=== PATIENT | female | born 1965 | race Caucasian/White ===

== ENCOUNTER → 2018-01-14 | Outpatient (CLI) | payer BC ==
--- NOTE | 2018-01-14 15:26 | P.HPBAR ---
Bariatric H&P - History & Physicial H&P Date: 01/14/18 History & Physicial: Visit/CC: Patient initial contact: Initial weight: Initial weight in pounds: Height: Initial BMI: Last weight: Current weight: Current weight in pounds: Current BMI: [place] body weight (based on NIH guidelines): Excess body weight loss: The patient is a 52 year-old F who presents for Bariatric Assessment. HPI: She has severe reflux and is looking into the gastric bypass. Her BMI is over 50. Highest weight 330 pounds. She has completed her colonoscopy. She reports no gallbladder. She has lost moderate weight with dieting. She had polyps of her colon. No family history of diabetes. Mother and sister with obesity as well. She has not an EGD. She has lower back pain and she passes kidney stones and drinks lemonade as a result. No stomach or esophageal cancer. Breast cancer is in her family. She had a mammogram. She has sleep apnea. She is pre-diabetic. PLAN: 1. [facility] [place]. 2. Plan for surgery in May 2018. Past Medical History Past Medical History: No Reported History History of Any Multi-Drug Resistant Organisms: MRSA Year Discovered:: eight years ago MDRO Source:: work place equipment Past Surgical History: Adenoidectomy, Cholecystectomy, Hernia Repair, Hysterectomy, Orthopedic Surgery, Tonsillectomy Additional Past Surgical History / Comment(s): bilateral meniscus repairs umbilical hernia repair Past Anesthesia/Blood Transfusion Reactions: No Reported Reaction Past Psychological History: Depression Smoking Status: Former smoker Past Alcohol Use History: None Reported Additional Past Alcohol Use History / Comment(s): quit smoking 8 years ago Past Drug Use History: None Reported Bariatric Checklist Checklist: Plan: Checklist: EGD: 1. Hiatal hernia: 2. H. Pylori: HgbA1c: Vitamin D: Smoking: Former smoker Primary care physician referral: Psychiatry clearance: Cardiology clearance: Sleep study: Diet journal: VTE risk score: VTE risk level: Rehab needs at discharge:
[2018-01-14 15:28] VITALS: BP 114/81; PULSE 88; RESP 20; TEMP 97.9; BMI 50.9
[2018-01-14 16:54] LABS: HCT 41.8 % (34.0-46.0); HGB 13.5 gm/dL (11.4-16.0); MCH 29.1 pg (25.0-35.0); MCHC 32.3 g/dL (31.0-37.0); MCV 90.3 fL (80.0-100.0); Mean Platelet Volume 7.5; Platelet Count 288 k/uL (150-450); RBC 4.63 m/uL (3.80-5.40); RDW 13.9 % (11.5-15.5); WBC 9.7 k/uL (3.8-10.6)
[2018-01-14 17:09] LABS: ALT 66 U/L (9-52); AST 59 U/L (14-36); Albumin 4.3 g/dL (3.5-5.0); Alkaline Phosphatase 132 U/L (38-126); Anion Gap 11 mmol/L; Blood Urea Nitrogen 17 mg/dL (7-17); Calcium 10.2 mg/dL (8.4-10.2); Carbon Dioxide 25 mmol/L (22-30); Chloride 106 mmol/L (98-107); Cholesterol 188 mg/dL (<200); Glucose 100 mg/dL (74-99); HDL Cholesterol 43 mg/dL (40-60); LDL Cholesterol,Calculated 112 mg/dL (0-99); Potassium 4.5 mmol/L (3.5-5.1); Sodium 142 mmol/L (137-145); Total Bilirubin 0.5 mg/dL (0.2-1.3); Total Protein 7.5 g/dL (6.3-8.2); Triglycerides 163 mg/dL (<150)
[2018-01-15 00:47] LABS: Iron Saturation 14.08 (12.00-45.00)
[2018-01-15 00:54] LABS: Vitamin D 25 Hydroxy 37.5 ng/mL (30.0-100.0)
[2018-01-15 00:58] LABS: Folate, Serum 12.3 ng/mL
[2018-01-15 04:00] LABS: Hemoglobin A1C 6.5 % (4.0-6.0)
== END | disposition home or self-care (01) ==
LOC: BARWHC3 14:43
PROVIDERS: ATTEND Surgery Plastic and Reconstructive Surgery
DX: E66.01 Morbid (severe) obesity due to excess calories (principal); E88.81 Metabolic syndrome and other insulin resistance; E44.0 Moderate protein-calorie malnutrition; E55.9 Vitamin D deficiency, unspecified; I11.9 Hypertensive heart disease without heart failure; K21.9 Gastro-esophageal reflux disease without esophagitis; G47.30 Sleep apnea, unspecified; Z68.43 Body mass index [BMI] 50.0-59.9, adult; Z87.891 Personal history of nicotine dependence; Z90.89 Acquired absence of other organs; Z90.49 Acquired absence of other specified parts of digestive tract; Z90.710 Acquired absence of both cervix and uterus; Z98.890 Other specified postprocedural states
CPT/HCPCS: 36415; 80053; 80061; 82306; 82607; 82728; 82746; 83036; 83540; 83550; 84425; 84443; 85027; 93005; 99201

== ENCOUNTER → 2018-03-10 | Day surgery (SDC) | payer BC ==
[2018-03-05 15:05] VITALS: BMI 52.4
--- NOTE | 2018-03-09 22:45 | P.GSHP ---
History of Present Illness H&P Date: 03/10/18 CHIEF COMPLAINT: GERD HISTORY OF PRESENT ILLNESS: The patient is a 53-year-old female who presents reports gastroesophageal reflux disease. Upper endoscopy was offered for further evaluation and management. PAST MEDICAL HISTORY: Please see list. PAST SURGICAL HISTORY: Please see list. MEDICATIONS: Please see list. ALLERGIES: Please see list. SOCIAL HISTORY: No illicit drug use FAMILY HISTORY: No reports of Crohn disease or ulcerative colitis. REVIEW OF ORGAN SYSTEMS: CONSTITUTIONAL: No reports of fevers or chills. GI: Denies any blood in stools or constipation. PHYSICAL EXAM: VITAL SIGNS: Stable GENERAL: Well-developed and pleasant in no acute distress. HEENT: No scleral icterus. Extraocular movements grossly intact. Moist buccal mucosa. NECK: Supple without lymphadenopathy. CHEST: Unlabored respirations. Equal bilateral excursions. CARDIOVASCULAR: Regular rate and rhythm. Distal 2+ pulses. ABDOMEN: Soft, nondistended. MUSCULOSKELETAL: No clubbing, cyanosis, or edema. ASSESSMENT: 1. Gastroesophageal reflux disease PLAN: 1. Recommend proceeding with an upper endoscopy Past Medical History Past Medical History: GERD/Reflux, Sleep Apnea/CPAP/BIPAP Additional Past Medical History / Comment(s): CHRONIC SINUSITIS, STATES CURRENT RUPTURED RT EAR DRUM, HX KIDNEY STONES, COLON POLYPS, History of Any Multi-Drug Resistant Organisms: MRSA Date of last positivie culture/infection: 2009 MDRO Source:: RIGHT LEG Past Surgical History: Adenoidectomy, Cholecystectomy, Hernia Repair, Hysterectomy, Orthopedic Surgery, Tonsillectomy Additional Past Surgical History / Comment(s): bilateral meniscus repairs, umbilical hernia repair, LEFT EAR SX Past Anesthesia/Blood Transfusion Reactions: Postoperative Nausea & Vomiting ( PONV) Smoking Status: Former smoker - Past Family History Mother Family Medical History: No Reported History Medications and Allergies Home Medications Medication Instructions Recorded Confirmed Type Cholecalciferol [Vitamin D3] 1,000 unit PO DAILY 10/26/17 03/05/18 History Multivitamins, Thera [Multivitamin 1 tab PO DAILY 10/26/17 03/05/18 History (formulary)] Soy Isofla/Blk Cohosh/Mag Bark 155 mg PO DAILY 10/26/17 03/05/18 History [Estroven 155 mg Capsule] Albuterol Sulfate [Proair Hfa] 1 puff INHALATION DIRECTED 01/15/18 03/05/18 History Ibuprofen [Motrin Ib] 200 mg PO Q6H PRN 03/05/18 03/05/18 History Allergies Allergy/AdvReac Type Severity Reaction Status Date / Time cephalexin [From Keflex] Allergy Swelling Verified 03/05/18 14:58 morphine Allergy Dyspnea Verified 03/05/18 14:58
[~2018-03-10] MED LIST: LACTATED RINGERS 1,000 ML IV SCH; LIDOCAINE 1% INJ 10MG/ML (20 ML MDV) ONE; PROPOFOL 10 MG/ML 20 ML VIAL IV ONE
[2018-03-10 08:24] VITALS: RESP 16; TEMP 98.1
--- NOTE | 2018-03-10 09:12 | P.PCN ---
Date of Procedure: 03/10/18 Description of Procedure: PREOPERATIVE DIAGNOSIS: Gastroesophageal reflux disease. Morbid obesity. POSTOPERATIVE DIAGNOSIS: Morbid obesity. Gastritis. Gastroesophageal reflux disease. OPERATION: Esophagogastroduodenoscopy with biopsies along antrum. SURGEON: Oksana Matamoros MD ANESTHESIA: MAC. INDICATIONS: The patient is a 53-year-old female who presents with a history of reflux disease. Benefits and risks of the procedure were described. Informed consent was obtained. DESCRIPTION: The patient was brought into the endoscopy suite and laid in the left lateral decubitus position. An Olympus gastroscope was passed along the posterior oropharynx down to the distal esophagus where the squamocolumnar junction was encountered at 40 cm from the incisors. The stomach was entered and no bile reflux was found. Additional findings are listed below. Biopsies with cold forceps were obtained of the antrum. The first through third portion of the duodenum was examined and unremarkable. Retroflexion of the scope confirmed Hill grade 2 lower esophageal valve. The squamocolumnar junction demonstrated LA grade B erosive esophagitis. The stomach was desufflated. The patient tolerated the procedure well. FINDINGS: Squamocolumnar junction 40 cm from the incisors. Diaphragmatic hiatus at 40 cm. Hill grade 2 lower esophageal valve. LA grade B erosive esophagitis. No active duodenitis. Chronic gastritis without bleed RECOMMENDATIONS: Upper endoscopy as needed. Plan - Discharge Summary New Discharge Prescriptions: No Action Cholecalciferol [Vitamin D3] 1,000 unit PO DAILY Multivitamins, Thera [Multivitamin (formulary)] 1 tab PO DAILY Soy Isofla/Blk Cohosh/Mag Bark [Estroven 155 mg Capsule] 155 mg PO DAILY Albuterol Sulfate [Proair Hfa] 1 puff INHALATION DIRECTED Ibuprofen [Motrin Ib] 200 mg PO Q6H PRN PRN Reason: Pain Discharge Medication List Cholecalciferol [Vitamin D3] 1,000 unit PO DAILY 10/26/17 [History] Multivitamins, Thera [Multivitamin (formulary)] 1 tab PO DAILY 10/26/17 [History ] Soy Isofla/Blk Cohosh/Mag Bark [Estroven 155 mg Capsule] 155 mg PO DAILY [History] Albuterol Sulfate [Proair Hfa] 1 puff INHALATION DIRECTED 01/15/18 [History] Ibuprofen [Motrin Ib] 200 mg PO Q6H PRN 03/05/18 [History]
[2018-03-10 09:35] VITALS: BP 114/65; PULSE 88
== END | disposition home or self-care (01) ==
LOC: ORWHC2ENDO 08:07
PROVIDERS: ATTEND Surgery Plastic and Reconstructive Surgery
DX: K29.50 Unspecified chronic gastritis without bleeding (principal); K21.0 Gastro-esophageal reflux disease with esophagitis; K22.10 Ulcer of esophagus without bleeding; E66.01 Morbid (severe) obesity due to excess calories; Z68.43 Body mass index [BMI] 50.0-59.9, adult; G47.33 Obstructive sleep apnea (adult) (pediatric); J45.909 Unspecified asthma, uncomplicated; J32.9 Chronic sinusitis, unspecified; Z99.89 Dependence on other enabling machines and devices; Z79.899 Other long term (current) drug therapy; Z88.1 Allergy status to other antibiotic agents; Z88.5 Allergy status to narcotic agent; Z90.49 Acquired absence of other specified parts of digestive tract; Z90.710 Acquired absence of both cervix and uterus; Z87.442 Personal history of urinary calculi; Z86.14 Personal history of Methicillin resistant Staphylococcus aureus infection; Z87.891 Personal history of nicotine dependence
CPT/HCPCS: 88305; 43239; J2001; J2704

== ENCOUNTER → 2018-05-24 | Outpatient (CLI) | payer BC ==
[2018-05-24 14:09] VITALS: BMI 53.4
== END | disposition home or self-care (01) ==
LOC: BARWHC3 08:24
PROVIDERS: ATTEND Surgery Plastic and Reconstructive Surgery
DX: E66.01 Morbid (severe) obesity due to excess calories (principal); Z68.43 Body mass index [BMI] 50.0-59.9, adult
CPT/HCPCS: 97804

== ENCOUNTER → 2018-10-13 | Outpatient (CLI) | payer BC ==
[2018-10-13 16:29] VITALS: BP 147/87; PULSE 78; TEMP 97.8; BMI 54.6
--- NOTE | 2018-10-13 17:32 | P.PN ---
Subjective Progress Note Date: 10/13/18 DATE OF SERVICE: 10/13/2018 CHIEF COMPLAINT: Morbid obesity HISTORY OF PRESENT ILLNESS: Neto Hickman is a 53-year-old female who comes in long-standing morbid obesity. She has severe gastroesophageal reflux and is looking into the gastric bypass. She has completed medical supervised weight loss, psychological assessment including medical risk assessment. She comes in with kidney stones. Her BMI is over 55. She has history of kidney stones. Her liver enzymes is high. She is doing overall well. At height of 5 feet 5 inches, her ideal body weight is 149 pounds. She comes in 328 pounds from 305 pounds, 9 months ago. Her body mass index is 50.9 up to 54.7. She has gained 22 pounds. She is 179 pounds overweight. PAST MEDICAL HISTORY: 1. Morbid obesity due to excess calories 2. Body mass index of 55.0 initial 3. Osteoarthritis of the knees. 4. Osteoarthritis of the hips. 5. Osteoarthritis of the lower back. 6. Obstructive sleep apnea. 8. Gastroesophageal reflux disease. 9. Depressive disorder 10. MRSA infection 11. History of colon polyps. 12. History of kidney stone PAST SURGICAL HISTORY: 1. Cholecystectomy 2. Adenoidectomy 3. Hysterectomy 4. Tonsillectomy 5. Umbilical hernia repair 6. Bilateral meniscus repair HOME MEDICATIONS: 1. Pro-air 2. Multivitamin 3. Ibuprofen 4. Vitamin D ALLERGIES: 1. Cephalexin 2. Morphine SOCIAL HISTORY: Past tobacco use. FAMILY HISTORY: No family history of ulcerative colitis disease or Crohn's disease. Family history of morbid obesity. No lupus in the family. No reports of stomach or esophageal cancer. Family history of diabetes type 2. REVIEW OF ORGAN SYSTEMS: CONSTITUTIONAL: At height of 5 feet 5 inches, her ideal body weight is 149 pounds. Highest weight 330 pounds. Previous BMI 55.0. HEENT: Denies any active troubles with vision or hearing. No troubles with swallowing. ENDOCRINE: No diabetes. No hypothyroidism. CARDIOVASCULAR: No reports of palpitations or heart attacks or chest pain. RESPIRATORY: Has daytime somnolence. Has asthma. GI: Denies any bright red blood per rectum. MUSCULOSKELETAL: Has lower back pain and joint pain. Has osteoarthritis of the knees. : Has kidney stones. NEURO: No headaches. No seizure disorders. PSYCH: No depression or suicidal ideation. RHEUMATOLOGIC: No lupus. No rheumatoid arthritis. HEMATOLOGIC: Denies any abnormal bleeding or bruising. No personal history of DVTs. SKIN: No rash. No skin cancer. Previous history of MRSA infection PHYSICAL EXAM: VITAL SIGNS: Height 5 foot 5 inches, weight 328 pounds. BMI 54.7 Vital Signs Temp 97.8 F 10/13/18 16:07 Pulse 78 10/13/18 16:07 Resp BP 147/87 10/13/18 16:07 Pulse Ox GENERAL: Well-developed in no acute distress. HEENT: No scleral icterus. Extraocular movements grossly intact. Hears conversational speech. No nasal drainage. NECK: Supple without lymphadenopathy. CHEST: Nonlabored respirations with equal bilateral excursions. CARDIOVASCULAR: Regular rate and regular rhythm. Distal 2+ pulses. ABDOMEN: Obese, soft, nondistended. MUSCULOSKELETAL: No clubbing, cyanosis or edema. Gross strength 5/5 distal lower extremities. NEURO: No focal or lateralizing signs. Cranial nerves 2 through 12 grossly within normal limits. PSYCH: Appropriate affect. Alert and oriented to person, place and time. SKIN: Good skin turgor. Well perfused. STUDIES: EGD FINDINGS: Squamocolumnar junction 40 cm from the incisors. Diaphragmatic hiatus at 40 cm. Hill grade 2 lower esophageal valve. LA grade B erosive esophagitis. No active duodenitis. Chronic gastritis without bleed Final Pathologic Diagnosis GASTRIC ANTRUM, BIOPSY: Chronic gastritis with focal minimal active gastritis. Reactive mucosal changes including foveolar hyperplasia. Helicobacter organisms are not identified on routine H+E stained sections. ASSESSMENT: 1. Morbid obesity due to excess calories 2. Body mass index of 54.7 3. Osteoarthritis of the knees. 4. Osteoarthritis of the hips. 5. Osteoarthritis of the lower back. 6. Obstructive sleep apnea. 7. Hypertensive heart disease. 8. Gastroesophageal reflux disease. 9. Diabetes type 2, [id number] 10. Seizure disorder 11. Depressive disorder 12. Asthma 13. Bipolar disorder 14. Vitamin D deficiency 15. Iron deficiency anemia 16. Hypertriglyceridemia 17. Hypercholesterolemia PLAN: 1. Bariatric options between a sleeve, band and a Neris-en-Y gastric bypass were reviewed in detail. The patient elected for a gastric bypass. Robotic assisted approach described. 2. The [place] [facility] Data was also reviewed with benefits and risks as described. 3. An 8 page second-generation bariatric consent form was reviewed in detail including potential of bleeding, infection, leaks, adequate weight loss, nutritional deficiencies which the patient demonstrated understanding of the risks. 4. A 2 week high-protein low caloric 800 kcal diet described to address hepatomegaly. 5. Preoperative labs including complete metabolic panel and CBC with type and screen recommended. 6. DVT prophylaxis per [place] [facility]. 7. Antibiotic prophylaxis. 8. Inpatient hospitalization anticipated for more than 2 nights. 9. All questions and concerns were addressed with the patient. Objective - Vital Signs Vital signs: Vital Signs Temp 97.8 F 10/13/18 16:07 Pulse 78 10/13/18 16:07 Resp BP 147/87 10/13/18 16:07 Pulse Ox Intake & Output 10/12/18 10/13/18 10/13/18 18:59 06:59 18:59 Weight 149.05 kg
== END | disposition home or self-care (01) ==
LOC: BARWHC3 14:13
PROVIDERS: ATTEND Surgery Plastic and Reconstructive Surgery
DX: E66.01 Morbid (severe) obesity due to excess calories (principal); M16.0 Bilateral primary osteoarthritis of hip; M17.0 Bilateral primary osteoarthritis of knee; M47.816 Spondylosis without myelopathy or radiculopathy, lumbar region; G47.33 Obstructive sleep apnea (adult) (pediatric); I11.9 Hypertensive heart disease without heart failure; K21.9 Gastro-esophageal reflux disease without esophagitis; E11.9 Type 2 diabetes mellitus without complications; G40.909 Epilepsy, unspecified, not intractable, without status epilepticus; J45.909 Unspecified asthma, uncomplicated; F31.9 Bipolar disorder, unspecified; E55.9 Vitamin D deficiency, unspecified; D50.9 Iron deficiency anemia, unspecified; E78.1 Pure hyperglyceridemia; E78.00 Pure hypercholesterolemia, unspecified; Z68.43 Body mass index [BMI] 50.0-59.9, adult; Z87.891 Personal history of nicotine dependence; Z88.1 Allergy status to other antibiotic agents; Z88.5 Allergy status to narcotic agent
CPT/HCPCS: 99211

== ENCOUNTER → 2018-12-11 | Outpatient (CLI) | payer BC ==
[2018-12-11 09:20] LABS: HCT 39.9 % (34.0-46.0); HGB 12.6 gm/dL (11.4-16.0); MCH 28.7 pg (25.0-35.0); MCHC 31.5 g/dL (31.0-37.0); MCV 91.1 fL (80.0-100.0); Platelet Count 253 k/uL (150-450); RBC 4.37 m/uL (3.80-5.40); RDW 14.4 % (11.5-15.5); WBC 7.5 k/uL (3.8-10.6)
[2018-12-11 09:28] LABS: Partial Thromboplastin Time 25.5 sec (22.0-30.0); Prothrombin Time 10.8 sec (9.0-12.0)
[2018-12-11 16:08] LABS: Parathyroid Hormone Intact 37.2 pg/mL (14.0-72.0)
[2018-12-11 17:16] LABS: Iron Saturation 24.72 (12.00-45.00)
[2018-12-11 17:17] LABS: African American GFR (CKD) 116.3 (60.0-200.0); Albumin/Globulin Ratio 1.6 (1.60-3.17); Anion Gap 7.1 mmol/L (4.00-12.00); BUN/Creat Ratio 18.57 Ratio (12.00-20.00); Calcium 9.5 mg/dL (8.7-10.3); Carbon Dioxide 26.9 mmol/L (21.6-31.8); Globulin 2.5 g/dL (1.6-3.3); LDL Cholesterol,Calculated 95.8 mg/dL (0.0-131.0); Magnesium 1.5 mg/dL (1.5-2.4); Phosphorus 3.4 mg/dL (2.4-5.1); Potassium 4.1 mmol/L (3.5-5.5); Total Bilirubin 0.7 mg/dL (0.3-1.2); Total Protein 6.5 g/dL (6.2-8.2); VLDL Calculation 27.2 mg/dL (5.00-40.00)
[2018-12-11 20:37] LABS: Hemoglobin A1C 11.1 % (4.0-6.0)
[2018-12-13 13:59] LABS: Zinc, Serum 69 ug/dL (60-130)
[2018-12-14 09:42] LABS: Vit B1(Thiamine) 55 ug/L (38-122)
[2018-12-14 10:49] LABS: Vitamin A 30 ug/dL (38-106)
== END | disposition home or self-care (01) ==
LOC: LABWHC1 08:47
PROVIDERS: ATTEND Surgery Plastic and Reconstructive Surgery
DX: E21.1 Secondary hyperparathyroidism, not elsewhere classified (principal); E89.1 Postprocedural hypoinsulinemia; D50.9 Iron deficiency anemia, unspecified; K90.9 Intestinal malabsorption, unspecified; E44.0 Moderate protein-calorie malnutrition; E55.9 Vitamin D deficiency, unspecified; K74.1 Hepatic sclerosis; N19 Unspecified kidney failure; K50.90 Crohn's disease, unspecified, without complications; E66.01 Morbid (severe) obesity due to excess calories
CPT/HCPCS: 36415; 80053; 80061; 82306; 82525; 82607; 82728; 82746; 83036; 83540; 83550; 83735; 83970; 84100; 84134; 84255; 84425; 84443; 84590; 84630; 85027; 85610; 85730

== ENCOUNTER → 2018-12-15 | Outpatient (CLI) | payer BC ==
[2018-12-15 16:44] VITALS: BP 123/70; PULSE 91; TEMP 98.3; BMI 52.0
--- NOTE | 2018-12-15 16:58 | P.PN ---
Subjective Progress Note Date: 12/15/18 DATE OF SERVICE: 12/15/2018 CHIEF COMPLAINT: Morbid obesity HISTORY OF PRESENT ILLNESS: Neto Hickman is a 53-year-old female who comes in long-standing morbid obesity. She is looking into the gastric bypass. She comes in with Hgb A1 c of 11.1 up from 6.8. She reports feeling sick for 1 month and not taking her diabetic medications. She had moderate weight gain over 6 months ago and now has started re-dieting. At height of 5 feet 5 inches, her ideal body weight is 149 pounds. She comes in 312 pounds from 328 pounds, 2 months ago. Her body mass index is down from 54.7 to 52.1. She has lost 16 pounds. She is 163 pounds overweight. PHYSICAL EXAM: VITAL SIGNS: Height 5 foot 5 inches, weight 312 pounds. BMI 52.1 Vital Signs Temp 98.3 F 12/15/18 16:35 Pulse 91 12/15/18 16:35 Resp BP 123/70 12/15/18 16:35 Pulse Ox GENERAL: Well-developed in no acute distress. HEENT: No scleral icterus. Extraocular movements grossly intact. Hears conversational speech. No nasal drainage. NECK: Supple without lymphadenopathy. CHEST: Nonlabored respirations with equal bilateral excursions. CARDIOVASCULAR: Regular rate and regular rhythm. Distal 2+ pulses. ABDOMEN: Obese, soft, nondistended. MUSCULOSKELETAL: No clubbing, cyanosis or edema. Gross strength 5/5 distal lower extremities. NEURO: No focal or lateralizing signs. Cranial nerves 2 through 12 grossly within normal limits. PSYCH: Appropriate affect. Alert and oriented to person, place and time. SKIN: Good skin turgor. Well perfused. ASSESSMENT: 1. Morbid obesity due to excess calories 2. Body mass index of 55.0 down to 52.1 3. Osteoarthritis of the knees. 4. Osteoarthritis of the hips. 5. Osteoarthritis of the lower back. 6. Obstructive sleep apnea. 7. Hypertensive heart disease. 8. Gastroesophageal reflux disease. 9. Diabetes type 2, [id number], uncontrolled 10. Seizure disorder 11. Depressive disorder 12. Asthma 13. Bipolar disorder 14. Vitamin D deficiency 15. Iron deficiency anemia 16. Hypertriglyceridemia 17. Hypercholesterolemia PLAN: 1. Recommend referral to low pressure firer for uncontrolled diabetes type 2 and poor glycemic control. 2. Will need additional anti-diabetic medications. 3. Repeat hemoglobin A1c in 2 to 3 months prior to surgical intervention. Objective - Vital Signs Vital signs: Vital Signs Temp 98.3 F 12/15/18 16:35 Pulse 91 12/15/18 16:35 Resp BP 123/70 12/15/18 16:35 Pulse Ox Intake & Output 12/14/18 12/15/18 12/15/18 18:59 06:59 18:59 Weight 141.974 kg
== END | disposition home or self-care (01) ==
LOC: BARWHC3 16:24
PROVIDERS: ATTEND Surgery Plastic and Reconstructive Surgery
DX: E66.01 Morbid (severe) obesity due to excess calories (principal); M17.0 Bilateral primary osteoarthritis of knee; M16.0 Bilateral primary osteoarthritis of hip; G47.33 Obstructive sleep apnea (adult) (pediatric); I11.9 Hypertensive heart disease without heart failure; K21.9 Gastro-esophageal reflux disease without esophagitis; E11.9 Type 2 diabetes mellitus without complications; E78.1 Pure hyperglyceridemia; E55.9 Vitamin D deficiency, unspecified; E78.00 Pure hypercholesterolemia, unspecified; D50.9 Iron deficiency anemia, unspecified; G40.909 Epilepsy, unspecified, not intractable, without status epilepticus; J45.909 Unspecified asthma, uncomplicated; M47.816 Spondylosis without myelopathy or radiculopathy, lumbar region; F32.9 Major depressive disorder, single episode, unspecified; Z68.43 Body mass index [BMI] 50.0-59.9, adult
CPT/HCPCS: 99211

== ENCOUNTER → 2019-02-23 | Outpatient (CLI) | payer BC ==
[2019-02-23 16:34] VITALS: BP 144/90; PULSE 78; RESP 16; TEMP 97.6; BMI 49.9
--- NOTE | 2019-02-23 16:41 | P.PN ---
Subjective Progress Note Date: 02/23/19 DATE OF SERVICE: 02/23/2019 CHIEF COMPLAINT: Morbid obesity HISTORY OF PRESENT ILLNESS: Neto Hickman is a 54-year-old female who comes in long-standing morbid obesity. She is looking into the gastric bypass. Her weight is now improved. She has lost 30 pounds. Her blood sugars are 90 to 125 in the morning. Hgb A1C is under 8.0 from 11.1%. No reports of abdominal pain. At height of 5 feet 5 inches, her ideal body weight is 149 pounds. She comes in 299 pounds from 312 pounds, 2 months ago. Her body mass index is down from 54.7 to 49.9 She has lost 13 pounds in 2 months. She is 150 pounds overweight. PAST MEDICAL HISTORY: 1. Morbid obesity due to excess calories 2. Body mass index of 55.0 initial 3. Osteoarthritis of the knees. 4. Osteoarthritis of the hips. 5. Osteoarthritis of the lower back. 6. Obstructive sleep apnea. 8. Gastroesophageal reflux disease. 9. Depressive disorder 10. MRSA infection 11. History of colon polyps. 12. History of kidney stone PAST SURGICAL HISTORY: 1. Cholecystectomy 2. Adenoidectomy 3. Hysterectomy 4. Tonsillectomy 5. Umbilical hernia repair 6. Bilateral meniscus repair HOME MEDICATIONS: Home Medications Medication Instructions Recorded Confirmed Albuterol Sulfate [Proair Hfa] 1 puff INHALATION Q6H PRN 01/15/18 02/24/19 Butalbital/Aspirin/Caffeine 1 tab PO Q4H PRN 10/13/18 02/24/19 [Yzumdc-Ozucidb-Sbjflasb 50-325-40 mg] Furosemide [Lasix] 20 mg PO DAILY PRN 10/13/18 02/24/19 Sertraline [Zoloft] 50 mg PO HS 10/13/18 02/24/19 Pioglitazone [Actos] 15 mg PO DAILY 02/01/19 02/24/19 metFORMIN HCL [Glucophage] 1,000 mg PO BID 02/01/19 02/24/19 ALLERGIES: Allergies Allergy/AdvReac Type Severity Reaction Status Date / Time cephalexin [From Keflex] Allergy Swelling Verified 02/23/19 10:49 morphine Allergy Dyspnea Verified 02/23/19 10:49 SOCIAL HISTORY: Past tobacco use. FAMILY HISTORY: No family history of ulcerative colitis disease or Crohn's disease. Family history of morbid obesity. No lupus in the family. No reports of stomach or esophageal cancer. Family history of diabetes type 2. REVIEW OF ORGAN SYSTEMS: CONSTITUTIONAL: At height of 5 feet 5 inches, her ideal body weight is 149 pounds. Highest weight 330 pounds. Previous BMI 55.0. HEENT: Denies any active troubles with vision or hearing. No troubles with swallowing. ENDOCRINE: No diabetes. No hypothyroidism. CARDIOVASCULAR: No reports of palpitations or heart attacks or chest pain. RESPIRATORY: Has daytime somnolence. Has asthma. GI: Denies any bright red blood per rectum. MUSCULOSKELETAL: Has lower back pain and joint pain. Has osteoarthritis of the knees. : Has kidney stones. NEURO: No headaches. No seizure disorders. PSYCH: No depression or suicidal ideation. RHEUMATOLOGIC: No lupus. No rheumatoid arthritis. HEMATOLOGIC: Denies any abnormal bleeding or bruising. No personal history of DVTs. SKIN: No rash. No skin cancer. Previous history of MRSA infection PHYSICAL EXAM: VITAL SIGNS: Height 5 foot 5 inches, weight 299 pounds. BMI 49.9 Vital Signs Temp 97.6 F 02/23/19 16:13 Pulse 78 02/23/19 16:13 Resp 16 02/23/19 16:13 BP 144/90 02/23/19 16:13 Pulse Ox GENERAL: Well-developed in no acute distress. HEENT: No scleral icterus. Extraocular movements grossly intact. Hears conversational speech. No nasal drainage. NECK: Supple without lymphadenopathy. CHEST: Nonlabored respirations with equal bilateral excursions. CARDIOVASCULAR: Regular rate and regular rhythm. Distal 2+ pulses. ABDOMEN: Obese, soft, nondistended. MUSCULOSKELETAL: No clubbing, cyanosis or edema. NEURO: No focal or lateralizing signs. Cranial nerves 2 through 12 grossly within normal limits. PSYCH: Appropriate affect. Alert and oriented to person, place and time. SKIN: Good skin turgor. Well perfused. ASSESSMENT: 1. Morbid obesity due to excess calories 2. Body mass index of 55.0 down to 49.9 3. Osteoarthritis of the knees. 4. Osteoarthritis of the hips. 5. Osteoarthritis of the lower back. 6. Obstructive sleep apnea. 7. Hypertensive heart disease. 8. Gastroesophageal reflux disease. 9. Diabetes type 2, sbf-jasdjoy-acjdqnzia, uncontrolled 10. Seizure disorder 11. Depressive disorder 12. Asthma 13. Bipolar disorder 14. Vitamin D deficiency 15. Iron deficiency anemia 16. Hypertriglyceridemia 17. Hypercholesterolemia PLAN: 1. Bariatric options between a sleeve, band and a Neris-en-Y gastric bypass were reviewed in detail. The patient elected for a gastric bypass. Robotic assisted approach described. 2. The [place] [facility] Data was also reviewed with benefits and risks as described. 3. An 8 page second-generation bariatric consent form was reviewed in detail including potential of bleeding, infection, leaks, adequate weight loss, nutritional deficiencies which the patient demonstrated understanding of the risks. 4. A 2 week high-protein low caloric 800 kcal diet described to address hepatomegaly. 5. Preoperative labs including complete metabolic panel and CBC with type and screen recommended. 6. DVT prophylaxis per [place] [facility]. 7. Antibiotic prophylaxis. 8. Inpatient hospitalization anticipated for more than 2 nights. 9. All questions and concerns were addressed with the patient. 10. She is extremely high risk for history of hyperglycemia. Objective - Vital Signs Vital signs: Vital Signs Temp 97.6 F 02/23/19 16:13 Pulse 78 02/23/19 16:13 Resp 16 02/23/19 16:13 BP 144/90 02/23/19 16:13 Pulse Ox Intake & Output 02/22/19 02/23/19 02/23/19 18:59 06:59 18:59 Weight 136.078 kg
== END | disposition home or self-care (01) ==
LOC: BARWHC3 15:30
PROVIDERS: ATTEND Surgery Plastic and Reconstructive Surgery
DX: E66.01 Morbid (severe) obesity due to excess calories (principal); M17.0 Bilateral primary osteoarthritis of knee; M16.0 Bilateral primary osteoarthritis of hip; G47.33 Obstructive sleep apnea (adult) (pediatric); I11.9 Hypertensive heart disease without heart failure; K21.9 Gastro-esophageal reflux disease without esophagitis; E11.9 Type 2 diabetes mellitus without complications; G40.909 Epilepsy, unspecified, not intractable, without status epilepticus; F32.9 Major depressive disorder, single episode, unspecified; J45.909 Unspecified asthma, uncomplicated; E55.9 Vitamin D deficiency, unspecified; D50.9 Iron deficiency anemia, unspecified; E78.1 Pure hyperglyceridemia; E78.00 Pure hypercholesterolemia, unspecified; Z68.42 Body mass index [BMI] 45.0-49.9, adult; Z87.891 Personal history of nicotine dependence; Z88.5 Allergy status to narcotic agent; Z88.1 Allergy status to other antibiotic agents; Z79.899 Other long term (current) drug therapy; Z79.84 Long term (current) use of oral hypoglycemic drugs; Z79.82 Long term (current) use of aspirin
CPT/HCPCS: 99211

== ENCOUNTER → 2019-02-23 | Outpatient (CLI) | payer BC ==
[2019-02-23 17:39] LABS: Basophils # (A) 0.2 k/uL (0-0.2); Basophils % (A) 2 %; Eosinophils # (A) 0.3 k/uL (0-0.7); Eosinophils % (A) 3 %; HCT 41.4 % (34.0-46.0); HGB 13.6 gm/dL (11.4-16.0); Lymphocytes # (A) 3.6 k/uL (1.0-4.8); Lymphocytes % (A) 35 %; MCH 29.9 pg (25.0-35.0); MCV 90.9 fL (80.0-100.0); Mean Platelet Volume 7.2; Monocytes # (A) 0.4 k/uL (0-1.0); Monocytes % (A) 4 %; Neutrophils # (A) 5.6 k/uL (1.3-7.7); Neutrophils % (A) 55 %; Platelet Count 316 k/uL (150-450); RBC 4.55 m/uL (3.80-5.40); RDW 15.3 % (11.5-15.5); WBC 10.2 k/uL (3.8-10.6)
[2019-02-23 17:51] LABS: Albumin 4.5 g/dL (3.5-5.0); Calcium 10.5 mg/dL (8.4-10.2); Potassium 4.2 mmol/L (3.5-5.1); Total Bilirubin 0.8 mg/dL (0.2-1.3); Total Protein 8.2 g/dL (6.3-8.2)
== END | disposition home or self-care (01) ==
LOC: LABPAT 16:49
PROVIDERS: ATTEND Surgery Plastic and Reconstructive Surgery
DX: Z01.812 Encounter for preprocedural laboratory examination (principal)
CPT/HCPCS: 36415; 80053; 85025; 93005

== ENCOUNTER 2019-03-17 10:28 | Inpatient (IN) | payer BC ==
--- NOTE | 2019-03-17 09:11 | P.GSHP ---
History of Present Illness H&P Date: 03/17/19 DATE OF SERVICE: 03/17/2019 CHIEF COMPLAINT: Morbid obesity HISTORY OF PRESENT ILLNESS: Neto Hickman is a 54-year-old female who comes in long-standing morbid obesity. She is looking into the gastric bypass. Her weight is now improved. She has lost 30 pounds. Her blood sugars are 90 to 125 in the morning. Hgb A1C is under 8.0 from 11.1%. No reports of abdominal pain. At height of 5 feet 5 inches, her ideal body weight is 149 pounds. She comes in 299 pounds from 312 pounds, 2 months ago. Her body mass index is down from 54.7 to 49.9 She has lost 13 pounds in 2 months. She is 150 pounds overweight. PAST MEDICAL HISTORY: 1. Morbid obesity due to excess calories 2. Body mass index of 55.0 initial 3. Osteoarthritis of the knees. 4. Osteoarthritis of the hips. 5. Osteoarthritis of the lower back. 6. Obstructive sleep apnea. 8. Gastroesophageal reflux disease. 9. Depressive disorder 10. MRSA infection 11. History of colon polyps. 12. History of kidney stone PAST SURGICAL HISTORY: 1. Cholecystectomy 2. Adenoidectomy 3. Hysterectomy 4. Tonsillectomy 5. Umbilical hernia repair 6. Bilateral meniscus repair HOME MEDICATIONS: Home Medications Medication Instructions Recorded Confirmed Albuterol Sulfate [Proair Hfa] 1 puff INHALATION Q6H PRN 01/15/18 02/24/19 Butalbital/Aspirin/Caffeine 1 tab PO Q4H PRN 10/13/18 02/24/19 [Twpbac-Jhfwkao-Epyonjnu 50-325-40 mg] Furosemide [Lasix] 20 mg PO DAILY PRN 10/13/18 02/24/19 Sertraline [Zoloft] 50 mg PO HS 10/13/18 02/24/19 Pioglitazone [Actos] 15 mg PO DAILY 02/01/19 02/24/19 metFORMIN HCL [Glucophage] 1,000 mg PO BID 02/01/19 02/24/19 ALLERGIES: Allergies Allergy/AdvReac Type Severity Reaction Status Date / Time cephalexin [From Keflex] Allergy Swelling Verified 02/23/19 10:49 morphine Allergy Dyspnea Verified 02/23/19 10:49 SOCIAL HISTORY: Past tobacco use. FAMILY HISTORY: No family history of ulcerative colitis disease or Crohn's disease. Family history of morbid obesity. No lupus in the family. No reports of stomach or esophageal cancer. Family history of diabetes type 2. REVIEW OF ORGAN SYSTEMS: CONSTITUTIONAL: At height of 5 feet 5 inches, her ideal body weight is 149 pounds. Highest weight 330 pounds. Previous BMI 55.0. HEENT: Denies any active troubles with vision or hearing. No troubles with swallowing. ENDOCRINE: No diabetes. No hypothyroidism. CARDIOVASCULAR: No reports of palpitations or heart attacks or chest pain. RESPIRATORY: Has daytime somnolence. Has asthma. GI: Denies any bright red blood per rectum. MUSCULOSKELETAL: Has lower back pain and joint pain. Has osteoarthritis of the knees. : Has kidney stones. NEURO: No headaches. No seizure disorders. PSYCH: No depression or suicidal ideation. RHEUMATOLOGIC: No lupus. No rheumatoid arthritis. HEMATOLOGIC: Denies any abnormal bleeding or bruising. No personal history of DVTs. SKIN: No rash. No skin cancer. Previous history of MRSA infection PHYSICAL EXAM: VITAL SIGNS: Height 5 foot 5 inches, weight 299 pounds. BMI 49.9 GENERAL: Well-developed in no acute distress. HEENT: No scleral icterus. Extraocular movements grossly intact. Hears conversational speech. No nasal drainage. NECK: Supple without lymphadenopathy. CHEST: Nonlabored respirations with equal bilateral excursions. CARDIOVASCULAR: Regular rate and regular rhythm. Distal 2+ pulses. ABDOMEN: Obese, soft, nondistended. MUSCULOSKELETAL: No clubbing, cyanosis or edema. NEURO: No focal or lateralizing signs. Cranial nerves 2 through 12 grossly within normal limits. PSYCH: Appropriate affect. Alert and oriented to person, place and time. SKIN: Good skin turgor. Well perfused. ASSESSMENT: 1. Morbid obesity due to excess calories 2. Body mass index of 55.0 down to 49.9 3. Osteoarthritis of the knees. 4. Osteoarthritis of the hips. 5. Osteoarthritis of the lower back. 6. Obstructive sleep apnea. 7. Hypertensive heart disease. 8. Gastroesophageal reflux disease. 9. Diabetes type 2, rqa-wqjsfav-ksvccgyhz, uncontrolled 10. Seizure disorder 11. Depressive disorder 12. Asthma 13. Bipolar disorder 14. Vitamin D deficiency 15. Iron deficiency anemia 16. Hypertriglyceridemia 17. Hypercholesterolemia PLAN: 1. Bariatric options between a sleeve, band and a Neris-en-Y gastric bypass were reviewed in detail. The patient elected for a gastric bypass. Robotic assisted approach described. 2. The [place] [facility] Data was also reviewed with benefits and risks as described. 3. An 8 page second-generation bariatric consent form was reviewed in detail including potential of bleeding, infection, leaks, adequate weight loss, nutritional deficiencies which the patient demonstrated understanding of the risks. 4. A 2 week high-protein low caloric 800 kcal diet described to address hepatomegaly. 5. Preoperative labs including complete metabolic panel and CBC with type and screen recommended. 6. DVT prophylaxis per [place] [facility]. 7. Antibiotic prophylaxis. 8. Inpatient hospitalization anticipated for more than 2 nights. 9. All questions and concerns were addressed with the patient. 10. She is extremely high risk for history of hyperglycemia. Past Medical History Past Medical History: Diabetes Mellitus, GERD/Reflux, Sleep Apnea/CPAP/BIPAP Additional Past Medical History / Comment(s): CHRONIC SINUSITIS, STATES CURRENT RUPTURED RT EAR DRUM, HX KIDNEY STONES, COLON POLYPS, kidney stones, History of Any Multi-Drug Resistant Organisms: MRSA Date of last positivie culture/infection: 2009 MDRO Source:: RIGHT LEG Past Surgical History: Adenoidectomy, Cholecystectomy, Hernia Repair, Hysterectomy, Orthopedic Surgery, Tonsillectomy Additional Past Surgical History / Comment(s): bilateral meniscus repairs, umbilical hernia repair, LEFT EAR SX Past Anesthesia/Blood Transfusion Reactions: Postoperative Nausea & Vomiting (PONV) Smoking Status: Former smoker - Past Family History Mother Family Medical History: No Reported History Medications and Allergies Home Medications Medication Instructions Recorded Confirmed Type Albuterol Sulfate [Proair Hfa] 1 puff INHALATION Q6H PRN 01/15/18 03/10/19 History Butalbital/Aspirin/Caffeine 1 tab PO Q4H PRN 10/13/18 03/10/19 History [Rmcolz-Bsrrhqv-Lwqxjbgo 50-325-40 mg] Furosemide [Lasix] 20 mg PO DAILY PRN 10/13/18 03/10/19 History Sertraline [Zoloft] 50 mg PO HS 10/13/18 03/10/19 History Pioglitazone [Actos] 15 mg PO DAILY 02/01/19 03/10/19 History metFORMIN HCL [Glucophage] 1,000 mg PO BID 02/01/19 03/10/19 History Allergies Allergy/AdvReac Type Severity Reaction Status Date / Time cephalexin [From Keflex] Allergy Swelling Verified 03/10/19 12:54 morphine Allergy Dyspnea Verified 03/10/19 12:54
[~2019-03-17 10:28] MED LIST changes: +ACETAMINOPHEN IV (For NPO) 1,000 MG in EMPTY BAG 1 BAG IVPB ONE; +CHLORHEXIDINE GLUCONATE 15 ML CUP MUCOUS MEM ONE; +DEXAMETHASONE SOD PHOSPHATE 10 MG/ML 1 ML VIAL IV ONE; +ENOXAPARIN 40 MG/0.4 ML SYRINGE SQ STA; +HYDROmorphone 0.5 MG/0.5 ML SYRINGE IVP PRN; -LACTATED RINGERS 1,000 ML IV SCH; -LIDOCAINE 1% INJ 10MG/ML (20 ML MDV) ONE; +ONDANSETRON 4 MG/2 ML VIAL IVP ONE; +PANTOPRAZOLE 40 MG/10 ML VIAL IV STA; -PROPOFOL 10 MG/ML 20 ML VIAL IV ONE
[2019-03-17] MEDS: LACTATED RINGERS 1,000 ML IV SCH ×2 (11:18→21:45)
[2019-03-17] MEDS ORDERED: LIDOCAINE 1% 20 ML VIAL (10MG/ML) FOR IV START INTRADERMA ONE (11:18)
[2019-03-17 11:43] LABS: Glucose,Whole Blood 97 mg/dL (75-99)
[2019-03-17] MEDS ORDERED: ROCURONIUM BROMIDE 10 MG/ML 10 ML VIAL IV ONE (14:04)
[2019-03-17] MEDS ORDERED: PROPOFOL 10 MG/ML 20 ML VIAL IV ONE (14:04)
[2019-03-17] MEDS ORDERED: NEOSTIGMINE 1 MG/ML 10 ML VIAL ONE (14:04)
[2019-03-17] MEDS ORDERED: HYDROmorphone (PF) 1 MG/ML ONE (14:04)
[2019-03-17] MEDS ORDERED: SUCCINYLCHOLINE CHLORIDE 100 MG/5 ML SYR IV ONE (14:04)
[2019-03-17] MEDS ORDERED: fentaNYL (PF) 50 MCG/ML 2 ML AMP ONE (14:04)
[2019-03-17] MEDS ORDERED: GLYCOPYRROLATE 0.2 MG/ML 2 ML VIAL ONE (14:04)
[2019-03-17] MEDS ORDERED: MIDAZOLAM 2 MG/2 ML VIAL ONE (14:04)
[2019-03-17] MEDS ORDERED: ONDANSETRON 4 MG/2 ML VIAL ONE (14:04)
[2019-03-17] MEDS ORDERED: LIDOCAINE 1% INJ 10MG/ML (20 ML MDV) ONE (14:04)
[2019-03-17] MEDS: CLINDAMYCIN 900 MG in DEXTROSE 5% IN WATER 50 ML IVPB ONE ×4 (14:21→14:35)
[2019-03-17] MEDS: GENTAMICIN 450 MG in SODIUM CHLORIDE 0.9% 100 ML IVPB ONE ×3 (14:27→14:47)
[2019-03-17] MEDS ORDERED: LIDOCAINE 1%-EPI 1:100,000 20 ML VIAL SQ ONE (14:36)
[2019-03-17] MEDS ORDERED: LACTATED RINGERS 1,000 ML IV ONE ×2 (15:00→17:35)
[2019-03-17] MEDS ORDERED: FLUTICASONE 50MCG/SPRAY NASAL 16GM INTRANASAL PRN (17:56)
[2019-03-17] MEDS ORDERED: NALOXONE 0.4 MG/ML 1 ML VIAL IV PRN ×2 (17:56→18:02)
[2019-03-17] MEDS ORDERED: HYOSCYAMINE ORAL DROPS 1.875 MG/15 ML BOTTLE PO PRN (17:56)
[2019-03-17] MEDS ORDERED: diphenhydrAMINE 50 MG/ML 1 ML VIAL IVP PRN (17:56)
[2019-03-17] MEDS ORDERED: TAMSULOSIN 0.4 MG CAP.ER.24H PO PRN (17:56)
--- NOTE | 2019-03-17 17:56 | P.OP ---
Date of Procedure: 03/17/19 Description of Procedure: SURGEON: JESSICA BROWN MD PREOPERATIVE DIAGNOSES: 1. Morbid obesity due to excess calories 2. Body mass index of 55.0 down to 51.0 3. Osteoarthritis of the knees. 4. Osteoarthritis of the hips. 5. Osteoarthritis of the lower back. 6. Obstructive sleep apnea. 7. Hypertensive heart disease. 8. Gastroesophageal reflux disease. 9. Diabetes type 2, goh-oteclpl-hcfrxahbv, uncontrolled 10. Seizure disorder 11. Depressive disorder 12. Asthma 13. Bipolar disorder 14. Vitamin D deficiency 15. Iron deficiency anemia 16. Hypertriglyceridemia 17. Hypercholesterolemia POSTOPERATIVE DIAGNOSES: 1. Morbid obesity due to excess calories 2. Body mass index of 55.0 down to 49.9 3. Osteoarthritis of the knees. 4. Osteoarthritis of the hips. 5. Osteoarthritis of the lower back. 6. Obstructive sleep apnea. 7. Hypertensive heart disease. 8. Gastroesophageal reflux disease. 9. Diabetes type 2, xwq-ehuqtkq-nafwzuzdh, uncontrolled 10. Seizure disorder 11. Depressive disorder 12. Asthma 13. Bipolar disorder 14. Vitamin D deficiency 15. Iron deficiency anemia 16. Hypertriglyceridemia 17. Hypercholesterolemia 18. Liver cirrhosis due to fatty liver disease and hepatomegaly OPERATION: 1. Robotic assisted da Amos Xi laparoscopic transgastric Madelaine-en-Y gastric bypass, 100 cm antecolic antegastric Madelaine limb, with 25 mm Ethicon ILS 2. Intraoperative esophagogastrojejunoscopy. ANESTHESIA: GETA and local ESTIMATED BLOOD LOSS: 50 mL Pathology: NONE COMPLICATIONS: NONE. INDICATIONS: Neto Hickman is a 54-year-old female who comes in long-standing morbid obesity. She is looking into the gastric bypass. She comes with uncontrolled diabetes, At height of 5 feet 5 inches, her ideal body weight is 149 pounds. She comes in 306 pounds from 299 pounds, 1 month ago. She has gained 7 pounds in 1 month. Her body mass index is down from 54.7 to 51.0. She is 157 pounds overweight. A second-generation bariatric consent form was described in detail including the possibility of protein malnutrition, leaks, gastrojejunal stricture, venous thrombosis, need for further surgery for which he demonstrated understanding. Benefits and risks of the procedure were described at length. Informed consent was obtained. DESCRIPTION: The patient was brought into the operating room theater. She was placed supine. She had received Lovenox subcutaneously for DVT prophylaxis. Additionally she had Peridex oral solution as an oral decontaminant. After general induction, the abdomen was prepped and draped in standard sterile fashion. Ioban draping was placed along the abdomen. A robotic da Amos Xi system was prepped and primed. The xiphoid to umbilicus was 20 cm. Incisions were proposed at 15 cm from the xiphoid. Proposed port sites were marked with indelible marker along the anterior axillary line bilaterally, mid clavicular line bilaterally with each port marked 10 cm from each other. The robotic stapler port was marked for the right midclavicular line including along the left midclavicular line. A 5 mm 0 degrees laparoscopic trocar entry was performed along the left upper quadrant. The abdomen was insufflated to 15 mmHg pressure, which was tolerated well. Diagnostic laparoscopy demonstrated no injury to bowel, viscera, or mesentery. The liver edge was round with moderate hepatomegaly, fatty liver disease consistent with early macronodular cirrhosis. An 8 mm camera port was placed left lateral to the umbilicus at the epigastrium, 15 cm distal to the xiphoid. Next, 12-mm robot stapler port was placed along the right mid abdomen. An 12 mm port was exchanged along the left upper quadrant. An 8 mm port was placed on the left lateral abdominal wall under direct visualization Please note that the ports were placed 18 to 20 cm away from the target anatomy of the stomach. Care was taken to check that each robotic arm was safely away from collision with the bed or the patient. At the epigastrium, a medium sized Gisel liver retractor was placed under direct visualization with the Iron Search Manager placed under the right shoulder of the patient. Additionally, 25 mm Ethicon ILS anvil was entered into the left upper quadrant incision after placing a green extension tip with uncut 3-0 silk at the Green tip and secured outside the skin using hemostat. The patient was repositioned in reverse Trendelenburg position at 20-degrees after lowering the bed. A 30 camera was used for the entire case. The robot was docked over the patient. Using grasper for arm 3, a grasper for arm 1, including vessel sealer for arm 4, the robotic system was docked and primed as described. Instruments were interchanged by the kindergarten assistant including endoscissors, the needle transit driver, and stapler. An intraoperative upper endoscopy was performed for surveillance of the stomach. The stomach was suctioned of bile over 100 mL. The scope was left in place in the upper portion of the stomach. I had sat at the console. Attention was brought to creation of the gastric pouch using transgastric approach. At the distal stomach a transverse 3-cm incision was made for entry of the 25 mm anvil and its green attachment piece. The anvil was navigated at the gastric cardia between the second and third veins. The Green extended tip was brought out through the anterior surface of the stomach after using Bovie cautery. The anvil tip was brought out through the stomach and secured by its suture. Next, the gastric pouch was fashioned after dissection was made along the retrogastric space to allow first firing of the robotic staple. Green loads of 60 mm staplers were used to divide the stomach to create the gastric pouch towards the angle of His. Green, blue and white 60 mm delgado were used to fashion the stomach. Next, the greater omentum and transverse colon was elevated to identify the ligament of Treitz. The ligament of Treitz was identified and measured 60 cm antegrade and marked using 3-0 Silk. The jejunum was divided at the 60 cm point using 60-mm blue loads above the suture measurement. The biliopancreatic limb was held in place. The Madelaine limb was measured 100 cm in an antegrade fashion to avoid tension along the proposed gastrojejunal anastomosis. At 100 cm along the anti-mesenteric border of the Madelaine limb, a jejunojejunostomy was proposed whereby enterotomies were created along the biliopancreatic limb including the Madelaine limb using a Bovie cautery. A stay suture of 3-0 Slik was placed to align and create the anastomosis. The enterotomies along the anti-mesenteric borders were created followed by unidirectional fire from the patient's right side using 60 mm blue load Smart technology robotic stapler. The jejunojejunostomy was found to be hemostatic. The enterotomy was closed after horizontal mattress stitch of 3-0 silk used to elevate the enterotomy followed by closure with the robotic stapler blue load. The jejunal limb was temporarily tacked along the left upper quadrant. Attention was now brought to the creation of the gastrojejunostomy. The green extension anvil tip was discontinued. No torsion was found upon the Madelaine limb. No tension was identified as the limb was brought along the upper abdomen. The blind jejunal limb was previously opened using hook cautery. The 25-mm ILS stapler was brought through the left anterior lateral port site from the left side. The ILS stapler was brought through the open jejunal limb and its needle was deployed at the antimesenteric border where the anvil were mated for approximately 1 minute upon firing. The stapler was removed after irrigating the shaft of the instrument with warm normal saline. Donuts were found to be intact and on both sides. The da Amos Xi robot arms were then re-docked. I sat at the console. The open jejunal limb defect was closed using 45 mm blue loads after releasing any tension from the blind jejunal limb. Care was taken to avoid any long blind limb to avoid candycane syndrome. Reinforcement sutures were placed along the gastrojejunal anastomosis and placed along the 9:00 and 3 o'clock position using 3-0 Polysorb. The Steward and jejunojejunostomy mesenteric defects were obliterated by the intra-abdominal fat. I then went to the head of the bed to perform the esophagogastrojejunoscopy and a leak test. An Olympus gastroscope was passed along the posterior oropharynx which was unremarkable for any injury to the vocal cords. The scope was passed down to the proximal portion of the pouch, whereby no active bleeding was encountered. Excellent visualization of the gastrojejunostomy anastomosis, including the Madelaine limb was encountered with endoscopic image obtained. The anastomosis was found to be patent. The gastrointestinal tract was desufflated. No evidence of intraoperative leak was encountered as the gastric pouch and anastomosis were submerged under normal saline solution. The robot was then undocked. I then went back to the bedside of the patient, whereby with coordinated effort of the kindergarten assistant, irrigation was aspirated from the upper abdominal cavity. Tisseel was placed circumferentially over the anastomosis of the gastrojejunostomy. The fascial defect of the EEA stapler was closed using Jair Ashton and 0 Vicryl. All instruments and pneumoperitoneum were evacuated from the abdominal cavity. The port correlating with the EEA stapler device was cleansed with normal saline solution and hydrogen peroxide. The rest of incisions were reapproximated using 4-0 Monocryl in an interrupted subcuticular fashion. Local anesthetic was infiltrated along the skin for postop analgesia. Liquid glue was applied to the skin. OptiFoam dressing was placed along the ILS stapler site. At the end of the procedure, needle, sponge and instrument count had been verified correct by the surgical garment assembly supervisor. He had tolerated the procedure well and was extubated and taken to the postanesthesia unit in stable condition. Intraoperative findings were described to the patient's family who were very pleased with the level of care. Total console time 128 minutes Operative Findings: 1. Biliopancreatic limb 60 cm 2. Bypass performed using 100 cm madelaine limb secondary to avoid increased tension at 150 cm. 3. Ortiz defect and jejunojejunostomy defect obliterated by moderate intra- abdominal fat. 4. Leak test negative with gastrojejunal anastomosis patent and hemostatic. 5. Multiple green staple loads used to fashion the gastric pouch 6. Reinforcement sutures were placed along the gastrojejunal anastomosis 7. Large fatty liver disease with early macronodular cirrhosis
[2019-03-17] MEDS ORDERED: ACETAMINOPHEN IV (For NPO) 1,000 MG in EMPTY BAG 1 BAG IVPB SCH (18:00)
[2019-03-17 18:35] VITALS: RESP 16
[2019-03-17] MEDS: ALBUTEROL NEBULIZED 2.5 MG/3 ML INHALATION SCH (18:41)
[2019-03-17 19:15] LABS: Glucose,Whole Blood 230 mg/dL (75-99)
[2019-03-17] MEDS ORDERED: INSULIN ASPART (NovoLOG) 100 UNIT/ML VIAL SQ ONE (19:16)
[2019-03-17] MEDS: INSULIN ASPART (NovoLOG) 100 UNIT/ML VIAL SQ SCH ×2 (19:19→23:45)
[2019-03-17] MEDS: ONDANSETRON 4 MG/2 ML VIAL IVP SCH ×2 (19:33→23:15)
[2019-03-17] MEDS: METOCLOPRAMIDE 5 MG/ML 2 ML VIAL IVP SCH ×2 (19:43→23:14)
[2019-03-17] MEDS: fentaNYL PCA 500 MCG/50 ML BAG IV PRN (20:12)
[2019-03-17] MEDS: SIMETHICONE 40 MG/0.6 ML DROPS 2,000 MG/30 ML BOTTLE PO SCH ×2 (20:45→23:15)
[2019-03-17] MEDS: ACETAMINOPHEN IV (For NPO) 1,000 MG in EMPTY BAG 1 BAG IVPB SCH (20:47)
[2019-03-17] MEDS: 0.9% NACL WITH KCL 20 MEQ/L 1,000 ML IV SCH (23:15)
[2019-03-17 23:40] LABS: Glucose,Whole Blood 150 mg/dL (75-99)
[2019-03-18] MEDS: 0.9% NACL WITH KCL 20 MEQ/L 1,000 ML IV SCH ×2 (01:52→05:40)
[2019-03-18] MEDS: ACETAMINOPHEN IV (For NPO) 1,000 MG in EMPTY BAG 1 BAG IVPB SCH ×3 (03:18→14:17)
[2019-03-18] MEDS: ONDANSETRON 4 MG/2 ML VIAL IVP SCH ×2 (05:40→12:14)
[2019-03-18] MEDS: SIMETHICONE 40 MG/0.6 ML DROPS 2,000 MG/30 ML BOTTLE PO SCH ×2 (05:40→12:13)
[2019-03-18] MEDS: METOCLOPRAMIDE 5 MG/ML 2 ML VIAL IVP SCH ×2 (05:40→12:15)
[2019-03-18] MEDS: INSULIN ASPART (NovoLOG) 100 UNIT/ML VIAL SQ SCH ×2 (05:50→14:11)
[2019-03-18 05:52] LABS: Glucose,Whole Blood 96 mg/dL (75-99)
[2019-03-18 07:54] VITALS: BP 129/78; TEMP 98.5
[2019-03-18] MEDS ORDERED: 0.9% NACL WITH KCL 20 MEQ/L 1,000 ML IV SCH (08:00)
[2019-03-18 08:21] LABS: Basophils # (A) 0.1 k/uL (0-0.2); Basophils % (A) 1 %; Eosinophils % (A) 0 %; HCT 41.7 % (34.0-46.0); HGB 13.5 gm/dL (11.4-16.0); Lymphocytes % (A) 15 %; MCH 30.7 pg (25.0-35.0); MCHC 32.4 g/dL (31.0-37.0); MCV 94.8 fL (80.0-100.0); Mean Platelet Volume 6.3; Monocytes # (A) 0.5 k/uL (0-1.0); Monocytes % (A) 4 %; Neutrophils # (A) 10.1 k/uL (1.3-7.7); Neutrophils % (A) 79 %; Platelet Count 295 k/uL (150-450); RDW 13.7 % (11.5-15.5); WBC 12.8 k/uL (3.8-10.6)
[2019-03-18] MEDS: ALBUTEROL NEBULIZED 2.5 MG/3 ML INHALATION SCH ×2 (08:22→11:47)
[2019-03-18 08:26] LABS: Calcium 9.7 mg/dL (8.4-10.2); Magnesium 1.6 mg/dL (1.6-2.3); Phosphorus 3.1 mg/dL (2.5-4.5); Potassium 4.3 mmol/L (3.5-5.1)
[2019-03-18] MEDS: fentaNYL PCA 500 MCG/50 ML BAG IV PRN (08:36)
[2019-03-18] MEDS ORDERED: ENOXAPARIN 40 MG/0.4 ML SYRINGE SQ SCH (09:00)
[2019-03-18] MEDS ORDERED: LEVOFLOXACIN 500MG-D5W PMX 500 MG in DEXTROSE/WATER 1 100ML.BAG IVPB SCH (09:00)
[2019-03-18] MEDS ORDERED: PANTOPRAZOLE 40 MG/10 ML VIAL IV SCH (09:00)
[2019-03-18] MEDS: MAGNESIUM SULFATE-D5W PMX 1 GM in DEXTROSE/WATER 1 100ML.BAG IVPB SCH ×3 (10:48→14:19)
[2019-03-18 11:18] VITALS: BMI 51.0
[2019-03-18] MEDS ORDERED: HYDROcodone/APAP 15 ML SOLUTION PO PRN (11:35)
[2019-03-18 11:58] VITALS: PULSE 83
[2019-03-18 12:34] LABS: Glucose,Whole Blood 131 mg/dL (75-99)
--- NOTE | 2019-03-18 13:41 | P.DS ---
<Alexandra Wright - Last Filed: 03/18/19 13:35> Providers Expected date of discharge: 03/18/19 - Discharge Diagnosis(es) (1) Morbid obesity Current Visit: Yes Status: Acute Hospital Course: 54-year-old female who underwent robotic-assisted laparoscopic Neris-en-Y gastric bypass with Dr. Matamoros on 03/17/2019. Patient is doing well postoperatively without any immediate complications. She is tolerating clear liquid diet. Denies nausea or vomiting. Mcnulty catheter was discontinued and patient has been voiding without difficulty. She has been up ambulating in the hallway. Vital signs have been stable. She is stable for discharge home today. Please see EMR for further hospital course details. Discharge diagnosis 1. Morbid obesity due to excess calories 2. Body mass index of 55.0 down to 49.9 3. Osteoarthritis of the knees. 4. Osteoarthritis of the hips. 5. Osteoarthritis of the lower back. 6. Obstructive sleep apnea. 7. Hypertensive heart disease. 8. Gastroesophageal reflux disease. 9. Diabetes type 2, hvx-geekdft-wcwdzrjno, uncontrolled 10. Seizure disorder 11. Depressive disorder 12. Asthma 13. Bipolar disorder 14. Vitamin D deficiency 15. Iron deficiency anemia 16. Hypertriglyceridemia 17. Hypercholesterolemia 18. Liver cirrhosis due to fatty liver disease and hepatomegaly Nurse practitioner note has been reviewed by physician. Signing provider agrees with the documented findings, assessment, and plan of care. Plan - Discharge Summary Discharge Rx Participant: Yes New Discharge Prescriptions: New Bisacodyl [Dulcolax] 5 mg PO DAILY PRN #10 tablet. PRN Reason: Constipation metFORMIN HCL [Glucophage] 500 mg PO DAILY #30 tab Simethicone 40 mg/0.6 ml Drops [Mylicon Drops] 40 mg PO PCHS PRN #30 ml PRN Reason: gas Ondansetron Odt [Zofran Odt] 4 mg PO Q8HR PRN #9 tab PRN Reason: Nausea Omeprazole 40 mg PO DAILY #30 cap Acetaminophen Oral Susp [Tylenol Oral Susp] 650 mg PO Q4H PRN #200 ml PRN Reason: Pain HYDROcodone/APAP [[place] Elixir 7.5-325Mg/15Ml] 15 ml PO Q6HR PRN 3 Days #180 ml PRN Reason: Pain Continue Albuterol Sulfate [Proair Hfa] 1 puff INHALATION Q6H PRN PRN Reason: Dyspnea Sertraline [Zoloft] 50 mg PO HS Furosemide [Lasix] 20 mg PO DAILY PRN PRN Reason: Edema Fluticasone Nasal [place] [Flonase Nasal [place]] 1 spray INTRANASAL DAILY PRN PRN Reason: Allergy Symptoms Tamsulosin HCl [Flomax] 0.4 mg PO DAILY PRN PRN Reason: See Comments Discontinued Butalbital/Aspirin/Caffeine [Vxyqar-Mdxskdq-Yvkogonb 50-325-40 mg] 1 tab PO Q4H PRN PRN Reason: Migraine Headache metFORMIN HCL [Glucophage] 1,000 mg PO BID Pioglitazone [Actos] 15 mg PO DAILY Discharge Medication List Albuterol Sulfate [Proair Hfa] 1 puff INHALATION Q6H PRN 01/15/18 [History] Furosemide [Lasix] 20 mg PO DAILY PRN 10/13/18 [History] Sertraline [Zoloft] 50 mg PO HS 10/13/18 [History] Fluticasone Nasal [place] [Flonase Nasal [place]] 1 spray INTRANASAL DAILY PRN 03/17/19 [History] Tamsulosin HCl [Flomax] 0.4 mg PO DAILY PRN 03/17/19 [History] Acetaminophen Oral Susp [Tylenol Oral Susp] 650 mg PO Q4H PRN #200 ml 03/18/19 [Rx] Bisacodyl [Dulcolax] 5 mg PO DAILY PRN #10 tablet. 03/18/19 [Rx] HYDROcodone/APAP [[place] Elixir 7.5-325Mg/15Ml] 15 ml PO Q6HR PRN 3 Days #180 ml 03/18/19 [Rx] Omeprazole 40 mg PO DAILY #30 cap 03/18/19 [Rx] Ondansetron Odt [Zofran Odt] 4 mg PO Q8HR PRN #9 tab 03/18/19 [Rx] Simethicone 40 mg/0.6 ml Drops [Mylicon Drops] 40 mg PO PCHS PRN #30 ml 03/18/19 [Rx] metFORMIN HCL [Glucophage] 500 mg PO DAILY #30 tab 03/18/19 [Rx] [facility]Ref[facility] [facility] [place] [place]/21/19 10:00 am Patient Instructions/Handouts: Neris-en-Y Gastric Bypass (DC) Activity/Diet/Wound Care/Special Instructions: Follow-up at the bariatric center. Check blood sugars at least twice daily. Hold diabetic medications of blood sugar is less than 150. Dressings to be discontinued by surgeon in the office. NO lifting over 4 pounds in 4 weeks, April 14. October shower. No bathtub soaks. Drink 64 oz of fluid daily. Notify bariatric center for temp over 101.0, increased pain, drainage from incisions. No straws or carbonated beverages. Liquid diet only. Sugar content should be less than 6 g to avoid dumping syndrome. Take MOM for constipation. CRUSH, OPEN, OR CUT TABLETS LARGER THAN A SIZE OF A TIC TAC Discharge Disposition: HOME SELF-CARE <Oksana Matamoros - Last Filed: 03/18/19 16:04> Providers Date of admission: 03/17/19 10:28 Attending physician: Oksana Matamoros Primary care physician: Davon Christensen
--- NOTE | 2019-03-19 13:03 | P.PN ---
Progress Note - Text Progress Note Date: 03/19/19 Patient called at home. She reports doing well at home. Pain is controlled and improved. She is ambulating. Her BSG are pending. All questions reviewed.
== END 2019-03-18 16:32 | disposition home or self-care (01) | DRG 621 ==
LOC: 2ORMAIN 10:28 → 4SSUR 17:42
PROVIDERS: ADMIT Surgery Plastic and Reconstructive Surgery; ATTEND Surgery Plastic and Reconstructive Surgery
PROC: 0DJ08ZZ Inspection of Upper Intestinal Tract, Via Natural or Artificial Opening Endoscopic (ICD-10-PCS; principal; 2019-03-17 12:15)
PROC: 0D164ZA Bypass Stomach to Jejunum, Percutaneous Endoscopic Approach (ICD-10-PCS; principal; 2019-03-17 12:15)
PROC: 8E0W4CZ Robotic Assisted Procedure of Trunk Region, Percutaneous Endoscopic Approach (ICD-10-PCS; principal; 2019-03-17 12:15)
DX: E66.01 Morbid (severe) obesity due to excess calories (principal); D50.9 Iron deficiency anemia, unspecified; E55.9 Vitamin D deficiency, unspecified; E78.00 Pure hypercholesterolemia, unspecified; E78.1 Pure hyperglyceridemia; F31.9 Bipolar disorder, unspecified; G40.909 Epilepsy, unspecified, not intractable, without status epilepticus; G47.33 Obstructive sleep apnea (adult) (pediatric); H54.7 Unspecified visual loss; I11.9 Hypertensive heart disease without heart failure; J32.9 Chronic sinusitis, unspecified; J45.909 Unspecified asthma, uncomplicated; K21.9 Gastro-esophageal reflux disease without esophagitis; K74.69 Other cirrhosis of liver; K76.0 Fatty (change of) liver, not elsewhere classified; M16.0 Bilateral primary osteoarthritis of hip; M17.0 Bilateral primary osteoarthritis of knee; M47.9 Spondylosis, unspecified; E11.65 Type 2 diabetes mellitus with hyperglycemia; Z68.43 Body mass index [BMI] 50.0-59.9, adult; Z79.84 Long term (current) use of oral hypoglycemic drugs; Z83.3 Family history of diabetes mellitus; Z86.14 Personal history of Methicillin resistant Staphylococcus aureus infection; Z86.010 Personal history of colon polyps; Z87.442 Personal history of urinary calculi; Z87.891 Personal history of nicotine dependence; Z90.710 Acquired absence of both cervix and uterus
CPT/HCPCS: 80051; 82310; 82565; 83036; 83735; 84100; 84520; 85025; 94640

== ENCOUNTER → 2019-03-21 | Outpatient (CLI) | payer BC ==
--- NOTE | 2019-03-21 10:18 | P.PN ---
Subjective Progress Note Date: 03/21/19 DATE OF SERVICE: 03/21/2019 CHIEF COMPLAINT: Morbid obesity HISTORY OF PRESENT ILLNESS: Neto Hickman is a 54-year-old female who is status post gastric bypass, 03/17/19. She is POD 4. Blood sugars have improved to 94- 133 without oral diabetic medications. She is ambulating. She does report pain associated with movement. She is tolerating abdominal binder. She reports having normal bowel movements and passing flatus. She has been off her Zoloft. At height of 5 feet 5 inches, her ideal body weight is 149 pounds. She comes in 297 pounds from 299 pounds, 1 month ago. Her body mass index is down from 54.7 to 49.6. She has 2 pounds in 1 month. Lifetime weight loss of 33 pounds. Percent excess weight loss of 18%. She is 148 pounds overweight. PHYSICAL EXAM: VITAL SIGNS: Height 5 foot 5 inches, weight 297 pounds. BMI 49.6 Vital Signs Temp 98.1 F 03/21/19 10:38 Pulse 82 03/21/19 10:38 Resp BP 130/84 03/21/19 10:38 Pulse Ox GENERAL: Well-developed in no acute distress. HEENT: No scleral icterus. Extraocular movements grossly intact. Hears conv ersational speech. No nasal drainage. NECK: Supple without lymphadenopathy. CHEST: Nonlabored respirations with equal bilateral excursions. CARDIOVASCULAR: Regular rate. Distal 2+ pulses. ABDOMEN: Incision clean dry and intact. No infection. MUSCULOSKELETAL: No clubbing, cyanosis. Gross strength 5/5 distal lower extremities. NEURO: No focal or lateralizing signs. Cranial nerves 2 through 12 grossly within normal limits. PSYCH: Appropriate affect. Alert and oriented to person, place and time. SKIN: Good skin turgor. Well perfused. ASSESSMENT: 1. Morbid obesity due to excess calories 2. Body mass index of 55.0 down to 49.6 3. Osteoarthritis of the knees. 4. Osteoarthritis of the hips. 5. Osteoarthritis of the lower back. 6. Obstructive sleep apnea. 7. Hypertensive heart disease. 8. Gastroesophageal reflux disease. 9. Diabetes type 2, mij-buxbxbh-sxsumyvow, uncontrolled 10. Seizure disorder 11. Depressive disorder 12. Asthma 13. Bipolar disorder 14. Vitamin D deficiency 15. Iron deficiency anemia 16. Hypertriglyceridemia 17. Hypercholesterolemia PLAN: 1. May start Zoloft. 2. Follow-up at the bariatric center in the next 3-5 days to coincide with start of her protein shakes. 3. May wear abdominal binder for comfort. 4. Additional prescription for [place] written with narcotic prescription form obtained.
[2019-03-21 10:42] VITALS: BP 130/84; PULSE 82; TEMP 98.1; BMI 49.6
== END | disposition home or self-care (01) ==
LOC: BARWHC3 09:47
PROVIDERS: ATTEND Surgery Plastic and Reconstructive Surgery
DX: Z48.815 Encounter for surgical aftercare following surgery on the digestive system (principal); E66.01 Morbid (severe) obesity due to excess calories; M17.0 Bilateral primary osteoarthritis of knee; M16.0 Bilateral primary osteoarthritis of hip; M19.90 Unspecified osteoarthritis, unspecified site; G47.33 Obstructive sleep apnea (adult) (pediatric); I11.9 Hypertensive heart disease without heart failure; K21.9 Gastro-esophageal reflux disease without esophagitis; E11.9 Type 2 diabetes mellitus without complications; G40.909 Epilepsy, unspecified, not intractable, without status epilepticus; J45.909 Unspecified asthma, uncomplicated; F31.9 Bipolar disorder, unspecified; E55.9 Vitamin D deficiency, unspecified; D50.9 Iron deficiency anemia, unspecified; E78.1 Pure hyperglyceridemia; E78.00 Pure hypercholesterolemia, unspecified; Z68.42 Body mass index [BMI] 45.0-49.9, adult; Z98.84 Bariatric surgery status
CPT/HCPCS: 99211

== ENCOUNTER → 2019-03-23 | Outpatient (CLI) | payer BC ==
--- NOTE | 2019-03-23 14:33 | P.PN ---
Subjective Progress Note Date: 03/23/19 She reports tenderness after poping a stitch at the left upper quadrant. Her bowel movements has improved. She reports difficulty sitting up. BSG are 133 the highest. She popped a stitch at the left upper abdomen with increase swelling from yesterday. May need CT for hernia and pain. She has started protein shakes and start unjury.
[2019-03-23 14:46] VITALS: BP 131/73; PULSE 75; TEMP 98; BMI 48.4
== END | disposition home or self-care (01) ==
LOC: BARWHC3 13:41
PROVIDERS: ATTEND Surgery Plastic and Reconstructive Surgery
DX: R10.812 Left upper quadrant abdominal tenderness (principal); E66.01 Morbid (severe) obesity due to excess calories; R19.02 Left upper quadrant abdominal swelling, mass and lump; Z68.42 Body mass index [BMI] 45.0-49.9, adult
CPT/HCPCS: 97803; 99211

== ENCOUNTER → 2019-03-28 | Outpatient (CLI) | payer BC ==
[2019-03-28 09:57] VITALS: BP 122/78; PULSE 74; RESP 16; TEMP 98.2; BMI 47.5
== END | disposition home or self-care (01) ==
LOC: BARWHC3 09:38
PROVIDERS: ATTEND Surgery Plastic and Reconstructive Surgery
DX: Z48.815 Encounter for surgical aftercare following surgery on the digestive system (principal); E66.01 Morbid (severe) obesity due to excess calories; Z98.84 Bariatric surgery status
CPT/HCPCS: 99211

== ENCOUNTER → 2019-04-06 | Outpatient (CLI) | payer BC ==
[2019-04-06 13:10] VITALS: BP 117/68; PULSE 68; RESP 16; TEMP 97.8; BMI 46.0
--- NOTE | 2019-04-06 13:35 | P.PN ---
Subjective Progress Note Date: 04/06/19 DATE OF SERVICE: 04/06/2019 CHIEF COMPLAINT: Morbid obesity HISTORY OF PRESENT ILLNESS: Neto Hickman is a 54-year-old female who is status post gastric bypass, 03/17/19. She is 3 weeks out. She comes in with almost 30 pound weight loss. She has constipation. No reports of abdominal pain. At height of 5 feet 5 inches, her ideal body weight is 149 pounds. Highest 330 pounds, BMI 55.0. She comes in 276 pounds from 290 pounds, 2 weeks ago. She has lost 14 pounds in 2 weeks. Her body mass index is down from 55.0 to 46.1. Lifetime weight loss of 54 pounds. Percent excess weight loss of 30%. She is 127 pounds overweight. PHYSICAL EXAM: VITAL SIGNS: Height 5 foot 5 inches, weight 276 pounds. BMI 46.1 Vital Signs Temp 97.8 F 04/06/19 13:08 Pulse 68 04/06/19 13:08 Resp 16 04/06/19 13:08 BP 117/68 04/06/19 13:08 Pulse Ox GENERAL: Well-developed in no acute distress. HEENT: No scleral icterus. Extraocular movements grossly intact. Hears conversational speech. No nasal drainage. NECK: Supple without lymphadenopathy. CHEST: Nonlabored respirations with equal bilateral excursions. CARDIOVASCULAR: Regular rate. Distal 2+ pulses. ABDOMEN: Incision granulated. No infection. No hernia. Right upper quadrant stitch removed. MUSCULOSKELETAL: No clubbing, cyanosis. Gross strength 5/5 distal lower extremities. NEURO: No focal or lateralizing signs. Cranial nerves 2 through 12 grossly within normal limits. PSYCH: Appropriate affect. Alert and oriented to person, place and time. SKIN: Good skin turgor. Well perfused. ASSESSMENT: 1. Morbid obesity due to excess calories 2. Body mass index of 55.0 down to 46.1 3. Osteoarthritis of the knees. 4. Osteoarthritis of the hips. 5. Osteoarthritis of the lower back. 6. Obstructive sleep apnea. 7. Hypertensive heart disease. 8. Gastroesophageal reflux disease. 9. Diabetes type 2, [id number]-qjvjaxcmh, uncontrolled 10. Seizure disorder 11. Depressive disorder 12. Asthma 13. Bipolar disorder 14. Vitamin D deficiency 15. Iron deficiency anemia 16. Hypertriglyceridemia 17. Hypercholesterolemia 18. Status post gastric bypass PLAN: 1. For constipation, recommend milk of magnesia. 2. At 1 month out, she will need labs. 3. May start multivitamins. 4. Follow up in Jun 2019, 3 months post op. Objective - Vital Signs Vital signs: Vital Signs Temp 97.8 F 04/06/19 13:08 Pulse 68 04/06/19 13:08 Resp 16 04/06/19 13:08 BP 117/68 04/06/19 13:08 Pulse Ox Intake & Output 04/05/19 04/06/19 04/06/19 18:59 06:59 18:59 Weight 125.645 kg - Labs CBC & Chem 7: 04/06/19 14:04 04/06/19 14:04
[2019-04-06 14:31] LABS: HCT 41.6 % (34.0-46.0); MCH 30.8 pg (25.0-35.0); MCHC 33.7 g/dL (31.0-37.0); MCV 91.6 fL (80.0-100.0); Mean Platelet Volume 7.4; Platelet Count 288 k/uL (150-450); RBC 4.54 m/uL (3.80-5.40); RDW 13.9 % (11.5-15.5)
[2019-04-06 14:43] LABS: Partial Thromboplastin Time 26.1 sec (22.0-30.0); Prothrombin Time 11.1 sec (9.0-12.0)
[2019-04-06 20:34] LABS: Hemoglobin A1C 5.7 % (4.0-6.0)
[2019-04-06 21:15] LABS: % Iron Saturation 16.38 (12.00-45.00); African American GFR (CKD) 115.5 (60.0-200.0); Albumin 4.6 g/dL (3.80-4.90); Albumin/Globulin Ratio 1.77 (1.60-3.17); Anion Gap 12.5 mmol/L (4.00-12.00); BUN/Creat Ratio 21.43 Ratio (12.00-20.00); Calcium 10.5 mg/dL (8.7-10.3); Carbon Dioxide 25.5 mmol/L (21.6-31.8); Chol/HDL Ratio 4.05; Globulin 2.6 g/dL (1.6-3.3); LDL Cholesterol,Calculated 91.6 mg/dL (0.0-131.0); Magnesium 1.7 mg/dL (1.5-2.4); Non-African American GFR(CKD) 99.6 (60.0-200.0); Phosphorus 3.8 mg/dL (2.4-5.1); Potassium 4.1 mmol/L (3.5-5.5); Total Bilirubin 0.8 mg/dL (0.3-1.2); Total Protein 7.2 g/dL (6.2-8.2); VLDL Calculation 24.4 mg/dL (5.00-40.00)
[2019-04-06 21:25] LABS: Ferritin 124.3 ng/mL (10.0-291.0)
[2019-04-06 21:40] LABS: Folate, Serum 12.5 ng/mL
[2019-04-07 12:03] LABS: Zinc, Serum 77 ug/dL (60-130)
[2019-04-09 12:38] LABS: Vit B1(Thiamine) 48 ug/L (38-122)
[2019-04-09 19:07] LABS: Selenium 100 mcg/L (63-160)
[2019-04-11 07:19] LABS: Vitamin A 34 ug/dL (38-106)
== END | disposition home or self-care (01) ==
LOC: BARWHC3 12:47
PROVIDERS: ATTEND Surgery Plastic and Reconstructive Surgery
DX: Z48.815 Encounter for surgical aftercare following surgery on the digestive system (principal); E66.01 Morbid (severe) obesity due to excess calories; M17.0 Bilateral primary osteoarthritis of knee; M16.0 Bilateral primary osteoarthritis of hip; G47.33 Obstructive sleep apnea (adult) (pediatric); I11.9 Hypertensive heart disease without heart failure; K21.9 Gastro-esophageal reflux disease without esophagitis; E11.9 Type 2 diabetes mellitus without complications; G40.909 Epilepsy, unspecified, not intractable, without status epilepticus; J45.909 Unspecified asthma, uncomplicated; F31.9 Bipolar disorder, unspecified; E55.9 Vitamin D deficiency, unspecified; D50.9 Iron deficiency anemia, unspecified; E78.00 Pure hypercholesterolemia, unspecified; Z98.84 Bariatric surgery status; Z68.42 Body mass index [BMI] 45.0-49.9, adult; E21.1 Secondary hyperparathyroidism, not elsewhere classified; K90.9 Intestinal malabsorption, unspecified; K76.9 Liver disease, unspecified; N19 Unspecified kidney failure; K50.90 Crohn's disease, unspecified, without complications
CPT/HCPCS: 36415; 80053; 80061; 82306; 82525; 82607; 82728; 82746; 83036; 83540; 83550; 83735; 83970; 84100; 84134; 84255; 84425; 84443; 84590; 84630; 85027; 85610; 85730; 97803; 99211

== ENCOUNTER → 2019-07-13 | Outpatient (CLI) | payer BC ==
[2019-07-13 14:05] VITALS: BP 125/72; PULSE 68; TEMP 97.7; BMI 42.9
--- NOTE | 2019-07-13 14:10 | P.PN ---
Subjective Progress Note Date: 07/13/19 DATE OF SERVICE: 07/13/2019 CHIEF COMPLAINT: Status post gastric bypass HISTORY OF PRESENT ILLNESS: Neto Hickman is a 54-year-old female who is status post gastric bypass, 03/17/19. She is 4 months out. She reports improvement of her blood sugar glucose. No denies any abdominal pain. She reports occasional constipation. No reports of dysphagia. She reports overeating. She has lost 40 pounds in 3 months. She has no pain along her old incisions. She was off all blood sugar mediations but her franchise specialist wants to put her back on them. Her blood sugar glucose is 150 and under. At height of 5 feet 5 inches, her ideal body weight is 149 pounds. Highest 330 pounds, BMI 55.0. She comes in 257 pounds from 276 pounds, 3 months ago. She has lost 19 pounds in 3 months out. Her body mass index is down from 55.0 to 42.9. Lifetime weight loss of 73 pounds. Lifetime percent excess weight loss of 40%. She is 108 pounds overweight. PHYSICAL EXAM: VITAL SIGNS: Height 5 foot 5 inches, weight 257 pounds. BMI 42.9 Vital Signs Temp 97.7 F 07/13/19 13:59 Pulse 68 07/13/19 13:59 Resp BP 125/72 07/13/19 13:59 Pulse Ox GENERAL: Well-developed in no acute distress. HEENT: No scleral icterus. Extraocular movements grossly intact. Hears conversational speech. No nasal drainage. NECK: Supple without lymphadenopathy. CHEST: Nonlabored respirations with equal bilateral excursions. CARDIOVASCULAR: Regular rate. Distal 2+ pulses. ABDOMEN: Soft, nontender, no hernia. MUSCULOSKELETAL: No clubbing, cyanosis. NEURO: No focal or lateralizing signs. Cranial nerves 2 through 12 grossly within normal limits. PSYCH: Appropriate affect. Alert and oriented to person, place and time. SKIN: Good skin turgor. Well perfused. ASSESSMENT: 1. Morbid obesity due to excess calories 2. Body mass index of 55.0 down to 42.9 3. Osteoarthritis of the knees. 4. Osteoarthritis of the hips. 5. Osteoarthritis of the lower back. 6. Obstructive sleep apnea. 7. Hypertensive heart disease. 8. Gastroesophageal reflux disease. 9. Diabetes type 2, [id number]-[id number], uncontrolled 10. Seizure disorder 11. Depressive disorder 12. Asthma 13. Bipolar disorder 14. Vitamin D deficiency 15. Iron deficiency anemia 16. Hypertriglyceridemia 17. Hypercholesterolemia 18. Status post gastric bypass PLAN: 1. Medication reconciliation reviewed including for Omeprazole to be discontinued next month. 2. She completed HgbA1c with current bariatric labs are pending.
== END | disposition home or self-care (01) ==
LOC: BARWHC3 13:10
PROVIDERS: ATTEND Surgery Plastic and Reconstructive Surgery
DX: E66.01 Morbid (severe) obesity due to excess calories (principal); Z68.41 Body mass index [BMI] 40.0-44.9, adult; M16.0 Bilateral primary osteoarthritis of hip; M17.0 Bilateral primary osteoarthritis of knee; M47.816 Spondylosis without myelopathy or radiculopathy, lumbar region; I11.9 Hypertensive heart disease without heart failure; K21.9 Gastro-esophageal reflux disease without esophagitis; E11.9 Type 2 diabetes mellitus without complications; G40.909 Epilepsy, unspecified, not intractable, without status epilepticus; F32.9 Major depressive disorder, single episode, unspecified; G47.33 Obstructive sleep apnea (adult) (pediatric); J45.909 Unspecified asthma, uncomplicated; E55.9 Vitamin D deficiency, unspecified; D50.9 Iron deficiency anemia, unspecified; E78.1 Pure hyperglyceridemia; E78.00 Pure hypercholesterolemia, unspecified; Z98.84 Bariatric surgery status
CPT/HCPCS: 97803; 99211

== ENCOUNTER → 2019-07-16 | Outpatient (CLI) | payer BC ==
[2019-07-16 11:02] LABS: HCT 40.8 % (34.0-46.0); HGB 12.7 gm/dL (11.4-16.0); MCH 28.6 pg (25.0-35.0); MCHC 31.1 g/dL (31.0-37.0); MCV 91.8 fL (80.0-100.0); Mean Platelet Volume 8.2; Platelet Count 213 k/uL (150-450); RBC 4.45 m/uL (3.80-5.40); RDW 14.2 % (11.5-15.5)
[2019-07-16 11:15] LABS: Prothrombin Time 10.3 sec (9.0-12.0)
[2019-07-16 18:50] LABS: % Iron Saturation 20.23 (12.00-45.00); African American GFR (CKD) 85.2 (60.0-200.0); Albumin 4.2 g/dL (3.80-4.90); Anion Gap 7.4 mmol/L (4.00-12.00); BUN/Creat Ratio 22.22 Ratio (12.00-20.00); Calcium 9.6 mg/dL (8.7-10.3); Carbon Dioxide 27.6 mmol/L (21.6-31.8); Chol/HDL Ratio 3.58; Globulin 2.1 g/dL (1.6-3.3); LDL Cholesterol,Calculated 87.4 mg/dL (0.0-131.0); Magnesium 1.7 mg/dL (1.5-2.4); Non-African American GFR(CKD) 73.5 (60.0-200.0); Phosphorus 3.4 mg/dL (2.4-5.1); Total Bilirubin 0.5 mg/dL (0.3-1.2); Total Protein 6.3 g/dL (6.2-8.2); VLDL Calculation 28.6 mg/dL (5.00-40.00)
[2019-07-16 19:01] LABS: Ferritin 73.3 ng/mL (10.0-291.0)
[2019-07-18 12:57] LABS: Zinc, Serum 64 ug/dL (60-130)
[2019-07-19 06:55] LABS: Vitamin A 35 ug/dL (38-106)
== END | disposition home or self-care (01) ==
LOC: LABWHC1 10:01
PROVIDERS: ATTEND Surgery Plastic and Reconstructive Surgery
DX: E21.1 Secondary hyperparathyroidism, not elsewhere classified (principal); D50.9 Iron deficiency anemia, unspecified; K90.9 Intestinal malabsorption, unspecified; E44.0 Moderate protein-calorie malnutrition; K74.1 Hepatic sclerosis; N19 Unspecified kidney failure; K50.90 Crohn's disease, unspecified, without complications; E66.01 Morbid (severe) obesity due to excess calories; E55.9 Vitamin D deficiency, unspecified; Z51.81 Encounter for therapeutic drug level monitoring
CPT/HCPCS: 36415; 80053; 80061; 82306; 82525; 82607; 82728; 82746; 83540; 83550; 83735; 83970; 84100; 84134; 84255; 84425; 84443; 84590; 84630; 85027; 85610; 85730

== ENCOUNTER → 2019-10-19 | Outpatient (CLI) | payer BC ==
[2019-10-19 12:59] VITALS: BP 111/65; PULSE 83; RESP 16; TEMP 98.7
--- NOTE | 2019-10-19 13:40 | P.PN ---
Subjective Progress Note Date: 10/19/19 DATE OF SERVICE: 10/19/2019 CHIEF COMPLAINT: Status post gastric bypass HISTORY OF PRESENT ILLNESS: Neto Hickman is a 54-year-old female who is status post gastric bypass, 03/17/19. She is 7 months out. She is still taking omeprazole. She has not tried coming of her prescription. She has bilateral upp er abdominal pain at the sub-sternum now resolved. She reports her abdomen was sore for up to 1 week and went away. Her gallbladder is gone. She denies indigestion with foods. She burps a lot now. She reports hair loss. Her protein intake is 68 to 85 grams daily. She is taking gummy vitamins. She reports irritation with her pannus. She reports severe lower back pain with her pannus. At height of 5 feet 5 inches, her ideal body weight is 149 pounds. Highest 330 pounds, BMI 55.0. She comes in 242 pounds from 257 pounds, 3 months ago. She has lost 15 pounds in 3 months. Her body mass index is down from 55.0 to 40.5. Lifetime weight loss of 87 pounds. Lifetime percent excess weight loss of 48 %. She is 94 pounds overweight. PHYSICAL EXAM: VITAL SIGNS: Height 5 foot 5 inches, weight 242 pounds. BMI 40.5 Vital Signs Temp 98.7 F 10/19/19 12:54 Pulse 83 10/19/19 12:54 Resp 16 10/19/19 12:54 BP 111/65 10/19/19 12:54 Pulse Ox Intake & Output 10/19/19 10/19/19 10/20/19 06:59 18:59 06:59 Weight 110.314 kg GENERAL: Well-developed in no acute distress. HEENT: No scleral icterus. Extraocular movements grossly intact. Hears conversational speech. No nasal drainage. NECK: Supple without lymphadenopathy. CHEST: Nonlabored respirations with equal bilateral excursions. CARDIOVASCULAR: Regular rate. Distal 2+ pulses. ABDOMEN: Soft, nontender, no hernia. MUSCULOSKELETAL: No clubbing, cyanosis. NEURO: No focal or lateralizing signs. Cranial nerves 2 through 12 grossly within normal limits. PSYCH: Appropriate affect. Alert and oriented to person, place and time. SKIN: Good skin turgor. Well perfused. ASSESSMENT: 1. Morbid obesity due to excess calories 2. Body mass index of 55.0 down to 40.5 3. Osteoarthritis of the knees. 4. Osteoarthritis of the hips. 5. Osteoarthritis of the lower back. 6. Obstructive sleep apnea. 7. Hypertensive heart disease. 8. Gastroesophageal reflux disease. 9. Diabetes type 2, [id number]-wnwoiketa, uncontrolled, improved 10. Seizure disorder 11. Depressive disorder 12. Asthma 13. Bipolar disorder 14. Vitamin D deficiency 15. Iron deficiency anemia 16. Hypertriglyceridemia 17. Hypercholesterolemia 18. Status post gastric bypass 19. Panniculitis PLAN: 1. Nystatin powder prescribed for panniculitis. 2. Bariatric labs were ordered. 3. Recommend change MVI to Alive ultrapotency 4. We went over food logs using tools such as [employer] [place] [employer]. Objective - Vital Signs Vital signs: Vital Signs Temp 98.7 F 10/19/19 12:54 Pulse 83 10/19/19 12:54 Resp 16 10/19/19 12:54 BP 111/65 10/19/19 12:54 Pulse Ox Intake & Output 10/18/19 10/19/19 10/19/19 18:59 06:59 18:59 Weight 110.314 kg
[2019-10-19 13:42] VITALS: BMI 40.4
== END | disposition home or self-care (01) ==
LOC: BARWHC3 12:30
PROVIDERS: ATTEND Surgery Plastic and Reconstructive Surgery
DX: E66.01 Morbid (severe) obesity due to excess calories (principal); Z68.41 Body mass index [BMI] 40.0-44.9, adult; M16.10 Unilateral primary osteoarthritis, unspecified hip; M47.816 Spondylosis without myelopathy or radiculopathy, lumbar region; G47.33 Obstructive sleep apnea (adult) (pediatric); I11.9 Hypertensive heart disease without heart failure; K21.9 Gastro-esophageal reflux disease without esophagitis; G40.909 Epilepsy, unspecified, not intractable, without status epilepticus; F32.9 Major depressive disorder, single episode, unspecified; J45.909 Unspecified asthma, uncomplicated; E55.9 Vitamin D deficiency, unspecified; D50.9 Iron deficiency anemia, unspecified; E78.1 Pure hyperglyceridemia; E78.00 Pure hypercholesterolemia, unspecified; M79.3 Panniculitis, unspecified; Z98.84 Bariatric surgery status
CPT/HCPCS: 97803; 99211

== ENCOUNTER → 2019-10-20 | Outpatient (CLI) | payer BC ==
[2019-10-20 08:48] LABS: HCT 44.1 % (34.0-46.0); HGB 13.4 gm/dL (11.4-16.0); MCH 28.3 pg (25.0-35.0); MCHC 30.5 g/dL (31.0-37.0); MCV 92.8 fL (80.0-100.0); Mean Platelet Volume 7.8; Platelet Count 216 k/uL (150-450); RBC 4.76 m/uL (3.80-5.40); RDW 13.7 % (11.5-15.5); WBC 7.3 k/uL (3.8-10.6)
[2019-10-20 08:55] LABS: Partial Thromboplastin Time 24.3 sec (22.0-30.0); Prothrombin Time 10.3 sec (9.0-12.0)
[2019-10-20 15:24] LABS: % Iron Saturation 20.4 (12.00-45.00); African American GFR (CKD) 98.2 (60.0-200.0); Albumin 4.3 g/dL (3.80-4.90); Albumin/Globulin Ratio 1.79 (1.60-3.17); Anion Gap 9.8 mmol/L (4.00-12.00); Carbon Dioxide 28.2 mmol/L (21.6-31.8); Chol/HDL Ratio 3.52; Globulin 2.4 g/dL (1.6-3.3); LDL Cholesterol,Calculated 107.2 mg/dL (0.0-131.0); Magnesium 1.8 mg/dL (1.5-2.4); Non-African American GFR(CKD) 84.8 (60.0-200.0); Phosphorus 3.7 mg/dL (2.4-5.1); Potassium 4.2 mmol/L (3.5-5.5); Total Bilirubin 0.5 mg/dL (0.3-1.2); Total Protein 6.7 g/dL (6.2-8.2); VLDL Calculation 28.8 mg/dL (5.00-40.00)
[2019-10-20 15:35] LABS: Ferritin 66.4 ng/mL (10.0-291.0)
[2019-10-20 15:39] LABS: Folate, Serum 20.4 ng/mL
[2019-10-20 16:19] LABS: Hemoglobin A1C 5.4 % (4.0-6.0)
[2019-10-21 12:19] LABS: Zinc, Serum 67 ug/dL (60-130)
[2019-10-21 15:02] LABS: Vitamin A 42 ug/dL (38-106)
== END | disposition home or self-care (01) ==
LOC: LABWHC1 08:04
PROVIDERS: ATTEND Surgery Plastic and Reconstructive Surgery
DX: E89.1 Postprocedural hypoinsulinemia (principal); K90.89 Other intestinal malabsorption; K90.9 Intestinal malabsorption, unspecified; E55.9 Vitamin D deficiency, unspecified; K74.1 Hepatic sclerosis; N19 Unspecified kidney failure; K50.90 Crohn's disease, unspecified, without complications; E21.1 Secondary hyperparathyroidism, not elsewhere classified; D50.9 Iron deficiency anemia, unspecified
CPT/HCPCS: 36415; 80053; 80061; 82306; 82525; 82607; 82728; 82746; 83036; 83540; 83550; 83735; 83970; 84100; 84134; 84255; 84425; 84443; 84590; 84630; 85027; 85610; 85730

== ENCOUNTER → 2020-01-25 | Outpatient (CLI) | payer BC ==
[2020-01-25 13:50] VITALS: BMI 39.4
--- NOTE | 2020-01-25 13:55 | P.PN ---
Subjective Progress Note Date: 01/25/20 Occasional left upper quadrant along the pain improved after being on a soft liquid diet. She denies any abdominal pain at this time. She has been more accountable on her eating habits. She continues with weight loss. She reports recent loss of her mother during the code with endemic. Total weight gain over 90+t plus pounds. She is 10 months out. Anniversary for March 2020. Recommend bariatric labs. Additionally, patient reports panniculitis and only the breast. Continue nystatin powder. Bariatric labs from previous visit also reviewed generally good, prealbumin was down. Objective - Vital Signs Vital signs: Intake & Output 01/24/20 01/25/20 01/25/20 18:59 06:59 18:59 Weight 107.501 kg
[2020-01-25 14:25] VITALS: BP 117/68; PULSE 69; TEMP 98
== END | disposition home or self-care (01) ==
LOC: BARWHC3 12:43
PROVIDERS: ATTEND Surgery Plastic and Reconstructive Surgery
DX: E66.01 Morbid (severe) obesity due to excess calories (principal); M79.3 Panniculitis, unspecified; Z68.39 Body mass index [BMI] 39.0-39.9, adult; Z79.899 Other long term (current) drug therapy
CPT/HCPCS: 97803; 99211

== ENCOUNTER → 2020-01-25 | Outpatient (CLI) | payer BC ==
[2020-01-25 15:27] LABS: HCT 42.2 % (34.0-46.0); HGB 13.3 gm/dL (11.4-16.0); MCH 28.6 pg (25.0-35.0); MCHC 31.5 g/dL (31.0-37.0); Mean Platelet Volume 7.6; Platelet Count 257 k/uL (150-450); RBC 4.64 m/uL (3.80-5.40); RDW 13.9 % (11.5-15.5); WBC 10.1 k/uL (3.8-10.6)
[2020-01-26 00:30] LABS: Hemoglobin A1C 5.6 % (4.0-6.0)
[2020-01-26 02:26] LABS: % Iron Saturation 16.33 (12.00-45.00); African American GFR (CKD) 98.2 (60.0-200.0); Albumin 4.5 g/dL (3.80-4.90); Albumin/Globulin Ratio 1.73 (1.60-3.17); Anion Gap 13.6 mmol/L (4.00-12.00); Calcium 10.2 mg/dL (8.7-10.3); Carbon Dioxide 22.4 mmol/L (21.6-31.8); Chol/HDL Ratio 3.46; Globulin 2.6 g/dL (1.6-3.3); LDL Cholesterol,Calculated 117.4 mg/dL (0.0-131.0); Magnesium 1.7 mg/dL (1.5-2.4); Non-African American GFR(CKD) 84.8 (60.0-200.0); Phosphorus 3.7 mg/dL (2.4-5.1); Potassium 3.9 mmol/L (3.5-5.5); Total Bilirubin 0.5 mg/dL (0.3-1.2); Total Protein 7.1 g/dL (6.2-8.2); VLDL Calculation 27.6 mg/dL (5.00-40.00)
[2020-01-26 02:33] LABS: Ferritin 81.2 ng/mL (10.0-291.0)
[2020-01-26 02:36] LABS: INR 1.02 (0.90-1.11); Partial Thromboplastin Time 28.9 sec (24.7-29.9); Prothrombin Time 10.9 sec (9.9-11.9)
[2020-01-26 02:55] LABS: Folate, Serum 19.1 ng/mL
[2020-01-26 14:20] LABS: Zinc, Serum 67 ug/dL (60-130)
[2020-01-27 06:20] LABS: Vit B1(Thiamine) 82 ug/L (38-122)
[2020-01-27 06:28] LABS: Vitamin A 41 ug/dL (38-106)
== END | disposition home or self-care (01) ==
LOC: LABWHC1 14:03
PROVIDERS: ATTEND Surgery Plastic and Reconstructive Surgery
DX: E21.1 Secondary hyperparathyroidism, not elsewhere classified (principal); D50.9 Iron deficiency anemia, unspecified; K90.9 Intestinal malabsorption, unspecified; E55.9 Vitamin D deficiency, unspecified; K74.1 Hepatic sclerosis; N19 Unspecified kidney failure; K50.90 Crohn's disease, unspecified, without complications; E89.1 Postprocedural hypoinsulinemia; E66.01 Morbid (severe) obesity due to excess calories
CPT/HCPCS: 36415; 80053; 80061; 82306; 82525; 82607; 82728; 82746; 83036; 83540; 83550; 83735; 83970; 84100; 84134; 84255; 84425; 84443; 84590; 84630; 85027; 85610; 85730

== ENCOUNTER → 2020-04-04 | Outpatient (CLI) | payer BC ==
[2020-04-04 11:34] VITALS: BP 125/84; PULSE 76; TEMP 98.3; BMI 41.3
--- NOTE | 2020-04-04 12:27 | P.PN ---
Subjective Progress Note Date: 04/04/20 DATE OF SERVICE: 04/04/2020 CHIEF COMPLAINT: Status post gastric bypass HISTORY OF PRESENT ILLNESS: Neto Hickman is a 55-year-old female who is status post gastric bypass, 03/17/19. She is 1 year out. She denies gastroesophageal reflux disease. She has gained 11 pounds in 2 months. She reports initial back pain that is now improved. She was on steroids for sciatica. She is eating moderate carbohydrates including pasta, bread, rice, and potatoes. She presents today with increase weight gain and morbid obesity. At height of 5 feet 5 inches, her ideal body weight is 149 pounds. Highest 330 pounds, BMI 55.0. She comes in 248 pounds from 237 pounds, 2 months ago. She has gained 11 pounds in 2 months. Her body mass index is down from 55.0 to 41.3. Lifetime weight loss of 82 pounds. Lifetime percent excess weight loss of 46 %. She is 99 pounds overweight. PHYSICAL EXAM: VITAL SIGNS: Height 5 foot 5 inches, weight 248 pounds. BMI 41.3 Vital Signs Temp 98.3 F 04/04/20 11:30 Pulse 76 04/04/20 11:30 Resp BP 125/84 04/04/20 11:30 Pulse Ox GENERAL: Well-developed in no acute distress. HEENT: No scleral icterus. Extraocular movements grossly intact. Hears conversational speech. No nasal drainage. NECK: Supple without lymphadenopathy. CHEST: Nonlabored respirations with equal bilateral excursions. CARDIOVASCULAR: Regular rate. Distal 2+ pulses. ABDOMEN: Soft, nontender, no hernia. MUSCULOSKELETAL: No clubbing, cyanosis. NEURO: No focal or lateralizing signs. Cranial nerves 2 through 12 grossly within normal limits. PSYCH: Appropriate affect. Alert and oriented to person, place and time. SKIN: Good skin turgor. Well perfused. LABS: Reviewed. Cholesterol is elevated. Vitamins are within normal limits. ASSESSMENT: 1. Morbid obesity due to excess calories 2. Body mass index of 55.0 down to 41.3 3. Osteoarthritis of the knees. 4. Osteoarthritis of the hips. 5. Osteoarthritis of the lower back. 6. Obstructive sleep apnea. 7. Hypertensive heart disease. 8. Gastroesophageal reflux disease. 9. Diabetes type 2, [id number]-[id number], uncontrolled, improved 10. Seizure disorder 11. Depressive disorder 12. Asthma 13. Bipolar disorder 14. Vitamin D deficiency 15. Iron deficiency anemia 16. Hypertriglyceridemia 17. Hypercholesterolemia 18. Status post gastric bypass 19. Panniculitis PLAN: 1. Recommend adjust deit from pasta, bread, rice, potatoes. 2. Recommend protein intake daily over 75 grams daily. 3. Recommend body building and cardiovascular exercise Objective - Vital Signs Vital signs: Vital Signs Temp 98.3 F 04/04/20 11:30 Pulse 76 04/04/20 11:30 Resp BP 125/84 04/04/20 11:30 Pulse Ox Intake & Output 04/03/20 04/04/20 04/04/20 18:59 06:59 18:59 Weight 112.536 kg - Labs CBC & Chem 7: 04/04/20 13:05 04/04/20 13:05
[2020-04-04 14:48] LABS: HCT 44.1 % (34.0-46.0); HGB 13.6 gm/dL (11.4-16.0); MCH 28.5 pg (25.0-35.0); MCHC 30.8 g/dL (31.0-37.0); MCV 92.3 fL (80.0-100.0); Mean Platelet Volume 7.2; Platelet Count 297 k/uL (150-450); RBC 4.77 m/uL (3.80-5.40); RDW 13.5 % (11.5-15.5); WBC 8.1 k/uL (3.8-10.6)
[2020-04-04 20:15] LABS: % Iron Saturation 18.08 (12.00-45.00); African American GFR (CKD) 97.6 (60.0-200.0); Albumin 4.6 g/dL (3.80-4.90); Albumin/Globulin Ratio 1.92 (1.60-3.17); Anion Gap 8.9 mmol/L (4.00-12.00); BUN/Creat Ratio 26.25 Ratio (12.00-20.00); Calcium 10.1 mg/dL (8.7-10.3); Carbon Dioxide 28.1 mmol/L (21.6-31.8); Chol/HDL Ratio 3.72; Globulin 2.4 g/dL (1.6-3.3); LDL Cholesterol,Calculated 126.8 mg/dL (0.0-131.0); Magnesium 1.8 mg/dL (1.5-2.4); Non-African American GFR(CKD) 84.2 (60.0-200.0); Phosphorus 4.1 mg/dL (2.4-5.1); Potassium 4.7 mmol/L (3.5-5.5); Total Bilirubin 0.5 mg/dL (0.3-1.2); VLDL Calculation 31.2 mg/dL (5.00-40.00)
[2020-04-04 20:24] LABS: Ferritin 76.6 ng/mL (10.0-291.0)
[2020-04-04 20:35] LABS: Folate, Serum 17.5 ng/mL
[2020-04-04 21:06] LABS: Hemoglobin A1C 5.6 % (4.0-6.0)
[2020-04-05 01:48] LABS: INR 0.97 (0.90-1.11); Partial Thromboplastin Time 28.2 sec (24.7-29.9); Prothrombin Time 10.4 sec (9.9-11.9)
[2020-04-05 11:30] LABS: Zinc, Serum 70 ug/dL (60-130)
[2020-04-06 07:27] LABS: Vit B1(Thiamine) 75 ug/L (38-122)
[2020-04-06 07:34] LABS: Vitamin A 51 ug/dL (38-106)
[2020-04-11 19:17] LABS: Selenium 130 mcg/L (63-160)
== END | disposition home or self-care (01) ==
LOC: BARWHC3 11:02
PROVIDERS: ATTEND Surgery Plastic and Reconstructive Surgery
DX: Z48.815 Encounter for surgical aftercare following surgery on the digestive system (principal); E66.01 Morbid (severe) obesity due to excess calories; M17.0 Bilateral primary osteoarthritis of knee; M16.0 Bilateral primary osteoarthritis of hip; G47.33 Obstructive sleep apnea (adult) (pediatric); I11.9 Hypertensive heart disease without heart failure; K21.9 Gastro-esophageal reflux disease without esophagitis; E11.9 Type 2 diabetes mellitus without complications; G40.909 Epilepsy, unspecified, not intractable, without status epilepticus; J45.909 Unspecified asthma, uncomplicated; F31.9 Bipolar disorder, unspecified; E55.9 Vitamin D deficiency, unspecified; E78.1 Pure hyperglyceridemia; E78.00 Pure hypercholesterolemia, unspecified; M79.3 Panniculitis, unspecified; E89.1 Postprocedural hypoinsulinemia; D50.8 Other iron deficiency anemias; K90.89 Other intestinal malabsorption; K74.1 Hepatic sclerosis; N19 Unspecified kidney failure; K50.90 Crohn's disease, unspecified, without complications; Z68.41 Body mass index [BMI] 40.0-44.9, adult; Z98.84 Bariatric surgery status
CPT/HCPCS: 36415; 80053; 80061; 82306; 82525; 82607; 82728; 82746; 83036; 83540; 83550; 83735; 83970; 84100; 84134; 84255; 84425; 84443; 84590; 84630; 85027; 85610; 85730; 97803; 99211

== ENCOUNTER → 2020-06-27 | Outpatient (CLI) | payer BC ==
[2020-06-27 14:51] VITALS: BP 101/74; PULSE 86; RESP 18; TEMP 98.3; BMI 41.2
--- NOTE | 2020-06-27 15:05 | P.PN ---
Subjective Progress Note Date: 06/27/20 DATE OF SERVICE: 06/27/2020 CHIEF COMPLAINT: Status post gastric bypass HISTORY OF PRESENT ILLNESS: Neto Hickman is a 55-year-old female who is status post gastric bypass, 03/17/19. She is over 1 year out. Her highest weight was 350 pounds. She reports 100 pounds weight loss. She is on new medication for hormones. She only complains of pain with baclofen. At height of 5 feet 5 inches, her ideal body weight is 149 pounds. Highest 350 pounds, BMI 58.4. She comes in 247 pounds from 248 pounds, 3 months ago. Her weight was unchanged. Her body mass index is down from 58.4 to 41.3. Lifetime weight loss of 103 pounds. Lifetime percent excess weight loss is 51 %. She is 98 pounds overweight. PHYSICAL EXAM: VITAL SIGNS: Height 5 foot 5 inches, weight 247 pounds. BMI 41.3 Vital Signs Temp 98.3 F 06/27/20 14:47 Pulse 86 06/27/20 14:47 Resp 18 06/27/20 14:47 BP 101/74 06/27/20 14:47 Pulse Ox GENERAL: Well-developed in no acute distress. HEENT: No scleral icterus. Extraocular movements grossly intact. Hears conversational speech. No nasal drainage. NECK: Supple without lymphadenopathy. CHEST: Nonlabored respirations with equal bilateral excursions. CARDIOVASCULAR: Regular rate. Distal 2+ pulses. ABDOMEN: Soft, nontender, no hernia. MUSCULOSKELETAL: No clubbing, cyanosis. NEURO: No focal or lateralizing signs. Cranial nerves 2 through 12 grossly within normal limits. PSYCH: Appropriate affect. Alert and oriented to person, place and time. SKIN: Good skin turgor. Well perfused. LABS: Reviewed. Hgb 13.6. Cholesterol elevated. Vitamins are within normal limits. ASSESSMENT: 1. Morbid obesity due to excess calories 2. Body mass index of 58.4 down to 41.3 3. Osteoarthritis of the knees. 4. Osteoarthritis of the hips. 5. Osteoarthritis of the lower back. 6. Obstructive sleep apnea. 7. Hypertensive heart disease. 8. Gastroesophageal reflux disease. 9. Diabetes type 2, rjo-nqczpbs-sagwmvosz, uncontrolled, improved 10. Seizure disorder 11. Depressive disorder 12. Asthma 13. Bipolar disorder 14. Vitamin D deficiency 15. Iron deficiency anemia 16. Hypertriglyceridemia 17. Hypercholesterolemia 18. Status post gastric bypass 19. Panniculitis PLAN: 1. Recommend food diary journal. 2. Recommend follow up as needed. Objective - Vital Signs Vital signs: Vital Signs Temp 98.3 F 06/27/20 14:47 Pulse 86 06/27/20 14:47 Resp 18 06/27/20 14:47 BP 101/74 06/27/20 14:47 Pulse Ox Intake & Output 06/26/20 06/27/20 06/27/20 18:59 06:59 18:59 Weight 112.491 kg
== END | disposition home or self-care (01) ==
LOC: BARWHC3 13:38
PROVIDERS: ATTEND Surgery Plastic and Reconstructive Surgery
DX: E66.01 Morbid (severe) obesity due to excess calories (principal); M17.0 Bilateral primary osteoarthritis of knee; M16.0 Bilateral primary osteoarthritis of hip; M47.9 Spondylosis, unspecified; G47.33 Obstructive sleep apnea (adult) (pediatric); I11.9 Hypertensive heart disease without heart failure; K21.9 Gastro-esophageal reflux disease without esophagitis; E11.9 Type 2 diabetes mellitus without complications; G40.909 Epilepsy, unspecified, not intractable, without status epilepticus; J45.909 Unspecified asthma, uncomplicated; F31.9 Bipolar disorder, unspecified; E55.9 Vitamin D deficiency, unspecified; D50.9 Iron deficiency anemia, unspecified; E78.1 Pure hyperglyceridemia; E78.00 Pure hypercholesterolemia, unspecified; M79.3 Panniculitis, unspecified; Z98.84 Bariatric surgery status; Z68.43 Body mass index [BMI] 50.0-59.9, adult
CPT/HCPCS: 99211

== ENCOUNTER → 2020-09-26 | Outpatient (CLI) | payer BC ==
--- NOTE | 2020-09-26 15:29 | P.PN ---
Subjective Progress Note Date: 09/26/20 She is stress eating. She has 4 pound weight gain. She had dysphagia and cough. No chest pain. Last labs from March 2020. 2-week. No abdominal pain. She has MOM last night and had belly pain. She has kidney stones and passing multiple. Recommend in 2 weeks. DATE OF SERVICE: 09/26/2020 CHIEF COMPLAINT: Status post gastric bypass HISTORY OF PRESENT ILLNESS: Neto Hickman is a 55-year-old female who is status post gastric bypass, 03/17/19. She is over 2 years out. She is stress eating. She has 4 pound weight gain. She had dysphagia and cough. She denies chest pain. Her last labs were from March 2020. She denies abdominal pain prior to recent. She had milk of magnesia last night and had generalized abdominal pain. She now has kidney stones and is passing multiple stones. Recommend in 2 weeks. At height of 5 feet 5 inches, her ideal body weight is 149 pounds. Highest 350 pounds, BMI 58.4. She comes in 251 pounds from 247 pounds, 3 months ago. She has gained 4 pounds in 3 months. Her body mass index is down from 58.4 to 41.9. Lifetime weight loss of 99 pounds. Lifetime percent excess weight loss is 49 %. She is 102 pounds overweight. PHYSICAL EXAM: VITAL SIGNS: Height 5 foot 5 inches, weight 247 pounds. BMI 41.3 Vital Signs Temp 98 F 09/26/20 14:33 Pulse 83 09/26/20 14:33 Resp BP 110/73 09/26/20 14:33 Pulse Ox GENERAL: Well-developed in no acute distress. HEENT: No scleral icterus. Extraocular movements grossly intact. Hears conve rsational speech. No nasal drainage. NECK: Supple without lymphadenopathy. CHEST: Nonlabored respirations with equal bilateral excursions. CARDIOVASCULAR: Regular rate. Distal 2+ pulses. ABDOMEN: Soft, nontender, no hernia. MUSCULOSKELETAL: No clubbing, cyanosis. NEURO: No focal or lateralizing signs. Cranial nerves 2 through 12 grossly within normal limits. PSYCH: Appropriate affect. Alert and oriented to person, place and time. SKIN: Good skin turgor. Well perfused. ASSESSMENT: 1. Morbid obesity due to excess calories 2. Body mass index of 58.4 down to 41.9 3. Osteoarthritis of the knees. 4. Osteoarthritis of the hips. 5. Osteoarthritis of the lower back. 6. Obstructive sleep apnea. 7. Hypertensive heart disease. 8. Gastroesophageal reflux disease. 9. Diabetes type 2, miz-ytjxaxf-jvqrooxhr, uncontrolled, improved 10. Seizure disorder 11. Depressive disorder 12. Asthma 13. Bipolar disorder 14. Vitamin D deficiency 15. Iron deficiency anemia 16. Hypertriglyceridemia 17. Hypercholesterolemia 18. Status post gastric bypass 19. Panniculitis PLAN: 1. Recommend 2 week high protein, low card biet. 2. Follow up in 2 weeks. Objective - Vital Signs Vital signs: Vital Signs Temp 98 F 09/26/20 14:33 Pulse 83 09/26/20 14:33 Resp BP 110/73 09/26/20 14:33 Pulse Ox Intake & Output 09/25/20 09/26/20 09/26/20 18:59 06:59 18:59 Weight 114.305 kg
== END ==
CPT/HCPCS: 99211

== ENCOUNTER → 2020-09-27 | Outpatient (CLI) | payer BC ==
[2020-09-27 13:16] LABS: Prothrombin Time 10.3 sec (9.0-12.0)
[2020-09-27 19:14] LABS: HCT 38.5 % (37.2-46.3); HGB 11.7 g/dL (12.0-15.0); MCH 28.3 pg (27.0-32.0); MCHC 30.4 g/dL (32.0-37.0); MCV 93.2 fL (80.0-97.0); Mean Platelet Volume 10.2 fL (9.5-12.2); Platelet Count 296 X 10*3/uL (140-440); RBC 4.13 X 10*6/uL (4.10-5.20); RDW 13.9 % (11.5-14.5); WBC 7.51 X 10*3/uL (4.50-10.00)
[2020-09-28 03:28] LABS: % Iron Saturation 13.82 (12.00-45.00); African American GFR (CKD) 84.6 (60.0-200.0); Albumin 4.5 g/dL (3.80-4.90); Albumin/Globulin Ratio 1.88 (1.60-3.17); Anion Gap 7.1 mmol/L (4.00-12.00); BUN/Creat Ratio 17.78 Ratio (12.00-20.00); Calcium 10.2 mg/dL (8.7-10.3); Carbon Dioxide 31.9 mmol/L (21.6-31.8); Chol/HDL Ratio 4.02; Globulin 2.4 g/dL (1.6-3.3); Magnesium 1.8 mg/dL (1.5-2.4); Phosphorus 3.8 mg/dL (2.4-5.1); Potassium 4.3 mmol/L (3.5-5.5); Total Bilirubin 0.3 mg/dL (0.3-1.2); Total Protein 6.9 g/dL (6.2-8.2)
[2020-09-28 03:36] LABS: Ferritin 93.9 ng/mL (10.0-291.0)
[2020-09-28 13:35] LABS: Zinc, Serum 71 ug/dL (60-130)
[2020-09-30 17:28] LABS: Selenium 129 mcg/L (63-160)
[2020-10-01 08:18] LABS: Vitamin A 42 ug/dL (38-106)
[2020-10-01 10:31] LABS: Vit B1(Thiamine) 65 ug/L (38-122)
== END | disposition home or self-care (01) ==
LOC: LABWHC1 09:37
PROVIDERS: ATTEND Surgery Plastic and Reconstructive Surgery
DX: E66.01 Morbid (severe) obesity due to excess calories (principal); E89.1 Postprocedural hypoinsulinemia; D50.8 Other iron deficiency anemias; K90.89 Other intestinal malabsorption; E44.0 Moderate protein-calorie malnutrition; E55.9 Vitamin D deficiency, unspecified; K74.1 Hepatic sclerosis; N19 Unspecified kidney failure; K50.90 Crohn's disease, unspecified, without complications
CPT/HCPCS: 36415; 80053; 80061; 82306; 82525; 82607; 82728; 82746; 83036; 83540; 83550; 83735; 83970; 84100; 84134; 84255; 84425; 84443; 84590; 84630; 85027; 85610; 85730

== ENCOUNTER → 2020-10-30 | Outpatient (CLI) | payer BC | END | disposition home or self-care (01) | LOC: LABWHC1 14:09 | PROVIDERS: ATTEND Surgery Plastic and Reconstructive Surgery | DX: E03.9 Hypothyroidism, unspecified (principal) | CPT/HCPCS: 36415; 84443 ==

== ENCOUNTER → 2020-10-31 | Outpatient (CLI) | payer BC ==
[2020-10-31 16:13] VITALS: BP 115/77; PULSE 56; RESP 18; TEMP 98; BMI 42.0
--- NOTE | 2020-10-31 16:43 | P.PN ---
Subjective Progress Note Date: 10/31/20 DATE OF SERVICE: 10/31/2020 CHIEF COMPLAINT: Status post gastric bypass HISTORY OF PRESENT ILLNESS: Neto Hickman is a 55-year-old female who is status post gastric bypass, 03/17/19. She is over 2 years out. She comes in with problems with apron of her abdomen with panniculitis. She has tried local re medies without much improvement. She reports troubles with grooming and lower back pain. She also reports troubles with weight loss. At height of 5 feet 5 inches, her ideal body weight is 149 pounds. Highest 350 pounds, BMI 58.4. She comes in 252 pounds from 251 pounds, 1 month ago. She has maintained her weight. Her body mass index is down from 58.4 to 41.9. Lifetime weight loss of 98 pounds. Lifetime percent excess weight loss is 49 %. She is 103 pounds overweight. PHYSICAL EXAM: VITAL SIGNS: Height 5 foot 5 inches, weight 252 pounds. BMI 42.0 Vital Signs Temp 98.0 F 10/31/20 16:08 Pulse 56 L 10/31/20 16:08 Resp 18 10/31/20 16:08 BP 115/77 10/31/20 16:08 Pulse Ox GENERAL: Well-developed in no acute distress. HEENT: No scleral icterus. Extraocular movements grossly intact. Hears conversational speech. No nasal drainage. NECK: Supple without lymphadenopathy. CHEST: Nonlabored respirations with equal bilateral excursions. CARDIOVASCULAR: Regular rate. Distal 2+ pulses. ABDOMEN: Soft, nontender, no hernia. MUSCULOSKELETAL: No clubbing, cyanosis. NEURO: No focal or lateralizing signs. Cranial nerves 2 through 12 grossly within normal limits. PSYCH: Appropriate affect. Alert and oriented to person, place and time. SKIN: Good skin turgor. Well perfused. LABS: Reviewed. Hgb low 11.7, Iron is low, Pre-albumin is low, TSH 1.5 now 1.4 ASSESSMENT: 1. Morbid obesity due to excess calories 2. Body mass index of 58.4 down to 42.0 3. Osteoarthritis of the knees. 4. Osteoarthritis of the hips. 5. Osteoarthritis of the lower back. 6. Obstructive sleep apnea. 7. Hypertensive heart disease. 8. Gastroesophageal reflux disease. 9. Diabetes type 2, qvv-dlvofsm-bzmqmqnzu, uncontrolled, improved 10. Seizure disorder 11. Depressive disorder 12. Asthma 13. Bipolar disorder 14. Vitamin D deficiency 15. Iron deficiency anemia 16. Hypertriglyceridemia 17. Hypercholesterolemia 18. Status post gastric bypass 19. Panniculitis PLAN: 1. Recommend increase synthyroid from 25 mcg to 50 mcg and repeat 1 month. 2. She has panniculitis. Prescription for nystatin powder. 3. Referral to cream separator operator for panniculitis described. Objective - Vital Signs Vital signs: Vital Signs Temp 98.0 F 10/31/20 16:08 Pulse 56 L 10/31/20 16:08 Resp 18 10/31/20 16:08 BP 115/77 10/31/20 16:08 Pulse Ox Intake & Output 10/30/20 10/31/20 10/31/20 18:59 06:59 18:59 Weight 114.487 kg
== END | disposition home or self-care (01) ==
LOC: BARWHC3 15:46
PROVIDERS: ATTEND Surgery Plastic and Reconstructive Surgery
DX: E66.01 Morbid (severe) obesity due to excess calories (principal); M79.3 Panniculitis, unspecified; M16.0 Bilateral primary osteoarthritis of hip; M17.0 Bilateral primary osteoarthritis of knee; G47.33 Obstructive sleep apnea (adult) (pediatric); I11.9 Hypertensive heart disease without heart failure; K21.9 Gastro-esophageal reflux disease without esophagitis; E11.9 Type 2 diabetes mellitus without complications; G40.909 Epilepsy, unspecified, not intractable, without status epilepticus; J45.909 Unspecified asthma, uncomplicated; F31.9 Bipolar disorder, unspecified; E55.9 Vitamin D deficiency, unspecified; D50.9 Iron deficiency anemia, unspecified; E78.1 Pure hyperglyceridemia; E78.00 Pure hypercholesterolemia, unspecified; Z98.84 Bariatric surgery status; Z68.41 Body mass index [BMI] 40.0-44.9, adult
CPT/HCPCS: 99211

== ENCOUNTER → 2020-11-30 | Outpatient (CLI) | payer BC | END | disposition home or self-care (01) | LOC: LABWHC1 06:57 | PROVIDERS: ATTEND Surgery Plastic and Reconstructive Surgery | DX: E03.9 Hypothyroidism, unspecified (principal) | CPT/HCPCS: 36415; 84443 ==

== ENCOUNTER → 2021-02-27 | Outpatient (CLI) | payer BC | END | disposition home or self-care (01) | LOC: LABWHC1 11:25 | PROVIDERS: ATTEND Surgery Plastic and Reconstructive Surgery | DX: E66.01 Morbid (severe) obesity due to excess calories (principal); E44.0 Moderate protein-calorie malnutrition | CPT/HCPCS: 36415; 84443 ==

== ENCOUNTER → 2021-03-14 | Outpatient (CLI) | payer BC | END | disposition home or self-care (01) | LOC: LABPAT 09:34 | PROVIDERS: ATTEND Orthopaedic Surgery | DX: Z01.812 Encounter for preprocedural laboratory examination (principal); M17.11 Unilateral primary osteoarthritis, right knee | CPT/HCPCS: 87070 ==

== ENCOUNTER 2021-04-09 08:26 | Day surgery (SDC) | payer BC ==
[2021-04-05 14:18] VITALS: BMI 41.3
--- NOTE | 2021-04-08 11:12 | HP ---
HISTORY AND PHYSICAL CHIEF COMPLAINT: Right knee pain. HISTORY OF PRESENT ILLNESS: The patient is a 56-year-old female who presents with progressive right knee pain for the past several years, worsening recently. She notes medial pain along with swelling and giving way. It is worse with prolonged weightbearing activities. She notes her knee feels unstable. She has tried previous injections along with medications, without much relief. She has also been on a weight loss program and has lost a significant amount of weight recently. PAST MEDICAL HISTORY: Significant for kun-oidejfd-zincgeobx diabetes, hypothyroidism. PAST SURGICAL HISTORY: Significant for bariatric surgery along with right knee arthroscopy, tonsillectomy, cholecystectomy and hernia repair. CURRENT MEDICATIONS: Metformin, ibuprofen, Tylenol. ALLERGIES: She has allergies to MORPHINE. FAMILY HISTORY: Significant for cancer. SOCIAL HISTORY: Negative for current tobacco or alcohol use. REVIEW OF SYSTEMS: Sixteen-point review of systems is otherwise reviewed and noncontributory. PHYSICAL EXAMINATION: On examination, the patient is approximately 5 feet 6 inches, 254 pounds of endomorphic habitus. HEENT exam is nonfocal. Neck is supple. She has painless passive motion of the right hip. Straight-leg raise is negative. Active motion of right knee: Minus 12 to 85 degrees of flexion. She is tender about the medial and lateral joint lines. She has a mild effusion. Collaterals are stable, Ruchi is negative. Jonel's is equivocal. She has genu valgum alignment. Her distal neurovascular exam appears intact in the right lower extremity. X-rays of the right knee obtained in the office show severe tricompartmental osteoarthrosis with [id number] changes and subchondral sclerosis. The lateral compartment appears to be more involved than the medial compartment. IMPRESSION: Right knee severe tricompartmental osteoarthrosis. RECOMMENDATIONS: I talked to the patient at length regarding her condition and treatment options. At this point she has significant pain and limitations secondary to her right knee osteoarthrosis despite previous extensive conservative measures. After a thorough discussion, she opted to proceed with surgery. We will plan to proceed with right total knee arthroplasty. We will institute DVT prophylaxis postoperatively. MMODL / IJN: [id number] /
[~2021-04-09 08:26] MED LIST changes: -ACETAMINOPHEN IV (For NPO) 1,000 MG in EMPTY BAG 1 BAG IVPB ONE; +ACETAMINOPHEN TAB 500 MG TAB PO PRN; -CHLORHEXIDINE GLUCONATE 15 ML CUP MUCOUS MEM ONE; +CLINDAMYCIN 900 MG in DEXTROSE 5% IN WATER 50 ML IVPB PRN; -DEXAMETHASONE SOD PHOSPHATE 10 MG/ML 1 ML VIAL IV ONE; +DEXAMETHASONE SOD PHOSPHATE 4 MG/ML 1 ML VIAL IV ONE; -ENOXAPARIN 40 MG/0.4 ML SYRINGE SQ STA; +MELOXICAM 7.5 MG TAB PO PRN; -PANTOPRAZOLE 40 MG/10 ML VIAL IV STA; +TRANEXAMIC ACID 1,000 MG in SODIUM CHLORIDE 0.9% 100 ML IVPB PRN
[2021-04-09] MEDS: LACTATED RINGERS 1,000 ML IV SCH ×2 (09:14→16:22)
[2021-04-09] MEDS ORDERED: fentaNYL (PF) 50 MCG/ML 2 ML AMP IVP ONE (09:50)
[2021-04-09] MEDS ORDERED: MIDAZOLAM 2 MG/2 ML VIAL IVP ONE (09:50)
[2021-04-09] MEDS ORDERED: ROPIVACAINE 5 MG/ML 30 ML VIAL ONE (10:08)
[2021-04-09] MEDS ORDERED: TRANEXAMIC ACID 1,000 MG/10 ML VIAL ONE (10:08)
[2021-04-09] MEDS ORDERED: PROPOFOL 10 MG/ML 20 ML VIAL IV ONE (10:08)
[2021-04-09] MEDS ORDERED: SODIUM CHLORIDE 0.9% 100 ML BAG ONE (10:08)
[2021-04-09] MEDS ORDERED: ePHEDrine 50 MG/ML 1 ML AMP ONE (10:08)
[2021-04-09] MEDS ORDERED: MIDAZOLAM 2 MG/2 ML VIAL ONE (10:08)
[2021-04-09] MEDS ORDERED: DEXAMETHASONE SOD PHOSPHATE 4 MG/ML 1 ML VIAL ONE (10:08)
[2021-04-09] MEDS ORDERED: CLINDAMYCIN 600 MG in SODIUM CHLORIDE 0.9% 1,000 ML IRRIGATION ONE (10:43)
[2021-04-09] MEDS ORDERED: HYDROcodone/APAP 5-325MG 1 EACH TAB PO PRN (11:48)
[2021-04-09] MEDS ORDERED: HYDROmorphone 0.5 MG/0.5 ML SYRINGE IVP PRN (11:48)
[2021-04-09] MEDS ORDERED: NALOXONE 0.4 MG/ML 1 ML VIAL IV PRN (11:48)
[2021-04-09] MEDS ORDERED: LACTATED RINGERS 1,000 ML IV ONE (11:58)
[2021-04-09] MEDS ORDERED: ROPIVACAINE 0.2%-NS ON-Q PUMP 1,090 MG, EMPTY PAIN BALL 1 EACH MISCELLANE PRN (12:08)
--- NOTE | 2021-04-09 12:13 | P.OP ---
Date of Procedure: 04/09/21 Preoperative Diagnosis: Right knee severe tricompartmental osteoarthrosis Postoperative Diagnosis: Same Procedure(s) Performed: Right total knee arthroplastycementedposterior stabilized Implants: Depuy Attune size 6 narrow cemented femoral component, size 5 cemented tibial component, 50 mm tibial stem augment, 9 mm articular surface, 35 mm cemented patellar component. This is a posterior stabilized implant. Anesthesia: regional, spinal Surgeon: Alexy Christensen Head Loader #1: Jesse Brasher Estimated Blood Loss (ml): 50 Pathology: other (Bone fragments) Condition: stable Disposition: PACU Indications for Procedure: The patient's a 56-year-old female who presents with progressive right knee pain secondary to osteoarthrosis despite previous extensive conservative measures. A discussion of the risks and benefits of operative intervention versus continued conservative measures was made with the patient. She opted to proceed with surgery. Operative risks to include infection, neurovascular injury, development of blood clots, fracture, possible component loosening/failure and need for subsequent procedures was discussed. Informed consent was obtained. Operative Findings: As below Description of Procedure: The patient was brought to the operating room, and after induction of spinal anesthesia the right lower extremity was prepped and draped in a normal fashion. The tourniquet was inflated to 270 mm marker. A longitudinal incision extending 3 finger breaths above the superior pole of patella extending to the medial aspect the tibial tubercle was then made. The skin and subcutaneous tissues were divided sharply. Electrocautery was used for hemostasis. A medial parapatellar arthrotomy was performed. The medial soft tissues to include the superficial and deep portions of the medial collateral ligament were elevated subperiosteally. The patella was everted. A portion of the retropatellar fat pad was excised sharply. The anterior cruciate ligament was sacrificed. Blunt retractors were placed. A starting hole was made in the distal femur 1 cm anterior to the posterior cruciate ligament origin. An intramedullary femoral guide was then inserted planning on 5 valgus distal cut with 9 mm distal resection. The cutting block was pinned in place. The distal cut was then made. The posterior referencing sizing guide was utilized. I felt size 6 narrow was most appropriate. 3 of external rotation was built into the system and verified off the trans-epicondylar axis and the posterior condyles. The cutting block was pinned in place. The anterior, posterior, and chamfer cuts then made. Bone fragments were removed. The intercondylar guide was placed and the notch cut was made with a sagittal saw. The bone block was removed in one fragment. The trial component was then placed. There is good anterior to posterior and medial to lateral fit. The distal peg holes were drilled. The trial component was removed. Attention was then paid towards preparing the proximal femur. An extra medullary guide was utilized in line with the tibial shaft and second metatarsal distally. I planned on 6 mm resection from the medial compartment. The cutting block was pinned in place. The proximal tibial cut was then made. The bone was removed in one fragment. The remnants of the medial and lateral menisci were excised at the capsular junction with electrocautery. The tibia sized most appropriately at size 5. The trial femoral and tibial components were placed along with a 10 mm articular surface. I was able to obtain full flexion and extension with internal and external rotation. After several flexion and extension cycles, the tibial rotation was marked with electrocautery line with the medial one third of the tibial tubercle. Attention was then paid towards preparing the patella. A patella reamer was utilized taking stem to 14 mm of bone stock. A good flush cut was made. The patella sized most appropriately 35 mm. The peg holes were drilled. The trial components placed. I had good patellofemoral tracking with no hands technique. The trial components were then removed. The tibia was prepared in the appropriate rotation with appropriate drill and keel punch planning on a 50 mm tibial stem and augment. The posterior osteophytes were removed with a curved osteotome. The flexion and extension gaps were checked and felt to be symmetric at 10 mm. A trial components were then removed. The bony surfaces were prepared with pulsatile lavage and dried. The tibial component was then cemented place was fully seated. Excess cement was removed. The femoral component cemented place and was fully seated. Excess cement was removed. The trial 10 mm articular surface was placed and the knee was put in full extension. The patella component was cemented place. After the cement had sufficiently hardened, the knee was again taken through a range of motion. Again I was able to obtain full flexion and extension with varus and valgus stress. The trial 10 mm articular surface was removed and the final one inserted. This was fully seated. Care was taken to avoid any soft tissue interposition. Pulsatile lavage was again utilized. The medial parapatellar arthrotomy was closed with #2 Ethibond suture. The tourniquet was deflated with approximately 60 minutes total tourniquet time. Final hemostasis was obtained with the cautery. There was minimal bleeding therefore a deep drain was not placed. The subcutaneous tissues were reapproximated with interrupted 2-0 Vicryl sutures. The skin was reapproximated with 3-0 subcuticular strata fix suture. Skin tape and adhesive was applied. A sterile dressing was applied. The patient was awoken from sedation and transferred to recovery room in good condition. Blood loss was estimated at 50 mL. No complications were incurred. Sponge and needle counts were correct at the end of the case. Jesse TOMPKINS assisted during the major components of this case to include exposure, bone resection, implantation, and closure.
[2021-04-09 12:42] LABS: Glucose,Whole Blood 90 mg/dL (75-99)
--- NOTE | 2021-04-09 12:55 | XR ---
EXAMINATION TYPE: XR knee limited RT DATE OF EXAM: 04/09/2021 COMPARISON: None HISTORY: Postop knee replacement TECHNIQUE: 2 view right FINDINGS: Tibiofemoral components place. No acute fracture or dislocation is evident. Postsurgical so ft tissue changes are within the knee. IMPRESSION: 1. No acute fractures post knee replacement
--- NOTE | 2021-04-09 14:00 | P.ANPRN ---
Procedure Note - Anesthesia - Nerve Block Performed Right Adductor Canal Infusion Time Out Performed: Yes (09:45) Date of Procedure: 04/09/21 Procedure Start Time: 09:52 Procedure Stop Time: 10:59 Location of Patient: PreOp Indication: Acute Post-Operative Pain, Requested by Surgeon Specifically requested for management of pain by DrAmy: Alexy Christensen Sedation Type: Sedate with meaningful contact maintained Preparation: Sterile Prep Position: Supine Catheter: Indwelling Needle Types: Pajunk Needle Gauge: 18 Ultrasound used to visualize needle placement: Yes Ultrasound used to observe medication spread: Yes Injectate: 0.5% Ropivacaine (see comment for volume) (20cc 0.25%) Blood Aspirated: No Pain Paresthesia on Injection Noted: No Resistance on Injection: Normal Image Stored and Saved: Yes Events: Uneventful and Well Tolerated Right iPack Single Time Out Performed: Yes (:45) Date of Procedure: 04/09/21 Procedure Start Time: 10:00 Procedure Stop Time: 10:03 Location of Patient: PreOp Indication: Acute Post-Operative Pain, Dx/Pain Location (Right knee), Requested by Surgeon Specifically requested for management of pain by DrAmy: Alexy Christensen Sedation Type: Sedate with meaningful contact maintained Preparation: Sterile Prep Position: Supine Needle Types: Facet Needle Gauge: 21 Ultrasound used to visualize needle placement: Yes Ultrasound used to observe medication spread: Yes Injectate: 0.5% Ropivacaine (see comment for volume) (20cc 0.25%) Blood Aspirated: No Pain Paresthesia on Injection Noted: No Resistance on Injection: Normal Image Stored and Saved: Yes Events: Uneventful and Well Tolerated
--- NOTE | 2021-04-09 15:32 | P.CONS ---
History of Present Illness - Reason for Consult Consult date: 04/09/21 Medical management Requesting physician: Alexy Christensen - Chief Complaint Right knee pain - History of Present Illness This is a very pleasant 56-year-old patient who follows with Dr. Davon Christensen. Chronic stable medical conditions include osteoarthritis, hypothyroid, kidney stones currently symptomatic, chronic sinusitis, restless leg syndrome. Patient underwent gastric bypass surgery and lost 100 pounds. As a result she did not have anymore obstructive sleep apnea, GERD, diabetes. Patient today has undergone right total knee arthroplasty. Pain is controlled. No nausea vomiting. Denies any cardiac history. Sitting at the edge of the bed. at the bedside. Review of systems: GEN.: Tired EYES: None HEENT: None NECK: None RESPIRATORY: None CARDIOVASCULAR: None GASTROINTESTINAL: None GENITOURINARY: None MUSCULOSKELETAL: Joint pains LYMPHATICS: None HEMATOLOGICAL: None PSYCHIATRY: None NEUROLOGICAL: None Past medical history to include: Osteoarthritis, hypothyroid, chronic sinusitis, kidney stones a symptomatic, restless leg syndrome. Patient had bariatric surgery and since then has no more diabetes, GERD, obstructive sleep apnea. Social history: Does not drink alcohol. . Smoked a pack and a half about 30 years stopped about 11 years ago. Family history: Reviewed, noncontributory to presentation Physical examination: VITAL SIGNS: 97.6, 68, 18, 120/76, 97% room air GENERAL: BMI 42.0, sitting is edge bed, awake, comfortable. EYES: Pupils equal. Conjunctiva normal. HEENT: External appearance of nose and ears normal, oral cavity grossly normal. NECK: JVD not raised; masses not palpable. HEART: First and second heart sounds are normal; no edema. LUNGS: Respiratory rate normal; clear to auscultation. ABDOMEN: Soft, nontender, liver spleen not palpable, no masses palpable MUSCULAR skeletal: Dressing over the right knee. Evidence of OA.. PSYCH: Alert and oriented x3; mood and affect normal. NEUROLOGICAL: Cranial nerves grossly intact; no facial asymmetry, power and sensation grossly intact. LYMPHATICS: No lymph nodes palpable in the axilla and neck Investigations: Blood glucose 90. Coronavirus [PCR]: Not detected Assessment and plan: -Right total knee arthroplasty Received IV clindamycin for infection prophylaxis. 1 dose of dexamethasone. On Lovenox 30 mg subcu every 12 for DVT prophylaxis. Pain medications in place. -Hypothyroid Continue with Synthroid 100 g daily -Primary osteoarthritis multiple joints bilaterally Use pain medications as needed -Chronic sinusitis Follow clinically -Nephrolithiasis, currently asymptomatic -Restless leg syndrome Uses baclofen 10 mg 3 times a day -Morbid obesity BMI 42 Weight loss measures Home medications to be resumed. Lovenox for DVT prophylaxis. Pain control in place. Care was discussed with the patient. Questions answered. Thank you Dr. Christensen Past Medical History Past Medical History: Diabetes Mellitus, GERD/Reflux, Osteoarthritis (OA), Sleep Apnea/CPAP/BIPAP, Thyroid Disorder Additional Past Medical History / Comment(s): HX GASTRIC BYPASS-SLEEPAPNEA, GERD & DIABETES RESOLVED WITH WT LOSS., CHRONIC SINUSITIS, HX RUPTURED RT EAR DRUM, KIDNEY STONES, COLON POLYPS., RLS, IRON INFUSIONS. History of Any Multi-Drug Resistant Organisms: MRSA Year Discovered:: 2009 MDRO Source:: RIGHT LEG Past Surgical History: Adenoidectomy, Bariatric Surgery, Cholecystectomy, Heart Catheterization, Hernia Repair, Hysterectomy, Orthopedic Surgery, Tonsillectomy Additional Past Surgical History / Comment(s): bilateral meniscus repairs, umbilical hernia repair, LEFT EAR SX. gastric bypass 03-17-19, heart cath ([facility]) Past Anesthesia/Blood Transfusion Reactions: No Reported Reaction Past Psychological History: Panic Disorder Smoking Status: Former smoker Past Alcohol Use History: None Reported Additional Past Alcohol Use History / Comment(s): QUIT SMOKING 2009, STARTED SMOKING AGE 15, SMOKED UP TO 1 1/2 PPD Past Drug Use History: None Reported - Past Family History Mother Family Medical History: No Reported History Medications and Allergies Home Medications Medication Instructions Recorded Confirmed Type Calcium Citrate/Vitamin D3 1 tab PO DAILY 10/19/19 04/09/21 History [Calcium Cit 315-Vit D3 6.25 Mcg (250 Iu)] Vitamin A Acetate [Vitamin A] 10,000 unit PO DAILY 10/19/19 04/09/21 History Baclofen 10 mg PO TID 04/04/20 04/09/21 History Levothyroxine Sodium [Synthroid] 100 mcg PO DAILY #30 tab 01/23/21 04/09/21 Rx Ascorbic Acid [Vitamin C] 500 mg PO DAILY 04/05/21 04/09/21 History Biotin (Unknown Dose) 1 tab PO DAILY 04/05/21 04/09/21 History Multivit with Calcium,Iron,Min 1 each PO DAILY 04/05/21 04/09/21 History [Women's Multivitamin] Nystatin 100,000 Unit/gm Powd 1 applic TOPICAL DIRECTED PRN 04/05/21 04/09/21 History [Mycostatin Powder] Sertraline [Zoloft] 100 mg PO HS 04/05/21 04/09/21 History Allergies Allergy/AdvReac Type Severity Reaction Status Date / Time cephalexin [From Keflex] Allergy Swelling Verified 04/09/21 08:50 morphine Allergy Dyspnea Verified 04/09/21 08:50 Physical Exam Vitals: Vital Signs Temp Pulse Pulse Pulse Resp BP Pulse Ox 04/09/21 14:08 77 16 117/63 97 04/09/21 14:00 97.6 F 68 18 120/76 97 04/09/21 13:48 72 16 114/63 92 L 04/09/21 13:33 69 16 114/63 92 L 04/09/21 13:15 70 16 118/62 92 L 04/09/21 13:03 69 16 122/65 93 L 04/09/21 12:46 63 16 125/70 99 04/09/21 12:30 63 16 124/70 100 04/09/21 12:15 58 L 16 121/63 100 04/09/21 12:09 96.8 F L 73 16 122/68 97 04/09/21 10:05 78 16 113/64 99 04/09/21 08:59 96.8 F L 72 16 136/72 99 Intake and Output 04/09/21 04/09/21 04/09/21 06:59 14:59 22:59 Intake Total 1157 Output Total 75 Balance 1082 Intake: IV 1157 Output: Estimated Blood Loss 75 Other: Weight 118 kg
[2021-04-09] MEDS ORDERED: CLINDAMYCIN 600 MG in DEXTROSE 5% IN WATER 50 ML IVPB ONE ×2 (16:00)
[2021-04-09] MEDS: BACLOFEN 10 MG TAB PO SCH ×2 (16:19→19:23)
[2021-04-09] MEDS: HYDROcodone/APAP 7.5-325MG 1 EACH TAB PO PRN (19:23)
[2021-04-09 20:27] VITALS: RESP 17
[2021-04-09] MEDS ORDERED: SENNOSIDES-DOCUSATE SODIUM 1 EACH TAB PO SCH (21:00)
[2021-04-09] MEDS ORDERED: SERTRALINE 100 MG TAB PO SCH (21:00)
[2021-04-10] MEDS: HYDROcodone/APAP 7.5-325MG 1 EACH TAB PO PRN ×3 (02:30→12:10)
[2021-04-10] MEDS: LACTATED RINGERS 1,000 ML IV SCH (02:31)
[2021-04-10] MEDS ORDERED: ENOXAPARIN 30 MG/0.3 ML SYRINGE SQ SCH (06:00)
[2021-04-10] MEDS ORDERED: LEVOTHYROXINE 100 MCG TAB PO SCH (06:30)
[2021-04-10 07:07] LABS: Glucose,Whole Blood 107 mg/dL (75-99)
[2021-04-10 07:47] VITALS: BP 117/72; PULSE 67; TEMP 97.9
[2021-04-10] MEDS: BACLOFEN 10 MG TAB PO SCH (08:05)
[2021-04-10] MEDS ORDERED: VITAMIN A 10,000 UNIT (3000 MCG) CAPSULE PO SCH (09:00)
[2021-04-10] MEDS ORDERED: MULTIVITAMINS, THERA 1 EACH TAB PO SCH (09:00)
[2021-04-10] MEDS ORDERED: ASCORBIC ACID 500 MG TAB PO SCH (09:00)
[2021-04-10] MEDS ORDERED: CALCIUM CARB-VIT D 500 MG-5 MCG TAB PO SCH (09:00)
[2021-04-10 09:39] LABS: Basophils # (A) 0.04 X 10*3/uL (0.00-0.10); Basophils % (A) 0.3 %; Eosinophils # (A) 0.01 X 10*3/uL (0.04-0.35); Eosinophils % (A) 0.1 %; HCT 35.4 % (37.2-46.3); HGB 11.2 g/dL (12.0-15.0); Lymphocytes # (A) 1.68 X 10*3/uL (0.90-5.00); Lymphocytes % (A) 12.3 %; MCH 30.4 pg (27.0-32.0); MCHC 31.6 g/dL (32.0-37.0); MCV 96.2 fL (80.0-97.0); Mean Platelet Volume 10.5 fL (9.5-12.2); Monocytes # (A) 1.08 X 10*3/uL (0.20-1.00); Monocytes % (A) 7.9 %; Neutrophils # (A) 10.81 X 10*3/uL (1.80-7.70); Platelet Count 243 X 10*3/uL (140-440); RBC 3.68 X 10*6/uL (4.10-5.20); RDW 13.3 % (11.5-14.5); WBC 13.68 X 10*3/uL (4.50-10.00)
--- NOTE | 2021-04-10 10:29 | P.PN ---
Progress Note - Text Progress Note Date: 04/10/21 patient was seen and evaluated at bedside. Patient is lying down comfortably in bed. Status post postoperative day 1 for right total knee arthroplasty patient had adductor canal catheter for postop pain control. Patient rated his pain at rest 1-2 out of 10 in severity. Patient describes pain is aching, throbbing type on the sides of her knee and back of the knee. She started walking with support. Her pain is 5 out of 10 in severity with activity. With the help of o ral pain medications her pain levels are tolerable. Patient denied any weakness/ numbness in her lower extremities. patient denied any fever, pain over the catheter site. Physical exam: Patient vital signs stable Patient is alert awake oriented 3 responding to all questions appropriately Examination of the catheter site showed dressing intact, no leaking fluid around the catheter, no redness, no tenderness over. The catheter insertion area. plan: status post postoperative day 1 for right total knee arthroplasty with adductor canal catheter for pain control. Patient was discussed to continue the medication at the rate of 8 mL per hour until the pump is completely empty and instructed the patient how to discontinue the catheter.
--- NOTE | 2021-04-10 10:47 | P.DS ---
Providers Date of admission: 04/09/2021 Expected date of discharge: 04/10/21 Attending physician: Alexy Christensen Consults: 04/09/21 12:11 Consult Physician Routine Consulting Provider: Neto Jerome Consult Reason/Comments: Medical Management s/p left total knee arthroplasty Do you want consulting provider notified?: Yes Primary care physician: Davon Christensen Hospital Course: Date of admission: 04/09/2021 Date of discharge: 04/10/2021 Admission diagnosis: Right knee osteoarthritis Discharge diagnosis: Same Attending physician: Dr. Christensen Surgical procedures: Right total knee arthroplasty Brief history: Patient is a 56-year-old female with a history of progressive primary right knee osteoarthritis. At this point patient has failed conservative treatment measures and has opted to proceed with a elective right total knee arthroplasty. Hospital course: Details of patient's surgery can be found in operative report. Patient tolerated the procedure well and was subsequently transported to orthopedic floor. Patient's orthopeidc and medical care was provided daily. Patient had daily laboratory tests performed for evaluation of overall blood counts. Patient had daily physical therapy to include strengthening range of motion as well as education with walker ambulation. Patient was treated with Lovenox for their postoperative DVT prophylaxis during their inpatient stay. Patient was noted to have a relatively uneventful postoperative course. Patient reported satisfactory pain control with oral pain medications by postoperative day 1. Patient showed satisfactory progress with physical therapy. Patient moved steadily through the program and had no difficulty meeting the goals by postoperative day 1. Given patient's otherwise satisfactory course and having met physical therapy goals, plan is to discharge patient home on postoperative day 1. Discharge condition/disposition: Patient will be discharged home in stable condition. Discharge medications: Instructions are given on resumption of patient's normal daily medications per primary care recommendation, in addition patient will be prescribed [place] 7.5 mg/325m,g; Eliquis 2.5 m BID x 2 weeks; colace 100 mg. Discharge instructions: 1. Wound care and infection precautions, keep incision dry and covered while showering, no lotions, creams, moisturizers. No soaking, tubs, pools, hottubs. Do not scrub over the incision. 2. Weight-bear [as tolerated] with walker / cane until follow-up. 3. Ice and elevate when necessary. Do not exceed 20 minutes per hour with ice pack. 4. Utilize compression sleeve until seen at first follow up appointment. 5. Visiting nursing care. 6. Home physical therapy including home CPM. 7. Pain meds and anticoagulants per prescription. 8. Pain medication has potential to cause constipation. Increase oral fluid and fiber intake. Contact primary care provider if you have not had a bowel movement within 48 hours after discharge 9. No anti-inflammatory medication until discussed at first post operative visit, this including Motrin, Aleve, Mobic, Diclofenac. 10. Follow up in office at 2 weeks postop with Frank Miller PA-C / Jesse Brasher PA-C 11. Follow up with your primary care doctor 7-10 days after discharge. 12. Contact [facility] with any questions, . Keep mesh tape on until follow-up appointment in office in 2 weeks. While showering, cover mesh tape with Saran wrap Assessment: Right knee osteoarthritis Procedures: Right total knee arthroplasty Patient Condition at Discharge: Good Plan - Discharge Summary Discharge Rx Participant: Yes New Discharge Prescriptions: New Docusate [Colace] 100 mg PO DAILY #30 capsule HYDROcodone/APAP 7.5-325MG [[place] 7.5] 1 each PO Q6HR PRN #36 tab PRN Reason: Pain Apixaban [Eliquis] 2.5 mg PO BID #60 tab No Action Vitamin A Acetate [Vitamin A] 10,000 unit PO DAILY Calcium Citrate/Vitamin D3 [Calcium Cit 315-Vit D3 6.25 Mcg (250 Iu)] 1 tab PO DAILY Baclofen 10 mg PO TID Levothyroxine Sodium [Synthroid] 100 mcg PO DAILY #30 tab Sertraline [Zoloft] 100 mg PO HS Biotin (Unknown Dose) 1 tab PO DAILY Nystatin 100,000 Unit/gm Powd [Mycostatin Powder] 1 applic TOPICAL DIRECTED PRN PRN Reason: rash folds of skin Multivit with Calcium,Iron,Min [Women's Multivitamin] 1 each PO DAILY Ascorbic Acid [Vitamin C] 500 mg PO DAILY Discharge Medication List Calcium Citrate/Vitamin D3 [Calcium Cit 315-Vit D3 6.25 Mcg (250 Iu)] 1 tab PO DAILY 10/19/19 [History] Vitamin A Acetate [Vitamin A] 10,000 unit PO DAILY 10/19/19 [History] Baclofen 10 mg PO TID 10/28/20 [History] Levothyroxine Sodium [Synthroid] 100 mcg PO DAILY #30 tab 01/23/21 [Rx] Ascorbic Acid [Vitamin C] 500 mg PO DAILY 04/05/21 [History] Biotin (Unknown Dose) 1 tab PO DAILY 04/05/21 [History] Multivit with Calcium,Iron,Min [Women's Multivitamin] 1 each PO DAILY 04/05/21 [History] Nystatin 100,000 Unit/gm Powd [Mycostatin Powder] 1 applic TOPICAL DIRECTED PRN 04/05/21 [History] Sertraline [Zoloft] 100 mg PO HS 04/05/21 [History] Apixaban [Eliquis] 2.5 mg PO BID #60 tab 04/10/21 [Rx] Docusate [Colace] 100 mg PO DAILY #30 capsule 04/10/21 [Rx] HYDROcodone/APAP 7.5-325MG [[place] 7.5] 1 each PO Q6HR PRN #36 tab 04/10/21 [Rx] Follow up Appointment(s)/Referral(s): Jesse Brasher PAC [PHYSICIAN SALVAGE WORKER] - 04/25/21 2:30 pm Davon Christensen MD [Primary Care Provider] - 1 Week [facility], [NON-STAFF] - As Needed Patient Instructions/Handouts: Knee Replacement (GEN) Activity/Diet/Wound Care/Special Instructions: Discharge instructions: 1. Wound care and infection precautions, keep incision dry and covered while showering, no lotions, creams, moisturizers. No soaking, tubs, pools, hottubs. Do not scrub over the incision. 2. Weight-bear [as tolerated] with walker / cane until follow-up. 3. Ice and elevate when necessary. Do not exceed 20 minutes per hour with ice pack. 4. Utilize compression sleeve until seen at first follow up appointment. 5. Visiting nursing care. 6. Home physical therapy including home CPM. 7. Pain meds and anticoagulants per prescription. 8. Pain medication has potential to cause constipation. Increase oral fluid and fiber intake. Contact primary care provider if you have not had a bowel movement within 48 hours after discharge 9. No anti-inflammatory medication until discussed at first post operative visit, this including Motrin, Aleve, Mobic, Diclofenac. 10. Follow up in office at 2 weeks postop with Frank Miller PA-C / Jesse Brasher PA-C 11. Follow up with your primary care doctor 7-10 days after discharge. 12. Contact [facility] with any questions, . Keep mesh tape on until follow-up appointment in office in 2 weeks. While showering, cover mesh tape with Saran wrap Discharge Disposition: HOME WITH HOME HEALTH SERVICES
--- NOTE | 2021-04-10 10:47 | P.PN ---
Subjective Progress Note Date: 04/10/21 Principal diagnosis: Right knee osteoarthritis Patient was seen at bedside this morning sitting up in bed. Patient states she is doing well this morning. She states she does have some pain just above the knee at the front of the leg. She says physical therapy went well this morning as she says she went in the ott and walked up-and-down a couple steps. Patient says she has had a bowel movement since surgery yesterday. Patient says she has used incentive spirometer this morning in bed. Patient says she does have a walker at home to use. Patient denies chest pain, fever, shortness of breath, nausea, vomiting, change in vision, loss of bowel/bladder control. Objective - Vital Signs Vital signs: Vital Signs Temp 97.9 F 04/10/21 07:46 Pulse 67 04/10/21 07:46 Resp 17 04/10/21 07:46 BP 117/72 04/10/21 07:46 Pulse Ox 97 04/10/21 07:46 Intake & Output 04/09/21 04/10/21 04/10/21 18:59 06:59 18:59 Intake Total 1157 Output Total 75 Balance 1082 Weight 118 kg Intake: IV 1157 Output: Estimated Blood Loss 75 Other: # Voids 3 3 - Exam Right knee: Incision is clean, dry, and intact. The mesh tape is in good condition. There is minimal soft tissue swelling and ecchymosis surrounding the medial and lateral aspects of the incision. Calf is soft, no tenderness with palpation. Plantar flexion, dorsiflexion, EHL, FHL are intact. Sensory exam to light touch throughout the extremity is intact, dorsal pedis pulses 2+. - Labs CBC & Chem 7: 04/10/21 06:28 Labs: Abnormal Lab Results - Last 24 Hours (Table) 04/10/21 04/10/21 Range/Units 06:28 07:04 WBC 13.68 H (4.50-10.00) X 10*3/uL RBC 3.68 L (4.10-5.20) X 10*6/uL Hgb 11.2 L (12.0-15.0) g/dL Hct 35.4 L (37.2-46.3) % MCHC 31.6 L (32.0-37.0) g/dL Immature Gran # 0.06 H (0.00-0.04) X 10*3/uL Neutrophils # 10.81 H (1.80-7.70) X 10*3/uL Monocytes # 1.08 H (0.20-1.00) X 10*3/uL Eosinophils # 0.01 L (0.04-0.35) X 10*3/uL POC Glucose (mg/dL) 107 H (75-99) mg/dL Assessment and Plan Assessment: Postoperative day #1 status post right total knee arthroplasty Plan: 1. Right knee osteoarthritis - right total knee arthroplasty performed yesterday, 04/09/2021. Patient stable at bedside this morning. Plan discharge home today with health services. 2. Appreciate medical management 3. Pain management - going home with [place] 7.5 mg/325 mg 4. DVT prophylaxis - Lovenox in hospital. Going home with Eilquis 2.5 mg twice a day 2 weeks 5. GI prophylaxis - going home with Colace 100 mg 6. PT/OT - weightbearing as tolerated with walker for assistance 7. Encourage incentive spirometer use 8. Discharge planning - plan discharge home today with services Time with Patient: Less than 30
[2021-04-10 11:33] LABS: Glucose,Whole Blood 82 mg/dL (75-99)
--- NOTE | 2021-04-10 21:16 | P.PN ---
Progress Note - Text Progress Note Date: 04/10/21 - Chief Complaint Right knee pain This is a very pleasant 56-year-old patient who follows with Dr. Davon Christensen. Chronic stable medical conditions include osteoarthritis, hypothyroid, kidney stones currently symptomatic, chronic sinusitis, restless leg syndrome. Patient underwent gastric bypass surgery and lost 100 pounds. As a result she did not have anymore obstructive sleep apnea, GERD, diabetes. Patient today has undergone right total knee arthroplasty. Pain is controlled. No nausea vomiting. Denies any cardiac history. Sitting at the edge of the bed. at the bedside. April 10: Doing well. Ambulated. Oral intake fair. Pain control. No nausea vomiting. No chest pain. Review of systems: Was done for constitutional, cardiovascular, GI, pulmonary. relevant finding as above Current medications reviewed Past medical history to include: Osteoarthritis, hypothyroid, chronic sinusitis, kidney stones a symptomatic, restless leg syndrome. Patient had bariatric surgery and since then has no more diabetes, GERD, obstructive sleep apnea. Social history: Does not drink alcohol. . Smoked a pack and a half about 30 years stopped about 11 years ago. Family history: Reviewed, noncontributory to presentation Physical examination: VITAL SIGNS: 97.9, 67, 17, 117/72, 97% room air GENERAL: sitting at the edge of the bed, awake, comfortable. EYES: Pupils equal. Conjunctiva normal. NECK: JVD not raised; masses not palpable. HEART: First and second heart sounds are normal; no edema. LUNGS: Respiratory rate normal; clear to auscultation. ABDOMEN: Soft, nontender, liver spleen not palpable, no masses palpable MUSCULAR skeletal: Dressing over the right knee. Evidence of OA.. PSYCH: Alert and oriented x3; mood and affect normal. Investigations: April 10: WBC 13.6 hemoglobin 11.2 platelets 243 Blood glucose 90. Coronavirus [PCR]: Not detected Assessment and plan: -Right total knee arthroplasty Received IV clindamycin for infection prophylaxis. 1 dose of dexamethasone. On Lovenox 30 mg subcu every 12 for DVT prophylaxis. Pain medications in place. -Hypothyroid Continue with Synthroid 100 g daily -Primary osteoarthritis multiple joints bilaterally Use pain medications as needed -Chronic sinusitis Follow clinically -Nephrolithiasis, currently asymptomatic -Restless leg syndrome Uses baclofen 10 mg 3 times a day -Morbid obesity BMI 42 Weight loss measures -Leukocytosis, reactive from surgery/steroids No clinical evidence of infection -Mild acute postprocedure blood loss anemia, as expected from surgery Add ferrous sulfate Continue home medications. Add ferrous sulfate. Follow-up with PCP. Care was discussed with the patient. Thank you Dr. Christensen
== END 2021-04-10 12:16 | disposition home health service (06) ==
LOC: OR 08:26 → 4SSUR 12:07 → OR 04-10 12:16
PROVIDERS: ATTEND Orthopaedic Surgery
DX: M17.11 Unilateral primary osteoarthritis, right knee (principal); M25.761 Osteophyte, right knee; D50.0 Iron deficiency anemia secondary to blood loss (chronic); D72.829 Elevated white blood cell count, unspecified; E11.9 Type 2 diabetes mellitus without complications; G47.33 Obstructive sleep apnea (adult) (pediatric); K21.9 Gastro-esophageal reflux disease without esophagitis; E03.9 Hypothyroidism, unspecified; Z98.84 Bariatric surgery status; F41.0 Panic disorder [episodic paroxysmal anxiety]; Z98.890 Other specified postprocedural states; Z20.822 Contact with and (suspected) exposure to COVID-19; Z90.49 Acquired absence of other specified parts of digestive tract; Z80.9 Family history of malignant neoplasm, unspecified; N20.0 Calculus of kidney; J32.9 Chronic sinusitis, unspecified; G25.81 Restless legs syndrome; Z87.891 Personal history of nicotine dependence; E66.01 Morbid (severe) obesity due to excess calories; Z68.41 Body mass index [BMI] 40.0-44.9, adult; Z86.010 Personal history of colon polyps; Z86.14 Personal history of Methicillin resistant Staphylococcus aureus infection; Z90.710 Acquired absence of both cervix and uterus; Z97.2 Presence of dental prosthetic device (complete) (partial); Z79.84 Long term (current) use of oral hypoglycemic drugs; Z79.1 Long term (current) use of non-steroidal anti-inflammatories (NSAID); Z79.899 Other long term (current) drug therapy; Z88.5 Allergy status to narcotic agent; Z88.1 Allergy status to other antibiotic agents
CPT/HCPCS: 27447; 97161; 64999; 64448; 76942; 85025; 88300; 87635; 73560; C1713 ×2; C1776; J2250; J1100; J2405; J3010; J1650; J2795 ×2; J2704; J1170

== ENCOUNTER → 2021-12-20 | Outpatient (CLI) | payer BC ==
[2021-12-20 07:46] LABS: African American GFR (CKD) >90 (>60 ml/min/1.73 sqM); Blood Urea Nitrogen 20 mg/dL (7-17); Non-African American GFR(CKD) >90 (>60 ml/min/1.73 sqM)
--- NOTE | 2021-12-20 09:07 | CT ---
EXAMINATION TYPE: CT abdomen pelvis w con CT DLP: 1708.1 mGycm, Automated exposure control for dose reduction was used. DATE OF EXAM: 12/20/2021 8:57 AM COMPARISON: None CLINICAL INDICATION:Female, 56 years old with history of K57.92 , concern for Diverticulitis, RLQ and LUQ belly pain. TECHNIQUE: Standard CT of the abdomen and pelvis following the administration of 70 cc of Isovue 30 0 IV contrast material and oral contrast. Coronal and sagittal reformats were performed. FINDINGS: LOWER CHEST: Unremarkable ABDOMEN LIVER: Unremarkable GALLBLADDER AND BILE DUCTS: The gallbladder is surgically absent. PANCREAS: Unremarkable. SPLEEN: Small splenule is present. ADRENAL GLANDS: Unremarkable. KIDNEYS AND URETERS: There is a right nonobstructing calculus measuring 8 mm. No evidence of hydronep hrosis. No left renal calculi. PELVIS BLADDER: Unremarkable REPRODUCTIVE: The uterus is surgically absent. ABDOMEN & PELVIS STOMACH AND BOWEL: Post surgical changes to the stomach. Few scattered clonic diverticula are present throughout the colon. Appendix is normal. No abnormal bowel wall thickening No evidence of bowel obs truction. There is a duodenal diverticulum involving the second portion of the duodenum. Prominent me senteric lymph node measuring up to 15 mm best appreciated on series 7 image 39 and series 3 image 40 . PERITONEUM: No evidence of pneumoperitoneum or free fluid. VASCULATURE: Mild atherosclerotic calcifications are present throughout the abdominal aorta and its b ranches. No evidence of aortic aneurysm. MUSCULOSKELETAL: No acute osseous abnormalities. Moderate disc degeneration changes are present throu ghout the thoracolumbar spine. There is facet joint arthropathy with at least moderate neural foramin al stenosis at L5-S1. Multilevel disc osteophyte complexes with at least mild to moderate stenosis mo st pronounced at L2-L3 and L3-L4. LYMPH NODES: No gross evidence for lymphadenopathy. SOFT TISSUE/ABDOMINAL WALL: Unremarkable IMPRESSION: 1. No evidence for acute abdominal process. 2. Nonspecific single enlarged lymph node within the mid abdomen measuring up to 15 mm in short axis. 3. Colonic diverticulosis. 4. Nonobstructing right renal calculus. 5. Mild cardiomegaly. 6. Post surgical changes to the stomach. 7. Multilevel disc degeneration changes with at least moderate spinal canal stenosis at L2-L3 and L3- L4 with moderate neural foraminal stenosis at L5-S1.
== END | disposition home or self-care (01) ==
LOC: RADCTMAIN 06:55
PROVIDERS: ATTEND Surgery Plastic and Reconstructive Surgery
DX: K57.92 Diverticulitis of intestine, part unspecified, without perforation or abscess without bleeding (principal)
CPT/HCPCS: 82565; 84520; 74177; 36415; Q9967 ×2

== ENCOUNTER 2022-03-11 18:50 | Inpatient (IN) | payer BC ==
[2022-03-11] MEDS ORDERED: ONDANSETRON 4 MG/2 ML VIAL IVP STA (19:17)
[2022-03-11] MEDS ORDERED: SODIUM CHLORIDE 0.9% 1,000 ML IV STA ×2 (19:17)
[2022-03-11] MEDS ORDERED: ACETAMINOPHEN TAB 500 MG TAB PO STA (19:18)
--- NOTE | 2022-03-11 19:50 | ED ---
Female Urogenital HPI - General Chief complaint: Urogenital Stated complaint: kidney stone Time Seen by Provider: 03/11/22 19:07 Source: patient, EMS Mode of arrival: EMS Limitations: no limitations - History of Present Illness Initial comments: This 57-year-old female presents with a complaint of some right flank pain. This came on 2 days ago. Was associated with some nausea at times. She has a long history of kidney stones since she was 28 years old. He states that she took some Bond which helped somewhat. The pain resolved yesterday but recurred again today. It is described as a sharp type of pain in her right flank and right lower quadrant. She denies any fevers at home. There is no chest pain or shortness of breath. She was seen at [facility] and diagnosed with a 5 mm proximal right ureteral stone with hydronephrosis as well as urinary tract infection. Patient requested be transferred to our facility for further treatment. They do not have urology at their facility. No other complaints or modifying factors. - Related Data Home Medications Medication Instructions Recorded Confirmed Calcium Citrate/Vitamin D3 1 tab PO DAILY 10/19/19 01/08/22 [Calcium Cit 315-Vit D3 6.25 Mcg (250 Iu)] Vitamin A Acetate [Vitamin A] 3,000 unit PO DAILY 10/19/19 01/08/22 Baclofen 20 mg PO DAILY PRN 04/04/20 01/08/22 Ascorbic Acid [Vitamin C] 500 mg PO DAILY 04/05/21 01/08/22 Biotin (Unknown Dose) 1 tab PO DAILY 04/05/21 01/08/22 Multivit with Calcium,Iron,Min 1 each PO DAILY 04/05/21 01/08/22 [Women's Multivitamin] Nystatin 100,000 Unit/gm Powd 1 applic TOPICAL DIRECTED PRN 04/05/21 01/08/22 [Mycostatin Powder] Benzonatate [Tessalon Perles] 100 mg PO TID PRN 10/23/21 01/08/22 Clobetasol Propionate [Temovate 1 applic TOPICAL DAILY 10/23/21 01/08/22 0.05% Cream] FLUoxetine HCL [PROzac] 20 mg PO DAILY 10/23/21 01/08/22 Ibuprofen 800 mg PO Q8H PRN 10/23/21 01/08/22 Inulin/Chromium Picolinate [Fiber 1 tab PO DAILY 10/23/21 01/08/22 Gummies Chew] Magnesium 250 mg PO DAILY 10/23/21 01/08/22 Mometasone Furoate [Mometasone 1 applic TOPICAL DAILY 10/23/21 01/08/22 Furoate 0.1%] Naproxen Sodium [Aleve] 220 mg PO Q12HR 10/23/21 01/08/22 Tamsulosin HCl [Flomax] 0.4 mg PO DAILY 01/08/22 01/08/22 Previous Rx's Medication Instructions Recorded Levothyroxine Sodium 150 mcg PO DAILY #30 tablet 12/11/21 Allergies Allergy/AdvReac Type Severity Reaction Status Date / Time cephalexin [From Keflex] Allergy Swelling Verified 04/09/21 08:50 morphine Allergy Dyspnea Verified 04/09/21 08:50 Review of Systems ROS Statement: Those systems with pertinent positive or pertinent negative responses have been documented in the HPI. ROS Other: All systems not noted in ROS Statement are negative. Past Medical History Past Medical History: Diabetes Mellitus, GERD/Reflux, Osteoarthritis (OA), Sleep Apnea/CPAP/BIPAP, Thyroid Disorder Additional Past Medical History / Comment(s): HX GASTRIC BYPASS-SLEEPAPNEA, GERD & DIABETES RESOLVED WITH WT LOSS., CHRONIC SINUSITIS, HX RUPTURED RT EAR DRUM, KIDNEY STONES, COLON POLYPS., RLS, IRON INFUSIONS. History of Any Multi-Drug Resistant Organisms: MRSA Date of last positivie culture/infection: 2009 MDRO Source:: RIGHT LEG Past Surgical History: Adenoidectomy, Bariatric Surgery, Cholecystectomy, Heart Catheterization, Hernia Repair, Hysterectomy, Joint Replacement, Orthopedic Surgery, Tonsillectomy Additional Past Surgical History / Comment(s): bilateral meniscus repairs, umbilical hernia repair, LEFT EAR SX. gastric bypass 03-17-19, heart cath ([facility]). right knee replacement 2020 Past Anesthesia/Blood Transfusion Reactions: No Reported Reaction Past Psychological History: Panic Disorder Smoking Status: Former smoker Past Alcohol Use History: None Reported Past Drug Use History: None Reported - Past Family History Mother Family Medical History: No Reported History General Exam - General Exam Comments Initial Comments: GENERAL: The patient is well nourished and well hydrated. VITAL SIGNS: Heart rate, blood pressure, respiratory rate reviewed as recorded in nurse's notes. EYES: Pupils are round and reactive. Extraocular movements are intact. No conjunctival / lid redness or swelling. ENT: No external evidence of injury, swelling, or ecchymosis. Airway is patent. Throat is clear. NECK: Nontender. No swelling or evidence of injury. No subcutaneous emphysema. Trachea is midline. No thyroid mass. HEART: Regular rate and rhythm. Good peripheral pulses. LUNGS/CHEST: Breath sounds clear and equal bilaterally. No rales, rhonchi, or wheezes. No ecchymosis, subcutaneous emphysema, or tenderness. ABDOMEN: Abdomen soft with mild tenderness to the right flank and right lower abdomen. No palpable masses or organomegaly. No peritoneal signs. No abdominal wall swelling or ecchymosis. EXTREMITIES: No extremity tenderness. Normal muscle tone and function. No thoracolumbar tenderness. NEUROLOGIC: Sensation is grossly intact. Cranial nerve exam reveals face is symmetrical, tongue is midline, speech is clear. SKIN: No abrasions or ecchymosis is noted. No induration or masses noted. PSYCHIATRIC: Alert and oriented. Appropriate behavior and judgment. Limitations: no limitations Course Vital Signs 03/11/22 18:51 Temperature 101.5 F H Pulse Rate 108 H Respiratory 18 Rate Blood Pressure 126/65 O2 Sat by Pulse 96 Oximetry Medical Decision Making - Medical Decision Making The patient was seen and examined. All records are reviewed from [facility]. This does show that she has a 5 mm proximal right ureteral stone with hydronephrosis. It also shows evidence of urinary tract infection. She received 2 g of Rocephin at the sending facility. Additional fluids are given here as her heart rate is slightly elevated at 108. The patient also received Zofran as she is having some nausea. Tylenol is given for a fever of 101.5. It is felt as though she likely does have an infected kidney stone. She will require admission for further treatment. Case is discussed with Dr. Jerome and he is agreeable with admission. Case also was discussed with Dr. Romo and he is agreeable with consultation and would like patient to be nothing by mouth after midnight. Rocephin will be continued. Disposition Clinical Impression: Ureteral stone with hydronephrosis, Urinary tract infection, Fever, Nausea & vomiting, Sepsis Disposition: ADMITTED IP TO THIS HOSP Condition: Fair Is patient prescribed a controlled substance at d/c from ED?: No Referrals: Davon Christensen MD [Primary Care Provider] - 1-2 days Time of Disposition: 19:56 Decision Date: 03/11/22 Decision Time: 19:57
[2022-03-11] MEDS ORDERED: ONDANSETRON 4 MG/2 ML VIAL IVP PRN (19:59)
[2022-03-11] MEDS ORDERED: NALOXONE 0.4 MG/ML 1 ML VIAL IV PRN (19:59)
[2022-03-11] MEDS ORDERED: IBUPROFEN 400 MG TAB PO PRN (19:59)
[2022-03-11] MEDS ORDERED: fentaNYL (PF) 50 MCG/ML 2 ML AMP IVP PRN (19:59)
[2022-03-11] MEDS ORDERED: BACLOFEN 10 MG TAB PO PRN (20:05)
[2022-03-11] MEDS: SERTRALINE 100 MG TAB PO SCH (23:39)
[2022-03-12] MEDS: HYDROcodone/APAP 5-325MG 1 EACH TAB PO PRN ×2 (00:12→20:53)
[2022-03-12] MEDS: SODIUM CHLORIDE 0.9% 1,000 ML IV SCH ×3 (00:24→15:12)
[2022-03-12] MEDS: LEVOTHYROXINE 75 MCG TAB PO SCH (05:59)
[2022-03-12] MEDS: ACETAMINOPHEN TAB 325 MG TAB PO PRN (07:48)
[2022-03-12] MEDS: ENOXAPARIN 40 MG/0.4 ML SYRINGE SQ SCH ×2 (08:03→12:20)
[2022-03-12] MEDS ORDERED: VITAMIN A 2400 MCG PO SCH (09:00)
[2022-03-12] MEDS ORDERED: NON FORMULARY DRUG (Biotin [Biotin] 5 MG Capsule) PO SCH (09:00)
[2022-03-12] MEDS ORDERED: LACTATED RINGERS 1,000 ML IV ONE (09:01)
[2022-03-12 09:09] LABS: Basophils # (A) 0.05 X 10*3/uL (0.00-0.10); Basophils % (A) 0.5 %; Eosinophils # (A) 0.08 X 10*3/uL (0.04-0.35); Eosinophils % (A) 0.7 %; HCT 35.4 % (37.2-46.3); Immature Grans, Automated 0.3 %; Lymphocytes # (A) 1.99 X 10*3/uL (0.90-5.00); Lymphocytes % (A) 18.5 %; MCH 28.9 pg (27.0-32.0); MCHC 31.1 g/dL (32.0-37.0); MCV 92.9 fL (80.0-97.0); Mean Platelet Volume 10.5 fL (9.5-12.2); Monocytes % (A) 10.2 %; NRBC Per 100 WBC 0 /100 WBCS (0.0-0.0); Neutrophils % (A) 69.8 %; Platelet Count 204 X 10*3/uL (140-440); RBC 3.81 X 10*6/uL (4.10-5.20); RDW 13.8 % (11.5-14.5); WBC 10.75 X 10*3/uL (4.50-10.00)
[2022-03-12] MEDS ORDERED: ONDANSETRON 4 MG/2 ML VIAL IVP ONE (09:11)
[2022-03-12] MEDS ORDERED: DEXAMETHASONE SOD PHOSPHATE 4 MG/ML 1 ML VIAL IVP ONE (09:12)
[2022-03-12] MEDS ORDERED: MIDAZOLAM 2 MG/2 ML VIAL ONE (09:22)
[2022-03-12] MEDS ORDERED: fentaNYL (PF) 50 MCG/ML 2 ML AMP ONE (09:22)
[2022-03-12] MEDS ORDERED: PROPOFOL 10 MG/ML 20 ML VIAL IV ONE (09:22)
[2022-03-12] MEDS ORDERED: KETAMINE 10 MG/ML 20 ML VIAL ONE (09:22)
[2022-03-12] MEDS ORDERED: LIDOCAINE 2% INJ 20 MG/ML (2 ML VIAL) ONE (09:22)
--- NOTE | 2022-03-12 09:31 | P.GSCN ---
History of Present Illness Consult date: 03/12/22 Reason for Consult: Right Ureteral calculus, UTI Requesting physician: Mark Muñiz History of present illness: The patient is a 57-year-old female presents with a complaint of some right flank pain for two days with associated nausea. She has a long history of kidney stones. It is described as a sharp type of pain in her right flank that radiates to her right lower quadrant. She was seen at [facility] and diagnosed with a 5 mm proximal right ureteral stone with hydronephrosis as well as urinary tract infection. Patient requested be transferred to our facility for further treatment. They do not have urology at their facility. Review of Systems - Constitutional Reports as per HPI, Reports fever - Gastrointestinal Reports abdominal pain, Reports nausea - Genitourinary Genitourinary: Reports as per HPI, Reports flank pain Past Medical History Past Medical History: Diabetes Mellitus, GERD/Reflux, Osteoarthritis (OA), Sleep Apnea/CPAP/BIPAP, Thyroid Disorder Additional Past Medical History / Comment(s): HX GASTRIC BYPASS-SLEEP APNEA, GERD & DIABETES RESOLVED WITH WT LOSS., CHRONIC SINUSITIS, HX RUPTURED RT EAR DRUM, KIDNEY STONES, COLON POLYPS., RLS, IRON INFUSIONS. History of Any Multi-Drug Resistant Organisms: MRSA Year Discovered:: 2009 MDRO Source:: RIGHT LEG Past Surgical History: Adenoidectomy, Bariatric Surgery, Cholecystectomy, Heart Catheterization, Hernia Repair, Hysterectomy, Joint Replacement, Orthopedic Surgery, Tonsillectomy Additional Past Surgical History / Comment(s): bilateral meniscus repairs, umbilical hernia repair, LEFT EAR SX. gastric bypass 03-17-19, heart cath ([facility] right knee replacement 2020 Past Anesthesia/Blood Transfusion Reactions: No Reported Reaction Past Psychological History: Panic Disorder Smoking Status: Former smoker Past Alcohol Use History: None Reported Additional Past Alcohol Use History / Comment(s): QUIT SMOKING 2009, STARTED SMOKING AGE 15, SMOKED UP TO 1 1/2 PPD Past Drug Use History: None Reported - Past Family History Mother Family Medical History: No Reported History Medications and Allergies Home Medications Medication Instructions Recorded Confirmed Type Calcium Citrate/Vitamin D3 1 tab PO DAILY 10/19/19 03/11/22 History [Calcium Cit 315-Vit D3 6.25 Mcg (250 Iu)] Vitamin A Acetate [Vitamin A] 3,000 unit PO DAILY 10/19/19 03/11/22 History Ascorbic Acid [Vitamin C] 500 mg PO DAILY 04/05/21 03/11/22 History Ibuprofen 800 mg PO Q8H PRN 10/23/21 03/11/22 History Naproxen Sodium [Aleve] 220 mg PO Q12HR PRN 10/23/21 03/11/22 History Levothyroxine Sodium 150 mcg PO DAILY #30 tablet 12/11/21 03/11/22 Rx Tamsulosin HCl [Flomax] 0.4 mg PO DAILY 01/08/22 03/11/22 History Baclofen [Lioresal] 20 mg PO BID PRN 03/11/22 03/11/22 History Biotin 5 mg PO DAILY 03/11/22 03/11/22 History FLUoxetine HCL [PROzac] 40 mg PO DAILY 03/11/22 03/11/22 History Multivit-Min/Folic Acid/Jud105 1 tab PO DAILY 03/11/22 03/11/22 History [Alive Premium Adult Multivit] Prevalite 4gm/Dose Powder 1 scoop PO DAILY 03/11/22 03/11/22 History Sertraline [Zoloft] 100 mg PO HS 03/11/22 03/11/22 History Vitamin A 2,400 mcg PO DAILY 03/11/22 03/11/22 History rOPINIRole HCL [Requip] 0.5 mg PO HS 03/11/22 03/11/22 History Allergies Allergy/AdvReac Type Severity Reaction Status Date / Time cephalexin [From Keflex] Allergy Swelling Verified 03/11/22 19:56 morphine Allergy Dyspnea Verified 03/11/22 19:56 Surgical - Exam Vital Signs Temp Pulse Resp BP Pulse Ox 101.5 F H 108 H 18 126/65 96 03/11/22 18:51 03/11/22 18:51 03/11/22 18:51 03/11/22 18:51 03/11/22 18:51 - General well developed, well nourished, no distress - Respiratory normal expansion, normal respiratory effort - Abdomen Abdomen: tender Results - Labs 03/12/22 05:29 03/12/22 05:29 Assessment and Plan (1) Ureterolithiasis Current Visit: Yes Status: Acute Code(s): N20.1 - CALCULUS OF URETER SNOMED Code(s): 04651306 (2) Hydronephrosis concurrent with and due to calculi of kidney and ureter Current Visit: Yes Status: Acute Code(s): N13.2 - HYDRONEPHROSIS WITH RENAL AND URETERAL CALCULOUS OBSTRUCTION SNOMED Code(s): 633514293 Plan: It was explained to Mrs. Hickman that she is unlikely to pass her 5mm kidney stone on her own. She has associated fevers, hydronephrosis, and a UTI. It was recommended that she has a right ureteral stent placed this morning. A urine culture will be obtained to ensure appropriate antibiotics prescribed. The plan is for her to have the stent and stone removed in approximately two weeks when her UTI has resolved. She was agreeable to this plan and is scheduled to go to t he OR this morning. Impression and plan of care have been directed as dictated by the signing physi cian. Nahed Jovel Nurse Practitioner acting as scribe for signing physician. Nahed Jovel [facility] Palliative Care/Urology [facility] [id number] Email: [email or web address] I personally performed and participated in history, physical Exam and decision making. I agree with the assessment and plan of the EMPLOYMENT RECRUITER. 57yo 5 mm right ureteral stone, UTI febrile -OR for right stent insertion Time with Patient: Greater than 30
[2022-03-12 09:45] LABS: African American GFR (CKD) 96.2 (60.0-200.0); Albumin 3.8 g/dL (3.8-4.9); Albumin/Globulin Ratio 1.9 (1.60-3.17); Anion Gap 7.9 mmol/L (10.00-18.00); BUN/Creat Ratio 17.75 Ratio (12.00-20.00); Blood Urea Nitrogen 14.2 mg/dL (9.0-27.0); Calcium 8.8 mg/dL (8.7-10.3); Carbon Dioxide 25.1 mmol/L (20.0-27.5); Potassium 3.9 mmol/L (3.5-5.5); Total Bilirubin 0.5 mg/dL (0.30-1.20); Total Protein 5.8 g/dL (6.2-8.2)
--- NOTE | 2022-03-12 09:54 | P.OP ---
Date of Procedure: 03/12/22 Preoperative Diagnosis: Right ureteral stone Postoperative Diagnosis: Same Procedure(s) Performed: Cystoscopy and right stent insertion Implants: 6-Northern Irish by 24 cm stent in the right ureter Anesthesia: MAC Surgeon: Warren Romo Estimated Blood Loss (ml): 1 Pathology: none sent Condition: stable Disposition: PACU Indications for Procedure: 57-year-old female history of a 5 mm right-sided ureteral stone, patient had a UTI I any fever on presentation. Discussed with her given the UTI and fever recommend proceeding with stent insertion. Discussed with her risk benefits and rationale of doing the surgery. Discussed also with her this is not a defi nitive way to manage the stone, she will require ureteroscopy in the future to address her stone Description of Procedure: Patient brought to the operating room, sedation was induced. She was prepped and draped in sterile fashion and placed in dorsal lithotomy position. Cystoscopy fitted with 22-Northern Irish sheath was inserted per urethra, cystoscopy was performed which showed no abnormality within the bladder. Attention was then carried to the right ureteral orifice which was intubated with a sensor wire. Next a ureteral stent was passed over the wire, the proximal curl was visualized on fluoroscopy and distal curl was visualized using the cystoscope. Cloudy urine drained from the stent. Patient is awakened from anesthesia and taken to recovery in stable condition
--- NOTE | 2022-03-12 10:10 | FL ---
Intraoperative/procedural fluoroscopic services were provided. Total fluoroscopy time is 3.0 seconds with a total of 1 submitted images to PACS. Please see the operative/procedural note for further deta ils.
[2022-03-12] MEDS ORDERED: HYDROmorphone 0.5 MG/0.5 ML SYRINGE IVP ONE ×2 (10:23)
[2022-03-12] MEDS: VITAMIN A 10,000 UNIT (3000 MCG) CAPSULE PO SCH (12:18)
[2022-03-12] MEDS: ASCORBIC ACID 500 MG TAB PO SCH (12:19)
[2022-03-12] MEDS: FLUoxetine HCL 20 MG CAP PO SCH (12:19)
[2022-03-12] MEDS: CALCIUM CARB-VIT D 500 MG-5 MCG TAB PO SCH (12:19)
[2022-03-12] MEDS: TAMSULOSIN 0.4 MG CAP.ER.24H PO SCH (12:19)
[2022-03-12] MEDS: MULTIVITAMINS, THERA 1 EACH TAB PO SCH (12:19)
[2022-03-12] MEDS: PANTOPRAZOLE 40 MG/10 ML VIAL IV SCH (12:20)
[2022-03-12] MEDS: CHOLESTYRAMINE (WITH SUGAR) 4 GM PACKET PO SCH (12:20)
--- NOTE | 2022-03-12 16:18 | P.HPIM ---
History of Present Illness H&P Date: 03/12/22 Chief Complaint: Right flank pain This is a pleasant 57-year-old patient, follows with Dr. Davon Christensen. Chronic stable medical conditions include osteoarthritis, hypothyroid, kidney stones, restless leg syndrome. Patient did undergo gastric bypass and has resulted diabetes current and sleep apnea resolved. On Thursday around 2 AM patient had pain in the posterior part of the right flank. Then came back much worse around 6 AM. Then she got worse. Went down to the right groin. Subsequently patient developed significant nausea. Did go down to [facility]. They patient was transferred here. Normally has a bowel movement every day. On a today patient had a double-J stent raised on the right side by Dr. butler. Stone size of 10 x 5 x 5 mm was found on the right side. Clotted infected urine was obtained. Patient IV ceftriaxone. IV fluids. Postprocedure laying in bed. Patient does spike a fever when she had the ER. Review of systems: GEN.: Tired, decreased appetite EYES: None HEENT: None NECK: None RESPIRATORY: None CARDIOVASCULAR: None GASTROINTESTINAL: None GENITOURINARY: As above MUSCULOSKELETAL: Some joint pains] LYMPHATICS: None HEMATOLOGICAL: None PSYCHIATRY: None NEUROLOGICAL: None Past medical history to include: Diabetes, GERD, sleep apnea corrected after gastric bypass surgery. Osteoarthritis, hypothyroid, chronic sinusitis, kidney stones, restless leg syndrome gastric bypass in 2019 Social history: Patient smoked for 30 years, stopped in 2009. About one half pack a day. No alcohol. . 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 Family history: Reviewed, noncontributory to presentation Physical examination: VITAL SIGNS: 101.5, 108, 18, 126/65, 96% room air GENERAL: BMI 43.4, declining bed, awake, tired. EYES: Pupils equal. Conjunctiva normal. HEENT: External appearance of nose and ears normal, oral cavity grossly normal. NECK: JVD not raised; masses not palpable. HEART: First and second heart sounds are normal; no edema. LUNGS: Respiratory rate normal; clear to auscultation. ABDOMEN: Soft, mild right posterior renal angle tenderness, liver spleen not palpable, no masses palpable. PSYCH: Alert and oriented x3; mood and affect normal. MUSCULOSKELETAL:No Clubbing/cyanosis;muscles-grossly intact NEUROLOGICAL: Cranial nerves grossly intact; no facial asymmetry, power and sensation grossly intact. LYMPHATICS: No lymph nodes palpable in the axilla and neck INVESTIGATIONS, reviewed in the clinical context: WBC 10.7 hemoglobin 11 platelets 204 sodium 140 potassium 3.9 creatinine 0.8 Assessment and plan: -Right proximal ureter stone causing secondary hydronephrosis/pyelonephritis causing sepsis Right double-J catheter placed by Dr. butler. Infected urine was obtained. IV fluids. IV ceftriaxone -Restless leg syndrome Requip -Depression Zoloft, Prozac -Hypothyroid Synthroid 150 g a day -Morbid obesity BMI 43.4 Weight loss measures -Sepsis secondary to) obstructive pyelonephritis Urine culture. IV ceftriaxone. IV fluids IV fluids. IV ceftriaxone. Right double-J stent catheter placed. Cultures pending. Other home medications renewed. Subcu Lovenox. Discussed with the patient. Follow labs Past Medical History Past Medical History: Diabetes Mellitus, GERD/Reflux, Osteoarthritis (OA), Sleep Apnea/CPAP/BIPAP, Thyroid Disorder Additional Past Medical History / Comment(s): HX GASTRIC BYPASS-SLEEP APNEA, GERD & DIABETES RESOLVED WITH WT LOSS., CHRONIC SINUSITIS, HX RUPTURED RT EAR DRUM, KIDNEY STONES, COLON POLYPS., RLS, IRON INFUSIONS. History of Any Multi-Drug Resistant Organisms: MRSA Date of last positivie culture/infection: 2009 MDRO Source:: RIGHT LEG Past Surgical History: Adenoidectomy, Bariatric Surgery, Cholecystectomy, Heart Catheterization, Hernia Repair, Hysterectomy, Joint Replacement, Orthopedic Surgery, Tonsillectomy Additional Past Surgical History / Comment(s): bilateral meniscus repairs, umbilical hernia repair, LEFT EAR SX. gastric bypass 03-17-19, heart cath ([facility] right knee replacement 2020 Past Anesthesia/Blood Transfusion Reactions: No Reported Reaction Past Psychological History: Panic Disorder Smoking Status: Former smoker Past Alcohol Use History: None Reported Additional Past Alcohol Use History / Comment(s): QUIT SMOKING 2009, STARTED SMOKING AGE 15, SMOKED UP TO 1 1/2 PPD Past Drug Use History: None Reported - Past Family History Mother Family Medical History: No Reported History Medications and Allergies Home Medications Medication Instructions Recorded Confirmed Type Calcium Citrate/Vitamin D3 1 tab PO DAILY 10/19/19 03/11/22 History [Calcium Cit 315-Vit D3 6.25 Mcg (250 Iu)] Vitamin A Acetate [Vitamin A] 3,000 unit PO DAILY 10/19/19 03/11/22 History Ascorbic Acid [Vitamin C] 500 mg PO DAILY 04/05/21 03/11/22 History Ibuprofen 800 mg PO Q8H PRN 10/23/21 03/11/22 History Naproxen Sodium [Aleve] 220 mg PO Q12HR PRN 10/23/21 03/11/22 History Levothyroxine Sodium 150 mcg PO DAILY #30 tablet 12/11/21 03/11/22 Rx Tamsulosin HCl [Flomax] 0.4 mg PO DAILY 01/08/22 03/11/22 History Baclofen [Lioresal] 20 mg PO BID PRN 03/11/22 03/11/22 History Biotin 5 mg PO DAILY 03/11/22 03/11/22 History FLUoxetine HCL [PROzac] 40 mg PO DAILY 03/11/22 03/11/22 History Multivit-Min/Folic Acid/Mmp633 1 tab PO DAILY 03/11/22 03/11/22 History [Alive Premium Adult Multivit] Prevalite 4gm/Dose Powder 1 scoop PO DAILY 03/11/22 03/11/22 History Sertraline [Zoloft] 100 mg PO HS 03/11/22 03/11/22 History Vitamin A 2,400 mcg PO DAILY 03/11/22 03/11/22 History rOPINIRole HCL [Requip] 0.5 mg PO HS 03/11/22 03/11/22 History Allergies Allergy/AdvReac Type Severity Reaction Status Date / Time cephalexin [From Keflex] Allergy Swelling Verified 03/11/22 19:56 morphine Allergy Dyspnea Verified 03/11/22 19:56 Physical Exam Vitals: Vital Signs Temp Pulse Pulse Resp BP BP Pulse Ox 03/12/22 09:02 98.6 F 75 18 128/58 96 03/12/22 08:04 99.4 F 91 20 133/71 94 L 03/12/22 06:24 98.7 F 70 18 103/64 97 03/12/22 01:00 16 03/11/22 23:21 98.8 F 91 20 98/61 96 03/11/22 22:49 98.2 F 74 15 119/67 97 03/11/22 18:51 101.5 F H 108 H 18 126/65 96 Intake and Output 03/11/22 03/12/22 03/12/22 22:59 06:59 14:59 Intake Total 0 200 Balance 0 200 Intake: IV 200 Oral 0 Other: Voiding Method Toilet Toilet # Voids 2 Weight 118.388 kg Results CBC & Chem 7: 03/12/22 05:29 03/12/22 05:29 Labs: Abnormal Lab Results - Last 24 Hours (Table) 03/12/22 Range/Units 05:29 WBC 10.75 H (4.50-10.00) X 10*3/uL RBC 3.81 L (4.10-5.20) X 10*6/uL Hgb 11.0 L (12.0-15.0) g/dL Hct 35.4 L (37.2-46.3) % MCHC 31.1 L (32.0-37.0) g/dL Monocytes # 1.10 H (0.20-1.00) X 10*3/uL Thrombosis Risk Factor Assmnt - Choose All That Apply Any of the Below Risk Factors Present?: Yes Each Factor Represents 1 point: Age 41-60 years, Obesity (BMI >25), Varicose veins Other congenital or acquired thrombophilia - If yes, enter type in comment: Yes Thrombosis Risk Factor Assessment Total Risk Factor Score: 3 Thrombosis Risk Factor Assessment Level: Moderate Risk
[2022-03-12] MEDS: SERTRALINE 100 MG TAB PO SCH (20:54)
[2022-03-13] MEDS: SODIUM CHLORIDE 0.9% 1,000 ML IV SCH ×4 (00:53→22:18)
[2022-03-13] MEDS: LEVOTHYROXINE 75 MCG TAB PO SCH (06:28)
[2022-03-13 08:15] LABS: Basophils # (A) 0.1 k/uL (0-0.2); Basophils % (A) 1 %; Eosinophils # (A) 0.1 k/uL (0-0.7); Eosinophils % (A) 1 %; HCT 34.8 % (34.0-46.0); HGB 11.1 gm/dL (11.4-16.0); Hypochromasia Slight; Lymphocytes # (A) 2.2 k/uL (1.0-4.8); Lymphocytes % (A) 24 %; MCH 28.9 pg (25.0-35.0); MCHC 31.8 g/dL (31.0-37.0); MCV 90.9 fL (80.0-100.0); Mean Platelet Volume 8.1; Monocytes # (A) 0.5 k/uL (0-1.0); Monocytes % (A) 5 %; Neutrophils # (A) 6.3 k/uL (1.3-7.7); Neutrophils % (A) 68 %; Platelet Count 226 k/uL (150-450); RBC 3.83 m/uL (3.80-5.40); RDW 13.6 % (11.5-15.5); WBC 9.3 k/uL (3.8-10.6)
[2022-03-13 08:28] LABS: African American GFR (CKD) >90 (>60 ml/min/1.73 sqM); Anion Gap 9 mmol/L; Blood Urea Nitrogen 14 mg/dL (7-17); Calcium 9.4 mg/dL (8.4-10.2); Carbon Dioxide 25 mmol/L (22-30); Chloride 107 mmol/L (98-107); Glucose 88 mg/dL (74-99); Non-African American GFR(CKD) >90 (>60 ml/min/1.73 sqM); Potassium 4.2 mmol/L (3.5-5.1); Sodium 141 mmol/L (137-145)
[2022-03-13] MEDS: TAMSULOSIN 0.4 MG CAP.ER.24H PO SCH (08:47)
[2022-03-13] MEDS: ACETAMINOPHEN TAB 325 MG TAB PO PRN (08:47)
[2022-03-13] MEDS: VITAMIN A 10,000 UNIT (3000 MCG) CAPSULE PO SCH (08:47)
[2022-03-13] MEDS: MULTIVITAMINS, THERA 1 EACH TAB PO SCH (08:47)
[2022-03-13] MEDS: CHOLESTYRAMINE (WITH SUGAR) 4 GM PACKET PO SCH (08:47)
[2022-03-13] MEDS: PANTOPRAZOLE 40 MG/10 ML VIAL IV SCH (08:47)
[2022-03-13] MEDS: ASCORBIC ACID 500 MG TAB PO SCH (08:47)
[2022-03-13] MEDS: CALCIUM CARB-VIT D 500 MG-5 MCG TAB PO SCH (08:48)
[2022-03-13] MEDS: FLUoxetine HCL 20 MG CAP PO SCH (08:48)
--- NOTE | 2022-03-13 11:57 | P.PN ---
Subjective Progress Note Date: 03/13/22 No acute overnight event, doing well this am. denies any flank pain, having urinary frequency. Objective - Vital Signs Vital signs: Vital Signs Temp 97.8 F 03/13/22 05:00 Pulse 70 03/13/22 05:00 Resp 16 03/13/22 05:00 BP 122/57 03/13/22 05:00 Pulse Ox 95 03/13/22 05:00 FiO2 Intake & Output 03/12/22 03/13/22 03/13/22 18:59 06:59 18:59 Intake Total 1999 590 Output Total 1 Balance 1998 590 Intake: IV 700 Intake, IV Titration 1300 Amount cefTRIAXone 2 gm In 1200 Sodium Chloride 0.9% 50 ml @ 100 mls/hr IVPB DAILY [facility] Rx#:[id number] cefTRIAXone 2 gm In 100 Sodium Chloride 0.9% 50 ml @ 100 mls/hr IVPB Q12H [facility] Rx#:[id number] Oral 590 Output: Estimated Blood Loss 1 Other: Voiding Method Toilet Toilet # Voids 3 2 - Constitutional General appearance: Present: no acute distress - Gastrointestinal General gastrointestinal: Present: soft. Absent: distended - Psychiatric Psychiatric: Present: A&O x's 3 - Labs CBC & Chem 7: 03/13/22 07:44 03/13/22 07:44 Labs: Abnormal Lab Results - Last 24 Hours (Table) 03/13/22 Range/Units 07:44 Hgb 11.1 L (11.4-16.0) gm/dL Microbiology - Last 24 Hours (Table) 03/12/22 16:55 Urine Culture - Preliminary Urine,Voided Assessment and Plan Assessment: 57 yo female S/P right stent insertion for septic stone -Continue IV abx -Ditropan 5mg XL of urinary frequency -Well arrange for outpatient ureteroscopy with holmium laser (1) Ureterolithiasis Current Visit: Yes Status: Acute Code(s): N20.1 - CALCULUS OF URETER SNOMED Code(s): 68292451 (2) Hydronephrosis concurrent with and due to calculi of kidney and ureter Current Visit: Yes Status: Acute Code(s): N13.2 - HYDRONEPHROSIS WITH RENAL AND URETERAL CALCULOUS OBSTRUCTION SNOMED Code(s): 040510813
--- NOTE | 2022-03-13 11:58 | P.PN ---
Progress Note - Text Progress Note Date: 03/13/22 Chief Complaint: Right flank pain This is a pleasant 57-year-old patient, follows with Dr. Davon Christensen. Chronic stable medical conditions include osteoarthritis, hypothyroid, kidney stones, restless leg syndrome. Patient did undergo gastric bypass and has resulted d iabetes current and sleep apnea resolved. On Thursday around 2 AM patient had pain in the posterior part of the right flank. Then came back much worse around 6 AM. Then she got worse. Went down to the right groin. Subsequently patient developed significant nausea. Did go down to [facility]. They patient was transferred here. Normally has a bowel movement every day. On a today patient had a double-J stent raised on the right side by Dr. butler. Stone size of 10 x 5 x 5 mm was found on the right side. Clotted infected urine was obtained. Patient IV ceftriaxone. IV fluids. Postprocedure laying in bed. Patient does spike a fever when she had the ER. March 13: IV ceftriaxone. In a recliner. Eating well. Some discomfort on the right side. No fever. Urine cultures pending. Active Medications Acetaminophen (Acetaminophen Tab 325 Mg Tab) 650 mg PO Q6HR PRN PRN Reason: Mild Pain or Fever > 100.5 Last Admin: 03/13/22 08:47 Dose: 650 mg Hydrocodone Bitart/Acetaminophen (Hydrocodone/Apap 5-325mg 1 Each Tab) 1 each PO Q4HR PRN PRN Reason: Moderate Pain (Scale 4 to 6) Last Admin: 03/12/22 20:53 Dose: 1 each Ascorbic Acid (Ascorbic Acid 500 Mg Tab) 500 mg PO DAILY [facility] Last Admin: 03/13/22 08:47 Dose: 500 mg Baclofen (Baclofen 10 Mg Tab) 20 mg PO BID PRN PRN Reason: Pain Calcium Carbonate (Calcium Carb-Vit D 500 Mg-5 Mcg Tab) 1 each PO DAILY [facility] Last Admin: 03/13/22 08:48 Dose: 1 each Cholestyramine Resin (Cholestyramine (With Sugar) 4 Gm Packet) 4 gm PO DAILY [facility] Last Admin: 03/13/22 08:47 Dose: 4 gm Enoxaparin Sodium (Enoxaparin 40 Mg/0.4 Ml Syringe) 40 mg SQ DAILY [facility] Last Admin: 03/12/22 12:20 Dose: 40 mg Fentanyl Citrate (Fentanyl (Pf) 50 Mcg/Ml 2 Ml Amp) 50 mcg IVP Q4HR PRN PRN Reason: Severe Pain (Scale 7 to 10) Fluoxetine HCl (Fluoxetine Hcl 20 Mg Cap) 40 mg PO DAILY [facility] Last Admin: 03/13/22 08:48 Dose: 40 mg Sodium Chloride (Saline 0.9%) 1,000 mls @ 100 mls/hr IV .Q10H [facility] Last Admin: 03/13/22 08:52 Dose: 130 mls/hr Ceftriaxone Sodium 2 gm/ (Sodium Chloride) 50 mls @ 100 mls/hr IVPB Q12H [facility]; Protocol Last Admin: 03/13/22 08:46 Dose: 100 mls/hr Levothyroxine Sodium (Levothyroxine 75 Mcg Tab) 150 mcg PO DAILY@0630 [facility] Last Admin: 03/13/22 06:28 Dose: 150 mcg Multivitamins (Multivitamins, Thera 1 Each Tab) 1 each PO DAILY [facility] Last Admin: 03/13/22 08:47 Dose: 1 each Naloxone HCl (Naloxone 0.4 Mg/Ml 1 Ml Vial) 0.2 mg IV Q2M PRN PRN Reason: Opioid Reversal Ondansetron HCl (Ondansetron 4 Mg/2 Ml Vial) 4 mg IVP Q8HR PRN PRN Reason: Nausea And Vomiting Oxybutynin Chloride (Oxybutynin Xl 5 Mg Tab.Er.24) 5 mg PO DAILY [facility] Pantoprazole Sodium (Pantoprazole 40 Mg/10 Ml Vial) 40 mg IV DAILY [facility] Last Admin: 03/13/22 08:47 Dose: 40 mg Ropinirole HCl (Ropinirole Hcl 0.25 Mg Tab) 0.5 mg PO [facility] Last Admin: 03/12/22 20:54 Dose: 0.5 mg Sertraline HCl (Sertraline 100 Mg Tab) 100 mg PO HS [facility] Last Admin: 03/12/22 20:54 Dose: 100 mg Tamsulosin HCl (Tamsulosin 0.4 Mg Cap.Er.24h) 0.4 mg PO DAILY [facility] Last Admin: 03/13/22 08:47 Dose: 0.4 mg Vitamin A (Vitamin A 10,000 Unit (3000 Mcg) Capsule) 3,000 unit PO DAILY [facility] Last Admin: 03/13/22 08:47 Dose: 3,000 unit Past medical history to include: Diabetes, GERD, sleep apnea corrected after gastric bypass surgery. Osteoarthritis, hypothyroid, chronic sinusitis, kidney stones, restless leg syndrome gastric bypass in 2019 Social history: Patient smoked for 30 years, stopped in 2009. About one half pack a day. No alcohol. . 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 Family history: Reviewed, noncontributory to presentation Physical examination: VITAL SIGNS: 97.8, 70, 16, 1 22 x 57, 95% GENERAL: In a recliner, comfortable EYES: Pupils equal. Conjunctiva normal. HEENT: External appearance of nose and ears normal, oral cavity grossly normal. NECK: JVD not raised; masses not palpable. HEART: First and second heart sounds are normal; no edema. LUNGS: Respiratory rate normal; clear to auscultation. ABDOMEN: Soft, no tenderness, liver spleen not palpable, no masses palpable. PSYCH: Alert and oriented x3; mood and affect normal. MUSCULOSKELETAL:No Clubbing/cyanosis;muscles-grossly intact INVESTIGATIONS, reviewed in the clinical context: March 13: WBC 9.3 hemoglobin 11.1 potassium 4.2 creatinine 0.67 WBC 10.7 hemoglobin 11 platelets 204 sodium 140 potassium 3.9 creatinine 0.8 Assessment and plan: -Right proximal ureter stone causing secondary hydronephrosis/pyelonephritis causing sepsis: Improving Right double-J catheter placed by Dr. butler. Infected urine was obtained. IV fluids. IV ceftriaxone. Culture pending -Restless leg syndrome Requip -Depression Zoloft, Prozac -Hypothyroid Synthroid 150 g a day -Morbid obesity BMI 43.4 Weight loss measures -Sepsis secondary to) obstructive pyelonephritis Urine culture. IV ceftriaxone. IV fluids IV fluids decrease. IV ceftriaxone. Right double-J stent catheter tolerating diet. Increase activity. Await culture results. To finalize antibiotics.
[2022-03-13] MEDS: SERTRALINE 100 MG TAB PO SCH (22:16)
[2022-03-14] MEDS: LEVOTHYROXINE 75 MCG TAB PO SCH (05:14)
[2022-03-14] MEDS: SODIUM CHLORIDE 0.9% 1,000 ML IV SCH (05:15)
[2022-03-14] MEDS: ASCORBIC ACID 500 MG TAB PO SCH (08:13)
[2022-03-14] MEDS: MULTIVITAMINS, THERA 1 EACH TAB PO SCH (08:13)
[2022-03-14] MEDS: TAMSULOSIN 0.4 MG CAP.ER.24H PO SCH (08:13)
[2022-03-14] MEDS: CALCIUM CARB-VIT D 500 MG-5 MCG TAB PO SCH (08:14)
[2022-03-14] MEDS: PANTOPRAZOLE 40 MG/10 ML VIAL IV SCH (08:14)
[2022-03-14] MEDS: ENOXAPARIN 40 MG/0.4 ML SYRINGE SQ SCH (08:14)
[2022-03-14] MEDS: FLUoxetine HCL 20 MG CAP PO SCH (08:14)
[2022-03-14] MEDS: VITAMIN A 10,000 UNIT (3000 MCG) CAPSULE PO SCH (08:15)
[2022-03-14] MEDS: CHOLESTYRAMINE (WITH SUGAR) 4 GM PACKET PO SCH (08:21)
[2022-03-14] MEDS ORDERED: OXYBUTYNIN XL 5 MG TAB.ER.24 PO SCH (09:00)
[2022-03-14 11:46] VITALS: BP 110/70; PULSE 52; RESP 18; TEMP 98.2
--- NOTE | 2022-03-14 13:37 | P.DS ---
Providers Date of admission: 03/11/22 20:07 Expected date of discharge: 03/14/22 Attending physician: Neto Jerome Consults: 03/11/22 19:59 Consult Physician Urgent Consulting Provider: Warren Romo Consult Reason/Comments: uti, ureteral stone Do you want consulting provider notified?: Already Contacted Primary care physician: Davon Cueva [facility] Course: Chief Complaint: Right flank pain This is a pleasant 57-year-old patient, follows with Dr. Davon Chritsensen. Chronic stable medical conditions include osteoarthritis, hypothyroid, kidney stones, restless leg syndrome. Patient did undergo gastric bypass and has resulted diabetes current and sleep apnea resolved. On Thursday around 2 AM patient had pain in the posterior part of the right flank. Then came back much worse around 6 AM. Then she got worse. Went down to the right groin. Subsequently patient developed significant nausea. Did go down to [facility]. They patient was transferred here. Normally has a bowel movement every day. On a today patient had a double-J stent raised on the right side by Dr. romo. Stone size of 10 x 5 x 5 mm was found on the right side. Clotted infected urine was obtained. Patient IV ceftriaxone. IV fluids. Postprocedure laying in bed. Patient does spike a fever when she had the ER. March 13: IV ceftriaxone. In a recliner. Eating well. Some discomfort on the right side. No fever. Urine cultures pending. March 14: Up in a recliner. Comfortable. Oral intake with. No fever. Normal white count. Urine culture come back negative. Give 10 days of Ceftin. Discharge plan was discussed with the patient. Questions answered. Patient will follow-up with Dr. romo for removal of double-J stent. Discussion and discharge planning more than 35 minutes Past medical history to include: Diabetes, GERD, sleep apnea corrected after gastric bypass surgery. Osteoarthritis, hypothyroid, chronic sinusitis, kidney stones, restless leg syndrome gastric bypass in 2018 Social history: Patient smoked for 30 years, stopped in 2009. About one half pack a day. No alcohol. . 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 Family history: Reviewed, noncontributory to presentation Physical examination: VITAL SIGNS: 98.2, 52, 18, 1 10 x 70, 99% room air GENERAL: Up in a a recliner, comfortable EYES: Pupils equal. Conjunctiva normal. HEENT: External appearance of nose and ears normal, oral cavity grossly normal. NECK: JVD not raised; masses not palpable. HEART: First and second heart sounds are normal; no edema. LUNGS: Respiratory rate normal; clear to auscultation. ABDOMEN: Soft, no tenderness, liver spleen not palpable, no masses palpable. PSYCH: Alert and oriented x3; mood and affect normal. MUSCULOSKELETAL:No Clubbing/cyanosis;muscles-grossly intact INVESTIGATIONS, reviewed in the clinical context: Urine culture: Negative March 13: WBC 9.3 hemoglobin 11.1 potassium 4.2 creatinine 0.67 WBC 10.7 hemoglobin 11 platelets 204 sodium 140 potassium 3.9 creatinine 0.8 Assessment and plan: -Right proximal ureter stone causing secondary hydronephrosis/pyelonephritis causing sepsis: Improving Right double-J catheter placed by Dr. romo. Infected urine was obtained. IV fluids. IV ceftriaxone. Culture negative 10 days- 500 mg Ceftin twice a day -Restless leg syndrome Requip -Depression Zoloft, Prozac -Hypothyroid Synthroid 150 g a day -Morbid obesity BMI 43.4 Weight loss measures -Sepsis secondary to) obstructive pyelonephritis Urine culture. IV ceftriaxone. IV fluids Disposition: Home Plan - Discharge Summary New Discharge Prescriptions: New Oxybutynin Xl [Ditropan XL] 5 mg PO DAILY #30 tab cefUROXime axetiL [Ceftin] 500 mg PO BID #20 tab Continue Vitamin A Acetate [Vitamin A] 3,000 unit PO DAILY Calcium Citrate/Vitamin D3 [Calcium Cit 315-Vit D3 6.25 Mcg (250 Iu)] 1 tab PO DAILY Tamsulosin HCl [Flomax] 0.4 mg PO DAILY Vitamin A 2,400 mcg PO DAILY Multivit-Min/Folic Acid/Eoa778 [Alive Premium Adult Multivit] 1 tab PO DAILY Sertraline [Zoloft] 100 mg PO HS Prevalite 4gm/Dose Powder 1 scoop PO DAILY FLUoxetine HCL [PROzac] 40 mg PO DAILY Baclofen [Lioresal] 20 mg PO BID PRN PRN Reason: Pain Biotin 5 mg PO DAILY Ascorbic Acid [Vitamin C] 500 mg PO DAILY Naproxen Sodium [Aleve] 220 mg PO Q12HR PRN PRN Reason: Pain Levothyroxine Sodium 150 mcg PO DAILY #30 tablet rOPINIRole HCL [Requip] 0.5 mg PO HS Discontinued Ibuprofen 800 mg PO Q8H PRN PRN Reason: Pain Discharge Medication List Calcium Citrate/Vitamin D3 [Calcium Cit 315-Vit D3 6.25 Mcg (250 Iu)] 1 tab PO DAILY 10/19/19 [History] Vitamin A Acetate [Vitamin A] 3,000 unit PO DAILY 10/19/19 [History] Ascorbic Acid [Vitamin C] 500 mg PO DAILY 04/05/21 [History] Naproxen Sodium [Aleve] 220 mg PO Q12HR PRN 10/23/21 [History] Levothyroxine Sodium 150 mcg PO DAILY #30 tablet 12/11/21 [Rx] Tamsulosin HCl [Flomax] 0.4 mg PO DAILY 01/08/22 [History] Baclofen [Lioresal] 20 mg PO BID PRN 03/11/22 [History] Biotin 5 mg PO DAILY 03/11/22 [History] FLUoxetine HCL [PROzac] 40 mg PO DAILY 03/11/22 [History] Multivit-Min/Folic Acid/Djd616 [Alive Premium Adult Multivit] 1 tab PO DAILY 03/11/22 [History] Prevalite 4gm/Dose Powder 1 scoop PO DAILY 03/11/22 [History] Sertraline [Zoloft] 100 mg PO HS 03/11/22 [History] Vitamin A 2,400 mcg PO DAILY 03/11/22 [History] rOPINIRole HCL [Requip] 0.5 mg PO HS 03/11/22 [History] Oxybutynin Xl [Ditropan XL] 5 mg PO DAILY #30 tab 03/14/22 [Rx] cefUROXime axetiL [Ceftin] 500 mg PO BID #20 tab 03/14/22 [Rx] Follow up Appointment(s)/Referral(s): Warren Romo MD [STAFF PHYSICIAN] - 2 Weeks (office will call patient with date and time of appt.) Davon Christensen MD [Primary Care Provider] - 1-2 days ([facility] clinical case manager will call patient to schedule appt) Patient Instructions/Handouts: Cefuroxime (By mouth), Oxybutynin (By mouth) Discharge Disposition: HOME SELF-CARE
== END 2022-03-14 12:40 | disposition home or self-care (01) | DRG 854 ==
LOC: EC 18:50 → 5NMEDONC 20:07
PROVIDERS: ADMIT Hospitalist; ATTEND Hospitalist
PROC: 0T768DZ Dilation of Right Ureter with Intraluminal Device, Via Natural or Artificial Opening Endoscopic (ICD-10-PCS; principal; 2022-03-12 08:00)
DX: A41.9 Sepsis, unspecified organism (principal); N13.6 Pyonephrosis; Z68.41 Body mass index [BMI] 40.0-44.9, adult; J32.9 Chronic sinusitis, unspecified; K42.9 Umbilical hernia without obstruction or gangrene; G25.81 Restless legs syndrome; F41.0 Panic disorder [episodic paroxysmal anxiety]; F32.A Depression, unspecified; E66.01 Morbid (severe) obesity due to excess calories; E03.9 Hypothyroidism, unspecified; M19.90 Unspecified osteoarthritis, unspecified site; I83.90 Asymptomatic varicose veins of unspecified lower extremity; Z96.651 Presence of right artificial knee joint; Z98.84 Bariatric surgery status; Z87.891 Personal history of nicotine dependence; Z87.442 Personal history of urinary calculi; Z79.899 Other long term (current) drug therapy; Z79.890 Hormone replacement therapy; Z88.1 Allergy status to other antibiotic agents; Z88.5 Allergy status to narcotic agent
CPT/HCPCS: 80048; 80053; 83605; 85025; 87086; 96374; 99285

== ENCOUNTER → 2022-03-31 | Outpatient (CLI) | payer BC ==
[2022-03-31 14:53] LABS: Basophils # (A) 0.09 X 10*3/uL (0.00-0.10); Basophils % (A) 1.3 %; Eosinophils % (A) 4.4 %; HGB 12.2 g/dL (12.0-15.0); Immature Grans, Automated 0.1 %; Lymphocytes % (A) 38.2 %; MCH 28.6 pg (27.0-32.0); MCHC 31.3 g/dL (32.0-37.0); MCV 91.5 fL (80.0-97.0); Mean Platelet Volume 10.6 fL (9.5-12.2); Monocytes # (A) 0.72 X 10*3/uL (0.20-1.00); Monocytes % (A) 10.6 %; NRBC Per 100 WBC 0 /100 WBCS (0.0-0.0); Neutrophils # (A) 3.09 X 10*3/uL (1.80-7.70); Neutrophils % (A) 45.4 %; Platelet Count 252 X 10*3/uL (140-440); RBC 4.26 X 10*6/uL (4.10-5.20); RDW 13.7 % (11.5-14.5); WBC 6.81 X 10*3/uL (4.50-10.00)
[2022-03-31 15:15] LABS: Anion Gap 10.3 mmol/L (10.00-18.00); Calcium 9.7 mg/dL (8.7-10.3); Carbon Dioxide 23.7 mmol/L (20.0-27.5); Non-African American GFR(CKD) 97.5 (60.0-200.0); Potassium 3.9 mmol/L (3.5-5.5)
[2022-03-31 15:16] LABS: Appearance,Urine Cloudy (Clear); Bilirubin,Urine Negative (Negative); Blood,Urine Large (Negative); Color,Urine Yellow (Yellow); Ketones,Urine Trace mg/dL (Negative); Nitrite,Urine Negative (Negative); PH, Urine 5.5 (5.0-8.0); Specific Gravity,Urine 1.023 (1.001-1.030); Urobilinogen,Urine 0.2 (0.2,1.0)
[2022-03-31 15:45] LABS: Bacteria,Urine None Seen /HPF (None Seen)
== END | disposition home or self-care (01) ==
LOC: LABPAT 09:55
PROVIDERS: ATTEND Urology
DX: Z01.812 Encounter for preprocedural laboratory examination (principal); N20.1 Calculus of ureter
CPT/HCPCS: 80048; 81001; 85025; 87086

== ENCOUNTER 2022-04-11 10:28 | Day surgery (SDC) | payer BC ==
[2022-04-09 14:11] VITALS: BMI 41.1
--- NOTE | 2022-04-10 12:21 | P.HPIHPCON ---
History of Present Illness H&P Date: 04/10/22 Chief Complaint: Right sided ureteral stone This is a 57-year-old female with history of a 5 mm right-sided ureteral stone, underwent stent insertion secondary to septic stone on March 12. Presents today for definitive stone management. Discussed with her the option of a right-sided ureteroscopy with holmium laser. Discussed with her the risk which include but are not limited to bleeding, infection, injury to the ureter. Discussed also risk from anesthesia. She understood all the risk and agreed to proceed with right sided ureteroscopy, holmium laser lithotripsy, stone basketing and stent removal Consent for Procedure: I have explained the operation/procedure to the patient, including the risks, benefits, side effects, alternative therapies (including not receiving the proposed treatment or service), the likelihood of the patient achieving his/her goals, and potential recuperation problems for the procedure/sedation/analgesia, as well as any blood products, if indicated. I also explained to the patient the risks, benefits and side effects of the alternatives, as well as the risks related to not receiving the proposed procedure, care, treatment, or services. Past Medical History Past Medical History: Diabetes Mellitus, GERD/Reflux, Liver Disease, Osteoarthritis (OA), Skin Disorder, Sleep Apnea/CPAP/BIPAP, Thyroid Disorder Additional Past Medical History / Comment(s): SLEEP APNEA, GERD & DIABETES ALL RESOLVED WITH WEIGHT LOSS. CHRONIC SINUSITIS. HX RUPTURED RIGHT EAR DRUM. HX OF AND CURRENT KIDNEY STONES. COLON POLYPS. RLS. HX IRON INFUSIONS. Varicose veins. Fatty liver. Psorasis. History of Any Multi-Drug Resistant Organisms: MRSA Date of last positivie culture/infection: 2009 MDRO Source:: RIGHT LEG Past Surgical History: Adenoidectomy, Bariatric Surgery, Cholecystectomy, Ear Surgery, Heart Catheterization, Hernia Repair, Hysterectomy, Joint Replacement, Orthopedic Surgery, Tonsillectomy Additional Past Surgical History / Comment(s): Bilateral meniscus repairs, umbilical hernia repair, left ear surgery,gastric bypass 03-17-19, right knee replacement, varicose vein surgery. Past Anesthesia/Blood Transfusion Reactions: No Reported Reaction Past Psychological History: Panic Disorder Smoking Status: Former smoker Past Alcohol Use History: None Reported Additional Past Alcohol Use History / Comment(s): QUIT SMOKING IN 2009, STARTED SMOKING AT AGE 15, SMOKED UP TO 1 1/2 PPD. Past Drug Use History: None Reported - Past Family History Mother Family Medical History: No Reported History Medications and Allergies Home Medications Medication Instructions Recorded Confirmed Type Calcium Citrate/Vitamin D3 1 tab PO DAILY 10/19/19 04/09/22 History [Calcium Cit 315-Vit D3 6.25 Mcg (250 Iu)] Vitamin A Acetate [Vitamin A] 3,000 unit PO DAILY 10/19/19 04/09/22 History Ascorbic Acid [Vitamin C] 500 mg PO DAILY 04/05/21 04/09/22 History Tamsulosin HCl [Flomax] 0.4 mg PO DAILY 01/08/22 04/09/22 History Baclofen [Lioresal] 20 mg PO BID PRN 03/11/22 04/09/22 History Biotin 5 mg PO DAILY 03/11/22 04/09/22 History Multivit-Min/Folic Acid/Gxt652 1 tab PO DAILY 03/11/22 04/09/22 History [Alive Premium Adult Multivit] Prevalite 4gm/Dose Powder 1 scoop PO DAILY 03/11/22 04/09/22 History Sertraline [Zoloft] 100 mg PO HS 03/11/22 04/09/22 History rOPINIRole HCL [Requip] 0.5 mg PO HS 03/11/22 04/09/22 History Acetaminophen [Tylenol] 325 - 650 mg PO DIRECTED PRN 04/09/22 04/09/22 History Benzonatate 100 mg PO DIRECTED PRN 04/09/22 04/09/22 History Cetirizine HCl [Zyrtec] 10 mg PO DAILY PRN 04/09/22 04/09/22 History Ciprofloxacin HCl [Cipro] 250 mg PO BID 04/09/22 04/09/22 History Clobetasol Solution 0.5% 1 dose .ROUTE DIRECTED PRN 04/09/22 04/09/22 History Inulin/Chromium Picolinate [Fiber 1 tab PO DAILY 04/09/22 04/09/22 History Gummies Chew] Levothyroxine Sodium 150 mcg PO QAM 04/09/22 04/09/22 History Mometasone Furoate [Elocon Cream 1 applic TOPICAL DIRECTED PRN 04/09/22 History 0.1%] Nasal [place] Unknown Name/Dose 1 spray NASAL DIRECTED PRN 04/09/22 04/09/22 History Oxybutynin Chloride [Ditropan XL] 10 mg PO DAILY 04/09/22 04/09/22 History Simethicone [Gas-X] 125 mg PO DIRECTED PRN 04/09/22 04/09/22 History Allergies Allergy/AdvReac Type Severity Reaction Status Date / Time cephalexin [From Keflex] Allergy Swelling Verified 04/09/22 13:51 morphine Allergy Dyspnea Verified 04/09/22 13:51 Surgical - Exam - General no distress, moderate pain - Eyes normal ocular movement, no pale - ENT normal nares, normal mucosa - Respiratory normal expansion, normal respiratory effort - Abdomen Abdomen: soft, non tender - Psychiatric oriented to time, oriented to person, oriented to place Assessment and Plan Assessment: OR for right-sided ureteroscopy, holmium laser lithotripsy, stone basketing and stent removal
[~2022-04-11 10:28] MED LIST changes: -ACETAMINOPHEN TAB 500 MG TAB PO PRN; +CIPROFLOXACIN/DEXTROSE PMX 400 MG in DEXTROSE/WATER 1 200ML.BAG IVPB PRN; -CLINDAMYCIN 900 MG in DEXTROSE 5% IN WATER 50 ML IVPB PRN; -DEXAMETHASONE SOD PHOSPHATE 4 MG/ML 1 ML VIAL IV ONE; -HYDROmorphone 0.5 MG/0.5 ML SYRINGE IVP PRN; -MELOXICAM 7.5 MG TAB PO PRN; -ONDANSETRON 4 MG/2 ML VIAL IVP ONE; -TRANEXAMIC ACID 1,000 MG in SODIUM CHLORIDE 0.9% 100 ML IVPB PRN
[2022-04-11] MEDS ORDERED: ONDANSETRON 4 MG/2 ML VIAL IVP ONE (10:35)
[2022-04-11] MEDS ORDERED: LACTATED RINGERS 1,000 ML IV SCH (10:35)
[2022-04-11] MEDS ORDERED: LIDOCAINE 1% (10MG/ML) FOR IV START INTRADERMA PRN (10:35)
[2022-04-11] MEDS ORDERED: HYDROmorphone 0.5 MG/0.5 ML SYRINGE IVP PRN (10:35)
[2022-04-11] MEDS ORDERED: DEXAMETHASONE SOD PHOSPHATE 4 MG/ML 1 ML VIAL IV ONE (10:35)
--- NOTE | 2022-04-11 11:03 | XR ---
EXAMINATION TYPE: XR KUB DATE OF EXAM: 04/11/2022 10:42 AM INDICATION: Patient age:Female; 57 years old; Reason for study: PRE OP KUB; PHH. COMPARISON: None. TECHNIQUE: One radiographic view of the abdomen was obtained. FINDINGS: Right ureteral stent with proximal and distal tips in appropriate position. No obvious free renal calculus identified. Cholecystectomy clips are present. Multilevel disc degeneration changes a re present throughout the spine. There is nonspecific bowel gas pattern. IMPRESSION: Right ureteral stent with superior and inferior pigtails in appropriate position. No evidence of calc ulus on this radiograph.
[2022-04-11] MEDS ORDERED: MIDAZOLAM 2 MG/2 ML VIAL ONE (12:15)
[2022-04-11] MEDS ORDERED: LIDOCAINE 4% LTA KIT (4 ML) TOPICAL ONE (12:15)
[2022-04-11] MEDS ORDERED: LIDOCAINE 2% INJ 20 MG/ML (2 ML VIAL) ONE (12:15)
[2022-04-11] MEDS ORDERED: fentaNYL (PF) 50 MCG/ML 2 ML AMP ONE (12:15)
[2022-04-11] MEDS ORDERED: PROPOFOL 10 MG/ML 20 ML VIAL IV ONE (12:15)
[2022-04-11] MEDS ORDERED: SUCCINYLCHOLINE CHLORIDE 200 MG/10 ML VIAL IV ONE (12:15)
[2022-04-11] MEDS ORDERED: LACTATED RINGERS 1,000 ML IV ONE (12:59)
[2022-04-11 13:14] VITALS: TEMP 97
--- NOTE | 2022-04-11 13:20 | P.OP ---
Date of Procedure: 04/11/22 Preoperative Diagnosis: Right sided ureteral stone Postoperative Diagnosis: Same Procedure(s) Performed: Cystoscopy, right ureteroscopy, holmium laser lithotripsy, stone basketing, stent removal Implants: none Anesthesia: ELIZABETH Surgeon: Warren Romo Estimated Blood Loss (ml): 5 Pathology: other (right ureteral stone) Condition: stable Disposition: PACU Indications for Procedure: This is a 57-year-old female with history of a 5 mm right-sided ureteral stone, underwent stent insertion secondary to septic stone on March 12. Presents today for definitive stone management. Discussed with her the option of a right-sided ureteroscopy with holmium laser. Discussed with her the risk which include but are not limited to bleeding, infection, injury to the ureter. Discussed also risk from anesthesia. She understood all the risk and agreed to proceed with right sided ureteroscopy, holmium laser lithotripsy, stone basketing and stent removal Operative Findings: Large stone at the UPJ Description of Procedure: Patient brought to the operating room, general anesthesia was induced. She was prepped and draped in sterile fashion and placed in dorsal lithotomy position. Cystoscopy fitted with a 21-Congolese sheath was inserted per urethra, cystoscopy was performed which showed no abnormality within the bladder. Attention was then carried to the right ureteral orifice, the stent was seen protruding from it. The stent was grasped and removed intact. Next a semirigid ureteroscope was advanced up the right ureteral orifice and all the way up to the UPJ, stone was encountered at the UPJ. Given the stone location decision was made at this time switched to a flexible ureteroscope. At this time a sensor wire was advanced through the scope and the scope was removed with the wire in place. Next under fluoroscopy and 1113 Congolese access sheath was passed over the wire into the proximal ureter. Next a flexible ureteroscope was inserted through the access sheath, stone was encountered and fragmented using the holmium laser, sizable fragments were removed and sent for analysis. Repeat renoscopy showed no sizable stones or injury to the kidney. Pullback ureteroscopy was performed which showed no injury to the ureter or ureteral stones. The bladder was emptied at the end of the case. Patient tolerated the procedure well was taken to recovery in stable condition
--- NOTE | 2022-04-11 13:32 | FL ---
Intraoperative/procedural fluoroscopic services were provided. Total fluoroscopy time is 2 seconds wi th a total of 2 submitted images to PACS. Please see the operative/procedural note for further detail s.
[2022-04-11] MEDS ORDERED: KETOROLAC 15 MG/ML 1 ML VIAL IVP ONE (14:06)
[2022-04-11 14:13] VITALS: RESP 20
[2022-04-11] MEDS ORDERED: diphenhydrAMINE 50 MG/ML 1 ML VIAL ONE (14:39)
[2022-04-11 14:55] VITALS: BP 124/66; PULSE 80
== END 2022-04-11 15:15 | disposition home or self-care (01) ==
LOC: OR 10:28
PROVIDERS: ATTEND Urology
DX: N20.2 Calculus of kidney with calculus of ureter (principal); E11.9 Type 2 diabetes mellitus without complications; K21.9 Gastro-esophageal reflux disease without esophagitis; M19.90 Unspecified osteoarthritis, unspecified site; G47.33 Obstructive sleep apnea (adult) (pediatric); E07.9 Disorder of thyroid, unspecified; J32.9 Chronic sinusitis, unspecified; K76.9 Liver disease, unspecified; K76.0 Fatty (change of) liver, not elsewhere classified; L40.9 Psoriasis, unspecified; Z90.49 Acquired absence of other specified parts of digestive tract; Z98.84 Bariatric surgery status; Z95.5 Presence of coronary angioplasty implant and graft; Z86.010 Personal history of colon polyps; Z90.710 Acquired absence of both cervix and uterus; Z98.890 Other specified postprocedural states; Z90.89 Acquired absence of other organs; Z87.891 Personal history of nicotine dependence; Z79.899 Other long term (current) drug therapy; Z79.890 Hormone replacement therapy; Z88.5 Allergy status to narcotic agent; Z88.1 Allergy status to other antibiotic agents
CPT/HCPCS: 82365; 74420; 74018; 52353; C1769; J2250; J0330; J1200; J1100; J2405; J3010; J0744; J1885; J2704; J2001

== ENCOUNTER → 2022-06-26 | Outpatient (CLI) | payer BC ==
[2022-06-26 12:33] LABS: INR 0.9 (<1.2); Partial Thromboplastin Time 23.4 sec (22.0-30.0); Prothrombin Time 9.8 sec (9.0-12.0)
[2022-06-26 21:13] LABS: HCT 40.1 % (37.2-46.3); MCH 27.4 pg (27.0-32.0); MCHC 29.9 g/dL (32.0-37.0); MCV 91.6 fL (80.0-97.0); NRBC Per 100 WBC 0 /100 WBCS (0.0-0.0); Platelet Count 298 X 10*3/uL (140-440); RBC 4.38 X 10*6/uL (4.10-5.20); RDW 14.5 % (11.5-14.5); WBC 7.05 X 10*3/uL (4.50-10.00)
[2022-06-27 00:45] LABS: Chol/HDL Ratio 3.28 Ratio; LDL Cholesterol,Calculated 90.4 mg/dL (0.0-131.0)
[2022-06-27 01:09] LABS: % Iron Saturation 10.23 (12.00-45.00); ALT 28 U/L (8-44); AST 29 U/L (13-35); African American GFR (CKD) 91.6 (60.0-200.0); Albumin 4.4 g/dL (3.8-4.9); Albumin/Globulin Ratio 1.58 (1.60-3.17); Alkaline Phosphatase 101 U/L (41-126); BUN/Creat Ratio 19.33 Ratio (12.00-20.00); Blood Urea Nitrogen 16.1 mg/dL (9.0-27.0); Calcium 10.1 mg/dL (8.7-10.3); Carbon Dioxide 25.8 mmol/L (20.0-27.5); Chloride 105 mmol/L (96-109); Globulin 2.8 g/dL (1.6-3.3); Glucose 83 mg/dL (70-110); Iron 42 ug/dL (50-170); Magnesium 1.8 mg/dL (1.5-2.4); Phosphorus 3.7 mg/dL (2.4-5.1); Sodium 143 mmol/L (135-145); Total Bilirubin <0.15 mg/dL (0.30-1.20); Total Iron Binding Capacity 409 ug/dL (228-460); Total Protein 7.2 g/dL (6.2-8.2)
[2022-06-27 04:39] LABS: Prealbumin 20.5 mg/dL (18.0-42.0)
[2022-06-27 13:35] LABS: Zinc, Serum 58 ug/dL (60-130)
== END | disposition home or self-care (01) ==
LOC: LABWHC1 11:56
PROVIDERS: ATTEND Surgery Plastic and Reconstructive Surgery
DX: E66.01 Morbid (severe) obesity due to excess calories (principal); E89.1 Postprocedural hypoinsulinemia; D50.8 Other iron deficiency anemias; K91.2 Postsurgical malabsorption, not elsewhere classified; E44.0 Moderate protein-calorie malnutrition; E45 Retarded development following protein-calorie malnutrition; E55.9 Vitamin D deficiency, unspecified; K74.1 Hepatic sclerosis; N19 Unspecified kidney failure; T56.894A Toxic effect of other metals, undetermined, initial encounter; K50.90 Crohn's disease, unspecified, without complications
CPT/HCPCS: 36415; 80053; 80061; 82306; 82525; 82607; 82728; 82746; 83036; 83540; 83550; 83735; 83970; 84100; 84134; 84255; 84425; 84443; 84590; 84630; 85027; 85610; 85730

== ENCOUNTER 2022-09-22 06:38 | Day surgery (SDC) | payer BC ==
[2022-09-22 07:33] VITALS: TEMP 98.4
[2022-09-22] MEDS ORDERED: LIDOCAINE 1% (10MG/ML) FOR IV START INTRADERMA ONE (07:46)
[2022-09-22] MEDS ORDERED: LACTATED RINGERS 1,000 ML IV ONE ×2 (07:46)
[2022-09-22] MEDS ORDERED: LACTATED RINGERS 1,000 ML IV SCH (07:47)
[2022-09-22] MEDS ORDERED: PROPOFOL 10 MG/ML 20 ML VIAL IV ONE (07:49)
--- NOTE | 2022-09-22 08:32 | P.GSHP ---
History of Present Illness H&P Date: 09/22/22 CHIEF COMPLAINT: GERD HISTORY OF PRESENT ILLNESS: The patient is a 57-year-old female who presents reports gastroesophageal reflux disease. Upper endoscopy was offered for further evaluation and management. PAST MEDICAL HISTORY: Please see list. PAST SURGICAL HISTORY: Please see list. MEDICATIONS: Please see list. ALLERGIES: Please see list. SOCIAL HISTORY: No illicit drug use FAMILY HISTORY: No reports of Crohn disease or ulcerative colitis. REVIEW OF ORGAN SYSTEMS: CONSTITUTIONAL: No reports of fevers or chills. GI: Denies any blood in stools or constipation. PHYSICAL EXAM: VITAL SIGNS: Stable GENERAL: Well-developed and pleasant in no acute distress. HEENT: No scleral icterus. Extraocular movements grossly intact. Moist buccal mucosa. NECK: Supple without lymphadenopathy. CHEST: Unlabored respirations. Equal bilateral excursions. CARDIOVASCULAR: Regular rate and rhythm. Distal 2+ pulses. ABDOMEN: Soft, nondistended. MUSCULOSKELETAL: No clubbing, cyanosis, or edema. ASSESSMENT: 1. Gastroesophageal reflux disease PLAN: 1. Recommend proceeding with an upper endoscopy Past Medical History Past Medical History: Diabetes Mellitus, GERD/Reflux, Osteoarthritis (OA), Sleep Apnea/CPAP/BIPAP, Thyroid Disorder Additional Past Medical History / Comment(s): HX GASTRIC BYPASS-SLEEP APNEA, GERD & DIABETES RESOLVED WITH WT LOSS., CHRONIC SINUSITIS, HX RUPTURED RT EAR DRUM, KIDNEY STONES, COLON POLYPS., RLS, IRON INFUSIONS. Kidney stone and sepsis Mar 2022, , acid & food coming up back of throat, lower leg swelling gastric ulcers History of Any Multi-Drug Resistant Organisms: MRSA Date of last positivie culture/infection: 2009 MDRO Source:: RIGHT LEG Past Surgical History: Adenoidectomy, Bariatric Surgery, Cholecystectomy, Heart Catheterization, Hernia Repair, Hysterectomy, Joint Replacement, Orthopedic Surgery, Tonsillectomy Additional Past Surgical History / Comment(s): bilateral meniscus repairs, umbilical hernia repair, LEFT EAR SX kidney stone removal. gastric bypass 03-17-19, heart cath ([facility]). right knee replacement 2020 Past Anesthesia/Blood Transfusion Reactions: No Reported Reaction Additional Past Anesthesia/Blood Transfusion Reaction / Comment(s): blood transfusion without problem Smoking Status: Former smoker - Past Family History Mother Family Medical History: No Reported History Medications and Allergies Home Medications Medication Instructions Recorded Confirmed Type Calcium Citrate/Vitamin D3 1 tab PO DAILY 10/19/19 09/22/22 History [Calcium Cit 315-Vit D3 6.25 Mcg (250 Iu)] Vitamin A Acetate [Vitamin A] 3,000 unit PO DAILY 10/19/19 09/22/22 History Ascorbic Acid [Vitamin C] 500 mg PO DAILY 04/05/21 09/22/22 History Baclofen [Lioresal] 20 mg PO BID PRN 03/11/22 09/22/22 History Biotin 5 mg PO DAILY 03/11/22 09/22/22 History Multivit-Min/Folic Acid/Rqr370 1 tab PO DAILY 03/11/22 09/22/22 History [Alive Premium Adult Multivit] Prevalite 4gm/Dose Powder 1 scoop PO DAILY 03/11/22 09/22/22 History Sertraline [Zoloft] 100 mg PO 2000 03/11/22 09/22/22 History rOPINIRole HCL [Requip] 0.5 mg PO HS 03/11/22 09/22/22 History Benzonatate 100 mg PO DIRECTED PRN 04/09/22 09/22/22 History Cetirizine HCl [Zyrtec] 10 mg PO DAILY PRN 04/09/22 09/22/22 History Clobetasol Solution 0.5% 1 dose .ROUTE DIRECTED PRN 04/09/22 09/22/22 History Fluticasone Nasal [place] [Flonase 2 spray EA NOSTRIL DAILY PRN 04/09/22 09/22/22 History Nasal [place]] Levothyroxine Sodium 150 mcg PO QAM 04/09/22 09/22/22 History Oxybutynin Chloride [Ditropan XL] 10 mg PO DAILY 04/09/22 09/22/22 History Ferrous Sulfate [Feosol] 325 mg PO DAILY 07/16/22 09/22/22 History Furosemide [Lasix] 20 mg PO DAILY PRN 07/16/22 09/22/22 History Nystatin 1 applic TOPICAL Q12HR PRN 07/16/22 09/22/22 History Potassium Chloride ER [K-Dur 10] 10 meq PO DAILY 07/16/22 09/22/22 History Vitamin B Complex 1 each PO DAILY 07/16/22 09/22/22 History Sucralfate [Carafate] 1 gm PO ACHS #60 tablet 07/21/22 09/22/22 Rx Allergies Allergy/AdvReac Type Severity Reaction Status Date / Time cephalexin [From Keflex] Allergy Swelling Verified 09/22/22 07:33 morphine Allergy Dyspnea Verified 09/22/22 07:33 Surgical - Exam Vital Signs Temp Pulse Resp BP Pulse Ox 98.4 F 74 20 105/55 96 09/22/22 07:31 09/22/22 07:31 09/22/22 07:31 09/22/22 07:31 09/22/22 07:31
[2022-09-22 08:39] VITALS: BP 100/78; PULSE 69; RESP 18
--- NOTE | 2022-09-22 08:44 | P.PCN ---
Date of Procedure: 09/22/22 Description of Procedure: PREOPERATIVE DIAGNOSIS: Dysphagia. Gastroesophageal reflux disease Esophageal stricture POSTOPERATIVE DIAGNOSIS: Dysphagia. Gastroesophageal reflux disease Gastrojejunal stenosis with gastrojejunal ulcer Gastric sentinel Upper esophageal stenosis Gastritis OPERATION: Esophagogastrojejunoscopy with [employer] 20 mm balloon dilator for gastrojejunal stenosis Esophagogastrojejunoscopy with rigid dilator over the guidewire 54 Fr with dilation of esophageal stenosis Esophagogastrojejunoscopy with biopsy forceps, gastric pouch SURGEON: Oksana Matamoros MD ANESTHESIA: MAC. INDICATIONS: The patient is a 57-year-old female who presents with a history of dysphagia. Benefits and risks of the procedure were described. Informed consent was obtained. DESCRIPTION: The patient was brought into the endoscopy suite and laid in the left lateral decubitus position. After a timeout was confirmed, the procedure was initiated. An Olympus gastroscope was passed into the posterior oropharynx down into the gastric pouch. The scope was entered into the gastric pouch with gastrojejunal stenosis along the gastrojejunal anastomosis. To address her 15 mm gastrojejunal stricture, a 20 mm [employer] balloon was used to dilate. Gastric prolapse 7 cm identified with small diaphragmatic hiatal hernia, sliding. Next using an [place] rigid dilator, a guidewire was placed through the gastroscope. Next the scope was withdrawn. A 54-Fijian rigid [place] dilator was passed carefully along the posterior oropharynx to 40 cm and left in place for 2-3 minutes stretch. The dilator was withdrawn including the guidewire. The scope was reentered along the posterior oropharynx with no findings of full- thickness tear of the upper esophageal sphincter. Biopsies with cold forceps were obtained of the gastric pouch for gastritis. No full-thickness injury was encountered. The GI tract was desufflated. The patient tolerated the procedure well. FINDINGS: Gastrojejunal anastomotic stricture with ulceration and stenosis dilated, 20 mm balloon Upper esophageal stenosis dilated Slovenian rigid dilator 54-Fijian completed. Gastric pouch 7 cm Diaphragmatic hiatal hernia, 2 cm. RECOMMENDATIONS: Upper endoscopy as needed Continue Protonix and Carafate for 2 weeks Recommend warm beverages for esophageal dysmotility Plan - Discharge Summary Discharge Rx Participant: No New Discharge Prescriptions: New Pantoprazole [Protonix] 40 mg PO DAILY #14 tab Sucralfate [Carafate] 1 gm PO BID #30 tablet Continue Vitamin A Acetate [Vitamin A] 3,000 unit PO DAILY Calcium Citrate/Vitamin D3 [Calcium Cit 315-Vit D3 6.25 Mcg (250 Iu)] 1 tab PO DAILY Multivit-Min/Folic Acid/Uer775 [Alive Premium Adult Multivit] 1 tab PO DAILY Sertraline [Zoloft] 100 mg PO 1999 Prevalite 4gm/Dose Powder 1 scoop PO DAILY Baclofen [Lioresal] 20 mg PO BID PRN PRN Reason: Pain Biotin 5 mg PO DAILY Oxybutynin Chloride [Ditropan XL] 10 mg PO DAILY Benzonatate 100 mg PO DIRECTED PRN PRN Reason: Cough Potassium Chloride ER [K-Dur 10] 10 meq PO DAILY Nystatin 1 applic TOPICAL Q12HR PRN PRN Reason: Rash Ascorbic Acid [Vitamin C] 500 mg PO DAILY rOPINIRole HCL [Requip] 0.5 mg PO HS Levothyroxine Sodium 150 mcg PO QAM Clobetasol Solution 0.5% 1 dose .ROUTE DIRECTED PRN PRN Reason: Psoriasis Cetirizine HCl [Zyrtec] 10 mg PO DAILY PRN PRN Reason: Sinus Congestion Fluticasone Nasal [place] [Flonase Nasal [place]] 2 spray EA NOSTRIL DAILY PRN PRN Reason: allergies Furosemide [Lasix] 20 mg PO DAILY PRN PRN Reason: Edema Ferrous Sulfate [Feosol] 325 mg PO DAILY Vitamin B Complex 1 each PO DAILY Sucralfate [Carafate] 1 gm PO ACHS #60 tablet Discharge Medication List Calcium Citrate/Vitamin D3 [Calcium Cit 315-Vit D3 6.25 Mcg (250 Iu)] 1 tab PO DAILY 10/19/19 [History] Vitamin A Acetate [Vitamin A] 3,000 unit PO DAILY 10/19/19 [History] Ascorbic Acid [Vitamin C] 500 mg PO DAILY 04/05/21 [History] Baclofen [Lioresal] 20 mg PO BID PRN 03/11/22 [History] Biotin 5 mg PO DAILY 03/11/22 [History] Multivit-Min/Folic Acid/Uho853 [Alive Premium Adult Multivit] 1 tab PO DAILY 03/11/22 [History] Prevalite 4gm/Dose Powder 1 scoop PO DAILY 03/11/22 [History] Sertraline [Zoloft] 100 mg PO 199903/11/22 [History] rOPINIRole HCL [Requip] 0.5 mg PO HS 03/11/22 [History] Benzonatate 100 mg PO DIRECTED PRN 04/09/22 [History] Cetirizine HCl [Zyrtec] 10 mg PO DAILY PRN 04/09/22 [History] Clobetasol Solution 0.5% 1 dose .ROUTE DIRECTED PRN 04/09/22 [History] Fluticasone Nasal [place] [Flonase Nasal [place]] 2 spray EA NOSTRIL DAILY PRN 04/09/22 [History] Levothyroxine Sodium 150 mcg PO QAM 04/09/22 [History] Oxybutynin Chloride [Ditropan XL] 10 mg PO DAILY 04/09/22 [History] Ferrous Sulfate [Feosol] 325 mg PO DAILY 07/16/22 [History] Furosemide [Lasix] 20 mg PO DAILY PRN 07/16/22 [History] Nystatin 1 applic TOPICAL Q12HR PRN 07/16/22 [History] Potassium Chloride ER [K-Dur 10] 10 meq PO DAILY 07/16/22 [History] Vitamin B Complex 1 each PO DAILY 07/16/22 [History] Sucralfate [Carafate] 1 gm PO ACHS #60 tablet 07/21/22 [Rx] Pantoprazole [Protonix] 40 mg PO DAILY #14 tab 09/22/22 [Rx] Sucralfate [Carafate] 1 gm PO BID #30 tablet 09/22/22 [Rx] Follow up Appointment(s)/Ref[facility] [place] [facility] - 10/08/22 Patient Instructions/Handouts: Esophageal Dilation (GEN) Activity/Diet/Wound Care/Special Instructions: Diet as tolerated Discharge Disposition: HOME SELF-CARE
== END 2022-09-22 08:54 | disposition home or self-care (01) ==
LOC: ORWHC2ENDO 06:38
PROVIDERS: ATTEND Surgery Plastic and Reconstructive Surgery
DX: K29.50 Unspecified chronic gastritis without bleeding (principal); K21.9 Gastro-esophageal reflux disease without esophagitis; K22.2 Esophageal obstruction; K28.9 Gastrojejunal ulcer, unspecified as acute or chronic, without hemorrhage or perforation; K44.9 Diaphragmatic hernia without obstruction or gangrene; Z79.890 Hormone replacement therapy; M19.90 Unspecified osteoarthritis, unspecified site; E11.9 Type 2 diabetes mellitus without complications; E03.9 Hypothyroidism, unspecified; G47.33 Obstructive sleep apnea (adult) (pediatric); Z98.84 Bariatric surgery status; Z87.11 Personal history of peptic ulcer disease; Z90.89 Acquired absence of other organs; Z90.49 Acquired absence of other specified parts of digestive tract; Z98.890 Other specified postprocedural states; Z90.710 Acquired absence of both cervix and uterus; Z96.651 Presence of right artificial knee joint; Z87.891 Personal history of nicotine dependence; Z88.1 Allergy status to other antibiotic agents; Z79.899 Other long term (current) drug therapy; Z88.5 Allergy status to narcotic agent
CPT/HCPCS: 43248; 88305; 43239; 43249; J2704; C1726

== ENCOUNTER → 2022-10-15 | Outpatient (CLI) | payer BC ==
[2022-10-15 15:09] VITALS: BP 118/74; PULSE 74; TEMP 98.2; BMI 46.0
--- NOTE | 2022-10-15 15:36 | P.BASOAP ---
Subjective Progress Note Date: 10/15/22 DATE OF SERVICE: 10/15/2022 CHIEF COMPLAINT: Status post gastric bypass HISTORY OF PRESENT ILLNESS: Neto Hickman is a 57-year-old female who is status post gastric bypass, 03/17/19. She is 4 years out. She comes in with new concerns. She has pain along the right lower quadrant. She has prior umbilical hernia with scar tissue and still she has her appendix. She reports her pain is moderate to severe. Her pain is over 1 year in lenght. She also complains of hemorrhoids. She presents with moderate abdominal pain. At height of 5 feet 5 inches, her ideal body weight is 149 pounds. Highest 350 pounds, BMI 58.4. She comes in 276 pounds from 251 pounds, 1 year ago. She has gained 9 pounds in 2 weeks. Her body mass index is down from 58.4 to 46.1.. Lifetime weight loss of 74 pounds. Lifetime percent excess weight loss is 37 %. She is 127 pounds overweight. PAST MEDICAL HISTORY: 1. Morbid obesity due to excess calories 2. Body mass index of 58.4 initial 3. Osteoarthritis of the knees. 4. Osteoarthritis of the hips. 5. Osteoarthritis of the lower back. 6. Obstructive sleep apnea. 8. Gastroesophageal reflux disease. 9. Depressive disorder 10. MRSA infection 11. History of colon polyps. 12. History of kidney stones PAST SURGICAL HISTORY: 1. Cholecystectomy 2. Adenoidectomy 3. Hysterectomy 4. Tonsillectomy 5. Umbilical hernia repair 6. Bilateral meniscus repair 7. Status post gastric bypass HOME MEDICATIONS: Home Medications Medication Instructions Recorded Confirmed Calcium Citrate/Vitamin D3 1 tab PO DAILY 10/19/19 11/26/22 [Calcium Cit 315-Vit D3 6.25 Mcg (250 Iu)] Vitamin A Acetate [Vitamin A] 3,000 unit PO DAILY 10/19/19 11/26/22 Ascorbic Acid [Vitamin C] 500 mg PO DAILY 04/05/21 11/26/22 Baclofen [Lioresal] 20 mg PO BID PRN 03/11/22 11/26/22 Biotin 5 mg PO DAILY 03/11/22 11/26/22 Multivit-Min/Folic Acid/Ymr011 1 tab PO DAILY 03/11/22 11/26/22 [Alive Premium Adult Multivit] Prevalite 4gm/Dose Powder 1 scoop PO DAILY 03/11/22 11/26/22 Sertraline [Zoloft] 100 mg PO 2000 03/11/22 11/26/22 rOPINIRole HCL [Requip] 0.5 mg PO HS 03/11/22 11/26/22 Benzonatate 100 mg PO DIRECTED PRN 04/09/22 11/26/22 Cetirizine HCl [Zyrtec] 10 mg PO DAILY PRN 04/09/22 11/26/22 Clobetasol Solution 0.5% 1 dose .ROUTE DIRECTED PRN 04/09/22 11/26/22 Fluticasone Nasal Cameron [Flonase 2 spray EA NOSTRIL DAILY PRN 04/09/22 11/26/22 Nasal Cameron] Levothyroxine Sodium 150 mcg PO QAM 04/09/22 11/26/22 oxyBUTYnin chloride [Ditropan XL] 10 mg PO DAILY 04/09/22 11/26/22 Ferrous Sulfate [Feosol] 325 mg PO DAILY 07/16/22 11/26/22 Furosemide [Lasix] 20 mg PO DAILY PRN 07/16/22 11/26/22 Nystatin 1 applic TOPICAL Q12HR PRN 07/16/22 11/26/22 Potassium Chloride ER [K-Dur 10] 10 meq PO DAILY PRN 07/16/22 11/26/22 Vitamin B Complex 1 each PO DAILY 07/16/22 11/26/22 Mometasone Furoate [Elocon Cream 1 applic TOPICAL DAILY PRN 11/26/22 11/26/22 0.1%] Tamsulosin [Flomax] 0.4 mg PO DAILY 11/26/22 11/26/22 Previous Rx's Medication Instructions Recorded Sucralfate [Carafate] 1 gm PO BID #30 tablet 09/22/22 Acetaminophen Tab [Tylenol Tab] 1,000 mg PO Q6HR PRN #30 tablet 11/17/22 ALLERGIES: Allergies Allergy/AdvReac Type Severity Reaction Status Date / Time cephalexin [From Keflex] Allergy Swelling Verified 11/17/22 10:37 morphine Allergy Dyspnea Verified 11/17/22 10:37 SOCIAL HISTORY: Past tobacco use. FAMILY HISTORY: No family history of ulcerative colitis disease or Crohn's disease. Family history of morbid obesity. No lupus in the family. No reports of stomach or esophageal cancer. Family history of diabetes type 2. REVIEW OF ORGAN SYSTEMS: CONSTITUTIONAL: At height of 5 feet 5 inches, her ideal body weight is 149 pounds. Highest 350 pounds, BMI 58.4. HEENT: Denies any active troubles with vision or hearing. No troubles with swallowing. ENDOCRINE: No diabetes. No hypothyroidism. CARDIOVASCULAR: No reports of palpitations or heart attacks or chest pain. RESPIRATORY: Has daytime somnolence. Has asthma. GI: Denies any bright red blood per rectum. MUSCULOSKELETAL: Has lower back pain and joint pain. Has osteoarthritis of the knees. : History of kidney stones. NEURO: No headaches. No seizure disorders. PSYCH: Has depression. No suicidal ideation. RHEUMATOLOGIC: No lupus. No rheumatoid arthritis. HEMATOLOGIC: Denies any abnormal bleeding or bruising. No personal history of DVTs. SKIN: No rash. No skin cancer. Previous history of MRSA infection PHYSICAL EXAM: VITAL SIGNS: Height 5 foot 5 inches, weight 276 pounds. BMI 46.1 Vital Signs Temp 98.2 F 10/15/22 15:05 Pulse 74 10/15/22 15:05 Resp BP 118/74 10/15/22 15:05 Pulse Ox FiO2 GENERAL: Well-developed in no acute distress. HEENT: No scleral icterus. Extraocular movements grossly intact. Hears conversational speech. No nasal drainage. NECK: Supple without lymphadenopathy. CHEST: Nonlabored respirations with equal bilateral excursions. CARDIOVASCULAR: Regular rate. Distal 2+ pulses. ABDOMEN: Soft, nontender. MUSCULOSKELETAL: No clubbing, cyanosis. NEURO: No focal or lateralizing signs. Cranial nerves 2 through 12 grossly within normal limits. PSYCH: Appropriate affect. Alert and oriented to person, place and time. SKIN: Good skin turgor. Well perfused. EGD FINDINGS: Gastrojejunal anastomotic stricture with ulceration and stenosis dilated, 20 mm balloon Upper esophageal stenosis dilated Colombian rigid dilator 54-Nepali completed. Gastric pouch 7 cm Diaphragmatic hiatal hernia, 2 cm. Final Pathologic Diagnosis GASTRIC ANTRUM, BIOPSY: Mild chronic gastritis. Helicobacter pylori organisms are not identified on routine H+E sections. ASSESSMENT: 1. Morbid obesity due to excess calories 2. Body mass index of 58.4 down to 46.1 3. Osteoarthritis of the knees. 4. Osteoarthritis of the hips. 5. Osteoarthritis of the lower back. 6. Obstructive sleep apnea. 7. Hypertensive heart disease. 8. Gastroesophageal reflux disease. 9. Diabetes type 2, [id number], uncontrolled, improved 10. Seizure disorder 11. Depressive disorder 12. Asthma 13. Bipolar disorder 14. Vitamin D deficiency 15. Iron deficiency anemia 16. Hypertriglyceridemia 17. Hypercholesterolemia 18. Status post gastric bypass 19. Panniculitis 20. Hiatal hernia 21. Gastric stricture 22. Right lower quadrant abdominal pain 23. Umbilical hernia PLAN: 1. She has moderate to severe abdominal pain of the right lower quadrant. Recommend appendectomy. 2. She has prior umbilical hernia with scar tissue. Recommend lysis of adhesions. 3. She is elevated risk for complications due to her co-morbid conditions. Objective - Vital Signs Vital signs: Vital Signs Temp 98.2 F 10/15/22 15:05 Pulse 74 10/15/22 15:05 Resp BP 118/74 10/15/22 15:05 Pulse Ox FiO2 Intake & Output 10/14/22 10/15/22 10/15/22 18:59 06:59 18:59 Weight 125.645 kg Assessment/Plan Plan: Date: 10/15/22 Initial Weight: 138.845 kg Initial BMI: 50.9 Current Weight: 125.645 kg Current BMI: 46.0 Type of Surgery: Total Volume in Band: Previous Volume: Volume Removed: Volume Added: Band Size:
== END ==
LOC: BARWHC3 14:33
PROVIDERS: ATTEND Surgery Plastic and Reconstructive Surgery
DX: E66.01 Morbid (severe) obesity due to excess calories (principal); M16.9 Osteoarthritis of hip, unspecified; G47.33 Obstructive sleep apnea (adult) (pediatric); M17.9 Osteoarthritis of knee, unspecified; N20.0 Calculus of kidney; Z68.43 Body mass index [BMI] 50.0-59.9, adult; K21.9 Gastro-esophageal reflux disease without esophagitis; F32.A Depression, unspecified; A49.02 Methicillin resistant Staphylococcus aureus infection, unspecified site; Z88.1 Allergy status to other antibiotic agents; Z88.5 Allergy status to narcotic agent; Z87.891 Personal history of nicotine dependence
CPT/HCPCS: 99211

== ENCOUNTER → 2022-11-10 | Outpatient (CLI) | payer BC ==
[2022-11-10 16:03] LABS: Basophils # (A) 0.07 X 10*3/uL; Eosinophils # (A) 0.24 X 10*3/uL; Eosinophils % (A) 3.5 %; HGB 12.6 d/dL; Lymphocytes # (A) 2.41 X 10*3/uL; Lymphocytes % (A) 34.7 %; MCHC 30.7 d/dL; MCV 94.5 FL; Mean Platelet Volume 10.5 FL; Monocytes # (A) 0.49 X 10*3/uL; Monocytes % (A) 7.1 %; NRBC Per 100 WBC 0 X 10*3/uL; Neutrophils # (A) 3.73 X 10*3/uL; Neutrophils % (A) 53.6 %; Platelet Count 230 X 10*3/uL; RBC 4.34 X 10*6/uL; RDW 14.6 %; WBC 6.95 X 10*3/uL
[2022-11-10 16:20] LABS: ALT 26 U/L; AST 35 U/L; Albumin 4.1 d/dL; Albumin/Globulin Ratio 1.52 Ratio; Alkaline Phosphatase 104 U/L; BUN/Creat Ratio 22.57 Ratio; Blood Urea Nitrogen 15.8 mg/dL; Calcium 9.6 mg/dL; Carbon Dioxide 22.7 mmol/L; Chloride 106 mmol/L; Globulin 2.7 d/dL; Glucose 118 mg/dL; Potassium 4.1 mmol/L; Sodium 142 mmol/L; Total Bilirubin 0.4 mg/dL; Total Protein 6.8 d/dL
== END | disposition home or self-care (01) ==
LOC: LABPAT 10:06
PROVIDERS: ATTEND Surgery Plastic and Reconstructive Surgery
DX: Z01.812 Encounter for preprocedural laboratory examination (principal)
CPT/HCPCS: 36415; 80053; 85025

== ENCOUNTER 2022-11-17 10:21 | Day surgery (SDC) | payer BC ==
[~2022-11-17 10:21] MED LIST changes: -CIPROFLOXACIN/DEXTROSE PMX 400 MG in DEXTROSE/WATER 1 200ML.BAG IVPB PRN; +DEXAMETHASONE SOD PHOSPHATE 4 MG/ML 1 ML VIAL IV ONE; +HYDROmorphone 0.5 MG/0.5 ML SYRINGE IVP PRN; +LACTATED RINGERS 1,000 ML IV SCH; +ONDANSETRON 4 MG/2 ML VIAL IVP ONE; +Pre Op ABX Message 1 EACH MISC MISCELLANE ONE; +ceFAZolin 3 GM in SODIUM CHLORIDE 0.9% 100 ML IVPB PRN; +metroNIDAZOLE-NS PMX 500 MG in SALINE 1 100ML.BAG IVPB PRN
[2022-11-17] MEDS ORDERED: MIDAZOLAM 2 MG/2 ML VIAL IVP ONE (11:04)
[2022-11-17] MEDS ORDERED: HEPARIN SODIUM,PORCINE/PF 5,000 UNIT/0.5 ML SYRINGE SQ PRN (12:37)
--- NOTE | 2022-11-17 12:37 | P.GSHP ---
History of Present Illness H&P Date: 11/17/22 CHIEF COMPLAINT: History of intra-abdominal adhesions with generalized abdominal pain HISTORY OF PRESENT ILLNESS: The patient is a 57-year-old female who presents with history of intra-abdominal adhesions from multiple prior surgeries including increasing generalized abdominal pain for over 3 months. She now presents for diagnostic laparoscopy including lysis of adhesions. PAST MEDICAL HISTORY: Please see list. PAST SURGICAL HISTORY: Please see list. MEDICATIONS: Please see list. ALLERGIES: Please see list. SOCIAL HISTORY: No illicit drug use FAMILY HISTORY: No reports of Crohn disease or ulcerative colitis. REVIEW OF ORGAN SYSTEMS: CONSTITUTIONAL: No reports of fevers or chills. GI: Denies any blood in stools or constipation. History of gastric bypass PHYSICAL EXAM: VITAL SIGNS: Stable GENERAL: Well-developed pleasant and in no acute distress. HEENT: No scleral icterus. Extraocular movements grossly intact. Moist buccal mucosa. NECK: Supple without lymphadenopathy. CHEST: Unlabored respirations. Equal bilateral excursions. CARDIOVASCULAR: Regular rate and rhythm. Distal 2+ pulses. ABDOMEN: Soft, diffuse abdominal tenderness. No peritonitis. MUSCULOSKELETAL: No clubbing, cyanosis, or edema. ASSESSMENT: 1. Diffuse abdominal pain. 2. History of multiple abdominal surgeries. 3. Intra-abdominal adhesions. PLAN: 1. Robotic lysis of adhesions were described in detail including risk of injury to the intestine, need for further surgery, and open technique. 2. DVT prophylaxis. 3. Antibiotic prophylaxis. Past Medical History Past Medical History: GERD/Reflux, Osteoarthritis (OA), Thyroid Disorder Additional Past Medical History / Comment(s): HX GASTRIC BYPASS-SLEEP APNEA resolved does not wear machine, GERD & DIABETES RESOLVED WITH WT LOSS., CHRONIC SINUSITIS, HX RUPTURED RT EAR DRUM, KIDNEY STONES, COLON POLYPS., RLS, IRON INFUSIONS. Kidney stone and sepsis Mar 2022, , acid & food coming up back of throat, intermittent lower leg swelling,gastric ulcers. bladder urgency. hx fatty liver History of Any Multi-Drug Resistant Organisms: MRSA Date of last positivie culture/infection: 2009 MDRO Source:: RIGHT LEG Past Surgical History: Adenoidectomy, Bariatric Surgery, Cholecystectomy, Heart Catheterization, Hernia Repair, Hysterectomy, Joint Replacement, Orthopedic Quiroz rgery, Tonsillectomy Additional Past Surgical History / Comment(s): bilateral meniscus repairs, umbilical hernia repair, LEFT EAR SX kidney stone removal. gastric bypass 03-26, heart cath ([facility]). right knee replacement 2020 Past Anesthesia/Blood Transfusion Reactions: No Reported Reaction Additional Past Anesthesia/Blood Transfusion Reaction / Comment(s): blood transfusion without problem Smoking Status: Former smoker - Past Family History Mother Family Medical History: No Reported History Medications and Allergies Home Medications Medication Instructions Recorded Confirmed Type Calcium Citrate/Vitamin D3 1 tab PO DAILY 10/19/19 11/17/22 History [Calcium Cit 315-Vit D3 6.25 Mcg (250 Iu)] Vitamin A Acetate [Vitamin A] 3,000 unit PO DAILY 10/19/19 11/17/22 History Ascorbic Acid [Vitamin C] 500 mg PO DAILY 04/05/21 11/17/22 History Baclofen [Lioresal] 20 mg PO BID PRN 03/11/22 11/17/22 History Biotin 5 mg PO DAILY 03/11/22 11/17/22 History Multivit-Min/Folic Acid/Tla203 1 tab PO DAILY 03/11/22 11/17/22 History [Alive Premium Adult Multivit] Prevalite 4gm/Dose Powder 1 scoop PO DAILY 03/11/22 11/17/22 History Sertraline [Zoloft] 100 mg PO 2000 03/11/22 11/17/22 History rOPINIRole HCL [Requip] 0.5 mg PO HS 03/11/22 11/17/22 History Benzonatate 100 mg PO DIRECTED PRN 04/09/22 11/17/22 History Cetirizine HCl [Zyrtec] 10 mg PO DAILY PRN 04/09/22 11/17/22 History Clobetasol Solution 0.5% 1 dose .ROUTE DIRECTED PRN 04/09/22 11/17/22 History Fluticasone Nasal [place] [Flonase 2 spray EA NOSTRIL DAILY PRN 04/09/22 11/17/22 History Nasal [place]] Levothyroxine Sodium 150 mcg PO QAM 04/09/22 11/17/22 History oxyBUTYnin chloride [Ditropan XL] 10 mg PO DAILY 04/09/22 11/17/22 History Ferrous Sulfate [Feosol] 325 mg PO DAILY 07/16/22 11/17/22 History Furosemide [Lasix] 20 mg PO DAILY PRN 07/16/22 11/17/22 History Nystatin 1 applic TOPICAL Q12HR PRN 07/16/22 11/17/22 History Potassium Chloride ER [K-Dur 10] 10 meq PO DAILY PRN 07/16/22 11/17/22 History Vitamin B Complex 1 each PO DAILY 07/16/22 11/17/22 History Sucralfate [Carafate] 1 gm PO BID #30 tablet 09/22/22 11/17/22 Rx Allergies Allergy/AdvReac Type Severity Reaction Status Date / Time cephalexin [From Keflex] Allergy Swelling Verified 11/17/22 10:37 morphine Allergy Dyspnea Verified 11/17/22 10:37 Surgical - Exam Vital Signs Temp Pulse Resp BP Pulse Ox 97.7 F 70 18 135/72 95 11/17/22 10:43 11/17/22 10:43 11/17/22 10:43 11/17/22 10:43 11/17/22 10:43
[2022-11-17] MEDS ORDERED: LIDOCAINE 2% INJ 20 MG/ML (2 ML VIAL) ONE (13:07)
[2022-11-17] MEDS ORDERED: fentaNYL (PF) 50 MCG/ML 2 ML AMP ONE (13:07)
[2022-11-17] MEDS ORDERED: ROPIVACAINE 5 MG/ML 30 ML VIAL ONE (13:07)
[2022-11-17] MEDS ORDERED: DEXAMETHASONE SOD PHOSPHATE 4 MG/ML 1 ML VIAL ONE (13:07)
[2022-11-17] MEDS ORDERED: ROCURONIUM 10 MG/ML (5 ML VIAL) IV ONE (13:07)
[2022-11-17] MEDS ORDERED: PROPOFOL 10 MG/ML 20 ML VIAL IV ONE (13:07)
[2022-11-17] MEDS ORDERED: GLYCOPYRROLATE 0.2 MG/ML 2 ML VIAL ONE (13:07)
[2022-11-17] MEDS ORDERED: MIDAZOLAM 2 MG/2 ML VIAL ONE (13:07)
[2022-11-17] MEDS ORDERED: NEOSTIGMINE 1 MG/ML 10 ML VIAL ONE (13:07)
[2022-11-17] MEDS ORDERED: SUCCINYLCHOLINE CHLORIDE 200 MG/10 ML VIAL IV ONE (13:07)
[2022-11-17] MEDS ORDERED: BUPIVACAINE (PF) 0.25% 30 ML VIAL SQ ONE (13:38)
[2022-11-17] MEDS ORDERED: LACTATED RINGERS 1,000 ML IV ONE ×2 (14:43→16:46)
--- NOTE | 2022-11-17 15:10 | P.ANPRN ---
Procedure Note - Anesthesia - Nerve Block Performed Bilateral Transversus Abdominis Single Time Out Performed: Yes Date of Procedure: 11/17/22 Procedure Start Time: 11:03 Procedure Stop Time: :13 Location of Patient: PreOp Indication: Acute Post-Operative Pain, Requested by Surgeon Sedation Type: Sedate with meaningful contact maintained Preparation: Sterile Prep Position: Supine Needle Types: Pajunk Needle Gauge: 21 Ultrasound used to visualize needle placement: Yes Ultrasound used to observe medication spread: Yes Blood Aspirated: No Pain Paresthesia on Injection Noted: No Resistance on Injection: Normal Image Stored and Saved: Yes Events: Uneventful and Well Tolerated (ropi .5% 20cc plus dexamethasone 4mg given bilaterally)
[2022-11-17 15:17] VITALS: TEMP 97.9
[2022-11-17 15:24] VITALS: RESP 16
[2022-11-17 17:01] VITALS: BP 102/73; PULSE 93
--- NOTE | 2022-11-17 17:12 | P.OP ---
Date of Procedure: 11/17/22 Description of Procedure: SURGEON: JESSICA BROWN MD PREOPERATIVE DIAGNOSES: 1. Right lower quadrant abdominal pain and left upper quadrant pain 2. Morbid obesity due to excess calories, BMI 55.0 to 46.0. 3. Osteoarthritis of the knees. 4. Osteoarthritis of the hips. 5. Osteoarthritis of the lower back. 6. Obstructive sleep apnea. 7. Hypertensive heart disease. 8. Gastroesophageal reflux disease. 9. Diabetes type 2, [id number], uncontrolled 10. Seizure disorder 11. Depressive disorder 12. Asthma 13. Bipolar disorder 14. Vitamin D deficiency 15. Iron deficiency anemia 16. Hypertriglyceridemia 17. Hypercholesterolemia 18. Liver cirrhosis due to fatty liver disease and hepatomegaly 19. History of gastric bypass with history of adhesions. POSTOPERATIVE DIAGNOSES: 1. Right lower quadrant abdominal pain with left upper quadrant pain 2. Morbid obesity due to excess calories, BMI 55.0 to 46.0. 3. Osteoarthritis of the knees. 4. Osteoarthritis of the hips. 5. Osteoarthritis of the lower back. 6. Obstructive sleep apnea. 7. Hypertensive heart disease. 8. Gastroesophageal reflux disease. 9. Diabetes type 2, [id number]-dlvxhcjiq, uncontrolled 10. Seizure disorder 11. Depressive disorder 12. Asthma 13. Bipolar disorder 14. Vitamin D deficiency 15. Iron deficiency anemia 16. Hypertriglyceridemia 17. Hypercholesterolemia 18. Liver cirrhosis due to fatty liver disease and hepatomegaly 19. History of gastric bypass with history of adhesions. 20. History of gastric bypass 21. Interloop adhesions left upper quadrant 22. Moderate peritoneal adhesions right lower quadrant 23. Chronic appendicitis 24. Recurrent umbilical incisional hernia identified OPERATION: 1. Robotic-assisted da Amos Xi laparoscopic with extensive lysis of adhesions over 1 hr 2. Robotic-assisted da Amos Xi laparoscopic appendectomy ESTIMATED BLOOD LOSS: 5 mL. SPECIMENS REMOVED: None. COMPLICATIONS: None. OPERATIVE FINDINGS: 1. Severe adhesions identified along the ileocecal valve involving the appendix and chronic appendicitis at right lower quadrant 2. Severe adhesions left upper quadrant with interloop adhesions involving jejunojejunostomy 3. Recurrent umbilical hernia identified INDICATIONS: The patient is a 57-year-old female who presents right lower quadrant and left upper quadrant abdominal pain for over 6 months. Surgical intervention with diagnostic laparoscopy, lysis of adhesions including appendectomy were described. Informed consent was obtained. Robotic assisted laparoscopic approach was described. Benefits and risks of the procedure including but not limited to bleeding, infection, injury to the small bowel was described. Informed consent was obtained. DESCRIPTION OF PROCEDURE: Patient was brought to the operating room, placed in supine position. After general induction, the abdomen had been prepped and draped in standard sterile fashion. The robotic da Amos XI system was primed. After a timeout protocol was performed, the patient had been prepped and draped in standard sterile fashion. A 5 mm 0 degrees laparoscopic trocar entry was performed along the left upper quadrant. The abdomen was insufflated to 15 mmHg pressure which she tolerated well. Diagnostic laparoscopy was performed. Findings of severe interloop and abdominal adhesions of the left upper quadrant was identified. An 8 mm trocar was placed along the left lower quadrant. Next, two 8 mm robotic ports and a 12 mm trocar was placed at the right upper quadrant were placed along upper abdomen.Please note that the ports were placed at least 10 to 15 cm away from the target anatomy. The patient was placed in Trendelenburg position, 14. She was placed in right tilt, 7. The robot was docked along the left lateral abdomen. Instruments including graspers and vessel sealer were interchanged by the assistant principal. I had sat at the console. Recurrent incarcerated incisional umbilical hernia was identified from prior mesh placement. Sharp lysis of adhesions of the left upper quadrant was addressed to dissect the small bowel from the abdominal wall using scissors with cautery. Interloop adhesions were similarly dissected using scissors. No enterotomies occurred. Next, attention went to the right lower quadrant. At the right lower quadrant, the appendix was densely adherent including the terminal ileum along the retroperitoneum. Features of chronic appendicitis was identified. Extensive lysis of adhesions were performed using vessel sealer including scissors with cautery. The small bowel was investigated from the ileocecal valve proximally to the jejunojejunostomy including at the Neris limb. Dense interloop adhesions were also identified of the Neris limb to the jejunojejunostomy. Adhesions were sharply resected using scissors and vessel sealer. Extensive lysis of adhesions over 1 hour was performed. No internal hernia was identified. As all adhesions were addressed, attention was brought to the right lower quadrant where a 30 mm blue robotic staple load was used to resect the appendix at its base. Staple line was hemostatic. The small bowel was viable.The robot was undocked. All pneumoperitoneum instruments were evacuated from the abdominal cavity. The incisions were reapproximated using 4-0 Monocryl in an interrupted subcuticular fashion. Please note along the trocar sites, local anesthetic was placed as a field block prior to insertion of all instruments. Exofin was applied to the skin. At the end of the procedure needle, sponge, and instrument count had been verified correct by the surgical services manager. The patient was transferred to postanesthesia care unit in stable condition. Plan - Discharge Summary Discharge Rx Participant: No New Discharge Prescriptions: New Acetaminophen Tab [Tylenol Tab] 1,000 mg PO Q6HR PRN #30 tablet PRN Reason: Pain Continue Vitamin A Acetate [Vitamin A] 3,000 unit PO DAILY Calcium Citrate/Vitamin D3 [Calcium Cit 315-Vit D3 6.25 Mcg (250 Iu)] 1 tab PO DAILY Multivit-Min/Folic Acid/Crc520 [Alive Premium Adult Multivit] 1 tab PO DAILY Sertraline [Zoloft] 100 mg PO 2000 Prevalite 4gm/Dose Powder 1 scoop PO DAILY Baclofen [Lioresal] 20 mg PO BID PRN PRN Reason: Pain Biotin 5 mg PO DAILY oxyBUTYnin chloride [Ditropan XL] 10 mg PO DAILY Benzonatate 100 mg PO DIRECTED PRN PRN Reason: Cough Potassium Chloride ER [K-Dur 10] 10 meq PO DAILY PRN PRN Reason: Edema Nystatin 1 applic TOPICAL Q12HR PRN PRN Reason: Rash Ascorbic Acid [Vitamin C] 500 mg PO DAILY rOPINIRole HCL [Requip] 0.5 mg PO HS Levothyroxine Sodium 150 mcg PO QAM Clobetasol Solution 0.5% 1 dose .ROUTE DIRECTED PRN PRN Reason: Psoriasis Cetirizine HCl [Zyrtec] 10 mg PO DAILY PRN PRN Reason: Sinus Congestion Fluticasone Nasal Mccune [Flonase Nasal Mccune] 2 spray EA NOSTRIL DAILY PRN PRN Reason: allergies Furosemide [Lasix] 20 mg PO DAILY PRN PRN Reason: Edema Ferrous Sulfate [Feosol] 325 mg PO DAILY Vitamin B Complex 1 each PO DAILY Sucralfate [Carafate] 1 gm PO BID #30 tablet Discharge Medication List Calcium Citrate/Vitamin D3 [Calcium Cit 315-Vit D3 6.25 Mcg (250 Iu)] 1 tab PO DAILY 10/19/19 [History] Vitamin A Acetate [Vitamin A] 3,000 unit PO DAILY 10/19/19 [History] Ascorbic Acid [Vitamin C] 500 mg PO DAILY 04/05/21 [History] Baclofen [Lioresal] 20 mg PO BID PRN 03/11/22 [History] Biotin 5 mg PO DAILY 03/11/22 [History] Multivit-Min/Folic Acid/Shy292 [Alive Premium Adult Multivit] 1 tab PO DAILY 03/11/22 [History] Prevalite 4gm/Dose Powder 1 scoop PO DAILY 03/11/22 [History] Sertraline [Zoloft] 100 mg PO 199903/11/22 [History] rOPINIRole HCL [Requip] 0.5 mg PO HS 03/11/22 [History] Benzonatate 100 mg PO DIRECTED PRN 04/09/22 [History] Cetirizine HCl [Zyrtec] 10 mg PO DAILY PRN 04/09/22 [History] Clobetasol Solution 0.5% 1 dose .ROUTE DIRECTED PRN 04/09/22 [History] Fluticasone Nasal Mccune [Flonase Nasal Mccune] 2 spray EA NOSTRIL DAILY PRN 04/09/22 [History] Levothyroxine Sodium 150 mcg PO QAM 04/09/22 [History] oxyBUTYnin chloride [Ditropan XL] 10 mg PO DAILY 04/09/22 [History] Ferrous Sulfate [Feosol] 325 mg PO DAILY 07/16/22 [History] Furosemide [Lasix] 20 mg PO DAILY PRN 07/16/22 [History] Nystatin 1 applic TOPICAL Q12HR PRN 07/16/22 [History] Potassium Chloride ER [K-Dur 10] 10 meq PO DAILY PRN 07/16/22 [History] Vitamin B Complex 1 each PO DAILY 07/16/22 [History] Sucralfate [Carafate] 1 gm PO BID #30 tablet 09/22/22 [Rx] Acetaminophen Tab [Tylenol Tab] 1,000 mg PO Q6HR PRN #30 tablet 11/17/22 [Rx] [facility]ment[facility] - [place]26[facility]22 Patient Instructions/Handouts: Laparoscopic Appendectomy (GEN), Lysis of Abdominal Adhesions (DC) Activity/Diet/Wound Care/Special Instructions: No lifting over 10 pounds in 2 weeks until December 01October shower. No bath tub soaks for two weeks until December 01 Diet as tolerated. Use Tylenol scheduled for the next 24-48 hours for best pain relief. Use ice along incisions for today to prevent swelling. Discharge Disposition: HOME SELF-CARE
== END 2022-11-17 17:32 | disposition home or self-care (01) ==
LOC: OR 10:21
PROVIDERS: ATTEND Surgery Plastic and Reconstructive Surgery
DX: K36 Other appendicitis (principal); K66.0 Peritoneal adhesions (postprocedural) (postinfection); K42.0 Umbilical hernia with obstruction, without gangrene; I11.9 Hypertensive heart disease without heart failure; G47.33 Obstructive sleep apnea (adult) (pediatric); G40.909 Epilepsy, unspecified, not intractable, without status epilepticus; E78.00 Pure hypercholesterolemia, unspecified; E66.01 Morbid (severe) obesity due to excess calories; Z68.43 Body mass index [BMI] 50.0-59.9, adult; M16.0 Bilateral primary osteoarthritis of hip; M17.0 Bilateral primary osteoarthritis of knee; K21.9 Gastro-esophageal reflux disease without esophagitis; F32.A Depression, unspecified; J45.909 Unspecified asthma, uncomplicated; E55.9 Vitamin D deficiency, unspecified; D50.9 Iron deficiency anemia, unspecified; K74.60 Unspecified cirrhosis of liver; K76.0 Fatty (change of) liver, not elsewhere classified; Z98.0 Intestinal bypass and anastomosis status; Z98.84 Bariatric surgery status; G25.81 Restless legs syndrome; Z87.19 Personal history of other diseases of the digestive system; Z86.14 Personal history of Methicillin resistant Staphylococcus aureus infection; Z98.890 Other specified postprocedural states; Z87.891 Personal history of nicotine dependence; Z79.899 Other long term (current) drug therapy; Z79.1 Long term (current) use of non-steroidal anti-inflammatories (NSAID); Z88.1 Allergy status to other antibiotic agents; Z88.5 Allergy status to narcotic agent
CPT/HCPCS: 44970; S2900; 64488; 86850; 86900; 86901; 88304

== ENCOUNTER → 2023-02-04 | Outpatient (CLI) | payer BC ==
[2023-02-04 15:10] VITALS: BP 136/85; PULSE 73; TEMP 98.4; BMI 47.4
--- NOTE | 2023-02-04 15:44 | P.BASOAP ---
Subjective Progress Note Date: 02/04/23 She had epigastric pain and LLQ pain and LUQ pain. 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 Has ulcers. Sent carate and omepraole. Looked at pics for adhessions. Re-so scart tissue removal. Objective - Vital Signs Vital signs: Vital Signs Temp 98.4 F 02/04/23 15:04 Pulse 73 02/04/23 15:04 Resp BP 136/85 02/04/23 15:04 Pulse Ox FiO2 Intake & Output 02/03/23 02/04/23 02/04/23 18:59 06:59 18:59 Weight 129.274 kg Assessment/Plan Plan: Date: 02/04/23 Initial Weight: 138.845 kg Initial BMI: 50.9 Current Weight: 129.274 kg Current BMI: 47.4 Type of Surgery: Total Volume in Band: Previous Volume: Volume Removed: Volume Added: Band Size:
== END ==
LOC: BARWHC3 14:18
PROVIDERS: ATTEND Surgery Plastic and Reconstructive Surgery
DX: Z53.9 Procedure and treatment not carried out, unspecified reason (principal)
CPT/HCPCS: 99211

== ENCOUNTER → 2023-06-03 | Outpatient (CLI) | payer BC ==
[2023-06-03 15:33] VITALS: BP 118/77; PULSE 76; RESP 16; TEMP 97.9; BMI 48.1
--- NOTE | 2023-06-03 15:54 | P.BASOAP ---
Subjective Progress Note Date: 06/03/23 DATE OF SERVICE: 06/03/23 CHIEF COMPLAINT: Status post gastric bypass HISTORY OF PRESENT ILLNESS: Neto Hickman is a 58-year-old female who is status post gastric bypass, 03/17/19. She is 4 years out. She presents with new problems including swelling at the right upper quadrant for 6 months. She re ports the swelling at the right upper quadrant gets hard. She has gained 40 pounds in 1 year. She report nausea. She reports occasional right upper quadrant throbbing pain. She is seeking treatment for nausea including weight gain. At height of 5 feet 5 inches, her ideal body weight is 149 pounds. Highest 350 pounds, BMI 58.4. She comes in 289 pounds from 249 pounds, 1 year ago. She has gained 40 pounds in 1 year. Her body mass index is down from 58.4 to 48.1. Lifetime weight loss of 61 pounds. Lifetime percent excess weight loss is 30 %. She is 140 pounds overweight. PHYSICAL EXAM: VITAL SIGNS: Height 5 foot 5 inches, weight 289 pounds. BMI 48.1. Vital Signs Temp 97.9 F 06/03/23 15:27 Pulse 76 06/03/23 15:27 Resp 16 06/03/23 15:27 BP 118/77 06/03/23 15:27 Pulse Ox FiO2 GENERAL: Well-developed in no acute distress. HEENT: No scleral icterus. Extraocular movements grossly intact. Hears conversational speech. No nasal drainage. NECK: Supple without lymphadenopathy. CHEST: Nonlabored respirations with equal bilateral excursions. CARDIOVASCULAR: Regular rate. Distal 2+ pulses. ABDOMEN: Soft, nontender. Right upper quadrant swelling with lipoma. MUSCULOSKELETAL: No clubbing, cyanosis. NEURO: No focal or lateralizing signs. Cranial nerves 2 through 12 grossly within normal limits. PSYCH: Appropriate affect. Alert and oriented to person, place and time. SKIN: Good skin turgor. Well perfused. ASSESSMENT: 1. Morbid obesity due to excess calories 2. Body mass index of 58.4 down to 48.1 3. Osteoarthritis of the knees. 4. Osteoarthritis of the hips. 5. Osteoarthritis of the lower back. 6. Obstructive sleep apnea. 7. Hypertensive heart disease. 8. Gastroesophageal reflux disease. 9. Diabetes type 2, [id number], uncontrolled, improved 10. Seizure disorder 11. Depressive disorder 12. Asthma 13. Bipolar disorder 14. Vitamin D deficiency 15. Iron deficiency anemia 16. Hypertriglyceridemia 17. Hypercholesterolemia 18. Status post gastric bypass 19. Panniculitis 20. Lipoma, right upper quadrant PLAN: 1. Recommend ultrasound of the right upper quadrant abdominal wall soft tissue lipoma. 2. Recommend bariatric labs 3. Medical supervised weight loss for weight gain Objective - Vital Signs Vital signs: Vital Signs Temp 97.9 F 06/03/23 15:27 Pulse 76 06/03/23 15:27 Resp 16 06/03/23 15:27 BP 118/77 06/03/23 15:27 Pulse Ox FiO2 Intake & Output 06/02/23 06/03/23 06/03/23 18:59 06:59 18:59 Weight 131.088 kg - Labs CBC & Chem 7: 06/03/23 16:33 06/03/23 16:33 Assessment/Plan Plan: Date: 06/03/23 Initial Weight: 138.845 kg Initial BMI: 50.9 Current Weight: 131.088 kg Current BMI: 48.1 Type of Surgery: Neris-en-Y Gastric Bypass Total Volume in Band: Previous Volume: Volume Removed: Volume Added: Band Size:
[2023-06-03 17:56] LABS: Partial Thromboplastin Time 25.4 sec (22.0-30.0); Prothrombin Time 10.7 sec (10.0-12.5)
[2023-06-04 02:21] LABS: HCT 40.1 % (37.2-46.3); HGB 12.4 g/dL (12.0-15.0); MCH 29.1 pg (27.0-32.0); MCHC 30.9 g/dL (32.0-37.0); MCV 94.1 FL (80.0-97.0); Mean Platelet Volume 10.4 FL (9.5-12.2); NRBC Per 100 WBC 0 X 10*3/uL (0.00-0.01); Platelet Count 265 X 10*3/uL (140-440); RBC 4.26 X 10*6/uL (4.10-5.20); RDW 13.8 % (11.5-14.5); WBC 8.04 X 10*3/uL (4.50-10.00)
[2023-06-04 03:23] LABS: % Iron Saturation 16.93 (12.00-45.00); ALT 26 U/L (8-44); AST 35 U/L (13-35); Albumin 4.2 g/dL (3.8-4.9); Alkaline Phosphatase 127 U/L (41-126); BUN/Creat Ratio 24.71 Ratio (12.00-20.00); Blood Urea Nitrogen 17.3 mg/dL (9.0-27.0); Calcium 9.6 mg/dL (8.7-10.3); Chloride 104 mmol/L (96-109); Chol/HDL Ratio 3.15 Ratio; Globulin 2.8 g/dL (1.6-3.3); Glucose 86 mg/dL (70-110); Iron 54 UG/DL (50-170); LDL Cholesterol,Calculated 87.2 mg/dL (0.0-131.0); Magnesium 1.8 mg/dL (1.5-2.4); Phosphorus 3.4 mg/dL (2.4-5.1); Potassium 4.5 mmol/L (3.5-5.5); Sodium 142 mmol/L (135-145); Total Bilirubin 0.3 mg/dL (0.3-1.2); Total Iron Binding Capacity 319 UG/DL (228-460)
[2023-06-04 04:11] LABS: Prealbumin 14.4 mg/dL (18.0-42.0)
[2023-06-04 10:55] LABS: Zinc, Serum 66 ug/dL (60-130)
[2023-06-07 14:09] LABS: Selenium 119 mcg/L (63-160)
[2023-06-09 12:28] LABS: Vit B1(Thiamine) 71 ug/L (38-122)
[2023-06-10 06:20] LABS: Vitamin A 37 ug/dL (38-106)
== END ==
LOC: BARWHC3 14:57
PROVIDERS: ATTEND Surgery Plastic and Reconstructive Surgery
DX: E66.01 Morbid (severe) obesity due to excess calories (principal); D50.8 Other iron deficiency anemias; D50.9 Iron deficiency anemia, unspecified; E44.0 Moderate protein-calorie malnutrition; E44.1 Mild protein-calorie malnutrition; E45 Retarded development following protein-calorie malnutrition; D17.9 Benign lipomatous neoplasm, unspecified; E55.9 Vitamin D deficiency, unspecified; E46 Unspecified protein-calorie malnutrition; K74.1 Hepatic sclerosis; N19 Unspecified kidney failure; K50.90 Crohn's disease, unspecified, without complications; M17.0 Bilateral primary osteoarthritis of knee; M16.0 Bilateral primary osteoarthritis of hip; M47.816 Spondylosis without myelopathy or radiculopathy, lumbar region; G47.33 Obstructive sleep apnea (adult) (pediatric); I11.0 Hypertensive heart disease with heart failure; K21.9 Gastro-esophageal reflux disease without esophagitis; E11.9 Type 2 diabetes mellitus without complications; J45.909 Unspecified asthma, uncomplicated; F31.9 Bipolar disorder, unspecified; E78.1 Pure hyperglyceridemia; E78.00 Pure hypercholesterolemia, unspecified; T56.894A Toxic effect of other metals, undetermined, initial encounter; M79.3 Panniculitis, unspecified; Z68.43 Body mass index [BMI] 50.0-59.9, adult; Z98.84 Bariatric surgery status; Z88.1 Allergy status to other antibiotic agents; Z88.8 Allergy status to other drugs, medicaments and biological substances; Z79.899 Other long term (current) drug therapy; Z87.891 Personal history of nicotine dependence
CPT/HCPCS: 80053; 80061; 82306; 82525; 82607; 82728; 82746; 83036; 83540; 83550; 83735; 83970; 84100; 84134; 84255; 84425; 84443; 84590; 84630; 85027; 85610; 85730; 99211

== ENCOUNTER → 2023-06-30 | Outpatient (CLI) | payer BC ==
--- NOTE | 2023-06-30 08:19 | US ---
EXAMINATION TYPE: US abdomen limited DATE OF EXAM: 06/30/2023 COMPARISON: 03/22/2022, 12/20/2021 CLINICAL INDICATION: Female, 58 years old with history of R10.11 RIGHT UPPER QUADRANT PAIN; palpable area at the RUQ subcostal area x a few years. IS now causing pain and discomfort TECHNIQUE: several images taken at area of concern FINDINGS: There is a 5.0x1.5x2.8cm isoechoic area at the area of concern. There is no internal vascu larity noted. IMPRESSION: There is a isoechoic mass without internal vascularity of the right upper quadrant of sug gest lipid containing lesion such as lipoma versus malignant margins of lipomatous lesions. No obviou s CT correlate on prior 12/20/2021. Consider further evaluation with MRI with IV contrast and soft tis gem sampling.
== END | disposition home or self-care (01) ==
LOC: RADUSWWP 07:43
PROVIDERS: ATTEND Surgery Plastic and Reconstructive Surgery
DX: R19.00 Intra-abdominal and pelvic swelling, mass and lump, unspecified site (principal)
CPT/HCPCS: 76705

== ENCOUNTER 2023-08-11 15:38 | Observation (INO) | payer BC ==
--- NOTE | 2023-08-11 16:05 | ED ---
General Adult HPI - General Chief complaint: Chest Pain Stated complaint: Chest/Back Pain Time Seen by Provider: 08/11/23 15:47 Source: patient, RN notes reviewed Mode of arrival: wheelchair Limitations: no limitations - History of Present Illness Initial comments: Patient is a pleasant 58-year-old female present to the emergency department with concerns with chest discomfort. Onset of symptoms was a few hours ago. Patient started feeling fatigued this morning. Patient did have some discomfort in her chest and back and shoulder. Patient no longer has discomfort of her chest or back, only her right shoulder, only mild at this time. Patient denies dyspnea. No fever. No cough or congestion. Discomfort feels like indigestion - Related Data Home Medications Medication Instructions Recorded Confirmed Baclofen [Lioresal] 20 mg PO BID PRN 03/11/22 08/11/23 Biotin 5 mg PO DAILY@0703/11/22 08/11/23 Sertraline [Zoloft] 100 mg PO HS@199903/11/22 08/11/23 rOPINIRole HCL [Requip] 0.5 mg PO HS@199903/11/22 08/11/23 Benzonatate 100 mg PO BID PRN 04/09/22 08/11/23 Cetirizine HCl [Zyrtec] 10 mg PO DAILY PRN 04/09/22 08/11/23 Fluticasone Nasal [place] [Flonase 1 - 2 spray EA NOSTRIL BID PRN 04/09/22 08/11/23 Nasal [place]] Levothyroxine Sodium 150 mcg PO DAILY@1100 04/09/22 08/11/23 oxyBUTYnin chloride [Ditropan XL] 10 mg PO DAILY@0700 04/09/22 08/11/23 Furosemide [Lasix] 20 mg PO BID PRN 07/16/22 08/11/23 Potassium Chloride ER [K-Dur 10] 10 meq PO BID PRN 07/16/22 08/11/23 Mometasone Furoate [Elocon Cream 1 applic TOPICAL DAILY PRN 11/26/22 08/11/23 0.1%] Tamsulosin [Flomax] 0.4 mg PO DAILY PRN 11/26/22 08/11/23 Acetaminophen Tab [Tylenol Tab] 1,000 mg PO Q6H PRN 08/11/23 08/11/23 Ascorbic Acid [Vitamin C] 1,000 mg PO DAILY@0700 08/11/23 08/11/23 Calcium Carbonate/Vitamin D3 2 cap PO DAILY@0700 08/11/23 08/11/23 [Calcium 600 mg-D3 10 Mcg (400 Iu)] Cholestyramine/Aspartame 4 gm PO DAILY@0600 08/11/23 08/11/23 [Cholestyramine Light Packet] Clobetasol Propionate [Clobex 1 applic TOPICAL BID PRN 08/11/23 08/11/23 0.05% Soln] Mv-Min/Folic/Vit K/Lut/Rhkl453 1 cap PO DAILY@0700 08/11/23 08/11/23 [Alive Women's 50 Plus Tablet] Nystatin 100,000 Unit/gm Powd 1 applic TOPICAL BID PRN 08/11/23 08/11/23 [Mycostatin Powder] Sucralfate [Carafate] 1 gm PO BID@0700,1600 08/11/23 08/11/23 Vitamin A Acetate [Vitamin A] 3,000 mcg PO DAILY@0700 08/11/23 08/11/23 Allergies Allergy/AdvReac Type Severity Reaction Status Date / Time cephalexin [From Keflex] Allergy Swelling Verified 08/11/23 16:58 morphine Allergy Dyspnea Verified 08/11/23 16:58 NSAIDS (Non-Steroidal AdvReac has Verified 08/11/23 16:58 Anti-Inflamma bleeding ulcers, cant take Review of Systems ROS Statement: Those systems with pertinent positive or pertinent negative responses have been documented in the HPI. ROS Other: All systems not noted in ROS Statement are negative. Constitutional: Denies: fever Eyes: Denies: eye pain ENT: Denies: ear pain Respiratory: Reports: as per HPI. Denies: cough Cardiovascular: Reports: as per HPI, chest pain Endocrine: Denies: fatigue Gastrointestinal: Denies: vomiting Past Medical History Past Medical History: Diabetes Mellitus, GERD/Reflux, Osteoarthritis (OA), Sleep Apnea/CPAP/BIPAP, Thyroid Disorder Additional Past Medical History / Comment(s): HX GASTRIC BYPASS-SLEEP APNEA, GERD & DIABETES RESOLVED WITH WT LOSS., CHRONIC SINUSITIS, HX RUPTURED RT EAR DRUM, KIDNEY STONES, COLON POLYPS., RLS, IRON INFUSIONS. Kidney stone and sepsis Mar 2022, , acid & food coming up back of throat, lower leg swelling gastric ulcers History of Any Multi-Drug Resistant Organisms: None Reported, MRSA Date of last positivie culture/infection: 2009 MDRO Source:: RIGHT LEG Past Surgical History: Adenoidectomy, Appendectomy, Bariatric Surgery, Cholecystectomy, Heart Catheterization, Hernia Repair, Hysterectomy, Joint Replacement, Orthopedic Surgery, Tonsillectomy Additional Past Surgical History / Comment(s): bilateral meniscus repairs, um bilical hernia repair, LEFT EAR SX kidney stone removal. gastric bypass 03-17-19, heart cath ([facility] right knee replacement 2020. lysis of adhesions and appendectomy 11/17/22 Past Anesthesia/Blood Transfusion Reactions: No Reported Reaction Additional Past Anesthesia/Blood Transfusion Reaction / Comment(s): blood transfusion without problem Past Psychological History: Panic Disorder Smoking Status: Former smoker Past Alcohol Use History: None Reported Past Drug Use History: None Reported - Past Family History Mother Family Medical History: No Reported History General Exam Limitations: no limitations General appearance: alert, in no apparent distress Head exam: Present: normocephalic Eye exam: Present: normal appearance Neck exam: Present: normal inspection Respiratory exam: Present: normal lung sounds bilaterally. Absent: chest wall tenderness Cardiovascular Exam: Present: regular rate, normal rhythm Expanded Peripheral pulses: 2+: Radial (R), Radial (L), Dorsalis Pedis (R), Dorsalis Pedis (L) GI/Abdominal exam: Present: soft. Absent: tenderness Extremities exam: Present: normal inspection. Absent: pedal edema, calf tenderness Neurological exam: Present: alert Psychiatric exam: Present: normal affect, normal mood Skin exam: Present: normal color Course Vital Signs 08/11/23 08/11/23 08/11/23 15:43 18:45 20:00 Temperature 99.0 F Pulse Rate 100 91 100 Respiratory 18 18 18 Rate Blood Pressure 137/87 91/60 123/96 O2 Sat by Pulse 98 98 97 Oximetry EKG Findings - EKG Results: EKG: interpreted by ERMD (Left axis. Low QRS voltage.), sinus rhythm, normal ST/T EKG shows: tachycardia Medical Decision Making - Medical Decision Making Was pt. sent in by a medical professional or institution (, PA, DIRECTOR OF MEDIA, urgent care, hospital, or senior living...) When possible be specific @ -No Did you speak to anyone other than the patient for history (EMS, parent, family, police, friend...)? What history was obtained from this source @ -No Did you review nursing and triage notes (agree or disagree)? Why? @ -I reviewed and agree with nursing and triage notes Were old charts reviewed (outside hosp., previous admission, EMS record, old EKG, old radiological studies, urgent care reports/EKG's, senior living records)? Report findings @ -No old charts were reviewed Differential Diagnosis (chest pain, altered mental status, abdominal pain women, abdominal pain men, vaginal bleeding, weakness, fever, dyspnea, syncope, headache, dizziness, GI bleed, back pain, seizure, CVA, palpatations, mental h ealth, musculoskeletal)? @ -Differential Chest Pain: Stable Angina, Unstable Angina, STEMI, NSTEMI Aortic Dissection, Pneumothorax, Musculoskeletal, Esophageal Spasm GERD, Cholecystitis, Pancreatitis, Zoster, this is not meant to be an all-inclusive list. EKG interpreted by me (3pts min.). @ -As above X-rays interpreted by me (1pt min.). @ -Chest x-ray shows no acute process CT interpreted by me (1pt min.). @ -Chest x-ray without obvious embolism U/S interpreted by me (1pt. min.). @ -None done What testing was considered but not performed or refused? (CT, X-rays, U/S, labs)? Why? @ -None What meds were considered but not given or refused? Why? @ -None Did you discuss the management of the patient with other professionals (professionals i.e. , PA, DIRECTOR OF MEDIA, lab, RT, psych nurse, high school social science teacher, solar technician, teacher, correctional security officer, catalytic case operator)? Give summary @ -Case was discussed with Dr. Jerome, who will admit covering Dr. Ramos Was smoking cessation discussed for >3mins.? @ -No Was critical care preformed (if so, how long)? @ -No Were there social determinants of health that impacted care today? How? (Homelessness, low income, unemployed, alcoholism, drug addiction, transpor tation, low edu. Level, literacy, decrease access to med. care, usp, rehab)? @ -No Was there de-escalation of care discussed even if they declined (Discuss DNR or withdrawal of care, Hospice)? DNR status @ -No What co-morbidities impacted this encounter? (DM, HTN, Smoking, COPD, CAD, Cancer, CVA, ARF, Chemo, Hep., AIDS, mental health diagnosis, sleep apnea, morbid obesity)? @ -None Was patient admitted / discharged? Hospital course, mention meds given and route, prescriptions, significant lab abnormalities, going to OR and other pertinent info. @ -Patient reevaluated and feels better with nitroglycerin paste. Patient updated on results and plan. Patient will be admitted. Admission orders written. Cardiac will be placed on consult Undiagnosed new problem with uncertain prognosis? @ -No Drug Therapy requiring intensive monitoring for toxicity (Heparin, Nitro, Insulin, Cardizem)? @ -No Were any procedures done? @ -No Diagnosis/symptom? @ -Chest pain Acute, or Chronic, or Acute on Chronic? @ -Acute Uncomplicated (without systemic symptoms) or Complicated (systemic symptoms)? @ -Default Side effects of treatment? @ -No Exacerbation, Progression, or Severe Exacerbation? @ -No Poses a threat to life or bodily function? How? (Chest pain, [place], SC, pneumonia, PE, COPD, DKA, ARF, appy, cholecystitis, CVA, Diverticulitis, Homicidal, Suicidal, threat to staff... and all critical care pts) @ -No - Lab Data Result diagrams: 08/11/23 16:45 08/11/23 16:45 Lab Results 08/11/23 08/11/23 08/11/23 Range/Units 16:45 16:45 16:45 WBC 11.1 H (3.8-10.6) k/uL RBC 4.98 (3.80-5.40) m/uL Hgb 14.9 (11.4-16.0) gm/dL Hct 46.2 H (34.0-46.0) % MCV 92.9 (80.0-100.0) fL MCH 29.9 (25.0-35.0) pg MCHC 32.2 (31.0-37.0) g/dL RDW 13.7 (11.5-15.5) % Plt Count 243 (150-450) k/uL MPV 7.7 Neutrophils % 84 % Lymphocytes % 9 % Monocytes % 3 % Eosinophils % 3 % Basophils % 1 % Neutrophils # 9.4 H (1.3-7.7) k/uL Lymphocytes # 1.0 (1.0-4.8) k/uL Monocytes # 0.3 (0-1.0) k/uL Eosinophils # 0.3 (0-0.7) k/uL Basophils # 0.1 (0-0.2) k/uL PT 10.7 (10.0-12.5) sec INR 1.0 (<1.2) APTT 24.9 (22.0-30.0) sec D-Dimer 0.78 H (<0.60) mg/L FEU Sodium 141 (137-145) mmol/L Potassium 5.0 (3.5-5.1) mmol/L Chloride 106 (98-107) mmol/L Carbon Dioxide 25 (22-30) mmol/L Anion Gap 10 mmol/L BUN 18 H (7-17) mg/dL Creatinine 0.70 (0.52-1.04) mg/dL Est GFR (CKD-EPI)AfAm >90 (>60 ml/min/1.73 sqM) Est GFR (CKD-EPI)NonAf >90 (>60 ml/min/1.73 sqM) Glucose 128 H (74-99) mg/dL Calcium 10.2 (8.4-10.2) mg/dL Magnesium 1.7 (1.6-2.3) mg/dL Total Bilirubin 0.9 (0.2-1.3) mg/dL AST 36 (14-36) U/L ALT 32 (4-34) U/L Alkaline Phosphatase 151 H (38-126) U/L Troponin I (0.000-0.034) ng/mL Total Protein 8.0 (6.3-8.2) g/dL Albumin 4.7 (3.5-5.0) g/dL Amylase 57 (30-110) U/L Lipase 74 (23-300) U/L Urine Color Urine Appearance (Clear) Urine pH (5.0-8.0) Ur Specific [place] (1.001-1.035) Urine Protein (Negative) Urine Glucose (UA) (Negative) Urine Ketones (Negative) Urine Blood (Negative) Urine Nitrite (Negative) Urine Bilirubin (Negative) Urine Urobilinogen (<2.0) mg/dL Ur Leukocyte Esterase (Negative) Urine WBC (0-5) /hpf Ur Squamous Epith Cells (0-4) /hpf Urine Bacteria (None) /hpf Urine Mucus (None) /hpf Influenza Type A (PCR) (Not Detectd) Influenza Type B (PCR) (Not Detectd) RSV (PCR) (Not Detectd) SARS-CoV-2 (PCR) (Not Detectd) 08/11/23 08/11/23 08/11/23 Range/Units 16:45 16:45 18:14 WBC (3.8-10.6) k/uL RBC (3.80-5.40) m/uL Hgb (11.4-16.0) gm/dL Hct (34.0-46.0) % MCV (80.0-100.0) fL MCH (25.0-35.0) pg MCHC (31.0-37.0) g/dL RDW (11.5-15.5) % Plt Count (150-450) k/uL MPV Neutrophils % % Lymphocytes % % Monocytes % % Eosinophils % % Basophils % % Neutrophils # (1.3-7.7) k/uL Lymphocytes # (1.0-4.8) k/uL Monocytes # (0-1.0) k/uL Eosinophils # (0-0.7) k/uL Basophils # (0-0.2) k/uL PT (10.0-12.5) sec INR (<1.2) APTT (22.0-30.0) sec D-Dimer (<0.60) mg/L FEU Sodium (137-145) mmol/L Potassium (3.5-5.1) mmol/L Chloride (98-107) mmol/L Carbon Dioxide (22-30) mmol/L Anion Gap mmol/L BUN (7-17) mg/dL Creatinine (0.52-1.04) mg/dL Est GFR (CKD-EPI)AfAm (>60 ml/min/1.73 sqM) Est GFR (CKD-EPI)NonAf (>60 ml/min/1.73 sqM) Glucose (74-99) mg/dL Calcium (8.4-10.2) mg/dL Magnesium (1.6-2.3) mg/dL Total Bilirubin (0.2-1.3) mg/dL AST (14-36) U/L ALT (4-34) U/L Alkaline Phosphatase (38-126) U/L Troponin I <0.012 (0.000-0.034) ng/mL Total Protein (6.3-8.2) g/dL Albumin (3.5-5.0) g/dL Amylase (30-110) U/L Lipase (23-300) U/L Urine Color Yellow Urine Appearance Cloudy H (Clear) Urine pH 6.0 (5.0-8.0) Ur Specific [place] 1.025 (1.001-1.035) Urine Protein Negative (Negative) Urine Glucose (UA) Negative (Negative) Urine Ketones Negative (Negative) Urine Blood Negative (Negative) Urine Nitrite Negative (Negative) Urine Bilirubin Negative (Negative) Urine Urobilinogen <2.0 (<2.0) mg/dL Ur Leukocyte Esterase Negative (Negative) Urine WBC 1 (0-5) /hpf Ur Squamous Epith Cells 2 (0-4) /hpf Urine Bacteria Rare H (None) /hpf Urine Mucus Occasional H (None) /hpf Influenza Type A (PCR) Not Detected (Not Detectd) Influenza Type B (PCR) Not Detected (Not Detectd) RSV (PCR) Not Detected (Not Detectd) SARS-CoV-2 (PCR) Not Detected (Not Detectd) Disposition Clinical Impression: Chest pain Disposition: ADMITTED IP TO THIS HOSP Is patient prescribed a controlled substance at d/c from ED?: No Referrals: Davon Christensen MD [Primary Care Provider] - 1-2 days Time of Disposition: 20:10
--- NOTE | 2023-08-11 16:33 | XR ---
EXAMINATION TYPE: XR chest 2V DATE OF EXAM: 08/11/2023 4:08 PM CLINICAL INDICATION:Female, 58 years old with history of Chest Pain; COMPARISON: Chest radiographs from 08/11/2023 TECHNIQUE: XR chest 2V Frontal and lateral views of the chest. FINDINGS: Lungs/Pleura: There is no evidence of pleural effusion, focal consolidation, or pneumothorax. Pulmonary vascularity: Unremarkable. Heart/mediastinum: Cardiomediastinal silhouette is unremarkable. Musculoskeletal: No acute osseous pathology. IMPRESSION: No acute cardiopulmonary disease/process.
[2023-08-11] MEDS: ASPIRIN 81 MG PO STA (16:41)
[2023-08-11] MEDS: NITROGLYCERIN OINT 1 INCH/GM PACKET TOPICAL STA (16:41)
[2023-08-11 17:04] LABS: Basophils # (A) 0.1 k/uL (0-0.2); Basophils % (A) 1 %; Eosinophils # (A) 0.3 k/uL (0-0.7); Eosinophils % (A) 3 %; HCT 46.2 % (34.0-46.0); HGB 14.9 gm/dL (11.4-16.0); Lymphocytes % (A) 9 %; MCH 29.9 pg (25.0-35.0); MCHC 32.2 g/dL (31.0-37.0); MCV 92.9 fL (80.0-100.0); Mean Platelet Volume 7.7; Monocytes # (A) 0.3 k/uL (0-1.0); Monocytes % (A) 3 %; Neutrophils # (A) 9.4 k/uL (1.3-7.7); Neutrophils % (A) 84 %; Platelet Count 243 k/uL (150-450); RBC 4.98 m/uL (3.80-5.40); RDW 13.7 % (11.5-15.5); WBC 11.1 k/uL (3.8-10.6)
[2023-08-11 17:16] LABS: Partial Thromboplastin Time 24.9 sec (22.0-30.0); Prothrombin Time 10.7 sec (10.0-12.5)
[2023-08-11 17:17] LABS: Chloride 106 mmol/L (98-107)
[2023-08-11 17:18] LABS: ALT 32 U/L (4-34); AST 36 U/L (14-36); African American GFR (CKD) >90 (>60 ml/min/1.73 sqM); Albumin 4.7 g/dL (3.5-5.0); Alkaline Phosphatase 151 U/L (38-126); Amylase 57 U/L (30-110); Anion Gap 10 mmol/L; Blood Urea Nitrogen 18 mg/dL (7-17); Calcium 10.2 mg/dL (8.4-10.2); Carbon Dioxide 25 mmol/L (22-30); Glucose 128 mg/dL (74-99); Lipase 74 U/L (23-300); Magnesium 1.7 mg/dL (1.6-2.3); Non-African American GFR(CKD) >90 (>60 ml/min/1.73 sqM); Sodium 141 mmol/L (137-145); Total Bilirubin 0.9 mg/dL (0.2-1.3)
[2023-08-11 18:37] LABS: Appearance,Urine Cloudy (Clear); Bacteria,Urine Rare /hpf; Bilirubin,Urine Negative (Negative); Blood,Urine Negative (Negative); Color,Urine Yellow; Glucose,Urine (UA) Negative (Negative); Ketones,Urine Negative (Negative); Leukocyte Esterase,Urine Negative (Negative); Mucus,Urine Occasional /hpf; Nitrite,Urine Negative (Negative); Protein,Urine Negative (Negative); Specific Gravity,Urine 1.025 (1.001-1.035); Squamous Epithelial Cell,Urine 2 /hpf (0-4); Urobilinogen,Urine <2.0 mg/dL (<2.0); WBC,Urine 1 /hpf (0-5)
--- NOTE | 2023-08-11 18:49 | CT ---
EXAMINATION TYPE: CT angio chest CT DLP: 546.7 mGycm, Automated exposure control for dose reduction was used. DATE OF EXAM: 08/11/2023 6:15 PM COMPARISON: Chest radiograph from same day. CLINICAL INDICATION:Female, 58 years old with history of cp; elevated d dimer, pain TECHNIQUE/CONTRAST: CTA scan of the thorax is performed with IV Contrast, patient injected with 100 ml mL of Isovue 300, MIP images are created and reviewed these are created on a separate workstation.. FINDINGS: Pulmonary Artery: There is no evidence for a central filling defect within the pulmonary vasculature to suggest acute pulmonary embolism. Limited evaluation of the segmental and subsegmental branches se condary to bolus timing. The pulmonary artery is of normal size. Lungs/Pleura: No evidence of focal consolidation, pleural effusion or pneumothorax. Airway: Large airways are patent. Heart: Heart is within normal limits for size. Vasculature: No evidence of aortic aneurysm. Mediastinum: No gross evidence of adenopathy. Musculoskeletal: No acute osseous abnormalities Soft Tissues: Unremarkable. Lower neck: No significant findings. Upper Abdomen: The gallbladder surgically absent. Postsurgical changes of gastric lumen. Postsurgical changes to the left upper quadrant bowel partially visualized. IMPRESSION: No evidence of central pulmonary embolism. Limited evaluation of the segmental and subsegmental branc hes.
[2023-08-11] MEDS ORDERED: NITROGLYCERIN SL TABS 0.4 MG TAB SUBLINGUAL PRN (20:10)
[2023-08-11] MEDS ORDERED: LORATADINE 10 MG TAB PO PRN (22:48)
[2023-08-11] MEDS ORDERED: POTASSIUM CHLORIDE ER 10 MEQ TAB.ER.PRT PO PRN (22:48)
[2023-08-11] MEDS ORDERED: BACLOFEN 10 MG TAB PO PRN (22:48)
[2023-08-11] MEDS ORDERED: TAMSULOSIN 0.4 MG CAP.ER.24H PO PRN (22:48)
[2023-08-11] MEDS ORDERED: FUROSEMIDE 20 MG TAB PO PRN (22:48)
[2023-08-11] MEDS ORDERED: TRIAMCINOLONE 0.1% CREAM 80 GM TUBE TOPICAL PRN (22:48)
[2023-08-11] MEDS ORDERED: FLUTICASONE 50MCG/SPRAY NASAL 16GM EA NOSTRIL PRN (22:48)
[2023-08-11] MEDS ORDERED: CLOBETASOL PROP 0.05% CR 15GM TOPICAL PRN (22:48)
[2023-08-11] MEDS ORDERED: BENZONATATE 100 MG CAP PO PRN (22:48)
[2023-08-11] MEDS: SERTRALINE 100 MG TAB PO SCH (23:27)
[2023-08-12] MEDS: NITROGLYCERIN OINT 1 INCH/GM PACKET TOPICAL SCH (00:08)
[2023-08-12] MEDS: ACETAMINOPHEN TAB 500 MG TAB PO PRN (01:07)
[2023-08-12] MEDS: CHOLESTYRAMINE (WITH SUGAR) 4 GM PACKET PO SCH (06:38)
[2023-08-12] MEDS: ASCORBIC ACID 500 MG TAB PO SCH (06:38)
[2023-08-12] MEDS: OXYBUTYNIN 10 MG TAB.ER.24 PO SCH (06:38)
[2023-08-12] MEDS: SUCRALFATE 1 GM TAB PO SCH (06:38)
[2023-08-12] MEDS: MULTIVITAMINS, THERA 1 EACH TAB PO SCH (06:38)
[2023-08-12] MEDS: VITAMIN A 10,000 UNIT (3000 MCG) CAPSULE PO SCH (06:38)
[2023-08-12] MEDS: CALCIUM CARB-VIT D 500 MG-5 MCG TAB PO SCH (06:38)
[2023-08-12] MEDS ORDERED: NON FORMULARY DRUG (Biotin [Biotin] 5 MG Capsule) PO SCH (07:00)
[2023-08-12 08:40] VITALS: RESP 18
--- NOTE | 2023-08-12 08:44 | P.CRDCN ---
History of Present Illness Consult date: 08/12/23 Consult reason: chest pain History of present illness: History of present illness: This is a 58-year-old female with no previous cardiac history. She has a past medical history of morbid obesity status post Neris-en-Y, history of diabetes mellitus type 2 not on medications following weight loss, obstructive sleep apnea, gastroesophageal reflux disease, hypothyroidism. We have been asked to evaluate the patient for chest pain. Patient states that she developed chest pain in the middle of her chest that went through to her back and then ev entually the pain in the back went to her right scapular area. She denies any chest pain at this time. No shortness of breath. No fever no chills no cough. Patient is a non-smoker. No alcohol abuse. Family history of coronary artery disease in her father. EKG sinus rhythm with no acute ST-T wave changes. Chest x-ray: No acute process CTA of the chest no central pulmonary embolism. Limited evaluation of segmental and subsegmental branches. WBC 11.1, hemoglobin 14.9, platelet count 243. INR 1. D-dimer 0.70. Electrolytes are normal. BUN 18 and creatinine 0.7. Blood sugar 128. Alkaline phosphatase 151, troponin negative x 3. Lipase 74. Urinalysis rare bacteria. Influenza A, influenza B, RSV, COVID-19 not detected. Home cardiac medications: Lasix 20 mg twice daily as needed, potassium chloride 10 mill equivalents twice daily as needed. Also on levothyroxine 150 mcg daily Review Of Systems: At the time of my exam: CONSTITUTIONAL: Denies fever or chills. HEENT: Denies blurred vision, vision changes, or eye pain. Denies hemoptysis CARDIOVASCULAR: Denies chest pain. Denies orthopnea. Denies PND. Denies palpitations RESPIRATORY: Denies shortness of breath. GASTROINTESTINAL: Denies abdominal pain. Denies nausea or vomiting. HEMATOLOGIC: Denies bleeding disorders. GENITOURINARY: Denies any blood in urine. SKIN: Denies pruitis. Denies rash. Physical examination: Gen: This is a 58-year-old female in no acute distress VS: reviewed HEENT: Head is atraumatic, normocephalic. Pupils equal, round. Sclerae is anicteric. NECK: Supple. No JVD. LUNGS: Clear to auscultation. No wheezes or rhonchi. No intercostal retractions. HEART: Regular rate and rhythm. No murmur. ABDOMEN: Soft No tenderness. EXTREMITIES: No pedal edema. No calf tenderness. NEUROLOGICAL: Patient is awake, alert and oriented x3. Assessment: Atypical chest pain History of diabetes Obstructive sleep apnea Gastroesophageal reflux disease Hypothyroidism Plan: Obtain a stress echocardiogram today Obtain 2-D echocardiogram and Doppler study to assess cardiac structure and function If stress test and echocardiogram are unremarkable, patient is cleared for discharge. Thank you kindly for this consultation. Nurse practitioner note has been reviewed, I agree with documented findings and plan of care. Patient was seen and examined. Past Medical History Past Medical History: Diabetes Mellitus, GERD/Reflux, Osteoarthritis (OA), Sleep Apnea/CPAP/BIPAP, Thyroid Disorder Additional Past Medical History / Comment(s): HX GASTRIC BYPASS-SLEEP APNEA, GERD & DIABETES RESOLVED WITH WT LOSS., CHRONIC SINUSITIS, HX RUPTURED RT EAR D RUM, KIDNEY STONES, COLON POLYPS., RLS, IRON INFUSIONS. Kidney stone and sepsis Mar 2022, , acid & food coming up back of throat, lower leg swelling gastric ulcers History of Any Multi-Drug Resistant Organisms: None Reported, MRSA Date of last positivie culture/infection: 2009 MDRO Source:: RIGHT LEG Past Surgical History: Adenoidectomy, Appendectomy, Bariatric Surgery, Cholecystectomy, Heart Catheterization, Hernia Repair, Hysterectomy, Joint Replacement, Orthopedic Surgery, Tonsillectomy Additional Past Surgical History / Comment(s): bilateral meniscus repairs, umbil ical hernia repair, LEFT EAR SX kidney stone removal. gastric bypass 03-17-19, heart cath ([facility] right knee replacement 2020. lysis of adhesions and appendectomy 11/17/22 Past Anesthesia/Blood Transfusion Reactions: No Reported Reaction Additional Past Anesthesia/Blood Transfusion Reaction / Comment(s): blood transfusion without problem Past Psychological History: Panic Disorder Smoking Status: Former smoker Past Alcohol Use History: None Reported Additional Past Alcohol Use History / Comment(s): QUIT SMOKING 2009, STARTED [employer]ING AGE 15, SMOKED UP TO 1 1/2 PPD Past Drug Use History: None Reported - Past Family History Mother Family Medical History: No Reported History Medications and Allergies Home Medications Medication Instructions Recorded Confirmed Type Baclofen [Lioresal] 20 mg PO BID PRN 03/11/22 08/11/23 History Biotin 5 mg PO DAILY@0700 03/11/22 08/11/23 History Sertraline [Zoloft] 100 mg PO HS@199903/11/22 08/11/23 History rOPINIRole HCL [Requip] 0.5 mg PO HS@199903/11/22 08/11/23 History Benzonatate 100 mg PO BID PRN 04/09/22 08/11/23 History Cetirizine HCl [Zyrtec] 10 mg PO DAILY PRN 04/09/22 08/11/23 History Fluticasone Nasal [place] [Flonase 1 - 2 spray EA NOSTRIL BID PRN 04/09/22 08/11/23 History Nasal [place]] Levothyroxine Sodium 150 mcg PO DAILY@1100 04/09/22 08/11/23 History oxyBUTYnin chloride [Ditropan XL] 10 mg PO DAILY@0700 04/09/22 08/11/23 History Furosemide [Lasix] 20 mg PO BID PRN 07/16/22 08/11/23 History Potassium Chloride ER [K-Dur 10] 10 meq PO BID PRN 07/16/22 08/11/23 History Mometasone Furoate [Elocon Cream 1 applic TOPICAL DAILY PRN 11/26/22 08/11/23 History 0.1%] Tamsulosin [Flomax] 0.4 mg PO DAILY PRN 11/26/22 08/11/23 History Acetaminophen Tab [Tylenol Tab] 1,000 mg PO Q6H PRN 08/11/23 08/11/23 History Ascorbic Acid [Vitamin C] 1,000 mg PO DAILY@69908/11/23 08/11/23 History Calcium Carbonate/Vitamin D3 2 cap PO DAILY@69908/11/23 08/11/23 History [Calcium 600 mg-D3 10 Mcg (400 Iu)] Cholestyramine/Aspartame 4 gm PO DAILY@59908/11/23 08/11/23 History [Cholestyramine Light Packet] Clobetasol Propionate [Clobex 1 applic TOPICAL BID PRN 08/11/23 08/11/23 History 0.05% Soln] Mv-Min/Folic/Vit K/Lut/[id number] 1 cap PO DAILY@69908/11/23 08/11/23 History [Alive Women's 50 Plus Tablet] Nystatin 100,000 Unit/gm Powd 1 applic TOPICAL BID PRN 08/11/23 08/11/23 History [Mycostatin Powder] Sucralfate [Carafate] 1 gm PO BID@0700,1600 08/11/23 08/11/23 History Vitamin A Acetate [Vitamin A] 3,000 mcg PO DAILY@0700 08/11/23 08/11/23 History Allergies Allergy/AdvReac Type Severity Reaction Status Date / Time cephalexin [From Keflex] Allergy Swelling Verified 08/11/23 16:58 morphine Allergy Dyspnea Verified 08/11/23 16:58 NSAIDS (Non-Steroidal AdvReac has Verified 08/11/23 16:58 Anti-Inflamma bleeding ulcers, cant take Physical Exam Vitals: Vital Signs Temp Pulse Pulse Resp BP BP Pulse Ox 08/12/23 02:00 73 16 113/68 95 08/11/23 20:00 100 18 123/96 97 08/11/23 18:45 91 18 91/60 98 08/11/23 15:43 99.0 F 100 18 137/87 98 Intake and Output 08/11/23 08/12/23 08/12/23 22:59 06:59 14:59 Other: Voiding Method Toilet # Voids 1 4 Weight 127.459 kg Results 08/11/23 16:45 08/11/23 16:45 Cardiac Enzymes 08/11/23 08/11/23 08/11/23 Range/Units 16:45 16:45 20:15 AST 36 (14-36) U/L Troponin I <0.012 <0.012 (0.000-0.034) ng/mL 08/11/23 Range/Units 23:51 AST (14-36) U/L Troponin I <0.012 (0.000-0.034) ng/mL Coagulation 08/11/23 Range/Units 16:45 PT 10.7 (10.0-12.5) sec APTT 24.9 (22.0-30.0) sec CBC 08/11/23 Range/Units 16:45 WBC 11.1 H (3.8-10.6) k/uL RBC 4.98 (3.80-5.40) m/uL Hgb 14.9 (11.4-16.0) gm/dL Hct 46.2 H (34.0-46.0) % Plt Count 243 (150-450) k/uL Comprehensive Metabolic Panel 08/11/23 Range/Units 16:45 Sodium 141 (137-145) mmol/L Potassium 5.0 (3.5-5.1) mmol/L Chloride 106 (98-107) mmol/L Carbon Dioxide 25 (22-30) mmol/L BUN 18 H (7-17) mg/dL Creatinine 0.70 (0.52-1.04) mg/dL Glucose 128 H (74-99) mg/dL Calcium 10.2 (8.4-10.2) mg/dL AST 36 (14-36) U/L ALT 32 (4-34) U/L Alkaline Phosphatase 151 H (38-126) U/L Total Protein 8.0 (6.3-8.2) g/dL Albumin 4.7 (3.5-5.0) g/dL Current Medications Generic Name Dose Route Start Last Admin Trade Name Freq PRN Reason Stop Dose Admin Acetaminophen 1,000 mg 08/11/23 22:48 08/12/23 01:07 Acetaminophen Tab 500 Mg Tab PO 1,000 mg Q6H PRN Administration Pain Ascorbic Acid 1,000 mg 08/12/23 07:00 08/12/23 06:38 Ascorbic Acid 500 Mg Tab PO 1,000 mg DAILY@07 [facility] Administration Baclofen 20 mg 08/11/23 22:48 Baclofen 10 Mg Tab PO BID PRN Pain Benzonatate 100 mg 08/11/23 22:48 Benzonatate 100 Mg Cap PO BID PRN Cough Calcium Carbonate 1 each 08/12/23 07:00 08/12/23 06:38 Calcium Carb-Vit D 500 Mg-5 Mcg Tab PO 1 each DAILY@0700 [facility] Administration Cholestyramine Resin 4 gm 08/12/23 06:00 08/12/23 06:38 Cholestyramine (With Sugar) 4 Gm Packet PO 4 gm DAILY@0600 [facility] Administration Clobetasol Propionate 1 applic 08/11/23 22:48 Clobetasol Prop 0.05% Cr 15gm TOPICAL BID PRN scalp Fluticasone Propionate 1 spray 08/11/23 22:48 Fluticasone 50mcg/[place] Nasal 16gm EA NOSTRIL BID PRN Allergy Symptoms Furosemide 20 mg 08/11/23 22:48 Furosemide 20 Mg Tab PO BID PRN Edema Levothyroxine Sodium 150 mcg 08/12/23 11:00 Levothyroxine 75 Mcg Tab PO DAILY@1100 [facility] Loratadine 10 mg 08/11/23 22:48 Loratadine 10 Mg Tab PO DAILY PRN Sinus Congestion Multivitamins 1 each 08/12/23 07:00 08/12/23 06:38 Multivitamins, Thera 1 Each Tab PO 1 each DAILY@07 [facility] Administration Nitroglycerin 0.4 mg 08/11/23 20:10 Nitroglycerin Sl Tabs 0.4 Mg Tab SUBLINGUAL Q5M PRN Chest Pain Nitroglycerin 1 inch 08/12/23 00:00 08/12/23 06:14 Nitroglycerin Oint 1 Inch/Gm Packet TOPICAL Not Given Q6HR [facility] Oxybutynin Chloride 10 mg 08/12/23 07:00 08/12/23 06:38 Oxybutynin 10 Mg Tab.Er.24 PO 10 mg DAILY@07 [facility] Administration Potassium Chloride 10 meq 08/11/23 22:48 Potassium Chloride Er 10 Meq Tab.Er.Prt PO BID PRN with taking lasix for edema Ropinirole HCl 0.5 mg 08/11/23 22:48 08/11/23 23:27 Ropinirole Hcl 0.25 Mg Tab PO 0.5 mg HS@1999 [facility] Administration Sertraline HCl 100 mg 08/11/23 22:48 08/11/23 23:27 Sertraline 100 Mg Tab PO 100 mg HS@1999 [facility] Administration Sucralfate 1 gm 08/12/23 07:00 08/12/23 06:38 Sucralfate 1 Gm Tab PO 1 gm BID@0700,1600 [facility] Administration Tamsulosin HCl 0.4 mg 08/11/23 22:48 Tamsulosin 0.4 Mg Cap.Er.24h PO DAILY PRN urinary issues Triamcinolone Acetonide 1 applic 08/11/23 22:48 Triamcinolone 0.1% Cream 80 Gm Tube TOPICAL DAILY PRN EARS Vitamin A 10,000 unit 08/12/23 07:00 08/12/23 06:38 Vitamin A 10,000 Unit (3000 Mcg) Capsule PO 10,000 unit DAILY@07 [facility] Administration Intake and Output 08/11/23 08/12/23 08/12/23 22:59 06:59 14:59 Other: Voiding Method Toilet # Voids 1 4 Weight 127.459 kg 08/11/23 16:45 08/11/23 16:45
[2023-08-12] MEDS: LEVOTHYROXINE 75 MCG TAB PO SCH (10:58)
[2023-08-12 11:50] LABS: Chol/HDL Ratio 3.02 Ratio; VLDL Calculation 18.68 mg/dL (5.00-40.00)
[2023-08-12 15:05] VITALS: BP 123/72; PULSE 80; TEMP 98
--- NOTE | 2023-08-12 17:40 | CA ---
Transthoracic Echo Report Name: Neto Hickman Age: 58 Gender: F : 1965 Exam Date: 08/12/2023 11:42 Exam Location: [facility] Ht (in): 65 Wt (lb): 281 Ordering Physician: Xiao Jon Attending/Referring Phys: [id number], Danay [employer] Tram Driver Brenda Braga RDCS Procedure CPT: Indications: LVF Cardiac Hx: Technical Quality: Fair Contrast 1: Total Dose (mL): Contrast 2: Total Dose (mL): MEASUREMENTS (Male / Female) Normal Values 2D ECHO LV Diastolic Diameter PLAX 3.4 cm 4.2 - 5.9 / 3.9 - 5.3 cm LV Systolic Diameter PLAX 2.1 cm IVS Diastolic Thickness 1.3 cm 0.6 - 1.0 / 0.6 - 0.9 cm LVPW Diastolic Thickness 1.2 cm 0.6 - 1.0 / 0.6 - 0.9 cm LV Relative Wall Thickness 0.7 RV Internal Dim ED PLAX 4.5 cm LA Volume 49.1 cm??? 18 - 58 / 22 - 52 cm??? LA Volume Index 19.7 cm???/m??? 16 - 28 cm???/m??? M-MODE Aortic Root Diameter MM 3.5 cm LA Systolic Diameter MM 4.8 cm LA Ao Ratio MM 1.4 AV Cusp Separation MM 2.1 cm DOPPLER AV Peak Velocity 121.5 cm/s AV Peak Gradient 5.9 mmHg AV Mean Velocity 84.8 cm/s AV Mean Gradient 3.2 mmHg AV Velocity Time Integral 22.6 cm LVOT Peak Velocity 117.3 cm/s LVOT Peak Gradient 5.5 mmHg LVOT Velocity Time Integral 24.2 cm MV Area PHT 4.0 cm??? Mitral E Point Velocity 70.8 cm/s Mitral A Point Velocity 93.8 cm/s Mitral E to A Ratio 0.8 MV Deceleration Time 191.0 ms MV E' Velocity 12.7 cm/s Mitral E to MV E' Ratio 5.6 FINDINGS Left Ventricle Mildly increased left ventricular wall thickness. Left ventricular cavity size normal. Normal left ventricular systolic function with no obvious regional wall motion abnormalities. Left ventricular ejection fraction is estimated at 55-60 %. Right Ventricle Moderate right ventricular dilatation. Right ventricular systolic pressure within normal limits. Normal right ventricular global systolic function. Right Atrium Normal right atrial size. Left Atrium Normal left atrial size. Mitral Valve Structurally normal mitral valve. No mitral stenosis, regurgitation or prolapse. Aortic Valve Trileaflet aortic valve. No aortic valve stenosis or regurgitation. Tricuspid Valve Structurally normal tricuspid valve. Trace tricuspid regurgitation. Pulmonic Valve Structurally normal pulmonic valve. Pericardium No pericardial effusion. Aorta Normal size aortic root and proximal ascending aorta. CONCLUSIONS Normal LV function Dilated right ventricle Previewed by: Dr. Harvinder Lara MD (Electronically Signed) Final Date: 12 August 2023 17:39
--- NOTE | 2023-08-12 17:43 | CA ---
Stress Echo Report Neto Hickman Age: 58 Gender: F : 1965 Exam Date: 08/12/2023 11:21 Exam Location: [facility] Ht (in): 65 Wt (lb): 281 Ordering Physician: Xiao Jon Referring Physician: [id number] Edge Burnisher Uppers: [id number], Technologist Procedure CPT: Indication: Chest Pain ICD-9 Codes: Rhythm: Patient History: Chest pain Cardiac Medications: Medications in past 24 hours: Contrast: Stress Results Protocol: Dima Total dose(mL): Exercise Duration (min:sec): 6:[address] Depression (mm): Angina Score: Ferguson Score: METS: 7.9 Resting HR: 65 Resting BP: 109 / 63 Peak HR: 150 Peak BP: 182 / 104 Max Predicted HR: 164 91 % Max Predicted HR Target HR: 139 Double Product: 17362 Stress Summary: BP Response: Reason for Termination: Reached target heart rate or work-load Cardiac Symptoms: Short of breath ECG Analysis Resting ECG: Normal sinus rhythm normal axis normal intervals Stress ECG: Patient exercised on Dima protocol for 6 and half minutes achieving 85% of predicted maximum heart rate without chest pain or diagnostic ST segment depression Arrhythmia: Echo Analysis Resting Echo: Normal left ventricular size wall motion systolic function Technically suboptimal study Peak Echo Analysis: Normal hyperdynamic response MEASUREMENTS (Male/Female) Normal Values CONCLUSIONS Average exercise tolerance Negative stress test by EKG criteria Negative stress echo Negative stress echo Dr. Harvinder Lara MD (Electronically Signed) Final Date: 12 August 2023 17:42
--- NOTE | 2023-08-12 19:12 | P.HPIM ---
History of Present Illness H&P Date: 08/12/23 Chief Complaint: Chest pain This is a pleasant 58-year-old patient, follows with Dr. Davon Christensen. Chronic stable medical conditions include osteoarthritis, hypothyroid, kidney stones, restless leg syndrome. Patient did undergo gastric bypass and diabetes and sleep apnea resolved. Yesterday patient started having stomach cramps. Followed by diarrhea. Later in the afternoon she started having midsternal pain. Also going to the right shoulder. Had some nausea. Symptoms lasted good over 2 hours. No dizziness no lightheadedness. No perspiration. When she did get some Nitropaste in the ER symptoms did improve. About 3 years ago patient did have a cardiac wallace terization told it was unremarkable. Admitted to rule out a cardiac cause. present at the bedside. Review of systems: GEN.: None EYES: None HEENT: None NECK: None RESPIRATORY: None CARDIOVASCULAR: As above e GASTROINTESTINAL: As above GENITOURINARY: As above MUSCULOSKELETAL: Some joint pains] LYMPHATICS: None HEMATOLOGICAL: None PSYCHIATRY: None NEUROLOGICAL: None Past medical history to include: Diabetes-corrected, GERD, sleep apnea corrected after gastric bypass surgery. Osteoarthritis, hypothyroid, chronic sinusitis, kidney stones, restless leg syndrome gastric bypass in 2018 Social history: Patient smoked for 30 years, stopped in 2009. About one half pack a day. No alcohol. . 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 Family history: Reviewed, noncontributory to presentation Physical examination: VITAL SIGNS: 97.3, 68, 18, 103 x 66, 95% room air GENERAL: BMI 46.8, sitting on bed using a laptop EYES: Pupils equal. Conjunctiva normal. HEENT: External appearance of nose and ears normal, oral cavity grossly normal. NECK: JVD not raised; masses not palpable. HEART: First and second heart sounds are normal; no edema. LUNGS: Respiratory rate normal; clear to auscultation. ABDOMEN: Soft, mild right posterior renal angle tenderness, liver spleen not palpable, no masses palpable. PSYCH: Alert and oriented x3; mood and affect normal. MUSCULOSKELETAL:No Clubbing/cyanosis;muscles-grossly intact NEUROLOGICAL: Cranial nerves grossly intact; no facial asymmetry, power and sensation grossly intact. LYMPHATICS: No lymph nodes palpable in the axilla and neck INVESTIGATIONS, reviewed in the clinical context: March 5: White count 11.1 hemoglobin 14.9 platelets 243 potassium 5 creatinine 0.7 Troponin I x 3 less than 0.012 LDL 87 Influenza type A, type B, RSV, COVID-19: Negative EKG tracing personally reviewed by me-normal sinus rhythm. Chest x-ray film personally reviewed by me-unremarkable CT angio chest: Negative for PE Assessment and plan: -Anterior chest wall pain. Could be from a gastric cause from upset stomach. Rule out a cardiac cause. Cardiology consulted. Negative cardiac catheterization 3 years ago -Restless leg syndrome Requip -Depression Zoloft, -Hypothyroid Synthroid 150 g a day -Morbid obesity BMI 46.8 Weight loss measures -Primary osteoarthritis Pain medications as needed -History of gastric bypass surgery [sleep apnea and diabetes both resolved with weight loss] Care was discussed with the patient and at the bedside. Cardiology was ordered a stress echocardiogram and a 2D echo. Past Medical History Past Medical History: Diabetes Mellitus, GERD/Reflux, Osteoarthritis (OA), Sleep Apnea/CPAP/BIPAP, Thyroid Disorder Additional Past Medical History / Comment(s): HX GASTRIC BYPASS-SLEEP APNEA, GERD & DIABETES RESOLVED WITH WT LOSS., CHRONIC SINUSITIS, HX RUPTURED RT EAR DRUM, KIDNEY STONES, COLON POLYPS., RLS, IRON INFUSIONS. Kidney stone and sepsis Mar 2022, , acid & food coming up back of throat, lower leg swelling gastric ulcers History of Any Multi-Drug Resistant Organisms: None Reported, MRSA Date of last positivie culture/infection: 2009 MDRO Source:: RIGHT LEG Past Surgical History: Adenoidectomy, Appendectomy, Bariatric Surgery, Cholecystectomy, Heart Catheterization, Hernia Repair, Hysterectomy, Joint Replacement, Orthopedic Surgery, Tonsillectomy Additional Past Surgical History / Comment(s): bilateral meniscus repairs, umbilical hernia repair, LEFT EAR SX kidney stone removal. gastric bypass 03-17-19, heart cath ([facility]). right knee replacement 2020. lysis of adhesions and appendectomy 11/17/22 Past Anesthesia/Blood Transfusion Reactions: No Reported Reaction Additional Past Anesthesia/Blood Transfusion Reaction / Comment(s): blood transfusion without problem Past Psychological History: Panic Disorder Smoking Status: Former smoker Past Alcohol Use History: None Reported Additional Past Alcohol Use History / Comment(s): QUIT SMOKING 2009, STARTED SMOKING AGE 15, SMOKED UP TO 1 1/2 PPD Past Drug Use History: None Reported - Past Family History Mother Family Medical History: No Reported History Medications and Allergies Home Medications Medication Instructions Recorded Confirmed Type Baclofen [Lioresal] 20 mg PO BID PRN 03/11/22 08/11/23 History Biotin 5 mg PO DAILY@0700 03/11/22 08/11/23 History Sertraline [Zoloft] 100 mg PO HS@199903/11/22 08/11/23 History rOPINIRole HCL [Requip] 0.5 mg PO HS@199903/11/22 08/11/23 History Benzonatate 100 mg PO BID PRN 04/09/22 08/11/23 History Cetirizine HCl [Zyrtec] 10 mg PO DAILY PRN 04/09/22 08/11/23 History Fluticasone Nasal [place] [Flonase 1 - 2 spray EA NOSTRIL BID PRN 04/09/22 08/11/23 History Nasal [place]] Levothyroxine Sodium 150 mcg PO DAILY@1100 04/09/22 08/11/23 History oxyBUTYnin chloride [Ditropan XL] 10 mg PO DAILY@0700 04/09/22 08/11/23 History Furosemide [Lasix] 20 mg PO BID PRN 07/16/22 08/11/23 History Potassium Chloride ER [K-Dur 10] 10 meq PO BID PRN 07/16/22 08/11/23 History Mometasone Furoate [Elocon Cream 1 applic TOPICAL DAILY PRN 11/26/22 08/11/23 History 0.1%] Tamsulosin [Flomax] 0.4 mg PO DAILY PRN 11/26/22 08/11/23 History Acetaminophen Tab [Tylenol] 1,000 mg PO Q6H PRN 08/11/23 08/11/23 History Ascorbic Acid [Vitamin C] 1,000 mg PO DAILY@0700 08/11/23 08/11/23 History Calcium Carbonate/Vitamin D3 2 cap PO DAILY@69908/11/23 08/11/23 History [Calcium 600 mg-D3 10 Mcg (400 Iu)] Cholestyramine/Aspartame 4 gm PO DAILY@0600 08/11/23 08/11/23 History [Cholestyramine Light Packet] Clobetasol Propionate [Clobex 1 applic TOPICAL BID PRN 08/11/23 08/11/23 History 0.05% Soln] Mv-Min/Folic/Vit K/Lut/Jqdr389 1 cap PO DAILY@0700 08/11/23 08/11/23 History [Alive Women's 50 Plus Tablet] Nystatin 100,000 Unit/gm Powd 1 applic TOPICAL BID PRN 08/11/23 08/11/23 History [Mycostatin Powder] Sucralfate [Carafate] 1 gm PO BID@0700,1600 08/11/23 08/11/23 History Vitamin A Acetate [Vitamin A] 3,000 mcg PO DAILY@0700 08/11/23 08/11/23 History Allergies Allergy/AdvReac Type Severity Reaction Status Date / Time cephalexin [From Keflex] Allergy Swelling Verified 08/11/23 16:58 morphine Allergy Dyspnea Verified 08/11/23 16:58 NSAIDS (Non-Steroidal AdvReac has Verified 08/11/23 16:58 Anti-Inflamma bleeding ulcers, cant take Physical Exam Vitals: Vital Signs Temp Pulse Pulse Resp BP BP Pulse Ox 08/12/23 08:00 18 08/12/23 07:00 97.3 F L 68 18 103/66 95 08/12/23 02:00 73 16 113/68 95 08/11/23 20:00 100 18 123/96 97 08/11/23 18:45 91 18 91/60 98 08/11/23 15:43 99.0 F 100 18 137/87 98 Intake and Output 08/11/23 08/12/23 08/12/23 22:59 06:59 14:59 Other: Voiding Method Toilet Toilet # Voids 1 4 1 Weight 127.459 kg Results CBC & Chem 7: 08/11/23 16:45 08/11/23 16:45 Labs: Abnormal Lab Results - Last 24 Hours (Table) 08/11/23 08/11/23 08/11/23 Range/Units 16:45 16:45 16:45 WBC 11.1 H (3.8-10.6) k/uL Hct 46.2 H (34.0-46.0) % Neutrophils # 9.4 H (1.3-7.7) k/uL D-Dimer 0.78 H (<0.60) mg/L FEU BUN 18 H (7-17) mg/dL Glucose 128 H (74-99) mg/dL Alkaline Phosphatase 151 H (38-126) U/L Urine Appearance (Clear) Urine Bacteria (None) /hpf Urine Mucus (None) /hpf 08/11/23 Range/Units 18:14 WBC (3.8-10.6) k/uL Hct (34.0-46.0) % Neutrophils # (1.3-7.7) k/uL D-Dimer (<0.60) mg/L FEU BUN (7-17) mg/dL Glucose (74-99) mg/dL Alkaline Phosphatase (38-126) U/L Urine Appearance Cloudy H (Clear) Urine Bacteria Rare H (None) /hpf Urine Mucus Occasional H (None) /hpf
--- NOTE | 2023-08-12 19:14 | P.DS ---
Providers Date of admission: 08/11/23 20:12 Expected date of discharge: 08/12/23 Attending physician: Neto Jerome Consults: 08/11/23 20:10 Consult Physician Urgent Consulting Provider: Westley Connor Consult Reason/Comments: cp Do you want consulting provider notified?: Yes Primary care physician: Davon [facility] Course: Chief Complaint: Chest pain This is a pleasant 58-year-old patient, follows with Dr. Davon Chrsitensen. Chronic stable medical conditions include osteoarthritis, hypothyroid, kidney stones, restless leg syndrome. Patient did undergo gastric bypass and diabetes and sleep apnea resolved. Yesterday patient started having stomach cramps. Followed by diarrhea. Later in the afternoon she started having midsternal pain. Also going to the right shoulder. Had some nausea. Symptoms lasted good over 2 hours. No dizziness no lightheadedness. No perspiration. When she did get some Nitropaste in the ER symptoms did improve. About 3 years ago patient did have a cardiac catheterization told it was unremarkable. Admitted to rule out a cardiac cause. present at the bedside. Patient underwent a 2D echocardiogram and a stress echocardiogram back. Both came back negative. Discharged Past medical history to include: Diabetes-corrected, GERD, sleep apnea corrected after gastric bypass surgery. Osteoarthritis, hypothyroid, chronic sinusitis, kidney stones, restless leg syndrome gastric bypass in 2018 Social history: Patient smoked for 30 years, stopped in 2009. About one half pack a day. No alcohol. . 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 Family history: Reviewed, noncontributory to presentation Physical examination: VITAL SIGNS: 97.3, 68, 18, 103 x 66, 95% room air GENERAL: BMI 46.8, sitting on bed using a laptop EYES: Pupils equal. Conjunctiva normal. HEENT: External appearance of nose and ears normal, oral cavity grossly normal. NECK: JVD not raised; masses not palpable. HEART: First and second heart sounds are normal; no edema. LUNGS: Respiratory rate normal; clear to auscultation. ABDOMEN: Soft, mild right posterior renal angle tenderness, liver spleen not palpable, no masses palpable. PSYCH: Alert and oriented x3; mood and affect normal. MUSCULOSKELETAL:No Clubbing/cyanosis;muscles-grossly intact NEUROLOGICAL: Cranial nerves grossly intact; no facial asymmetry, power and sensation grossly intact. LYMPHATICS: No lymph nodes palpable in the axilla and neck INVESTIGATIONS, reviewed in the clinical context: 2D echocardiogram: EF 55 to 60%. Stress echocardiogram: Negative for ischemia August 10: White count 11.1 hemoglobin 14.9 platelets 243 potassium 5 creatinine 0.7 Troponin I x 3 less than 0.012 LDL 87 Influenza type A, type B, RSV, COVID-19: Negative EKG tracing personally reviewed by me-normal sinus rhythm. Chest x-ray film personally reviewed by me-unremarkable CT angio chest: Negative for PE Assessment and plan: -Anterior chest wall pain. Could be from a gastric cause from upset stomach. Stress echocardiogram negative 2D echocardiogram unremarkable -Restless leg syndrome Requip -Depression Zoloft, -Hypothyroid Synthroid 150 g a day -Morbid obesity BMI 46.8 Weight loss measures -Primary osteoarthritis Pain medications as needed -History of gastric bypass surgery [sleep apnea and diabetes both resolved with weight loss] Disposition: Home Past Medical History Past Medical History: Diabetes Mellitus, GERD/Reflux, Osteoarthritis (OA), Sleep Apnea/CPAP/BIPAP, Thyroid Disorder Additional Past Medical History / Comment(s): HX GASTRIC BYPASS-SLEEP APNEA, GERD & DIABETES RESOLVED WITH WT LOSS., CHRONIC SINUSITIS, HX RUPTURED RT EAR DRUM, KIDNEY STONES, COLON POLYPS., RLS, IRON INFUSIONS. Kidney stone and sepsis Mar 2022, , acid & food coming up back of throat, lower leg swelling gastric ulcers History of Any Multi-Drug Resistant Organisms: None Reported, MRSA Date of last positivie culture/infection: 2009 MDRO Source:: RIGHT LEG Past Surgical History: Adenoidectomy, Appendectomy, Bariatric Surgery, Cholecystectomy, Heart Catheterization, Hernia Repair, Hysterectomy, Joint Replacement, Orthopedic Surgery, Tonsillectomy Additional Past Surgical History / Comment(s): bilateral meniscus repairs, umbilical hernia repair, LEFT EAR SX kidney stone removal. gastric bypass 03-17-19, heart cath ([facility] right knee replacement 2020. lysis of adhesions and appendectomy 11/17/22 Past Anesthesia/Blood Transfusion Reactions: No Reported Reaction Additional Past Anesthesia/Blood Transfusion Reaction / Comment(s): blood transfusion without problem Past Psychological History: Panic Disorder Smoking Status: Former smoker Past Alcohol Use History: None Reported Additional Past Alcohol Use History / Comment(s): QUIT SMOKING 2009, STARTED SMOKING AGE 15, SMOKED UP TO 1 1/2 PPD Past Drug Use History: None Reported Plan - Discharge Summary New Discharge Prescriptions: Continue Sertraline [Zoloft] 100 mg PO HS@2000 Baclofen [Lioresal] 20 mg PO BID PRN PRN Reason: Pain Biotin 5 mg PO DAILY@0700 oxyBUTYnin chloride [Ditropan XL] 10 mg PO DAILY@0700 Benzonatate 100 mg PO BID PRN PRN Reason: Cough Potassium Chloride ER [K-Dur 10] 10 meq PO BID PRN PRN Reason: with taking lasix for edema Mometasone Furoate [Elocon Cream 0.1%] 1 applic TOPICAL DAILY PRN PRN Reason: EARS Vitamin A Acetate [Vitamin A] 3,000 mcg PO DAILY@0700 Calcium Carbonate/Vitamin D3 [Calcium 600 mg-D3 10 Mcg (400 Iu)] 2 cap PO DAILY@0700 Ascorbic Acid [Vitamin C] 1,000 mg PO DAILY@0700 Cholestyramine/Aspartame [Cholestyramine Light Packet] 4 gm PO DAILY@0600 Acetaminophen Tab [Tylenol] 1,000 mg PO Q6H PRN PRN Reason: Pain rOPINIRole HCL [Requip] 0.5 mg PO HS@2000 Levothyroxine Sodium 150 mcg PO DAILY@1100 Cetirizine HCl [Zyrtec] 10 mg PO DAILY PRN PRN Reason: Sinus Congestion Fluticasone Nasal [place] [Flonase Nasal [place]] 1 - 2 spray EA NOSTRIL BID PRN PRN Reason: Allergy Symptoms Furosemide [Lasix] 20 mg PO BID PRN PRN Reason: Edema Tamsulosin [Flomax] 0.4 mg PO DAILY PRN PRN Reason: urinary issues Sucralfate [Carafate] 1 gm PO BID@0700,1600 Nystatin 100,000 Unit/gm Powd [Mycostatin Powder] 1 applic TOPICAL BID PRN PRN Reason: Rash, skin folds Mv-Min/Folic/Vit K/Lut/Dwlr084 [Alive Women's 50 Plus Tablet] 1 cap PO DAILY@0700 Clobetasol Propionate [Clobex 0.05% Soln] 1 applic TOPICAL BID PRN PRN Reason: scalp Discharge Medication List Baclofen [Lioresal] 20 mg PO BID PRN 03/11/22 [History] Biotin 5 mg PO DAILY@0700 03/11/22 [History] Sertraline [Zoloft] 100 mg PO HS@199903/11/22 [History] rOPINIRole HCL [Requip] 0.5 mg PO HS@199903/11/22 [History] Benzonatate 100 mg PO BID PRN 04/09/22 [History] Cetirizine HCl [Zyrtec] 10 mg PO DAILY PRN 04/09/22 [History] Fluticasone Nasal [place] [Flonase Nasal [place]] 1 - 2 spray EA NOSTRIL BID PRN 04/09/22 [History] Levothyroxine Sodium 150 mcg PO DAILY@1100 04/09/22 [History] oxyBUTYnin chloride [Ditropan XL] 10 mg PO DAILY@0700 04/09/22 [History] Furosemide [Lasix] 20 mg PO BID PRN 07/16/22 [History] Potassium Chloride ER [K-Dur 10] 10 meq PO BID PRN 07/16/22 [History] Mometasone Furoate [Elocon Cream 0.1%] 1 applic TOPICAL DAILY PRN 11/26/22 [History] Tamsulosin [Flomax] 0.4 mg PO DAILY PRN 11/26/22 [History] Acetaminophen Tab [Tylenol] 1,000 mg PO Q6H PRN 08/11/23 [History] Ascorbic Acid [Vitamin C] 1,000 mg PO DAILY@0700 08/11/23 [History] Calcium Carbonate/Vitamin D3 [Calcium 600 mg-D3 10 Mcg (400 Iu)] 2 cap PO DAILY@0700 08/11/23 [History] Cholestyramine/Aspartame [Cholestyramine Light Packet] 4 gm PO DAILY@0600 08/11/23 [History] Clobetasol Propionate [Clobex 0.05% Soln] 1 applic TOPICAL BID PRN 08/11/23 [History] Mv-Min/Folic/Vit K/Lut/Tryq099 [Alive Women's 50 Plus Tablet] 1 cap PO DAILY@0700 08/11/23 [History] Nystatin 100,000 Unit/gm Powd [Mycostatin Powder] 1 applic TOPICAL BID PRN 08/11/23 [History] Sucralfate [Carafate] 1 gm PO BID@0700,1600 08/11/23 [History] Vitamin A Acetate [Vitamin A] 3,000 mcg PO DAILY@0700 08/11/23 [History] Follow up Appointment(s)/Referral(s): Davon Christensen MD [Primary Care Provider] - 1-2 days Harvinder Lara MD [STAFF PHYSICIAN] - 6 Weeks Patient Instructions/Handouts: Chest Pain (DC) Activity/Diet/Wound Care/Special Instructions: FOLLOW UP DIRECTED, SOONER FOR WORSENING PROBLEMS OR CONCERNS
== END 2023-08-12 18:54 | disposition home or self-care (01) ==
LOC: EC 15:38 → 6NMEDSUR 20:12
PROVIDERS: ADMIT Hospitalist; ATTEND Hospitalist
DX: R07.9 Chest pain, unspecified (principal); M54.50 Low back pain, unspecified; E11.9 Type 2 diabetes mellitus without complications; G47.33 Obstructive sleep apnea (adult) (pediatric); K21.9 Gastro-esophageal reflux disease without esophagitis; M19.90 Unspecified osteoarthritis, unspecified site; E66.01 Morbid (severe) obesity due to excess calories; F32.A Depression, unspecified; N20.0 Calculus of kidney; G25.81 Restless legs syndrome; E03.9 Hypothyroidism, unspecified; Z98.84 Bariatric surgery status; Z98.61 Coronary angioplasty status; Z87.891 Personal history of nicotine dependence; Z11.52 Encounter for screening for COVID-19; Z79.899 Other long term (current) drug therapy; Z99.89 Dependence on other enabling machines and devices; Z79.890 Hormone replacement therapy; Z88.1 Allergy status to other antibiotic agents; Z88.5 Allergy status to narcotic agent; Z88.8 Allergy status to other drugs, medicaments and biological substances; Z68.42 Body mass index [BMI] 45.0-49.9, adult
CPT/HCPCS: 99285; 36415; 93005; 93306; 93351; 85379; 80061; 80053; 82150; 83690; 83735; 84484; 85025; 85610; 85730; 81001; 87636; 71046; 71275; G0378 ×2; Q9967

== ENCOUNTER → 2023-08-26 | Outpatient (CLI) | payer BC ==
--- NOTE | 2023-08-26 17:09 | P.BASOAP ---
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 Recommend resection. Risks described. Assessment/Plan Plan: Date: Initial Weight: 138.845 kg Initial BMI: Current Weight: Current BMI: Type of Surgery: Total Volume in Band: Previous Volume: Volume Removed: Volume Added: Band Size:
[2023-08-26 17:26] VITALS: BP 116/74; PULSE 80; RESP 16; TEMP 98.4; BMI 45.4
== END ==
LOC: BARWHC3 15:48
PROVIDERS: ATTEND Surgery Plastic and Reconstructive Surgery
DX: E66.01 Morbid (severe) obesity due to excess calories (principal); Z53.9 Procedure and treatment not carried out, unspecified reason
CPT/HCPCS: 99211

== ENCOUNTER → 2023-09-05 | Outpatient (CLI) | payer BC ==
[2023-09-05 22:51] LABS: HCT 42.1 % (37.2-46.3); MCHC 30.9 g/dL (32.0-37.0); Mean Platelet Volume 10.2 FL (9.5-12.2); NRBC Per 100 WBC 0 X 10*3/uL (0.00-0.01); Platelet Count 237 X 10*3/uL (140-440); RBC 4.48 X 10*6/uL (4.10-5.20); RDW 13.9 % (11.5-14.5); WBC 7.11 X 10*3/uL (4.50-10.00)
[2023-09-05 23:33] LABS: ALT 26 U/L (8-44); AST 31 U/L (13-35); Albumin 4.1 g/dL (3.8-4.9); Albumin/Globulin Ratio 1.58 Ratio (1.60-3.17); Alkaline Phosphatase 128 U/L (41-126); BUN/Creat Ratio 21.38 Ratio (12.00-20.00); Blood Urea Nitrogen 17.1 mg/dL (9.0-27.0); Calcium 9.6 mg/dL (8.7-10.3); Carbon Dioxide 26.9 mmol/L (21.6-31.8); Chloride 105 mmol/L (96-109); Globulin 2.6 g/dL (1.6-3.3); Glucose 90 mg/dL (70-110); Potassium 4.5 mmol/L (3.5-5.5); Sodium 143 mmol/L (135-145); Total Bilirubin 0.4 mg/dL (0.3-1.2); Total Protein 6.7 g/dL (6.2-8.2)
== END | disposition home or self-care (01) ==
LOC: LABPAT 08:28
PROVIDERS: ATTEND Surgery Plastic and Reconstructive Surgery
DX: Z01.812 Encounter for preprocedural laboratory examination (principal)
CPT/HCPCS: 80053; 85027

== ENCOUNTER 2023-09-07 14:34 | Day surgery (SDC) | payer BC ==
[~2023-09-07 14:34] MED LIST changes: -DEXAMETHASONE SOD PHOSPHATE 4 MG/ML 1 ML VIAL IV ONE; -HYDROmorphone 0.5 MG/0.5 ML SYRINGE IVP PRN; -LACTATED RINGERS 1,000 ML IV SCH; +LIDOCAINE 1% (10MG/ML) FOR IV START INTRADERMA PRN; -ONDANSETRON 4 MG/2 ML VIAL IVP ONE; -ceFAZolin 3 GM in SODIUM CHLORIDE 0.9% 100 ML IVPB PRN; +fentaNYL (PF) 50 MCG/ML 2 ML AMP IV PRN; -metroNIDAZOLE-NS PMX 500 MG in SALINE 1 100ML.BAG IVPB PRN
[2023-09-07] MEDS: LACTATED RINGERS 1,000 ML IV SCH (14:52)
[2023-09-07] MEDS: ACETAMINOPHEN TAB 500 MG TAB PO PRN (15:13)
[2023-09-07 15:14] LABS: Glucose,Whole Blood 77 mg/dL (70-110)
[2023-09-07] MEDS: HEPARIN SODIUM,PORCINE 5,000 UNIT/ML 1 ML VIAL SQ PRN (15:14)
[2023-09-07] MEDS: ONDANSETRON 4 MG/2 ML VIAL IVP PRN (15:14)
[2023-09-07] MEDS: DEXAMETHASONE SOD PHOSPHATE 4 MG/ML 1 ML VIAL IVP ONE (15:18)
[2023-09-07 15:43] VITALS: RESP 16; TEMP 98
--- NOTE | 2023-09-07 16:33 | P.GSHP ---
History of Present Illness H&P Date: 09/07/23 CHIEF COMPLAINT: Abdominal mass HISTORY OF PRESENT ILLNESS: The patient is a 58 year-old female who presents with a painful right upper abdominal wall mass deep to the subcutaneous tissue. Symptoms has been ongoing for over 6 months. She presents today for surgical excision. PAST MEDICAL HISTORY: Please see list. PAST SURGICAL HISTORY: Please see list. MEDICATIONS: Please see list. ALLERGIES: Please see list. SOCIAL HISTORY: No illicit drug use FAMILY HISTORY: No reports of Crohn disease or ulcerative colitis. REVIEW OF ORGAN SYSTEMS: CONSTITUTIONAL: No reports of fevers or chills. GI: Denies any blood in stools or constipation. PHYSICAL EXAM: VITAL SIGNS: Stable SKIN: Well perfused. Good skin turgor. Mass 5 cm long right upper abdomen Musculoskeletal: No clubbing cyanosis or edema GENERAL: Well developed and in no acute distress. Pleasant. HEENT: No sclera icterus. Extraocular movements grossly intact. Moist buccal mucosa. Head is atraumatic, normocephalic. Hears conversational speech. No nasal drainage. NECK: Supple without lymphadenopathy. No JV distention. CHEST: Non-labored respirations and equal bilateral excursions. CARDIOVASCULAR: Regular rate and rhythm. Palpable 2+ radial pulses. ABDOMEN: Soft. Non-tender. Nondistended. NEUROLOGIC: No focal or lateralizing signs. PSYCH: Appropriate affect. Alert and oriented to person, place and time. ASSESSMENT: 1. Mass along right upper abdomen PLAN: 1. Will proceed of excision of deep subcutaneous tissue, intramuscular tumor along the abdomen 2. DVT prophylaxis. 3. Antibiotic prophylaxis. 4. Time of recovery, at least one week. Past Medical History Past Medical History: Diabetes Mellitus, GERD/Reflux, Osteoarthritis (OA), Sleep Apnea/CPAP/BIPAP, Thyroid Disorder Additional Past Medical History / Comment(s): HX GASTRIC BYPASS-SLEEP APNEA, GERD & DIABETES RESOLVED WITH WT LOSS., CHRONIC SINUSITIS, HX RUPTURED RT EAR DRUM, KIDNEY STONES, COLON POLYPS., RLS, IRON INFUSIONS. Kidney stone and sepsis Mar 2022, , acid & food coming up back of throat, lower leg swelling gastric ulcers History of Any Multi-Drug Resistant Organisms: None Reported, MRSA Date of last positivie culture/infection: 2009 MDRO Source:: RIGHT LEG Past Surgical History: Adenoidectomy, Appendectomy, Bariatric Surgery, Cholecystectomy, Heart Catheterization, Hernia Repair, Hysterectomy, Joint Replacement, Orthopedic Surgery, Tonsillectomy Additional Past Surgical History / Comment(s): bilateral meniscus repairs, umbilical hernia repair, LEFT EAR SX kidney stone removal. gastric bypass 03-17-19, heart cath ([facility] [place] right knee replacement 2020. lysis of adhesions and appendectomy 11/17/22 Past Anesthesia/Blood Transfusion Reactions: No Reported Reaction Additional Past Anesthesia/Blood Transfusion Reaction / Comment(s): blood transfusion without problem Smoking Status: Former smoker - Past Family History Mother Family Medical History: No Reported History Medications and Allergies Home Medications Medication Instructions Recorded Confirmed Type Baclofen [Lioresal] 20 mg PO BID PRN 03/11/22 09/07/23 History Biotin 5 mg PO DAILY@0700 03/11/22 09/07/23 History Sertraline [Zoloft] 100 mg PO HS@199903/11/22 09/07/23 History rOPINIRole HCL [Requip] 0.5 mg PO HS@199903/11/22 09/07/23 History Cetirizine HCl [Zyrtec] 10 mg PO DAILY PRN 04/09/22 09/07/23 History Fluticasone Nasal [place] [Flonase 1 - 2 spray EA NOSTRIL BID PRN 04/09/22 09/07/23 History Nasal [place]] Levothyroxine Sodium 150 mcg PO QAM 04/09/22 09/07/23 History oxyBUTYnin chloride [Ditropan XL] 10 mg PO QAM 04/09/22 09/07/23 History Furosemide [Lasix] 20 mg PO BID PRN 07/16/22 09/07/23 History Potassium Chloride ER [K-Dur 10] 10 meq PO BID PRN 07/16/22 09/07/23 History Mometasone Furoate [Elocon Cream 1 applic TOPICAL DAILY PRN 11/26/22 09/07/23 History 0.1%] Tamsulosin [Flomax] 0.4 mg PO DAILY PRN 11/26/22 09/07/23 History Acetaminophen Tab [Tylenol] 1,000 mg PO Q6H PRN 08/11/23 09/07/23 History Ascorbic Acid [Vitamin C] 1,000 mg PO DAILY@0700 08/11/23 09/07/23 History Calcium Carbonate/Vitamin D3 2 cap PO DAILY@0700 08/11/23 09/07/23 History [Calcium 600 mg-D3 10 Mcg (400 Iu)] Cholestyramine/Aspartame 4 gm PO DAILY@0600 08/11/23 09/07/23 History [Cholestyramine Light Packet] Clobetasol Propionate [Clobex 1 applic TOPICAL BID PRN 08/11/23 09/07/23 History 0.05% Soln] Mv-Min/Folic/Vit K/Lut/Gkqi535 1 cap PO QAM 08/11/23 09/07/23 History [Alive Women's 50 Plus Tablet] Nystatin 100,000 Unit/gm Powd 1 applic TOPICAL BID PRN 08/11/23 09/07/23 History [Mycostatin Powder] Sucralfate [Carafate] 1 gm PO BID@0700,1600 08/11/23 09/07/23 History Vitamin A Acetate [Vitamin A] 3,000 mcg PO DAILY@0700 08/11/23 09/07/23 History Allergies Allergy/AdvReac Type Severity Reaction Status Date / Time cephalexin [From Keflex] Allergy Swelling Verified 09/07/23 14:59 morphine Allergy Dyspnea Verified 09/07/23 14:59 NSAIDS (Non-Steroidal AdvReac has Verified 09/07/23 14:59 Anti-Inflamma bleeding ulcers, cant take Surgical - Exam Vital Signs Temp Pulse Resp BP Pulse Ox 98 F 65 16 157/77 98 09/07/23 15:01 09/07/23 15:01 09/07/23 15:01 09/07/23 15:01 09/07/23 15:01
[2023-09-07] MEDS ORDERED: LIDOCAINE 1% INJ 10MG/ML (20 ML MDV) ONE (16:48)
[2023-09-07] MEDS ORDERED: fentaNYL (PF) 50 MCG/ML 2 ML AMP ONE (16:48)
[2023-09-07] MEDS ORDERED: MIDAZOLAM 2 MG/2 ML VIAL ONE (16:48)
[2023-09-07] MEDS ORDERED: ceFAZolin 1 GM/50 ML BAG (PMX) ONE (16:48)
[2023-09-07] MEDS ORDERED: PROPOFOL 10 MG/ML 20 ML VIAL IV ONE (16:48)
[2023-09-07] MEDS ORDERED: SUCCINYLCHOLINE CHLORIDE 200 MG/10 ML VIAL IV ONE (16:48)
[2023-09-07] MEDS: SODIUM CHLORIDE 0.9% 100 ML with ceFAZolin 3,000 MG IV ONE (17:00)
[2023-09-07] MEDS: LIDOCAINE 1%-EPI 1:100,000 50 ML VIAL SQ ONE (17:09)
[2023-09-07 18:02] LABS: Glucose,Whole Blood 145 mg/dL (70-110)
--- NOTE | 2023-09-07 18:27 | P.OP ---
Date of Procedure: 09/07/23 Description of Procedure: SURGEON: JESSICA BROWN MD LOCOMOTIVE MECHANIC APPRENTICE: NONE. PREOPERATIVE DIAGNOSES: 1. Right upper quadrant abdominal wall mass, 6 cm 2. Intractable right upper quadrant abdominal wall pain due to abdominal wall mass 3. History of Neris-en-Y gastric bypass. 4. Osteoarthritis of the hips. 5. Osteoarthritis of the lower back. 6. Obstructive sleep apnea. 7. Hypertensive heart disease. 8. Gastroesophageal reflux disease. 9. Diabetes type 2, rby-lyexwcd-[id number], uncontrolled, improved 10. Seizure disorder 11. Depressive disorder 12. Asthma 13. Bipolar disorder 14. Vitamin D deficiency 15. Iron deficiency anemia 16. Hypertriglyceridemia 17. Hypercholesterolemia 18. Status post gastric bypass 19. Panniculitis 20. Morbid obesity due to excess calories 21. Body mass index of 58.4 down to 46.6 22. Osteoarthritis of the knees. POSTOPERATIVE DIAGNOSES: 1. Right upper abdominal wall tumor, 4.5 centimeters, subcutaneous 2. Intractable right upper quadrant abdominal wall pain due to abdominal wall mass 3. History of Neris-en-Y gastric bypass. 4. Osteoarthritis of the hips. 5. Osteoarthritis of the lower back. 6. Obstructive sleep apnea. 7. Hypertensive heart disease. 8. Gastroesophageal reflux disease. 9. Diabetes type 2, qxa-ermserg-cewcbwcpq, uncontrolled, improved 10. Seizure disorder 11. Depressive disorder 12. Asthma 13. Bipolar disorder 14. Vitamin D deficiency 15. Iron deficiency anemia 16. Hypertriglyceridemia 17. Hypercholesterolemia 18. Status post gastric bypass 19. Panniculitis 20. Morbid obesity due to excess calories 21. Body mass index of 58.4 down to 46.6 22. Osteoarthritis of the knees. OPERATION: 1. Excision of right upper quadrant abdominal wall mass, subcutaneous, 4.5 cm. 2. Intermediate closure right upper abdominal wall incision, 6 cm ANESTHESIA: General local anesthetic ESTIMATED BLOOD LOSS: 10 mL. SPECIMENS REMOVED: Abdominal wall tumor COMPLICATIONS: None. FINDINGS: 1. Subcutaneous deep right upper abdominal wall tumor, 4.5 cm, excised INDICATIONS: The patient is a 58-year-old female who presents with a painful right upper abdominal wall tumor. Surgical options, including excision was discussed. Benefits and risks were described. Informed consent was obtained. DESCRIPTION OF PROCEDURE: Patient was brought into the operating room, laid in supine position. After adequate general, the abdomen was prepped and draped in standard sterile fashion using ChloraPrep. A timeout protocol was confirmed with the surgical team regarding patient's name including procedures to be performed. Next, field block using local anesthetic was administered along the right upper abdomen with a palpable mass. An incision 6 cm was made. Using electro- Bovie cautery, the tumor was excised deep to the subcutaneous tissue. Hemostasis was checked with electro- Bovie cautery. The specimen invaginated and was passed off. Next the wound was closed in layers using 0 Vicryl for the deep subcutaneous tissue followed by a running subcuticular suture of 3-0 Monocryl. Exofin tape with glue was placed as a final third layer. The skin was cleansed and Optifoam silver dressing was applied. At the end of the procedure, needle, sponge, and instrument count had been verified correct by the surgical technology instructor. The patient was taken to the postanesthesia care unit in stable condition. Plan - Discharge Summary Discharge Rx Participant: Yes New Discharge Prescriptions: Continue Sertraline [Zoloft] 100 mg PO HS@2000 Baclofen [Lioresal] 20 mg PO BID PRN PRN Reason: Pain Biotin 5 mg PO DAILY@0700 oxyBUTYnin chloride [Ditropan XL] 10 mg PO QAM Potassium Chloride ER [K-Dur 10] 10 meq PO BID PRN PRN Reason: with taking lasix for edema Mometasone Furoate [Elocon Cream 0.1%] 1 applic TOPICAL DAILY PRN PRN Reason: EARS Vitamin A Acetate [Vitamin A] 3,000 mcg PO DAILY@0700 Calcium Carbonate/Vitamin D3 [Calcium 600 mg-D3 10 Mcg (400 Iu)] 2 cap PO DAILY@0700 Ascorbic Acid [Vitamin C] 1,000 mg PO DAILY@0700 Cholestyramine/Aspartame [Cholestyramine Light Packet] 4 gm PO DAILY@0600 Acetaminophen Tab [Tylenol] 1,000 mg PO Q6H PRN PRN Reason: Pain rOPINIRole HCL [Requip] 0.5 mg PO HS@2000 Levothyroxine Sodium 150 mcg PO QAM Cetirizine HCl [Zyrtec] 10 mg PO DAILY PRN PRN Reason: Sinus Congestion Fluticasone Nasal [place] [Flonase Nasal [place]] 1 - 2 spray EA NOSTRIL BID PRN PRN Reason: Allergy Symptoms Furosemide [Lasix] 20 mg PO BID PRN PRN Reason: Edema Tamsulosin [Flomax] 0.4 mg PO DAILY PRN PRN Reason: urinary issues Sucralfate [Carafate] 1 gm PO BID@0700,1600 Nystatin 100,000 Unit/gm Powd [Mycostatin Powder] 1 applic TOPICAL BID PRN PRN Reason: Rash, skin folds Mv-Min/Folic/Vit K/Lut/Nxvb630 [Alive Women's 50 Plus Tablet] 1 cap PO QAM Clobetasol Propionate [Clobex 0.05% Soln] 1 applic TOPICAL BID PRN PRN Reason: scalp Discharge Medication List Baclofen [Lioresal] 20 mg PO BID PRN 03/11/22 [History] Biotin 5 mg PO DAILY@0700 03/11/22 [History] Sertraline [Zoloft] 100 mg PO HS@199903/11/22 [History] rOPINIRole HCL [Requip] 0.5 mg PO HS@199903/11/22 [History] Cetirizine HCl [Zyrtec] 10 mg PO DAILY PRN 04/09/22 [History] Fluticasone Nasal [place] [Flonase Nasal [place]] 1 - 2 spray EA NOSTRIL BID PRN 04/09/22 [History] Levothyroxine Sodium 150 mcg PO QAM 04/09/22 [History] oxyBUTYnin chloride [Ditropan XL] 10 mg PO QAM 04/09/22 [History] Furosemide [Lasix] 20 mg PO BID PRN 07/16/22 [History] Potassium Chloride ER [K-Dur 10] 10 meq PO BID PRN 07/16/22 [History] Mometasone Furoate [Elocon Cream 0.1%] 1 applic TOPICAL DAILY PRN 11/26/22 [History] Tamsulosin [Flomax] 0.4 mg PO DAILY PRN 11/26/22 [History] Acetaminophen Tab [Tylenol] 1,000 mg PO Q6H PRN 08/11/23 [History] Ascorbic Acid [Vitamin C] 1,000 mg PO DAILY@0708/11/23 [History] Calcium Carbonate/Vitamin D3 [Calcium 600 mg-D3 10 Mcg (400 Iu)] 2 cap PO DAILY@0700 08/11/23 [History] Cholestyramine/Aspartame [Cholestyramine Light Packet] 4 gm PO DAILY@0600 08/11/23 [History] Clobetasol Propionate [Clobex 0.05% Soln] 1 applic TOPICAL BID PRN 08/11/23 [History] Mv-Min/Folic/Vit K/Lut/Dktw186 [Alive Women's 50 Plus Tablet] 1 cap PO QAM 08/11/23 [History] Nystatin 100,000 Unit/gm Powd [Mycostatin Powder] 1 applic TOPICAL BID PRN 08/11/23 [History] Sucralfate [Carafate] 1 gm PO BID@0700,1600 08/11/23 [History] Vitamin A Acetate [Vitamin A] 3,000 mcg PO DAILY@0700 08/11/23 [History] Follow up App[facility]ment(s[facility] [facility] [place] - 09/11/23 9:00 am Patient Instructions/Handouts: *Surgery [facility] - (Anesthesia) Discharge Instructions Outpatient Surgery, Lipoma Removal (GEN) Activity/Diet/Wound Care/Special Instructions: DO NOT REMOVE DRESSING May shower. No bath tub soaks or swimming for two weeks until September 20 Diet as tolerated. Use Tylenol scheduled for the next 24-48 hours for best pain relief. Use ice along incisions for today to prevent swelling. Discharge Disposition: HOME SELF-CARE
[2023-09-07 19:08] VITALS: BP 112/55; PULSE 75
[2023-09-07] MEDS ORDERED: HEPARIN SODIUM,PORCINE 5,000 UNIT/ML 1 ML VIAL SQ SCH (21:00)
== END 2023-09-07 19:05 | disposition home or self-care (01) ==
LOC: OR 14:34
PROVIDERS: ATTEND Surgery Plastic and Reconstructive Surgery
DX: D17.1 Benign lipomatous neoplasm of skin and subcutaneous tissue of trunk (principal); M16.0 Bilateral primary osteoarthritis of hip; M47.816 Spondylosis without myelopathy or radiculopathy, lumbar region; Z98.84 Bariatric surgery status; G47.33 Obstructive sleep apnea (adult) (pediatric); I11.9 Hypertensive heart disease without heart failure; E11.9 Type 2 diabetes mellitus without complications; K21.9 Gastro-esophageal reflux disease without esophagitis; F31.9 Bipolar disorder, unspecified; J45.909 Unspecified asthma, uncomplicated; G40.909 Epilepsy, unspecified, not intractable, without status epilepticus; D50.9 Iron deficiency anemia, unspecified; E55.9 Vitamin D deficiency, unspecified; E78.00 Pure hypercholesterolemia, unspecified; E78.1 Pure hyperglyceridemia; E66.01 Morbid (severe) obesity due to excess calories; Z68.42 Body mass index [BMI] 45.0-49.9, adult; M79.3 Panniculitis, unspecified; M17.0 Bilateral primary osteoarthritis of knee; Z79.890 Hormone replacement therapy; Z79.899 Other long term (current) drug therapy; Z88.1 Allergy status to other antibiotic agents; Z88.6 Allergy status to analgesic agent; Z88.5 Allergy status to narcotic agent; Z90.49 Acquired absence of other specified parts of digestive tract; Z87.891 Personal history of nicotine dependence
CPT/HCPCS: 88304; 22903; J2250; J0330; J1644; J1100; J2405; J0690 ×2; J2001; J3010; J2704

== ENCOUNTER → 2023-09-11 | Outpatient (CLI) | payer BC ==
--- NOTE | 2023-09-11 09:22 | P.BASOAP ---
Subjective Progress Note Date: 09/11/23 Complains of itching from dressing. External dressing discontinued. Recommend follow-up in 2 weeks with dietitian was in counseling. Labs being obtained including for adjustment of thyroid. Will help her get back on track for weight loss. No infection. Assessment/Plan Plan: Date: Initial Weight: 138.845 kg Initial BMI: Current Weight: Current BMI: Type of Surgery: Total Volume in Band: Previous Volume: Volume Removed: Volume Added: Band Size:
[2023-09-11 10:04] VITALS: BP 137/83; PULSE 74; TEMP 98.1; BMI 45.9
[2023-09-11 11:23] LABS: INR 0.9 (<1.2); Partial Thromboplastin Time 24.5 sec (22.0-30.0); Prothrombin Time 10.4 sec (10.0-12.5)
[2023-09-11 15:49] LABS: HGB 13.3 g/dL (12.0-15.0); MCH 28.5 pg (27.0-32.0); MCHC 30.9 g/dL (32.0-37.0); MCV 92.3 FL (80.0-97.0); Mean Platelet Volume 10.4 FL (9.5-12.2); NRBC Per 100 WBC 0 X 10*3/uL (0.00-0.01); Platelet Count 223 X 10*3/uL (140-440); RBC 4.66 X 10*6/uL (4.10-5.20); RDW 13.8 % (11.5-14.5); WBC 5.89 X 10*3/uL (4.50-10.00)
[2023-09-11 15:52] LABS: Prealbumin 17.2 mg/dL (18.0-42.0)
[2023-09-11 16:11] LABS: % Iron Saturation 15.32 (12.00-45.00); ALT 28 U/L (8-44); AST 32 U/L (13-35); Albumin 4.2 g/dL (3.8-4.9); Albumin/Globulin Ratio 1.62 Ratio (1.60-3.17); Alkaline Phosphatase 128 U/L (41-126); Blood Urea Nitrogen 13.3 mg/dL (9.0-27.0); Calcium 10.2 mg/dL (8.7-10.3); Carbon Dioxide 26.4 mmol/L (21.6-31.8); Chloride 105 mmol/L (96-109); Chol/HDL Ratio 3.07 Ratio; Globulin 2.6 g/dL (1.6-3.3); Glucose 88 mg/dL (70-110); Iron 53 UG/DL (50-170); LDL Cholesterol,Calculated 82.5 mg/dL (0.0-131.0); Phosphorus 3.4 mg/dL (2.4-5.1); Potassium 4.5 mmol/L (3.5-5.5); Sodium 143 mmol/L (135-145); Total Bilirubin 0.5 mg/dL (0.3-1.2); Total Iron Binding Capacity 346 UG/DL (228-460); Total Protein 6.8 g/dL (6.2-8.2)
[2023-09-15 07:03] LABS: Vitamin A 49 ug/dL (38-106)
[2023-09-15 09:42] LABS: Vit B1(Thiamine) 82 ug/L (38-122)
[2023-09-16 07:29] LABS: Selenium 134 mcg/L (63-160)
== END ==
LOC: BARWHC3 08:50
PROVIDERS: ATTEND Surgery Plastic and Reconstructive Surgery
DX: Z48.817 Encounter for surgical aftercare following surgery on the skin and subcutaneous tissue (principal); E66.01 Morbid (severe) obesity due to excess calories; E89.1 Postprocedural hypoinsulinemia; D50.8 Other iron deficiency anemias; K90.89 Other intestinal malabsorption; E55.9 Vitamin D deficiency, unspecified; K74.1 Hepatic sclerosis; N19 Unspecified kidney failure; T56.894A Toxic effect of other metals, undetermined, initial encounter; K50.90 Crohn's disease, unspecified, without complications; E07.9 Disorder of thyroid, unspecified; L29.9 Pruritus, unspecified; Z87.891 Personal history of nicotine dependence; Z86.14 Personal history of Methicillin resistant Staphylococcus aureus infection; Z88.5 Allergy status to narcotic agent; Z88.1 Allergy status to other antibiotic agents; Z88.8 Allergy status to other drugs, medicaments and biological substances; Z68.42 Body mass index [BMI] 45.0-49.9, adult; Z79.890 Hormone replacement therapy
CPT/HCPCS: 80053; 80061; 82306; 82525; 82607; 82728; 83036; 83540; 83550; 83970; 84100; 84134; 84255; 84425; 84443; 84590; 85027; 85610; 85730; 99211

== ENCOUNTER → 2023-09-23 | Outpatient (CLI) | payer BC ==
--- NOTE | 2023-09-23 16:23 | P.BASOAP ---
Subjective Progress Note Date: 09/23/23 Protein intake less than 30 grams....need double protein intake. Her incision is good the right lower quadrant. She reports LUQ pain and gas pain. She reports pain to her. Has pain back recent 2 to 3 days ago. Objective - Vital Signs Vital signs: Vital Signs Temp 98 F 09/23/23 16:14 Pulse 80 09/23/23 16:14 Resp BP 125/77 09/23/23 16:14 Pulse Ox FiO2 Intake & Output 09/22/23 09/23/23 09/23/23 18:59 06:59 18:59 Weight 123.377 kg Assessment/Plan Plan: Date: 09/23/23 Initial Weight: 138.845 kg Initial BMI: 50.9 Current Weight: 123.377 kg Current BMI: 45.2 Type of Surgery: Total Volume in Band: Previous Volume: Volume Removed: Volume Added: Band Size:
[2023-09-23 16:51] VITALS: BP 125/77; PULSE 80; TEMP 98; BMI 45.2
== END ==
LOC: BARWHC3 16:05
PROVIDERS: ATTEND Surgery Plastic and Reconstructive Surgery
DX: E66.01 Morbid (severe) obesity due to excess calories (principal); R10.12 Left upper quadrant pain; R14.1 Gas pain; Z87.891 Personal history of nicotine dependence; Z68.42 Body mass index [BMI] 45.0-49.9, adult; Z88.1 Allergy status to other antibiotic agents; Z88.5 Allergy status to narcotic agent; Z88.8 Allergy status to other drugs, medicaments and biological substances
CPT/HCPCS: 99211

== ENCOUNTER → 2024-09-20 | Outpatient (CLI) | payer BC | END | disposition home or self-care (01) | LOC: LABPAT 13:55 | PROVIDERS: ATTEND Orthopaedic Surgery | DX: Z01.812 Encounter for preprocedural laboratory examination (principal); M17.12 Unilateral primary osteoarthritis, left knee; Z22.322 Carrier or suspected carrier of Methicillin resistant Staphylococcus aureus | CPT/HCPCS: 87070 ==

== ENCOUNTER → 2024-09-29 | Outpatient (CLI) | payer BC ==
[2024-09-29 15:03] LABS: Basophils # (A) 0.08 X 10*3/uL (0.00-0.10); Basophils % (A) 0.9 %; Eosinophils # (A) 0.23 X 10*3/uL (0.04-0.35); Eosinophils % (A) 2.7 %; HCT 43.8 % (37.2-46.3); HGB 13.7 g/dL (12.0-15.0); Lymphocytes % (A) 29.3 %; MCH 28.6 pg (27.0-32.0); MCHC 31.3 g/dL (32.0-37.0); MCV 91.4 FL (80.0-97.0); Mean Platelet Volume 9.9 FL (9.5-12.2); Monocytes # (A) 0.63 X 10*3/uL (0.20-1.00); Monocytes % (A) 7.4 %; NRBC Per 100 WBC 0 X 10*3/uL (0.00-0.01); Neutrophils # (A) 5.06 X 10*3/uL (1.80-7.70); Neutrophils % (A) 59.5 %; Platelet Count 276 X 10*3/uL (140-440); RBC 4.79 X 10*6/uL (4.10-5.20); RDW 14.1 % (11.5-14.5); WBC 8.52 X 10*3/uL (4.50-10.00)
[2024-09-29 15:36] LABS: Carbon Dioxide 24.6 mmol/L (21.6-31.8); Chloride 104 mmol/L (96-109); Glucose 88 mg/dL (70-110); Potassium 4.3 mmol/L (3.5-5.5); Sodium 140 mmol/L (135-145)
[2024-09-29 16:01] LABS: INR 0.97 sec (0.93-1.11); Prothrombin Time 10.9 sec (9.9-11.9)
== END | disposition home or self-care (01) ==
LOC: LABPAT 08:43
PROVIDERS: ATTEND Orthopaedic Surgery
DX: Z01.812 Encounter for preprocedural laboratory examination (principal); M17.12 Unilateral primary osteoarthritis, left knee
CPT/HCPCS: 80048; 85025; 85610

== ENCOUNTER 2024-10-11 08:17 | Day surgery (SDC) | payer BC ==
[2024-10-07 08:39] VITALS: BMI 45.7
--- NOTE | 2024-10-10 08:26 | P.HPOR ---
History of Present Illness H&P Date: 10/10/24 Chief Complaint: Left knee pain The patient is a 59-year-old female who presents with progressive left knee pain secondary to osteoarthrosis despite conservative treatment. She has tried medications in addition to previous injections without much relief. She has been working diligently on weight loss. She notes daily pain that limits her normal function and activities. Review of Systems Per HPI Past Medical History Past Medical History: Diabetes Mellitus, GERD/Reflux, Osteoarthritis (OA), Sleep Apnea/CPAP/BIPAP, Thyroid Disorder Additional Past Medical History / Comment(s): HX GASTRIC BYPASS, hx of sleep apnea-does not use c-pap, GERD & DIABETES RESOLVED WITH WT LOSS. CHRONIC SINUSITIS, HX RUPTURED RT EAR DRUM, KIDNEY STONES, COLON POLYPS, RLS, IRON INFUSIONS. 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 gastric bypass 03-17-19, heart cath-diagnostic ([facility]). R knee replacement Apr 2021. lysis of adhesions and appendectomy 11/17/22. lipoma excision 09/07/23 Past Anesthesia/Blood Transfusion Reactions: No Reported Reaction Additional Past Anesthesia/Blood Transfusion Reaction / Comment(s): hx of blood transfusion- no reactions Smoking Status: Former smoker - Past Family History Mother Family Medical History: No Reported History Sister(s) Family Medical History: Cancer Additional Family Medical History / Comment(s): Uterine CA, mets to lungs Medications and Allergies Home Medications Medication Instructions Recorded Confirmed Type Baclofen [Lioresal] 20 mg PO BID PRN 03/11/22 10/06/24 History Sertraline [Zoloft] 100 mg PO HS@199903/11/22 10/06/24 History rOPINIRole HCL [Requip] 0.5 mg PO HS@199903/11/22 10/06/24 History Cetirizine HCl [Zyrtec] 10 mg PO DAILY PRN 04/09/22 10/06/24 History Fluticasone Nasal [place] [Flonase 1 - 2 spray EA NOSTRIL BID PRN 04/09/22 10/06/24 History Nasal [place]] Levothyroxine Sodium 200 mcg PO QAM 04/09/22 10/06/24 History oxyBUTYnin chloride [Ditropan XL] 10 mg PO QAM 04/09/22 10/06/24 History Furosemide [Lasix] 20 mg PO BID PRN 07/16/22 10/06/24 History Mometasone Furoate [Elocon Cream 1 applic TOPICAL DAILY PRN 11/26/22 10/06/24 History 0.1%] Tamsulosin [Flomax] 0.4 mg PO DAILY PRN 11/26/22 10/06/24 History Acetaminophen Tab [Tylenol] 1,000 mg PO Q6H PRN 08/11/23 10/06/24 History Calcium Carbonate/Vitamin D3 2 cap PO DAILY@0700 08/11/23 10/06/24 History [Calcium 600 mg-D3 10 Mcg (400 Iu)] Clobetasol Propionate [Clobex 1 applic TOPICAL BID PRN 08/11/23 10/06/24 History 0.05% Soln] Mv-Min/Folic/Vit K/Lut/Wvby060 1 cap PO QAM 08/11/23 10/07/24 History [Alive Women's 50 Plus Tablet] Nystatin 100,000 Unit/gm Powd 1 applic TOPICAL BID PRN 08/11/23 10/06/24 History [Mycostatin Powder] Vitamin A Acetate [Vitamin A] 3,000 mcg PO DAILY@0700 08/11/23 10/06/24 History Allergies Allergy/AdvReac Type Severity Reaction Status Date / Time cephalexin [From Keflex] Allergy Swelling Verified 10/06/24 15:34 morphine Allergy Dyspnea Verified 10/06/24 15:34 NSAIDS (Non-Steroidal AdvReac has Verified 10/06/24 15:34 Anti-Inflamma bleeding ulcers, cant take Physical Examination - Knee left Appearance: effusion Varus alignment in stance: 5 degrees Tenderness with palpation: medial Pain: throughout ROM Gait: limping ROM: extension: -5 degrees ROM: flexion: 100 degrees Strength: extension: 5/5 Strength: flexion: 5/5 Meniscal tests: medial meniscal tests: positive, medial joint line pain: positive Results The patient is a well-developed well-nourished female approximately 5 foot 6, 272 pounds of endomorphic habitus. HEENT exam is nonfocal, neck is supple. She has painless passive motion of the left hip. Straight leg raise is negative. She tender about the medial joint line of the left knee. Collateral stable, Ruchi's negative, Jonel's is equivocal. She has an antalgic gait pattern. Her distal neurovascular exam appears intact in the left lower extremity. - Diagnostic results Knee x-ray: image reviewed (X-rays of the left knee obtained in the office show severe medial compartment osteoarthrosis with subchondral sclerosis and [id number] changes.) Assessment and Plan Assessment: Left knee severe medial and patellofemoral compartment osteoarthrosis Obesity Plan: I talked to the patient at length regarding her condition along with treatment options. At this point she is quite symptomatic having pain and mechanical symptoms secondary to her left knee osteoarthrosis despite conservative measures. After a thorough discussion she opts to proceed with surgery. We will plan to proceed with a left total knee arthroplasty. Risks and benefits were discussed at length in layman's terms. We will institute DVT prophylaxis postoperatively.
[~2024-10-11 08:17] MED LIST changes: -Pre Op ABX Message 1 EACH MISC MISCELLANE ONE; -fentaNYL (PF) 50 MCG/ML 2 ML AMP IV PRN; +fentaNYL (PF) 50 MCG/ML 2 ML AMP IVP PRN
[2024-10-11] MEDS: IV FLUID CONTINUATION 1,000 ML IV ONE ×2 (08:41→15:20)
[2024-10-11] MEDS: LACTATED RINGERS 1,000 ML IV SCH (09:12)
[2024-10-11] MEDS: ONDANSETRON 4 MG/2 ML VIAL IVP ONE (09:13)
[2024-10-11] MEDS: DEXAMETHASONE SOD PHOSPHATE 4 MG/ML 1 ML VIAL IV ONE (09:13)
[2024-10-11] MEDS: MIDAZOLAM 2 MG/2 ML VIAL IV PRN (09:52)
--- NOTE | 2024-10-11 10:48 | P.ANPRN ---
Procedure Note - Anesthesia - Nerve Block Performed Left Adductor Canal Infusion Time Out Performed: Yes Date of Procedure: 10/11/24 Procedure Start Time: 09:52 Procedure Stop Time: 10:05 Location of Patient: PreOp Indication: Requested by Surgeon Specifically requested for management of pain by DrAmy: Alexy Christensen Sedation Type: Sedate with meaningful contact maintained Preparation: Sterile Prep, Sterile Dressing Position: Supine Catheter: Indwelling Needle Types: Pajunk Needle Gauge: 20 Ultrasound used to visualize needle placement: Yes Ultrasound used to observe medication spread: Yes Injectate: 0.5% Ropivacaine (see comment for volume) Blood Aspirated: No Pain Paresthesia on Injection Noted: No Resistance on Injection: Normal Image Stored and Saved: Yes Events: Uneventful and Well Tolerated (15 cc plus 2mg decadrone)
[2024-10-11] MEDS ORDERED: fentaNYL (PF) 50 MCG/ML 2 ML AMP ONE (10:58)
[2024-10-11] MEDS ORDERED: ROPIVACAINE 5 MG/ML 30 ML VIAL ONE (10:58)
[2024-10-11] MEDS ORDERED: MIDAZOLAM 2 MG/2 ML VIAL ONE (10:58)
[2024-10-11] MEDS ORDERED: NEOSTIGMINE 1 MG/ML 10 ML VIAL ONE (10:58)
[2024-10-11] MEDS ORDERED: SUCCINYLCHOLINE CHLORIDE 200 MG/10 ML VIAL IV ONE (10:58)
[2024-10-11] MEDS ORDERED: LIDOCAINE 1% INJ 10MG/ML (20 ML MDV) ONE (10:58)
[2024-10-11] MEDS ORDERED: ROCURONIUM 10 MG/ML (5 ML VIAL) IV ONE (10:58)
[2024-10-11] MEDS ORDERED: HYDROmorphone (PF) 1 MG/ML ONE (10:58)
[2024-10-11] MEDS ORDERED: GLYCOPYRROLATE 0.2 MG/ML 2 ML VIAL ONE (10:58)
[2024-10-11] MEDS ORDERED: PROPOFOL 10 MG/ML 20 ML VIAL IV ONE (10:58)
[2024-10-11] MEDS ORDERED: DEXAMETHASONE SOD PHOSPHATE 4 MG/ML 1 ML VIAL ONE (10:58)
[2024-10-11] MEDS ORDERED: TRANEXAMIC 1,000 MG/100ML-NACL PREMIX BAG ONE (10:58)
--- NOTE | 2024-10-11 10:58 | P.ANPRN ---
Procedure Note - Anesthesia - Nerve Block Performed Left iPack Single Time Out Performed: Yes Date of Procedure: 10/11/24 Procedure Start Time: 10:05 Procedure Stop Time: 10:15 Location of Patient: PreOp Indication: Acute Post-Operative Pain, Requested by Surgeon Specifically requested for management of pain by : Alexy Christensen Sedation Type: Sedate with meaningful contact maintained Preparation: Sterile Prep Position: Supine Catheter: None Needle Types: Pajunk Needle Gauge: 20 Ultrasound used to visualize needle placement: Yes Ultrasound used to observe medication spread: Yes Injectate: 0.5% Ropivacaine (see comment for volume) Blood Aspirated: No Pain Paresthesia on Injection Noted: No Resistance on Injection: Normal Image Stored and Saved: Yes Events: Uneventful and Well Tolerated (15 cc plus 2 mf decadrone)
[2024-10-11] MEDS: ceFAZolin 3 GM in SODIUM CHLORIDE 0.9% 100 ML IVPB PRN (11:03)
[2024-10-11] MEDS ORDERED: HYDROcodone/APAP 5-325MG 1 EACH TAB PO PRN (12:40)
[2024-10-11] MEDS ORDERED: HYDROmorphone 0.5 MG/0.5 ML SYRINGE IVP PRN (12:40)
[2024-10-11] MEDS ORDERED: NALOXONE 0.4 MG/ML 1 ML VIAL IV PRN (12:40)
[2024-10-11] MEDS ORDERED: MAGNESIUM HYDROXIDE 2,400 MG/30 ML CUP PO PRN (12:40)
--- NOTE | 2024-10-11 13:06 | P.OP ---
Date of Procedure: 10/11/24 Preoperative Diagnosis: Left knee severe tricompartment osteoarthrosis Postoperative Diagnosis: Same Procedure(s) Performed: Left total knee arthroplastycementedposterior stabilized Implants: DePuy attune size 6 narrow cemented femoral component, size 5 cemented tibial component with a 14 x 50 mm stem extension, 10 mm articular surface, 35 mm cemented patellar component. This is a posterior stabilized implant. Anesthesia: [facility], [facility] Surgeon: Alexy Christensen Veterinary Medical Officer #1: Jesse Brasher Estimated Blood Loss (ml): 50 Pathology: none sent Condition: stable Disposition: PACU Indications for Procedure: The patient is a 59-year-old female who presents with progressive left knee pain secondary to osteoarthrosis despite conservative measures. A discussion of the risks and benefits of operative intervention versus continued conservative measures was made with the patient. She opted to proceed with surgery. Operative risks include infection, neurovascular injury, development of blood clots, fracture, possible component loosening/failure, and possible need for subsequent procedures was discussed. Informed consent was obtained. Operative Findings: As below Description of Procedure: The patient was brought to the operating room, and after induction of spinal anesthesia the left lower extremity was prepped and draped in a normal fashion. The tourniquet was inflated to 270 mm marker. A longitudinal incision extending 3 finger breaths above the superior pole of patella extending to the medial aspect the tibial tubercle was then made. The skin and subcutaneous tissues were divided sharply. Electrocautery was used for hemostasis. A medial parapatellar arthrotomy was performed. The medial soft tissues to include the superficial and deep portions of the medial collateral ligament were elevated subperiosteally. The patella was everted. A portion of the retropatellar fat pad was excised sharply. The anterior cruciate ligament was sacrificed. Blunt retractors were placed. A starting hole was made in the distal femur 1 cm anterior to the posterior cruciate ligament origin. An intramedullary femoral guide was then inserted planning on 5 valgus distal cut with 9 mm distal resection. The cutting block was pinned in place. The distal cut was then made. The posterior referencing sizing guide was utilized. I felt size 6 narrow was most appropriate. 3 of external rotation was built into the system and verified off the trans-epicondylar axis and the posterior condyles. The cutting block was pinned in place. The anterior, posterior, and chamfer cuts then made. Bone fragments were removed. The intercondylar guide was placed and the notch cut was made with a sagittal saw. The bone block was removed in one fragment. The trial component was then placed. There is good anterior to posterior and medial to lateral fit. The distal peg holes were drilled. The trial component was removed. Attention was then paid towards preparing the proximal tibia. An extra medullary guide was utilized in line with the tibial shaft and second metatarsal distally. I planned on 2 mm resection from the medial compartment. The cutting block was pinned in place. The proximal tibial cut was then made. The bone was removed in one fragment. The remnants of the medial and lateral menisci were excised at the capsular junction with electrocautery. The tibia sized most appropriately at size 5. The trial femoral and tibial components were placed along with a 10 mm articular surface. I was able to obtain full flexion and extension with internal and external rotation. After several flexion and extension cycles, the tibial rotation was marked with electrocautery line with the medial one third of the tibial tubercle. Attention was then paid towards preparing the patella. A patella reamer was utilized taking stem to 14 mm of bone stock. A good flush cut was made. The patella sized most appropriately 35 mm. The peg holes were drilled. The trial components placed. I had good patellofemoral tracking with no hands technique. The trial components were then removed. The tibia was prepared in the appropriate rotation with appropriate drill and keel punch planning on a 14 mm x 50 mm stem extension. The posterior osteophytes were removed with a curved osteotome. The flexion and extension gaps were checked and felt to be symmetric at 10 mm. A trial components were then removed. The bony surfaces were prepared with pulsatile lavage and dried. The tibial component was then cemented place was fully seated. Excess cement was removed. The femoral component cemented place and was fully seated. Excess cement was removed. The trial 10 mm articular surface was placed and the knee was put in full extension. The patella component was cemented place. After the cement had sufficiently hardened, the knee was again taken through a range of motion. Again I was able to obtain full flexion and extension with varus and valgus stress. The trial 10 mm articular surface was removed and the final one inserted. This was fully seated. Care was taken to avoid any soft tissue interposition. Pulsatile lavage was again utilized. The medial parapatellar arthrotomy was closed with #2 Ethibond suture. The tourniquet was deflated with approximately 60 minutes total tourniquet time. Final hemostasis was obtained with the cautery. There was minimal bleeding therefore a deep drain was not placed. The subcutaneous tissues were reapproximated with interrupted 2-0 Vicryl sutures. The skin was reapproximated with 3-0 subcuticular strata fix suture. Skin tape and adhesive was applied. A sterile dressing was applied. The patient was awoken from sedation and transferred to recovery room in good condition. Blood loss was estimated at 50 mL. No complications were incurred. Sponge and needle counts were correct at the end of the case. Jesse TOMPKINS assisted during the major components of this case to include exposure, bone resection, implantation, and closure.
[2024-10-11] MEDS: ROPIVACAINE 1,100 MG, SODIUM CHLORIDE 0.9% 500 ML 330 ML, EMPTY PAIN BALL 1 EACH MISCELLANE PRN (13:19)
--- NOTE | 2024-10-11 13:38 | XR ---
EXAMINATION TYPE: XR knee limited LT DATE OF EXAM: 10/11/2024 1:33 PM INDICATION: Patient age:Female; 59 years old; Reason for study: Evaluation for Postop abnormality and alignment; PHH. pain COMPARISON: Left knee radiograph 06/27/2024 TECHNIQUE: The Left knee(s) was examined in frontal and lateral projections. FINDINGS: Status post total knee arthroplasty changes with hardware in appropriate alignment and in tact. No evidence of fracture. Subcutaneous lucencies and lucencies within the joint consistent with surgical changes. IMPRESSION: Status post total knee arthroplasty changes with hardware intact and appropriate alignment. No fractu res identified. [facility], , 10/11/2024 1:36 PM
[2024-10-11] MEDS: HYDROmorphone 0.5 MG/0.5 ML SYRINGE IVP PRN (13:42)
[2024-10-11] MEDS: HYDROcodone/APAP 7.5-325MG 1 EACH TAB PO PRN (18:10)
[2024-10-11] MEDS: ceFAZolin 3 GM in SODIUM CHLORIDE 0.9% 100 ML IVPB SCH (18:10)
[2024-10-11] MEDS ORDERED: ACETAMINOPHEN TAB 325 MG TAB PO PRN (19:12)
[2024-10-11] MEDS: BACLOFEN 10 MG TAB PO PRN (21:27)
[2024-10-11] MEDS: SERTRALINE 100 MG TAB PO SCH (21:27)
[2024-10-11] MEDS: SENNOSIDES-DOCUSATE SODIUM 1 EACH TAB PO SCH (21:27)
--- NOTE | 2024-10-11 22:43 | P.CONS ---
History of Present Illness - Reason for Consult Consult date: 10/11/24 Medical management - Chief Complaint Left knee arthroplasty - History of Present Illness Patient is a 59-year-old female with a known history of hypothyroidism, obstructive sleep apnea, restless leg syndrome and overactive bladder, panic disorder/anxiety and prior history of smoking. Patient also has history of gastric bypass. Patient is not using CPAP for obstructive sleep apnea. Patient was admitted to the hospital for elective left total knee arthroplasty. Status post left total knee arthroplastycementedposterior stabilized. Currently. Patient is complaining of pain and soreness at the surgical site. Denied any nausea or vomiting. No complaints of chest pain or shortness of breath. Heart rate went up to 104 today afternoon. No headache or dizziness and lightheadedness. Laboratory data is not available. Review of Systems Constitutional: Patient denies any fever or chills . No generalized weakness or weight loss. Abdomen: Patient denied nausea vomiting and diarrhea and abdominal pain. Cardiovascular: Patient denies any chest pain or short of breath no palpitations. Respiratory: patient denied any cough or sputum production. No shortness of breath Neurologic: Patient denied any numbness or tingling. no headache. Musculoskeletal: Patient denies any complaints of joint swelling or deformity. Left knee pain and soreness Skin: Negative Psychiatric: Negative Endocrine: No heat or cold intolerance. No recent weight gain. Genitourinary: No dysuria or hematuria. All other 14 point ROS negative except the above Past Medical History Past Medical History: Diabetes Mellitus, GERD/Reflux, Osteoarthritis (OA), Sleep Apnea/CPAP/BIPAP, Thyroid Disorder Additional Past Medical History / Comment(s): HX GASTRIC BYPASS, hx of sleep apnea-does not use c-pap, GERD & DIABETES RESOLVED WITH WT LOSS. CHRONIC SINUSITIS, HX RUPTURED RT EAR DRUM, KIDNEY STONES, COLON POLYPS, RLS, IRON INFUSIONS. Kidney stone and sepsis Mar 2022,lower leg swelling gastric ulcers, born w/ heart murmur History of Any Multi-Drug Resistant Organisms: MRSA Year Discovered:: 2009 MDRO Source:: RIGHT LEG Past Surgical History: Adenoidectomy, Appendectomy, Bariatric Surgery, Cholecystectomy, Heart Catheterization, Hernia Repair, Hysterectomy, Joint Replacement, Orthopedic Surgery, Tonsillectomy Additional Past Surgical History / Comment(s): B/L meniscus repairs, umbilical hernia repair, L EAR SX, kidney stone removal. gastric bypass 03-17-19, heart cath-diagnostic ([facility]). R knee replacement Apr 2021. lysis of adhesions and appendectomy 11/17/22. lipoma excision 09/07/23 Past Anesthesia/Blood Transfusion Reactions: No Reported Reaction Additional Past Anesthesia/Blood Transfusion Reaction / Comm: hx of blood transfusion- no reactions Past Psychological History: Panic Disorder Additional Psychological History / Comment(s): Managed on medication Smoking Status: Former smoker Past Alcohol Use History: None Reported Additional Past Alcohol Use History / Comment(s): QUIT SMOKING 2009, STARTED SMOKING AGE 15, SMOKED UP TO 1 1/2 PPD Past Drug Use History: None Reported - Past Family History Mother Family Medical History: No Reported History Sister(s) Family Medical History: Cancer Additional Family Medical History / Comment(s): Uterine CA, mets to lungs Medications and Allergies Home Medications Medication Instructions Recorded Confirmed Type Baclofen [Lioresal] 20 mg PO BID PRN 03/11/22 10/11/24 History Sertraline [Zoloft] 100 mg PO HS@199903/11/22 10/11/24 History rOPINIRole HCL [Requip] 0.5 mg PO HS@199903/11/22 10/11/24 History Cetirizine HCl [Zyrtec] 10 mg PO DAILY PRN 04/09/22 10/11/24 History Fluticasone Nasal [place] [Flonase 1 - 2 spray EA NOSTRIL BID PRN 04/09/22 10/11/24 History Nasal [place]] Levothyroxine Sodium 200 mcg PO QAM 04/09/22 10/11/24 History oxyBUTYnin chloride [Ditropan XL] 10 mg PO QAM 04/09/22 10/11/24 History Furosemide [Lasix] 20 mg PO BID PRN 07/16/22 10/11/24 History Mometasone Furoate [Elocon Cream 1 applic TOPICAL DAILY PRN 11/26/22 10/11/24 History 0.1%] Tamsulosin [Flomax] 0.4 mg PO DAILY PRN 11/26/22 10/11/24 History Acetaminophen Tab [Tylenol] 1,000 mg PO Q6H PRN 08/11/23 10/11/24 History Calcium Carbonate/Vitamin D3 2 cap PO DAILY@0700 08/11/23 10/11/24 History [Calcium 600 mg-D3 10 Mcg (400 Iu)] Clobetasol Propionate [Clobex 1 applic TOPICAL BID PRN 08/11/23 10/11/24 History 0.05% Soln] Mv-Min/Folic/Vit K/Lut/Tjlg089 1 cap PO QAM 08/11/23 10/11/24 History [Alive Women's 50 Plus Tablet] Nystatin 100,000 Unit/gm Powd 1 applic TOPICAL BID PRN 08/11/23 10/11/24 History [Mycostatin Powder] Vitamin A Acetate [Vitamin A] 3,000 mcg PO DAILY@0700 08/11/23 10/11/24 History Allergies Allergy/AdvReac Type Severity Reaction Status Date / Time cephalexin [From Keflex] Allergy Swelling Verified 10/11/24 08:50 morphine Allergy Dyspnea Verified 10/11/24 08:50 NSAIDS (Non-Steroidal AdvReac has Verified 10/11/24 08:50 Anti-Inflamma bleeding ulcers, cant take Physical Exam Vitals: Vital Signs Temp Pulse Pulse Resp BP Pulse Ox 10/11/24 19:14 98.2 F 104 H 19 113/68 95 10/11/24 16:25 98 126/79 97 10/11/24 16:05 93 123/74 10/11/24 15:52 97.4 F L 85 18 123/79 97 10/11/24 15:50 96 112/73 97 10/11/24 15:35 100 131/70 95 10/11/24 15:00 87 18 109/57 96 10/11/24 14:30 89 18 121/65 95 10/11/24 14:00 86 18 120/66 95 10/11/24 13:45 85 18 120/66 93 L 10/11/24 13:30 84 20 127/66 95 10/11/24 13:19 84 18 114/60 98 10/11/24 13:04 97.1 F L 86 16 122/59 94 L 10/11/24 10:21 71 16 121/74 96 10/11/24 08:56 97.6 F 77 18 138/63 98 Intake and Output 10/11/24 10/11/24 10/11/24 06:59 14:59 22:59 Intake Total 1100 200 Output Total 50 Balance 1050 200 Intake: IV 1100 200 Output: Estimated Blood Loss 50 Other: Voiding Method Toilet # Voids 1 Weight 127.5 kg 127.5 kg PHYSICAL EXAMINATION: Patient is lying in the bed,, no acute distress, awake alert and oriented. Morbidly obese. HEENT: Normocephalic. Neck is supple. Pupils reactive. Nostrils clear. Oral cavity is moist. Neck reveals no JVD, carotid bruits, or thyromegaly. CHEST EXAMINATION: Trachea is central. Symmetrical expansion. Bibasilar diminished sounds. Otherwise lung shen clear to auscultation and percussion. CARDIAC: Normal S1, S2 with no gallops. No murmurs ABDOMEN: Soft. Bowel sounds normal. No organomegaly. No abdominal bruits. Extremities: reveal no edema. No clubbing or cyanosis. Left lower extremity P[place]e wrapped. Neurologically awake, alert, oriented x3 with well-coordinated movements. No focal deficits noted Skin: No rash or skin lesions. Psychiatric: Coperative. Nonsuicidal Musculoskeletal: No joint swelling or deformity. Left lower extremity decreased range of motion. Assessment and Plan Assessment: Status post left total knee arthroplasty postoperative day 0 Hypothyroidism Diabetes type 2 not on any medications tight control. Overactive bladder Restless leg syndrome Anxiety and panic disorder History of renal stone removal History of gastric bypass surgery Prior history of smoking Morbid obesity BMI 46.8 GI and DVT prophylaxis as per primary team Plan: Patient will be continued on pain management, bowel regimen and encourage incentive spirometry. Start back on home medications. Follow-up CBC and BMP to [facility]. Further recommendations based on the clinical course. Thank you kindly for your consult.
[2024-10-11] MEDS ORDERED: TAMSULOSIN 0.4 MG CAP.ER.24H PO PRN (22:45)
[2024-10-12 02:08] VITALS: RESP 16
[2024-10-12] MEDS: HYDROmorphone 1 MG/ML 1 ML SYRINGE IVP PRN (02:25)
[2024-10-12] MEDS: hydrOXYzine pamoate 25 MG CAP PO PRN (06:36)
[2024-10-12] MEDS: CALCIUM CARB-VIT D 500 MG-5 MCG TAB PO SCH (06:36)
[2024-10-12] MEDS: LEVOTHYROXINE 100 MCG TAB PO SCH (06:36)
--- NOTE | 2024-10-12 07:22 | P.PN ---
Progress Note - Text Progress Note Date: 10/12/24 S/P Left total knee arthroplasty with AC catheter for poist op pain control. Pump rate is 8 cc/h. POD #1. Pain control is adequate. No anesthesia related complications.
[2024-10-12] MEDS: VITAMIN A 10,000 UNIT (3000 MCG) CAPSULE PO SCH (08:23)
[2024-10-12] MEDS: RIVAROXABAN 10 MG TAB PO SCH (08:24)
[2024-10-12] MEDS: OXYBUTYNIN 10 MG TAB.ER.24 PO SCH (08:24)
[2024-10-12 08:27] LABS: BUN/Creat Ratio 16.12 Ratio (12.00-20.00); Blood Urea Nitrogen 12.9 mg/dL (9.0-27.0); Calcium 9.1 mg/dL (8.7-10.3); Carbon Dioxide 21.2 mmol/L (21.6-31.8); Chloride 108 mmol/L (96-109); Glucose 141 mg/dL (70-110); Sodium 141 mmol/L (135-145)
[2024-10-12 08:31] LABS: Basophils # (A) 0.03 X 10*3/uL (0.00-0.10); Basophils % (A) 0.3 %; Eosinophils # (A) 0.02 X 10*3/uL (0.04-0.35); Eosinophils % (A) 0.2 %; HCT 34.2 % (37.2-46.3); HGB 10.8 g/dL (12.0-15.0); Lymphocytes # (A) 1.64 X 10*3/uL (0.90-5.00); Lymphocytes % (A) 14.3 %; MCH 28.4 pg (27.0-32.0); MCHC 31.6 g/dL (32.0-37.0); Mean Platelet Volume 10.2 FL (9.5-12.2); Monocytes # (A) 1.11 X 10*3/uL (0.20-1.00); Monocytes % (A) 9.7 %; NRBC Per 100 WBC 0 X 10*3/uL (0.00-0.01); Neutrophils # (A) 8.59 X 10*3/uL (1.80-7.70); Neutrophils % (A) 74.8 %; Platelet Count 255 X 10*3/uL (140-440); RDW 14.3 % (11.5-14.5); WBC 11.47 X 10*3/uL (4.50-10.00)
[2024-10-12 08:48] VITALS: BP 100/67; PULSE 86; TEMP 98.3
--- NOTE | 2024-10-12 09:34 | P.DS ---
Providers Date of admission: 10/11/2024 Expected date of discharge: 10/12/24 Attending physician: Alexy Christensen Consults: 10/11/24 12:40 Consult Physician Routine Consulting Provider: Mookie Martin Consult Reason/Comments: Medical management status post left total knee arthroplasty Do you want consulting provider notified?: Yes Primary care physician: Nancy Tidwell Hospital Course: Date of admission: 10/11/2024 Date of discharge: 10/12/2024 Admission diagnosis: Left knee osteoarthritis Discharge diagnosis: Same Attending physician: Dr. Christensen Surgical procedures: Left total knee arthroplasty Brief history: Patient is a 59-year-old female with a history of progressive primary left knee osteoarthritis. At this point patient has failed conservative treatment measures and has opted to proceed with a elective left total knee arthroplasty. Hospital course: Details of patient's surgery can be found in operative report. Patient tolerated the procedure well and was subsequently transported to orthopedic floor. Patient's orthopeidc and medical care was provided daily. Patient had daily laboratory tests performed for evaluation of overall blood counts. Patient had daily physical therapy to include strengthening range of motion as well as education with walker ambulation. Patient was treated with Xarelto for their postoperative DVT prophylaxis during their inpatient stay. Patient was noted to have a relatively uneventful postoperative course. Patient reported satisfactory pain control with oral pain medications by postoperative day 1. Patient showed satisfactory progress with physical therapy. Patient moved steadily through the program and had no difficulty meeting the goals by postoperative day 1. Given patient's otherwise satisfactory course and having met physical therapy goals, plan is to discharge patient home with health services on postoperative day 1. Discharge condition/disposition: Patient will be discharged home with health services in stable condition. Discharge medications: Instructions are given on resumption of patient's normal daily medications per primary care recommendation, in addition patient will be prescribed [place]; Eliquis; senna. Discharge instructions: 1. Wound care and infection precautions, keep incision dry and covered while showering, no lotions, creams, moisturizers. No soaking, tubs, pools, hottubs. Do not scrub over the incision. 2. Weight-bear as tolerated with walker / cane until follow-up. 3. Ice and elevate when necessary. Do not exceed 20 minutes per hour with ice pack. 4. Utilize compression sleeve until seen at first follow up appointment. 5. Visiting nursing care. 6. Home physical therapy including home CPM. 7. Pain meds and anticoagulants per prescription. 8. Pain medication has potential to cause constipation. Increase oral fluid and fiber intake. Contact primary care provider if you have not had a bowel movement within 48 hours after discharge 9. No anti-inflammatory medication until discussed at first post operative visit, this including Motrin, Aleve, Mobic, Diclofenac.. 10. Follow up in office at 2 weeks postop with Frank Miller PA-C / Jesse Brasher PA-C 11. Follow up with your primary care doctor 7-10 days after discharge. 12. Contact [facility] with any questions, . Assessment: Left knee osteoarthritis Procedures: Left total knee arthroplasty Patient Condition at Discharge: Good Plan - Discharge Summary Discharge Rx Participant: Yes New Discharge Prescriptions: New HYDROcodone/APAP 7.5-325MG [[place] 7.5-325] 1 - 2 tab PO Q6HR PRN #36 tab PRN Reason: Pain Apixaban [Eliquis] 2.5 mg PO BID #60 tab Sennosides/Docusate Sodium [Senna Plus 8.6-50 mg Softgel] 1 each PO DAILY #20 capsule No Action Sertraline [Zoloft] 100 mg PO HS@2000 Baclofen [Lioresal] 20 mg PO BID PRN PRN Reason: Pain oxyBUTYnin chloride [Ditropan XL] 10 mg PO QAM Mometasone Furoate [Elocon Cream 0.1%] 1 applic TOPICAL DAILY PRN PRN Reason: Psoriasis on ears Vitamin A Acetate [Vitamin A] 3,000 mcg PO DAILY@0700 Calcium Carbonate/Vitamin D3 [Calcium 600 mg-D3 10 Mcg (400 Iu)] 2 cap PO DAILY@0700 Acetaminophen Tab [Tylenol] 1,000 mg PO Q6H PRN PRN Reason: Pain rOPINIRole HCL [Requip] 0.5 mg PO HS@2000 Levothyroxine Sodium 200 mcg PO QAM Cetirizine HCl [Zyrtec] 10 mg PO DAILY PRN PRN Reason: Sinus Congestion Fluticasone Nasal [place] [Flonase Nasal [place]] 1 - 2 spray EA NOSTRIL BID PRN PRN Reason: Allergy Symptoms Furosemide [Lasix] 20 mg PO BID PRN PRN Reason: Edema Tamsulosin [Flomax] 0.4 mg PO DAILY PRN PRN Reason: urinary issues Nystatin 100,000 Unit/gm Powd [Mycostatin Powder] 1 applic TOPICAL BID PRN PRN Reason: Rash, skin folds Mv-Min/Folic/Vit [id number]/[id number] [Alive Women's 50 Plus Tablet] 1 cap PO QAM Clobetasol Propionate [Clobex 0.05% Soln] 1 applic TOPICAL BID PRN PRN Reason: scalp psoriasis Discharge Medication List Baclofen [Lioresal] 20 mg PO BID PRN 03/11/22 [History] Sertraline [Zoloft] 100 mg PO HS@199903/11/22 [History] rOPINIRole HCL [Requip] 0.5 mg PO HS@199903/11/22 [History] Cetirizine HCl [Zyrtec] 10 mg PO DAILY PRN 04/09/22 [History] Fluticasone Nasal [place] [Flonase Nasal [place]] 1 - 2 spray EA NOSTRIL BID PRN 04/09/22 [History] Levothyroxine Sodium 200 mcg PO QAM 04/09/22 [History] oxyBUTYnin chloride [Ditropan XL] 10 mg PO QAM 04/09/22 [History] Furosemide [Lasix] 20 mg PO BID PRN 07/16/22 [History] Mometasone Furoate [Elocon Cream 0.1%] 1 applic TOPICAL DAILY PRN 11/26/22 [History] Tamsulosin [Flomax] 0.4 mg PO DAILY PRN 11/26/22 [History] Acetaminophen Tab [Tylenol] 1,000 mg PO Q6H PRN 08/11/23 [History] Calcium Carbonate/Vitamin D3 [Calcium 600 mg-D3 10 Mcg (400 Iu)] 2 cap PO DAILY@0700 08/11/23 [History] Clobetasol Propionate [Clobex 0.05% Soln] 1 applic TOPICAL BID PRN 08/11/23 [History] Mv-Min/Folic/Vit K/Lut/[id number] [Alive Women's 50 Plus Tablet] 1 cap PO QAM 08/11/23 [History] Nystatin 100,000 Unit/gm Powd [Mycostatin Powder] 1 applic TOPICAL BID PRN 08/11/23 [History] Vitamin A Acetate [Vitamin A] 3,000 mcg PO DAILY@0700 08/11/23 [History] Apixaban [Eliquis] 2.5 mg PO BID #60 tab 10/12/24 [Rx] HYDROcodone/APAP 7.5-325MG [[place] 7.5-325] 1 - 2 tab PO Q6HR PRN #36 tab 10/12/24 [Rx] Sennosides/Docusate Sodium [Senna Plus 8.6-50 mg Softgel] 1 each PO DAILY #20 capsule 10/12/24 [Rx] Follow up Appointment(s)/Referral(s): Jesse Brasher, MOHS[facility] [PHYSICIAN JEEP MECHANIC] - 10/26/24 9:10 am Patient Instructions/Handouts: Knee Replacement (GEN) Activity/Diet/Wound Care/Special Instructions: Orthopedic Discharge Instructions: 1. Wound care and infection precautions, keep incision dry and covered while showering, no lotions, creams, moisturizers. No soaking, pools, hot tubs. Do not scrub over incision. 2. Weight-bear as tolerated with walker / cane until follow-up. 3. Ice and elevate when necessary. Do not exceed 20 minutes per hour with ice pack. 4. Utilize compression sleeve until seen at first follow up appointment. 5. Pain meds and anticoagulants per prescription. 6. Pain medication has potential to cause constipation. Increase oral fluid and fiber intake. Contact primary care provider if you have not had a bowel movement within 48 hours after discharge. 7. No anti-inflammatory medication until discussed at first post operative visit, this including Motrin, Aleve, Mobic, Diclofenac. 8. Follow up in office at 2 weeks postop with Frank Miller PA-C / Jesse Brasher PA-C 9. Follow up with your primary care doctor 7-10 days after discharge. 10. Contact [facility] with any questions, . Discharge Disposition: HOME WITH HOME HEALTH SERVICES
--- NOTE | 2024-10-12 09:43 | P.PN ---
Subjective Progress Note Date: 10/12/24 Principal diagnosis: Left knee osteoarthritis Patient was seen at bedside this morning lying in summary composition with On-Q ball in place as well as dressing in place over left knee. Patient says she is looking forward to working with therapy later this morning. Patient says she has been urinating since surgery yesterday without issue. No bowel yet, however, patient states she has been passing gas. Patient says she does have family to help her out when she is home. Patient states she does have a walker at home. Patient denies any other issues at this time. Objective - Vital Signs Vital signs: Vital Signs Temp 98.3 F 10/12/24 07:50 Pulse 86 10/12/24 07:50 Resp 16 10/12/24 07:50 BP 100/67 10/12/24 07:50 Pulse Ox 94 L 10/12/24 07:50 FiO2 Intake & Output 10/11/24 10/12/24 10/12/24 18:59 06:59 18:59 Intake Total 1300 Output Total 50 Balance 1250 Weight 127.5 kg Intake: IV 1300 Output: Estimated Blood Loss 50 Other: Voiding Method Toilet # Voids 1 3 - Exam Left knee: Incision is clean, dry, and intact. The exofin fusion tape is in good condition. There is minimal soft tissue swelling and ecchymosis surrounding the medial and lateral aspects of the incision. Calf is soft, no tenderness with palpation. Plantar flexion, dorsiflexion, EHL, FHL are intact. Sensory exam to light touch throughout the extremity is intact, dorsal pedis pulses 2+. - Labs CBC & Chem 7: 10/12/24 03:35 10/12/24 03:35 Labs: Abnormal Lab Results - Last 24 Hours (Table) 10/12/24 10/12/24 Range/Units 03:35 03:35 WBC 11.47 H (4.50-10.00) X 10*3/uL RBC 3.80 L (4.10-5.20) X 10*6/uL Hgb 10.8 L (12.0-15.0) g/dL Hct 34.2 L (37.2-46.3) % MCHC 31.6 L (32.0-37.0) g/dL Immature Gran # 0.08 H (0.00-0.04) X 10*3/uL Neutrophils # 8.59 H (1.80-7.70) X 10*3/uL Monocytes # 1.11 H (0.20-1.00) X 10*3/uL Eosinophils # 0.02 L (0.04-0.35) X 10*3/uL Carbon Dioxide 21.2 L (21.6-31.8) mmol/L Glucose 141 H (70-110) mg/dL Assessment and Plan Assessment: 1. Left knee osteoarthritis -Postop day 1 status post left total knee arthroplasty Plan: 1. Left knee osteoarthritis -left total knee arthroplasty performed yesterday, 10/11/2024. Patient stable at bedside this morning. Patient does have a walker for home. Pain medication as needed. Pending working with PT/OT and doing stairs, discharge home today with health services. 2. Appreciate medical management 3. Pain management -Tiff 4. DVT prophylaxis -Xarelto in hospital. Going home with Eliquis 2.5 mg twice daily x 2 weeks 5. GI prophylaxis -senna 6. PT/OT -weightbearing as tolerated with walker 7. Encourage incentive spirometer use 8. Discharge planning - Pending working with PT/OT and doing stairs, discharge home today with health services. Time with Patient: Less than 30
== END 2024-10-12 11:23 | disposition home health service (06) ==
LOC: OR 08:17 → 4SSUR 13:04 → OR 10-12 11:23
PROVIDERS: ATTEND Orthopaedic Surgery
DX: M17.12 Unilateral primary osteoarthritis, left knee (principal); E03.9 Hypothyroidism, unspecified; E11.9 Type 2 diabetes mellitus without complications; E66.01 Morbid (severe) obesity due to excess calories; F41.0 Panic disorder [episodic paroxysmal anxiety]; G25.81 Restless legs syndrome; G47.33 Obstructive sleep apnea (adult) (pediatric); G89.18 Other acute postprocedural pain; N32.81 Overactive bladder; Z68.42 Body mass index [BMI] 45.0-49.9, adult; Z79.01 Long term (current) use of anticoagulants; Z79.51 Long term (current) use of inhaled steroids; Z79.890 Hormone replacement therapy; Z86.0100 Personal history of colon polyps, unspecified; Z87.891 Personal history of nicotine dependence; Z88.1 Allergy status to other antibiotic agents; Z88.6 Allergy status to analgesic agent; Z90.49 Acquired absence of other specified parts of digestive tract; Z90.710 Acquired absence of both cervix and uterus; Z96.653 Presence of artificial knee joint, bilateral; Z98.84 Bariatric surgery status; Z99.89 Dependence on other enabling machines and devices
CPT/HCPCS: 97161; 64448; 64474; 80048; 85025; 73560; 27447; C1713 ×2; C1776; C1751; J2250; J1100; J0690 ×2; J2405; J1171 ×2; J2795